=== PATIENT | male | born 1950 | race Caucasian/White ===

== ENCOUNTER 2021-12-25 10:22 | Inpatient (IN) | payer MEDICARE, SELFPAY ==
[2021-12-25] VITALS (18 sets, daily range): BP systolic 121–166; BP diastolic 61–108; PULSE 58–78; RESP 14–21; TEMP 36.3–36.8; O2SAT 92–98; BMI 39.2; BMI 37.8
--- NOTE | 2021-12-25 10:42 | EKG12_ITS ---
Test Reason : PALP Blood Pressure : / mmHG Vent. Rate : 061 BPM Atrial Rate : 061 BPM P-R Int : 160 ms QRS Dur : 178 ms QT Int : 476 ms P-R-T Axes : -44 -58 013 degrees QTc Int : 479 ms Possible ectopic atrial rhythm Right bundle branch block Left anterior fascicular block Bifascicular block Voltage criteria for left ventricular hypertrophy Abnormal ECG Confirmed by VANI QUINTERO, VINCE ([id number]), writer editor ANTONIO DÍAZ ([id number]) on 12/26/2021 9:45:27 AM Referred By: SAAD Confirmed By:VINCE LUDWIG MD
--- NOTE | 2021-12-25 10:42 | RAD_ITS ---
STUDY: X-RAY CHEST REASON FOR EXAM: Male, 71 years old. Sob TECHNIQUE: Single AP portable view of the chest. COMPARISON: None. FINDINGS: EKG electrodes are seen. Mild degree of increased markings at the left lung base suggestive of either atelectasis and/or infiltrate. There is no demonstrated pleural abnormality. Normal size heart. Normal mediastinum and jose r. Normal visualized pulmonary arteries. There is atherosclerotic tortuosity of the aortic arch and descending thoracic aorta. There are diffuse degenerative changes of the visualized thoracic spine. Normal visualized ribs, clavicles, and shoulders. There is no demonstrated abnormality of the visualized soft tissue structures of the upper abdomen. RAD/Chest 1 View (Portable) IMPRESSION: Mild degree of increased markings in the posterior medial segment of the left lower lobe suggestive of atelectasis and/or early infiltrate. Electronically Signed: Salinas Griffith MD at 12:49 EST ,
[2021-12-25 10:53] LABS: Absolute Lymphocyte Count 2.94 X10^3/uL (0.83-4.51); Absolute Neutrophil Count 5.8 X10^3/uL (2.0-7.7); Basophil# 0.06 X10^3/uL; Basophil% 0.6 % (0-1); Eosinophil# 0.36 X10^3/uL; Eosinophils% 3.7 % (0-5); Hematocrit 39.2 % (40-54); Hemoglobin 12.9 g/dL (13.0-16.5); Lymphocyte # 2.94 X10^3/ul (0.83-4.51); Lymphocyte % 29.8 % (19-41); Mean Corp Hgb Conc 32.9 g/dL (32-36); Mean Corpuscular Hgb 29.8 pg (27.0-32.0); Mean Corpuscular Volume 90.5 fL (80-94); Mean Platelet Vol. 10.7 fl (6.2-12.0); Monocyte# 0.61 X10^3/uL; Monocyte% 6.2 % (0-10); NRBC Flagged by Analyzer 0 % (0-5); Neutrophil # 5.84 X10^3/uL (2.7-7.7); Neutrophil % 59.3 % (47-70); Platelet Count 184 K/mm3 (150-450); RBC Distribution Width CV 13.8 % (11.6-14.6); RBC Distribution Width SD 45.3 fl (35.1-43.9); Red Blood Count 4.33 M/mm3 (4.6-6.2); White Blood Count 9.9 K/mm3 (4.4-11.0)
--- NOTE | 2021-12-25 10:57 | EDS_ITS ---
HPI History of Present Illness Chief Complaint: Palpitations Narrative Narrative: Patient presents from outpatient stress test, he was in the middle of a Lexiscan stress and developed asystole, CPR was performed and now patient is back to sinus rhythm, he had routine stress for an abnormal EKG. As of now he has no chest pain is asymptomatic. [facility] Medical History Allergic rhinitis Hernia Hyperlipemia Hypertension Hypothyroid Impotence Incontinence Malignant neoplasm of prostate Morbid obesity Pain in joint, lower leg Prostate cancer Pulmonary hypertension RBBB Rosacea SOB (shortness of breath) Type II diabetes mellitus Home Medications albuterol 90 mcg INHALATION Q4H PRN PRN 12/25/21 [History Last Taken Unknown] aspirin [Aspir-81] 81 mg PO DAILY 12/25/21 [History Last Taken Unknown] cinnamon bark 2,000 mg PO BID 12/25/21 [History Last Taken Unknown] dextromethorphan-guaifenesin [Mucinex DM] 1 tab PO Q12H 12/25/21 [History Last Taken Unknown] docosahexaenoic acid-epa [Fish Oil (with DHA-EPA)] 1 cap PO DAILY 12/25/21 [History Last Taken Unknown] dulaglutide [Trulicity] 3 mg SUBCUT QWEEK 12/25/21 [History Last Taken Unknown] enalapril maleate [Vasotec] 10 mg PO DAILY 12/25/21 [History Last Taken Unknown] epinephrine [Epi E-Z Pen] 0.3 mg IM Q4H PRN 12/25/21 [History Last Taken Unkn own] insulin glargine [Basaglar KwikPen U-100 Insulin] 35 unit SUBCUT BID 12/25/21 [History Last Taken Unknown] levothyroxine 100 mcg PO DAILY 12/25/21 [History Last Taken Unknown] metformin 1,000 mg PO BID 12/25/21 [History Last Taken Unknown] multivitamin [Multi-Daily] 1 tab PO DAILY 12/25/21 [History Last Taken Unknown] rosuvastatin [Crestor] 20 mg PO DAILY 12/25/21 [History Last Taken Unknown] Allergy/AdvReac Type Severity Reaction Status Date / Time amoxicillin Allergy Other Verified 12/25/21 10:29 erythromycin base Allergy Other Verified 12/25/21 10:29 simvastatin Allergy Other Verified 12/25/21 10:29 sunflower seed Allergy Swelling Verified 12/25/21 10:29 Surgical History H/O prostatectomy Social History Smoking Status: Never smoker ROS ROS ED ROS Narrative Past medical history: Reviewed Medications: Reviewed Social history: Noncontributory Review of systems: All systems negative except as indicated General: No fever. Period of unresponsiveness secondary to asystole Eyes: No visual changes ENT: No upper airway congestion, normal voice Neck: No neck pain Cardiovascular: No chest pain Respiratory: He has had some exertional dyspnea recently Gastrointestinal: No abdominal pain, nausea vomiting or diarrhea Genitourinary: No dysuria Musculoskeletal: Denies myalgias no difficulty with ambulation Skin: No rash Neurological: No memory loss, confusion or any focal weakness Psych: No recent behavioral changes Hematologic: No easy bleeding or easy bruising EXAM Physical Exam Narrative Exam Narrative: Physical exam General: Well nourished, Well developed, No Acute Distress. He seems quite comfortable in bed. Head: Normocephalic, Atraumatic Eyes: Conjunctiva not pale ENT: Moist mucous membranes Neck: Supple, Nontender, No lymphadenopathy Cardiovascular: Regular rate, Regular rhythm Respiratory: No distress, CTA bilaterally Abdomen: Soft, Nontender, Nondistended Back: Nontender, Normal Inspection. Negative for: CVA tenderness Extremities: Nontender, No edema Skin: Normal color, No rash Neurological: Alert, Normal Strength, Normal Sensation Psychological: Normal affect Const Vital Signs: 12/25/21 10:24 12/25/21 10:38 Temperature 97.4 F L Temperature Source Temporal Pulse Rate 64 Respiratory Rate 20 H Respiratory Effort Normal Non-Labored Respiratory Pattern Normal Blood Pressure 139/64 H Blood Pressure Mean 89 Pulse Ox 92 Oxygen Delivery Method Room Air Heart Score History: Moderately Suspicious ECG: Nonspecific Repolarization Age: >/= 65 years Risk Factors: >/= 3 Risk Factors or History of CAD Troponin: >1 - <3 Normal Limit Score: 7 MDM MDM MDM Narrative Medical decision making narrative: Patient is asymptomatic the EKG does not show a STEMI, it does show a bifascicular block. Regardless the patient was due to be transferred to [facility] however the paramedics brought him to our emergency department. Patient now wants to stay here. I talked to our cardiology team, who will accept the patient in fact I will try to do a catheterization later today. As of now patient is asymptomatic. Lab Data Labs: Laboratory Results - last 24 hr 12/25/21 10:30 WBC 9.9 RBC 4.33 L Hgb 12.9 L Hct 39.2 L MCV 90.5 MCH 29.8 MCHC 32.9 RDW Std Deviation 45.3 H RDW Coeff of Uziel 13.8 Plt Count 184 MPV 10.7 Immature Gran % (Auto) 0.400 Neut % (Auto) 59.3 Lymph % (Auto) 29.8 Banks % (Auto) 6.2 Eos % (Auto) 3.7 Baso % (Auto) 0.6 Absolute Neuts (auto) 5.8 Absolute Lymphs (auto) 2.94 Nucleated RBC % 0 EKG Initial EKG: Comments: Sinus rhythm with a rate of 61. Normal [place] and QTc intervals. Bifascicular block is present. Interpreted by emergency doctor Discharge Plan Triage Chief Complaint: Palpitations ED Provider: Jude Ramirez Dx/Rx/DC Orders Clinical Impression: Asystole, Coronary artery disease Prescriptions: No Action multivitamin [Multi-Daily] Tablet 1 tab PO DAILY RF: 0 enalapril maleate [Vasotec] 10 mg Tablet 10 mg PO DAILY RF: 0 aspirin [Aspir-81] 81 mg Tablet,Delayed Release (Dr/Ec) 81 mg PO DAILY RF: 0 levothyroxine 100 mcg Tablet 100 mcg PO DAILY RF: 0 metformin 1,000 mg Tablet 1,000 mg PO BID RF: 0 albuterol 90 mcg/actuation Aerosol 90 mcg INHALATION Q4H PRN PRN (Reason: sob) RF: 0 epinephrine [Epi E-Z Pen] 0.3 mg/0.3 mL Auto-Injector 0.3 mg IM Q4H PRN (Reason: Allergic Reaction) RF: 0 Mucinex DM 30-600 mg Tablet Extended Release 12 Hr 1 tab PO Q12H RF: 0 Fish Oil (with DHA-EPA) Capsule 1 cap PO DAILY RF: 0 rosuvastatin [Crestor] 20 mg Tablet 20 mg PO DAILY RF: 0 cinnamon bark 500 mg Capsule 2,000 mg PO BID RF: 0 Basaglar KwikPen U-100 Insulin 100 unit/mL (3 mL) Insulin Pen 35 unit SUBCUT BID RF: 0 Trulicity 3 mg/0.5 mL Pen Injector 3 mg SUBCUT QWEEK RF: 0 Primary Care Provider: Connor Fuller Referrals: Connor Fuller MD [Primary Care Provider] - Disposition Disposition: Acute Care [facility]
[2021-12-25 11:04] LABS: ALB/GLOB Ratio 1.1 RATIO (0.9-2.4); AST(SGOT) 20 U/L (15-37); Alanine Aminotransfer ALT/SGPT 35 U/L (16-61); Albumin, Serum 3.5 g/dL (3.2-5.0); Alkaline Phosphatase 58 U/L (45-117); Anion Gap 4 (5-15); BUN 24 mg/dL (7-18); BUN/Creat Ratio 25.5 RATIO (10-20); Calcium,Total 8.7 mg/dL (8.5-10.1); Chloride 109 mmol/L (98-107); Creatinine, Serum 0.94 mg/dL (0.70-1.30); EST Glomerular Filtration Rate 84 mL/min (>60); Est Glom Filt Rate - Afr Amer 101 mL/min (>60); Estimated Creatinine Clearance 79.11 ml/min; Globulin 3.2 g/dL (2.2-4.2); Glucose 144 mg/dL (74-106); Potassium 4.1 mmol/L (3.5-5.1); Protein, Total 6.7 g/dL (6.4-8.2); Sodium Level 140 mmol/L (136-145); Troponin-I HS 8 pg/mL (3.0-78.0)
--- NOTE | 2021-12-25 11:26 | ED.RN ---
Spoke to Essence, patient , permission from patient to do so.
--- NOTE | 2021-12-25 11:36 | PCM.HP.STD ---
HPI - General General Date of Admission: 12/25/21 Date of Service: 12/25/21 HPI Narrative STEFFANY SUE, is a 71 M who was brought to ER from stress test lab when he had a sudden cardiac arrest in the stress test lab by EMS. Patient said he had IV injection most probably Lexiscan for stress test thereafter he felt dizzy and does not remember. Patient was found to have cardiac arrest and ACLS protocol was followed. The duration was very brief for about 45 seconds and ROSC was achieved with CPR only. Patient did not require AP or other maneuvers. Patient was brought to ED and as per ER physician patient denies any chest pain pressure or shortness of breath and he felt like normal. EMS EKG and ED EKG reviewed. Normal sinus rhythm bifascicular block RBBB, LAFB, LAD at 61 beats per read. QRS 178 ms. QTc 479 ms. Patient had blood work on 12/[address] [facility] and A1c 6.7. Patient also said he had a stress and echo in 2019 the report of which is not available at this time but he was told that they were normal. Patient has history of diabetes mellitus type 2 and hypertension. Denies prior MS/coronary artery disease or cardiac stent. Patient denies history of smoking or COPD or other chronic lung disease. History of prostate cancer for which he had prostatectomy in 2005. In ED, vitals are in normal range. Labs reviewed. Chest x-ray shows left lower lobe atelectasis/early infiltrate. Clinically, the patient does not have fever cough or signs symptoms of pneumonia PFSH Medical History Allergic rhinitis Hernia Hyperlipemia Hypertension Hypothyroid Impotence Incontinence Malignant neoplasm of prostate Morbid obesity Pain in joint, lower leg Prostate cancer Pulmonary hypertension RBBB Rosacea SOB (shortness of breath) Type II diabetes mellitus Home Medications albuterol 90 mcg INHALATION Q4H PRN PRN 12/25/21 [History Last Taken Unknown] aspirin [Aspir-81] 81 mg PO DAILY 12/25/21 [History Last Taken Unknown] cinnamon bark 2,000 mg PO BID 12/25/21 [History Last Taken Unknown] dextromethorphan-guaifenesin [Mucinex DM] 1 tab PO Q12H 12/25/21 [History Last Taken Unknown] docosahexaenoic acid-epa [Fish Oil (with DHA-EPA)] 1 cap PO DAILY 12/25/21 [History Last Taken Unknown] dulaglutide [Trulicity] 3 mg SUBCUT QWEEK 12/25/21 [History Last Taken Unknown] enalapril maleate [Vasotec] 10 mg PO DAILY 12/25/21 [History Last Taken Unknown] epinephrine [Epi E-Z Pen] 0.3 mg IM Q4H PRN 12/25/21 [History Last Taken Unknown] insulin glargine [Basaglar KwikPen U-100 Insulin] 35 unit SUBCUT BID 12/25/21 [History Last Taken Unknown] levothyroxine 100 mcg PO DAILY 12/25/21 [History Last Taken Unknown] metformin 1,000 mg PO BID 12/25/21 [History Last Taken Unknown] multivitamin [Multi-Daily] 1 tab PO DAILY 12/25/21 [History Last Taken Unknown] rosuvastatin [Crestor] 20 mg PO DAILY 12/25/21 [History Last Taken Unknown] Allergy/AdvReac Type Severity Reaction Status Date / Time amoxicillin Allergy Other Verified 12/25/21 10:29 erythromycin base Allergy Other Verified 12/25/21 10:29 simvastatin Allergy Other Verified 12/25/21 10:29 sunflower seed Allergy Swelling Verified 12/25/21 10:29 Surgical History H/O prostatectomy Social History Smoking Status: Never smoker ROS ROS Narrative Constitutional: No fever or chills. Mild fatigue after cardiac arrest. HEENT: Reports systems reviewed and no addt'l complaints, except as documented Respiratory/Chest: Denies chest pain, shortness of breath at rest. Shortness of breath on moderate to severe exertion last 2 years. Gastrointestinal: Denies coffee ground emesis, hematemesis or vomiting Genitourinary: Denies burning urination or new urinary tract symptoms. Urinary incontinence and impotence after prostate surgery Musculoskeletal: Reports joint pain and limited range of motion Neurologic: Denies seizure-like activity skin: No ulcer. No rash Endocrinology: Reports systems reviewed and no addt'l complaints, except as documented Hematologic/Lymphatic: Reports systems reviewed and no addt'l complaints, except as documented Rest 14 ROS are negative except as mentioned in HPI Vital Signs Vital Signs Vital Signs: 12/25/21 10:24 12/25/21 10:38 12/25/21 11:24 Temperature 97.4 F L Temperature Source Temporal Pulse Rate 64 61 Respiratory Rate 20 H 16 Respiratory Effort Normal Non-Labored Respiratory Pattern Normal Blood Pressure 139/64 H 123/65 H Blood Pressure Mean 89 84 Pulse Ox 92 94 Oxygen Delivery Method Room Air Room Air Weight Weight: 289 lb 3.944 oz Body Mass Index (BMI) 39.2 Physical Exam Narrative General: Alert, Oriented x3, Cooperative, morbid obese BMI 39.2 kg/m? HEENT: Atraumatic, PERRLA, EOMI, Normocephalic Oral: No Gingival or Mucosal Lesions/ Ulcerations Neck: Supple, No JVD, Negative Carotid Bruits Lungs: Air entry diminished in bilateral lung bases. No crepitation/rhonchi. No hypoxia/tachypnea Cardiovascular: Regular rate, Regular Rhythm, Normal S1, Normal S2, No murmurs Abdomen: Bowel Sounds Present, Soft, Non Tender, Non-Distended : No renal angle tenderness. No suprapubic tenderness. Extremities: Mild bilateral ankle pitting edema, Capillary Refill Less than 3 Seconds Skin: No rashes, No breakdown Musculoskeletal: No Tenderness to Palpation of Joints or Extremities Neurological: Cranial nerves II-XII grossly intact, DTR 2+/4 and Symmetrical, Neuro grossly intact Psych/Mental Status: Flat affect. Results Lab / Micro Data Result Diagrams: 12/25/21 10:30 12/25/21 10:30 Labs: Laboratory Results - last 24 hr 12/25/21 10:30: WBC 9.9, RBC 4.33 L, Hgb 12.9 L, Hct 39.2 L, MCV 90.5, MCH 29.8, MCHC 32.9, RDW Std Deviation 45.3 H, RDW Coeff of Uziel 13.8, Plt Count 184, MPV 10.7, Immature Gran % (Auto) 0.400, Neut % (Auto) 59.3, Lymph % (Auto) 29.8, Garza % (Auto) 6.2, Eos % (Auto) 3.7, Baso % (Auto) 0.6, Absolute Neuts (auto) 5.8, Absolute Lymphs (auto) 2.94, Nucleated RBC % 0 12/25/21 10:30: Sodium 140, Potassium 4.1, Chloride 109 H, Carbon Dioxide 27.0, Anion Gap 4 L, BUN 24 H, Creatinine 0.94, Estim Creat Clear Calc 79.11, Est GFR (MDRD) Af Amer 101, Est GFR (MDRD) Non-Af 84, BUN/Creatinine Ratio 25.5 H, Glucose 144 H, Calcium 8.7, Total Bilirubin 0.30, AST 20, ALT 35, Alkaline Phosphatase 58, Troponin I High Sens 8, Total Protein 6.7, Albumin 3.5, Globulin 3.2, Albumin/Globulin Ratio 1.1 Assessment & Plan Assessment/Plan (1) Asystole: PLAN: 1. Syncope and cardiac arrest during Lexiscan nuclear stress test with bifascicular block: Patient is being admitted in stepdown unit, PCU. Cardiac monitoring. Patient is states he had previous EKG by [facility] about 6 months ago and had bifascicular block. Obtain medical record from [facility]. Nursing Education Consultant is consulted. Plan for cardiac cath today. Patient had aspirin in ED. Cycle troponin enzymes. 2D echo is ordered. Fasting profile, TSH tomorrow a.m. Patient was given option for [facility] but he wants to stay here for further work-up. He knows that if cardiac cath shows triple vessel disease or need CABG or other cardiac surgery will need to go to tertiary care center/[facility] in clinic. 2. Diabetes mellitus type 2: A1c was 6.7 on 12/20/2021. Glucose 144. Accu-Chek insulin coverage with Humalog sliding scale. On insulin glargine 30 5 subcutaneous twice daily and Trulicity 3 mg weekly. 3. Hypertension: Blood pressure is controlled. Patient on enalapril 10 mg daily at home. 4. Dyslipidemia: On rosuvastatin 20 mg daily at home. 5. Morbid obesity: BMI 39.2 kg/m?. Weight loss counseling done. Senior Compensation Consultant consult. VT prophylaxis: Lovenox 40 mg subcu daily Living will/advanced directive/end of life care: Patient does have living will or advanced directive. His is power of aviation technician for health. After discussion of benefits/risks procedures involved with full code, DNR CC arrest and DNR CC, the patient opted for full code. Patient does want artificial life support including intubation, tube feed, ventilator and/chest compression, central venous catheter, vasopressor and DC shock if needed Total time spent in [id number] encounter in discussion of advanced directive 16 minutes. Charges/Coding Visit Charges Inpatient E&M: 06900 Init Hosp L3 Procedures Hospitalists Procedures: 55159 Advncd Care Plan 30 Min
--- NOTE | 2021-12-25 12:30 | CM.ED ---
SW/CM Note Patient: Bharathi Vargas No family present Patient confirmed the demographic sheet including address and insurance. Patient reports she has a HCPOA and Living Will at home. SW encouraged him to advise family to bring the paperwork to the hospital so it could be scanned into the computer. PCP: Jonny Specialist: None Insurance: [employer] [place] [employer] [place] RX Insurance[place] [employer] [place] [employer] [place] Readmits: Patient reports no past admissions to [facility] or [facility]. Name of Pharmacy: [facility] [place] [facility] [place] Lives with : and daughter. is currently on vacation in [place] and patient said that he is not sure what she will do in regards to the vacation. Son resides in [place] and daughter resides with him and his at the home. Living Arrangements: One Story house with basement. One step into the house. Steps to basement. Patient uses the basement. ADL: Patient is independent in his ADL's. Employed: Patient works 6 days a week 10 hours a day at [employer]. He reports he enjoys the job. Patient reports that he feels safe at home. No alcohol use Transportation: Patient drives. Current DME: Patient reports that both toilets have the higher toilet seats and they also have safety rails. No home oxygen. No previous Home Health Services RN CM to follow for any discharge needs Padmini CELAYA
--- NOTE | 2021-12-25 13:34 | EKG12_ITS ---
Test Reason : Blood Pressure : / mmHG Vent. Rate : 065 BPM Atrial Rate : 065 BPM P-R Int : 122 ms QRS Dur : 184 ms QT Int : 470 ms P-R-T Axes : -04 -70 028 degrees QTc Int : 488 ms Normal sinus rhythm with sinus arrhythmia Right bundle branch block Left anterior fascicular block Bifascicular block Left ventricular hypertrophy with QRS widening Abnormal ECG When compared with ECG of 25-DEC-2021 10:31, MANUAL COMPARISON REQUIRED, DATA IS UNCONFIRMED Confirmed by VANI QUINTERO, VINCE ([id number]), multimedia editor ANTONIO DÍAZ ([id number]) on 12/27/2021 9:55:16 AM Referred By: NANCY Confirmed By:VINCE LUDWIG MD
--- NOTE | 2021-12-25 13:34 | ECHOCS_ITS ---
Reason For Study: ASYSTOLE Procedure This was a 2D Doppler, Color Flow transthoracic echocardiogram. The study was technically limited. The study was technically difficult. Due to body habitus. Contrast injection was performed. Exam performed portable in patient room. Left Ventricle Normal LV size. Left ventricular systolic function is normal. The estimated ejection fraction is 65 %. No regional wall motion abnormalities noted. Right Ventricle Normal RV size. Normal systolic function. Atria Normal left atrium. Normal right atrium. Mitral Valve Mitral valve not well visualized. Tricuspid Valve The tricuspid valve is not well visualized. Aortic Valve The aortic valve is not well visualized. Pulmonic Valve The pulmonic valve is not well visualized. Great Vessels Normal aortic root. Pericardium/Pleural No pericardial effusion. Medication Diluted definity 4.0ml given slow IV push to enhance endocardial definition. MMode/2D Measurements & Calculations LVIDd: 4.3 cm IVSd: 1.3 cm LA dimension: 4.0 cm LVIDs: 2.8 cm LVPWd: 1.3 cm FS: 33.9 % Time Measurements MV dec time: 0.27 sec Doppler Measurements & Calculations MV E max subhash: 89.9 cm/sec Lat Peak E' Subhash: 7.5 cm/sec Med Peak E' Subhash: 6.5 cm/sec MV A max subhash: 101.0 cm/sec E/E' lat: 12.0 E/E' med: 13.9 MV E/A: 0.89 Ao V2 max: 130.6 cm/sec LV V1 max: 77.6 cm/sec PA V2 max: 85.5 cm/sec Ao max P.8 mmHg LV V1 max P.4 mmHg TR max subhash: 192.2 cm/sec TR max P.8 mmHg ECHO/Echo Complete W/ Contrast Interpretation Summary Normal LV size. Left ventricular systolic function is normal. The estimated ejection fraction is 65 %. Contrast injection was performed. Ordering Physician: Adilson Alfonso Referring Physician: Parish Fuller Performed By: Damaris Merida RDCS, RVT
--- NOTE | 2021-12-25 14:15 | NURSING ---
transferred off floor to director of cardiac cath lab via Emile Simon director of cardiac cath lab RN
[2021-12-25 14:21] LABS: Bedside Glucose 93 mg/dL (74-106)
[2021-12-25 14:38] LABS: Troponin-I HS 11 pg/mL (3.0-78.0)
--- NOTE | 2021-12-25 15:14 | CL.D_ITS ---
Patient Name: STEFFANY SUE Study Date: 12/25/2021 Performing: Darian Rodas MD Ht: 72 inches 183 cm : 1950 Wt: 280.4 lbs 127 kg Age: 71 Gender: male BSA: 2.46 PROCEDURE(S) PERFORMED DC01-(30585)LHC/COR/LV CLINICAL PROFILE AND INDICATIONS Indications: Suspected CAD Heart Failure: None Stress/Imaging Date: 12/25/2021 CAD Presentations: Symptom unlikely to be ischemic. CONCLUSIONS Coronary disease with a totally occluded right coronary artery with left to right collaterals. Mild disease noted in the left anterior descending artery and circumflex artery. RECOMMENDATIONS Medical therapy DESCRIPTION OF PROCEDURE The patient arrived to the procedure lab. The risks and benefits of the procedure as well as a full d escription of our services here and current unavailability of surgical backup were fully explained to the patient and/or their significant other prior to the catheterization. The Timeout was completed, verifying the correct patient and procedure. The patient's procedural site was prepped and draped in the usual fashion. Local anesthetic was given subcutaneously to right radial region with Lidocaine 2% . Using a modified Seldinger technique, arterial access was obtained via the right radial artery, a 6 Fr sheath was inserted. Left Coronary Artery selective angiography was performed in multiple views u sing a 5 Fr. 4.0 Madison catheter. Right Coronary Artery selective angiography was then performed in mu ltiple views using a 5 Fr. 4.0 Madison catheter.The arterial sheath was pulled and a TR Band was applie d for hemostasis CORONARY ANGIOGRAPHY DOMINANCE: Right Dominant LEFT HEART ASSESSMENT Left Ventricular Ejection Fraction: by Echo 50 % Normal LV wall motion LEFT MAIN: Mild calcification, Angiographically normal LEFT ANTERIOR DESCENDING ARTERY: Mild luminal irregularities less than 30% CIRCUMFLEX ARTERY: Mild luminal irregularities less than 30% RIGHT CORONARY ARTERY: OSTIAL RCA: is occluded COLLATERAL FLOW: Collateral flow from Left to Right AORTIC ROOT: Dilated COMPLICATIONS No Complications PROCEDURE MEDICATIONS Versed 1 mg IV Fentanyl 50 mcg IV Versed 1 mg IV Oxygen: 2 L/min via nasal cannula Heparin given IA 12/25/2021 14:49:21 SUMMARY OF HEMODYNAMIC DATA Time AIR REST ECG 14:39:47 AO 107/69 (88) SA 14:50:27 Signed By Darian Rodas MD On 12/25/2021 15:13:11 Darian Rodas MD
--- NOTE | 2021-12-25 15:16 | CON.PCM.CA_ITS ---
Assessment & Plan Assessment/Plan (1) Asystole: PLAN: Patient was noted to have developed asystole following pharmacologic stress testing. I would recommend that we observe him. The above is likely secondary to his underlying right bundle branch block and left anterior fascicular block. This may have been exacerbated by the adenosine. (2) Coronary artery disease: PLAN: He does not previously have a known history of coronary artery disease however due to the reaction with the adenosine he underwent a cardiac catheterization today demonstrating the following: Dilated aortic root. Normal left main coronary artery. Left anterior descending artery with mild to moderate diffuse disease. Left circumflex artery with mild to moderate diffuse disease. Left to right collaterals noted. Totally occluded proximal right coronary artery Echocardiogram demonstrated preserved left ventricular systolic function. Thank you for allowing me to participate in the care of your patient. Please don't hesitate to call if any issues arise. HPI Consult Data Date of Consult: 12/25/21 HPI Narrative HPI Narrative: STEFFANY SUE, is a 71 M who presents to ER from stress test lab at the [facility] in [place] where he was undergoing a pharmacologic stress test. He underwent a Lexiscan stress test and says that he felt dizzy and does not remember what happened. He apparently had a cardiac arrest and ACLS protocol was followed the duration was brief for about 45 seconds and return of spontaneous circulation was achieved with CPR. The patient is noted to have a normal sinus rhythm with a right bundle branch block and a left anterior fascicular block with a rate of 61 bpm. He was brought to the emergency room here in [place] ostensibly with the idea of transferring him to a tertiary care facility. He does have a history of hypertension, hyperlipidemia, diabetes mellitus. I was called to evaluate him and it was felt that he could be evaluated here. His physical exam here was unremarkable. [facility] Medical History (Updated 12/25/21 @ 16:04 by Monica Ocasio) Allergic rhinitis Atherosclerotic heart disease of [place] coronary artery without angina pectoris Essential hypertension Hernia Hyperlipemia Hypothyroid Impotence Incontinence Malignant neoplasm of prostate Morbid obesity Pain in joint, lower leg Prostate cancer Pulmonary hypertension RBBB Right bundle branch block (RBBB) with left anterior fascicular block Rosacea SOB (shortness of breath) Type II diabetes mellitus Home Medications albuterol 90 mcg INHALATION Q4H PRN PRN 12/25/21 [History Last Taken Unknown] aspirin [Aspir-81] 81 mg PO DAILY 12/25/21 [History Last Taken Unknown] cinnamon bark 2,000 mg PO BID 12/25/21 [History Last Taken Unknown] dextromethorphan-guaifenesin [Mucinex DM] 1 tab PO Q12H 12/25/21 [History Last Taken Unknown] docosahexaenoic acid-epa [Fish Oil (with DHA-EPA)] 1 cap PO DAILY 12/25/21 [History Last Taken Unknown] dulaglutide [Trulicity] 3 mg SUBCUT QWEEK 12/25/21 [History Last Taken Unknown] enalapril maleate [Vasotec] 10 mg PO DAILY 12/25/21 [History Last Taken Unknown] epinephrine [Epi E-Z Pen] 0.3 mg IM Q4H PRN 12/25/21 [History Last Taken Unknown] insulin glargine [Basaglar KwikPen U-100 Insulin] 35 unit SUBCUT BID 12/25/21 [History Last Taken Unknown] levothyroxine 100 mcg PO DAILY 12/25/21 [History Last Taken Unknown] metformin 1,000 mg PO BID 12/25/21 [History Last Taken Unknown] multivitamin [Multi-Daily] 1 tab PO DAILY 12/25/21 [History Last Taken Unknown] rosuvastatin [Crestor] 20 mg PO DAILY 12/25/21 [History Last Taken Unknown] Allergy/AdvReac Type Severity Reaction Status Date / Time amoxicillin Allergy Other Verified 12/25/21 10:29 erythromycin base Allergy Other Verified 12/25/21 10:29 simvastatin Allergy Other Verified 12/25/21 10:29 sunflower seed Allergy Swelling Verified 12/25/21 10:29 Surgical History (Updated 12/25/21 @ 16:01 by Monica Ocasio) H/O prostatectomy History of left heart catheterization (12/25/21) Social History Smoking Status: Never smoker ROS Constitutional Constitutional: Denies fever(s) or weight loss Eyes Eyes: Reports systems reviewed and no addt'l complaints, except as documented ENT HEENT: Reports systems reviewed and no addt'l complaints, except as documented Cardiovascular Cardiovascular: Denies chest pain at rest, chest pain with activity, dyspnea at rest, dyspnea on exertion, edema, palpitations or paroxysmal nocturnal dyspnea Respiratory/Chest Respiratory/Chest: Denies dyspnea on exertion, productive cough, shortness of breath at rest or shortness of breath with exertion Gastrointestinal Gastrointestinal: Denies change in bowel habits, nausea, vomiting or weight changes Genitourinary Genitourinary: Denies difficulty urinating Musculoskeletal Musculoskeletal: Denies joint stiffness or muscle weakness Integumentary Integumentary: Denies lesions Neurologic Neurologic: Denies dizziness or syncope Psychiatric Psychiatric: Denies anxiety Endocrine Endocrinology: Denies excessive sweating or fatigue Hematologic/Lymphatic Hematologic/Lymphatic: Denies anemia Allergic/Immunologic Allergic/Immunologic: Denies seasonal rhinorrhea Physical Exam Const alert, oriented x3 and no apparent distress General Appearance: cooperative HEENT hearing grossly normal bilaterally Head and Scalp: atraumatic Eyes EOMs intact bilaterally Neck General: normal visual inspection Chest inspection of chest normal and palpation of chest normal Resp normal respiratory effort Auscultation: clear to auscultation bilaterally Cardio regular rate, regular rhythm, S1 normal heart sound and S2 normal heart sound Jugular Venous Distention: JVD GI normal to inspection, nondistended, normoactive bowel sounds Extremity normal capillary refill and no pedal edema Peripheral Pulses: Yes pulses 2+ throughout and femoral pulses present Skin no rashes or lesions noted Neuro oriented x3 and CN's II-XII intact bilaterally Psych Appearance: grossly normal and appropriate Risk Stratification Risk Stratification Applicable: No Objective Data Vital Signs: Vital Signs Temp Pulse Resp BP Pulse Ox 98.0 F 63 17 132/61 H 98 12/25/21 13:30 12/25/21 13:45 12/25/21 13:30 12/25/21 13:30 12/25/21 13:30 Oxygen Flow Rate (L/min) 2 Oxygen Delivery Method Room Air Weight: 279 lb Body Mass Index (BMI) 37.8 Lab / Micro Data Result Diagrams: 12/25/21 10:30 12/25/21 10:30 Labs: Laboratory Results - last 24 hr 12/25/21 10:30: WBC 9.9, RBC 4.33 L, Hgb 12.9 L, Hct 39.2 L, MCV 90.5, MCH 29.8, MCHC 32.9, RDW Std Deviation 45.3 H, RDW Coeff of Uziel 13.8, Plt Count 184, MPV 10.7, Immature Gran % (Auto) 0.400, Neut % (Auto) 59.3, Lymph % (Auto) 29.8, Meigs % (Auto) 6.2, Eos % (Auto) 3.7, Baso % (Auto) 0.6, Absolute Neuts (auto) 5.8, Absolute Lymphs (auto) 2.94, Nucleated RBC % 0 12/25/21 10:30: Sodium 140, Potassium 4.1, Chloride 109 H, Carbon Dioxide 27.0, Anion Gap 4 L, BUN 24 H, Creatinine 0.94, Estim Creat Clear Calc 79.11, Est GFR (MDRD) Af Amer 101, Est GFR (MDRD) Non-Af 84, BUN/Creatinine Ratio 25.5 H, Glucose 144 H, Calcium 8.7, Total Bilirubin 0.30, AST 20, ALT 35, Alkaline Phosphatase 58, Troponin I High Sens 8, Total Protein 6.7, Albumin 3.5, Globulin 3.2, Albumin/Globulin Ratio 1.1 12/25/21 10:30: Phosphorus 3.0, Magnesium 2.0 12/25/21 14:11: POC Glucose 93 12/25/21 14:13: Troponin I High Sens 11 Cardiology Labs/Tests 12/25/21 10:30: WBC 9.9, RBC 4.33 L, Hgb 12.9 L, Hct 39.2 L, MCV 90.5, MCH 29.8, MCHC 32.9, Plt Count 184, MPV 10.7, Immature Gran % (Auto) 0.400, Neut % (Auto) 59.3, Lymph % (Auto) 29.8, Meigs % (Auto) 6.2, Eos % (Auto) 3.7, Baso % (Auto) 0.6, Absolute Neuts (auto) 5.8, Nucleated RBC % 0 12/25/21 10:30: Sodium 140, Potassium 4.1, Chloride 109 H, Carbon Dioxide 27.0, Anion Gap 4 L, BUN 24 H, Creatinine 0.94, Est GFR (MDRD) Af Amer 101, Est GFR (MDRD) Non-Af 84, BUN/Creatinine Ratio 25.5 H, Glucose 144 H, Calcium 8.7, Total Bilirubin 0.30 12/25/21 10:30: Phosphorus 3.0, Magnesium 2.0 Rhythm: EKG: ECHO: Stress Test: Cardiac Cath: PCI: CT Surgery: Holter monitor: EPS: PPM: CXR: Chest CT Scan: Radiography Diagnostic Testing: Radiology Impression Chest X-Ray 12/25/21 10:42 IMPRESSION: Mild degree of increased markings in the posterior medial segment of the left lower lobe suggestive of atelectasis and/or early infiltrate. Electronically Signed: Salinas Griffith MD at 12:49 EST ,
[2021-12-25 16:06] LABS: Bedside Glucose 88 mg/dL (74-106)
[2021-12-25] MEDS: Lactated Ringers 1,000 ML 75 ML IV (16:38)
[2021-12-25 17:33] LABS: Troponin-I HS 12 pg/mL (3.0-78.0)
[2021-12-25 20:51] LABS: Bedside Glucose 146 mg/dL (74-106)
[2021-12-26] VITALS (7 sets, daily range): BP systolic 122–154; BP diastolic 70–76; PULSE 59–68; RESP 14–18; TEMP 36.3–36.8; O2SAT 94–96
[2021-12-26] MEDS: Levothyroxine 100 MCG Tablet PO (05:13)
[2021-12-26 06:45] LABS: Hematocrit 38.6 % (40-54); Hemoglobin 12.3 g/dL (13.0-16.5); Mean Corp Hgb Conc 31.9 g/dL (32-36); Mean Platelet Vol. 10.8 fl (6.2-12.0); Platelet Count 193 K/mm3 (150-450); RBC Distribution Width CV 13.9 % (11.6-14.6); RBC Distribution Width SD 46.5 fl (35.1-43.9); Red Blood Count 4.24 M/mm3 (4.6-6.2); White Blood Count 10.1 K/mm3 (4.4-11.0)
[2021-12-26 07:18] LABS: ALB/GLOB Ratio 1.1 RATIO (0.9-2.4); AST(SGOT) 18 U/L (15-37); Alanine Aminotransfer ALT/SGPT 32 U/L (16-61); Albumin, Serum 3.3 g/dL (3.2-5.0); Alkaline Phosphatase 56 U/L (45-117); Anion Gap 5 (5-15); BUN 21 mg/dL (7-18); BUN/Creat Ratio 21.8 RATIO (10-20); Calcium,Total 8.4 mg/dL (8.5-10.1); Chloride 107 mmol/L (98-107); Cholesterol 140 mg/dL (200); Creatinine, Serum 0.96 mg/dL (0.70-1.30); EST Glomerular Filtration Rate 82 mL/min (>60); Est Glom Filt Rate - Afr Amer 99 mL/min (>60); Estimated Creatinine Clearance 77.47 ml/min; Globulin 3.1 g/dL (2.2-4.2); Glucose 102 mg/dL (74-106); High Density Lipoprotein 29 mg/dL; Potassium 4.2 mmol/L (3.5-5.1); Protein, Total 6.4 g/dL (6.4-8.2); Sodium Level 139 mmol/L (136-145); Thyroid Stim Hormone (TSH) 1.54 uIU/mL (0.358-3.74); Triglycerides 203 mg/dL; Very Low Density Lipoprotein 41 mg/dL (5-40)
[2021-12-26] MEDS: Lisinopril 10 MG Tablet PO (08:38)
[2021-12-26] MEDS: Atorvastatin Calcium 40 MG Tablet PO (08:38)
[2021-12-26] MEDS: Aspirin E.C. 81 MG Tablet PO (08:38)
[2021-12-26] MEDS: Multivitamins,Therapeutic Tablet 1 TABLET PO (08:38)
[2021-12-26] MEDS: Enoxaparin 40 MG/0.4 ML Syringe SC (08:39)
--- NOTE | 2021-12-26 09:59 | PCM.DC ---
Discharge Instructions Diet Discharge Diet: Low fat / Low cholesterol, 1800 Calorie Control Diet and 2000 mg Sodium Diet Dressing / Incision Call your doctor if you observe: Fever of 101 or Higher, Coldness, Increased Pain, Numbness or Tingling, Change in Color, Inability to urinate, Inability to have a bowel movement, Shortness of breath, Dizziness, Fainting spells, Swelling in the ankles, Chest pain, Prolonged hiccupping, Increased palpitations (irregular heartbeat), Calf discomfort and Uncontrolled pain Follow Up Care Test Results: Test results from this visit will be discussed in further detail at your follow-up appointment, if applicable. Discharge Plan Admission Admit Date/Time: 12/25/21 11:24 Primary Reason for Your Visit: Syncope with cardiac arrest Attending Provider: Adilson Alfonso Primary Care Provider: Connor Fuller Consulting Providers: Darian Rodas Discharge Orders/Prescriptions Prescriptions: New nitroglycerin 0.4 mg Tablet, Sublingual 0.4 mg sublingual Q5M PRN (Reason: Cardiac/Chest Pain) Qty: 30 RF: 0 Continued multivitamin Tablet 1 tab PO DAILY RF: 0 enalapril maleate [Vasotec] 10 mg Tablet 10 mg PO DAILY RF: 0 aspirin 81 mg Tablet,Delayed Release (Dr/Ec) 81 mg PO DAILY RF: 0 levothyroxine 100 mcg Tablet 100 mcg PO DAILY RF: 0 albuterol 90 mcg/actuation Aerosol 90 mcg INHALATION Q4H PRN PRN (Reason: sob) RF: 0 epinephrine 0.3 mg/0.3 mL Auto-Injector 0.3 mg IM Q4H PRN (Reason: Allergic Reaction) RF: 0 rosuvastatin [Crestor] 20 mg Tablet 20 mg PO DAILY RF: 0 Basaglar KwikPen U-100 Insulin 100 unit/mL (3 mL) Insulin Pen 35 unit SUBCUT BID RF: 0 Trulicity 3 mg/0.5 mL Pen Injector 3 mg SUBCUT QWEEK RF: 0 metformin 1,000 mg Tablet 1,000 mg PO BID Qty: 0 RF: 0 Changed Mucinex DM 30-600 mg Tablet Extended Release 12 Hr 1 tab PO Q12H PRN (Reason: nasal congesation) Qty: 0 RF: 0 Discontinued Fish Oil (with DHA-EPA) Capsule 1 cap PO DAILY RF: 0 cinnamon bark 500 mg Capsule 2,000 mg PO BID RF: 0 Referrals / Follow Up: Connor Fuller MD [Primary Care Provider] - Within 1 Week (for Syncope) Darian Rodas MD [STAFF PHYSICIAN] - Within 1 Month ( Unstable angina)
--- NOTE | 2021-12-26 11:05 | DS.PCM_ITS ---
Providers Date of Admission: 12/25/21 Date of Discharge: 12/26/21 Primary Care Physician: Dr. Connor Fuller MD Consultations 12/25/21 11:44 Consult: Cardiology Routine Consulting Provider: Darian Rodas Reason for Consult: asystole in stress test, abnormal stress test EMERGENT Consult: No MD Notified: Yes Date Notified: 12/25/21 Time Notified: 11:44 Method of Notification: Verbal Reason For Visit: ASYSTOLE,ABNORMAL LEXISCAN STRESS TEST Diagnosis Discharge Diagnosis (1) Asystole: Status: Acute Code(s): I46.9 - Cardiac arrest, cause unspecified (2) Coronary artery disease: Status: Deleted Code(s): I25.10 - Atherosclerotic heart disease of [place] coronary artery without angina pectoris Medications at Discharge Home Medications Basaglar KwikPen U-100 Insulin 35 unit SUBCUT BID 12/25/21 Trulicity 3 mg SUBCUT QWEEK 12/25/21 albuterol 90 mcg INHALATION Q4H PRN PRN 12/25/21 aspirin 81 mg PO DAILY 12/25/21 enalapril maleate [Vasotec] 10 mg PO DAILY 12/25/21 epinephrine 0.3 mg IM Q4H PRN 12/25/21 levothyroxine 100 mcg PO DAILY 12/25/21 multivitamin 1 tab PO DAILY 12/25/21 rosuvastatin [Crestor] 20 mg PO DAILY 12/25/21 Mucinex DM 1 tab PO Q12H PRN #0 tab 12/26/21 metformin 1,000 mg PO BID #0 tab 12/26/21 nitroglycerin 0.4 mg SUBLINGUAL Q5M PRN #30 tab 12/26/21 Hospital Course Summary of Care Provided Hospital Course: This 71-year-old question gentleman was admitted after he had sudden cardiac arrest in the stress test lab and then transferred to ER by EMS. The patient was given option for [facility] but he wants to stay here for further work-up. He knows that if cardiac cath shows triple vessel disease or need CABG or other cardiac surgery will need to go to tertiary care center/[facility] in clinic. Patient was given aspirin in ED. Chest x-ray shows left lower lobe atelectasis/early infiltrate. 1. Syncope, asystole with cardiac arrest during Lexiscan nuclear stress test with underlying bifascicular block with unstable angina: The patient was admitted in stepdown unit, PCU. Cardiac monitoring. Patient had IV injection Lexiscan and patient has bifascicular right bundle branch block and left anterior physical block probably exacerbated by Lexiscan. Patient is states he had previous EKG by [facility] about 6 months ago and had bifascicular block. Professor Of Medicine was consulted and patient had cardiac cath.Cardiac cath showed totally occluded RCA with [id number] collaterals. Mild disease in LAD and circumflex artery. Patient recommended medical therapy. 2D echo shows preserved EF 65% no regional wall motion abnormality. Normal left and right atrium. Serial troponin enzymes are negative. Fasting profile shows LDL 70, HDL 29, triglyceride 203. TSH normal. Patient heart rate in 60s. Since patient has bifascicular block and had cardiac arrest therefore beta-wilberto not given because of high suspicion of underlying intrafascicular block. 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 2. Diabetes mellitus type 2: A1c was 6.7 on 12/20/2021. Glucose 144. Accu-Chek shows glucose 144. Accu-Chek insulin coverage with Humalog sliding scale. On insulin glargine 35 subcutaneous twice daily and Trulicity 3 mg weekly. Blood sugar reasonably within range, less than 180 mg/dL 3. Hypertension: Blood pressure is controlled. Patient on enalapril 10 mg daily at home. 4. Dyslipidemia: On rosuvastatin 20 mg daily at home. 5. Morbid obesity: BMI 39.2 kg/m?. Weight loss counseling done. Gate Agent consult. VT prophylaxis: Lovenox 40 mg subcu daily Discharge medication reconciliation done. Discharge follow-up instructions completed. Discharge process discussed with the patient and all questions were answered to patient's satisfaction. Prescription for sublingual nitroglycerin sent to patient's pharmacy. Total time spent, exact 35 minutes on discharge meds reconciliation, examination, coordination of care with nurses and ancillary staff, review of imaging and blood test and discussion with the patient on follow-up instructions. Physical Exam Narrative General: Alert, Oriented x3, Cooperative, morbid obese BMI 39.2 kg/m? HEENT: Atraumatic, PERRLA, EOMI, Normocephalic Oral: No Gingival or Mucosal Lesions/ Ulcerations Neck: Supple, No JVD, Negative Carotid Bruits Lungs: Air entry diminished in bilateral lung bases. No crepitation/rhonchi. No exertional dyspnea. No hypoxia Cardiovascular: Regular rate, Regular Rhythm, Normal S1, Normal S2, No murmurs Abdomen: Bowel Sounds Present, Soft, Non Tender, Non-Distended : No renal angle tenderness. No suprapubic tenderness. Extremities: Mild bilateral ankle pitting edema, Capillary Refill Less than 3 Seconds Skin: No rashes, No breakdown Musculoskeletal: No Tenderness to Palpation of Joints or Extremities Neurological: Cranial nerves II-XII grossly intact, DTR 2+/4 and Symmetrical, Neuro grossly intact Psych/Mental Status: Flat affect. Weight / BMI Weight Weight: 279 lb Body Mass Index (BMI) 37.8 ABG / Lab / Microbiology Data Result Diagrams: 12/26/21 06:18 12/26/21 06:18 Laboratory: Laboratory Results - last 24 hr 12/25/21 10:30: Phosphorus 3.0, Magnesium 2.0 12/25/21 14:11: POC Glucose 93 12/25/21 14:13: Troponin I High Sens 11 12/25/21 15:56: POC Glucose 88 12/25/21 16:42: Troponin I High Sens 12 12/25/21 20:34: POC Glucose 146 H 12/26/21 06:18: WBC 10.1, RBC 4.24 L, Hgb 12.3 L, Hct 38.6 L, MCV 91.0, MCH 29.0, MCHC 31.9 L, RDW Std Deviation 46.5 H, RDW Coeff of Uziel 13.9, Plt Count 193, MPV 10.8 12/26/21 06:18: Sodium 139, Potassium 4.2, Chloride 107, Carbon Dioxide 27.0, Anion Gap 5, BUN 21 H, Creatinine 0.96, Estim Creat Clear Calc 77.47, Est GFR (MDRD) Af Amer 99, Est GFR (MDRD) Non-Af 82, BUN/Creatinine Ratio 21.8 H, Glucose 102, Calcium 8.4 L, Total Bilirubin 0.30, AST 18, ALT 32, Alkaline Phosphatase 56, Total Protein 6.4, Albumin 3.3, Globulin 3.1, Albumin/Globulin Ratio 1.1, Triglycerides 203 H, Cholesterol 140, LDL Cholesterol 70, VLDL Cholesterol 41 H, HDL Cholesterol 29 L, TSH 1.54 Radiography Diagnostic Testing: Radiology Impression Chest X-Ray 12/25/21 10:42 IMPRESSION: Mild degree of increased markings in the posterior medial segment of the left lower lobe suggestive of atelectasis and/or early infiltrate. Electronically Signed: Salinas Griffith MD at 12:49 EST , Echocardiogram 12/25/21 13:34 Interpretation Summary Normal LV size. Left ventricular systolic function is normal. The estimated ejection fraction is 65 %. Contrast injection was performed. Ordering Physician: Adilson Alfonso Referring Physician: Parish Fuller Performed By: Damaris Merida RDCS, RVT D/C Instructions Discharge Diet: Low fat / Low cholesterol, 1800 Calorie Control Diet and 2000 mg Sodium Diet Call your doctor if you observe: Fever of 101 or Higher, Coldness, Increased Pain, Numbness or Tingling, Change in Color, Inability to urinate, Inability to have a bowel movement, Shortness of breath, Dizziness, Fainting spells, Swelling in the ankles, Chest pain, Prolonged hiccupping, Increased palpitations (irregular heartbeat), Calf discomfort and Uncontrolled pain Meaningful Use Info Meaningful Use Diagnoses (Choose all that apply): None applicable Discharge Plan Admission Admit Date/Time: 12/25/21 11:24 Primary Reason for Your Visit: Syncope with cardiac arrest Attending Provider: Adilson Alfonso Primary Care Provider: Connor Fuller Consulting Providers: Darian Rodas Discharge Orders/Prescriptions Prescriptions: New nitroglycerin 0.4 mg Tablet, Sublingual 0.4 mg sublingual Q5M PRN (Reason: Cardiac/Chest Pain) Qty: 30 RF: 0 Continued multivitamin Tablet 1 tab PO DAILY RF: 0 enalapril maleate [Vasotec] 10 mg Tablet 10 mg PO DAILY RF: 0 aspirin 81 mg Tablet,Delayed Release (Dr/Ec) 81 mg PO DAILY RF: 0 levothyroxine 100 mcg Tablet 100 mcg PO DAILY RF: 0 albuterol 90 mcg/actuation Aerosol 90 mcg INHALATION Q4H PRN PRN (Reason: sob) RF: 0 epinephrine 0.3 mg/0.3 mL Auto-Injector 0.3 mg IM Q4H PRN (Reason: Allergic Reaction) RF: 0 rosuvastatin [Crestor] 20 mg Tablet 20 mg PO DAILY RF: 0 Basaglar KwikPen U-100 Insulin 100 unit/mL (3 mL) Insulin Pen 35 unit SUBCUT BID RF: 0 Trulicity 3 mg/0.5 mL Pen Injector 3 mg SUBCUT QWEEK RF: 0 metformin 1,000 mg Tablet 1,000 mg PO BID Qty: 0 RF: 0 Changed Mucinex DM 30-600 mg Tablet Extended Release 12 Hr 1 tab PO Q12H PRN (Reason: nasal congesation) Qty: 0 RF: 0 Discontinued Fish Oil (with DHA-EPA) Capsule 1 cap PO DAILY RF: 0 cinnamon bark 500 mg Capsule 2,000 mg PO BID RF: 0 Referrals / Follow Up: Connor Fuller MD [Primary Care Provider] - Within 1 Week (for Syncope) Darian Rodas MD [STAFF PHYSICIAN] - Within 1 Month ( Unstable angina) Disposition Discharge Orders: Discharge Patient (Routine); Ordered 12/26/21 Ordered By: Dr. Adilson Alfonso Charges/Coding Visit Charges Inpatient E&M: 46313 Disch Hosp
[2021-12-26 11:36] LABS: Bedside Glucose 144 mg/dL (74-106)
--- NOTE | 2021-12-26 12:17 | CASEMGMT ---
This RN CM to room and pt states no concerns with going home at time of discharge. Pt states no need for any further resources/therapy at discharge. [place] RN CM
== END 2021-12-26 15:47 | disposition home or self-care (01) | DRG 287 ==
LOC: ED 11:13 → PCU 12:27
PROVIDERS: Admitting Provider Internal Medicine; Emergency Provider Emergency Medicine; PCP Family Medicine; Visit Provider Internal Medicine
DX: I45.2 Bifascicular block (principal); I25.110 Atherosclerotic heart disease of native coronary artery with unstable angina pectoris; I97.710 Intraoperative cardiac arrest during cardiac surgery; I25.82 Chronic total occlusion of coronary artery; E11.9 Type 2 diabetes mellitus without complications; E66.01 Morbid (severe) obesity due to excess calories; Z79.4 Long term (current) use of insulin; I77.819 Aortic ectasia, unspecified site; I10 Essential (primary) hypertension; E78.5 Hyperlipidemia, unspecified; E03.9 Hypothyroidism, unspecified; Z68.39 Body mass index [BMI] 39.0-39.9, adult; Z79.82 Long term (current) use of aspirin; Z79.84 Long term (current) use of oral hypoglycemic drugs; Z79.899 Other long term (current) drug therapy
CPT/HCPCS: 36415; 71045; 80053; 80061; 82962; 83735; 84100; 84443; 84484; 85025; 85027; 93005; 93306; 93454; 93567; 99152; 99153; 99284; J7120; Q9957; A4216; C1769; C1894; C8929; Q9967

== ENCOUNTER 2024-07-16 09:58 | Outpatient (RCR) | payer MEDICARE, SELFPAY ==
[2024-07-16 11:02] LABS: Prothrombin Time (Protime)PT. 13.6 SECONDS (11.7-14.9)
[2024-07-16 11:06] LABS: Anion Gap 8 (5-15); BUN 28 mg/dL (7-18); Calcium,Total 9.2 mg/dL (8.5-10.1); Chloride 102 mmol/L (98-107); Creatinine, Serum 1.22 mg/dL (0.70-1.30); EST Glomerular Filtration Rate 62 mL/min (>60); Est Glom Filt Rate - Afr Amer 75 mL/min (>60); Glucose 193 mg/dL (74-106); Potassium 4.3 mmol/L (3.5-5.1); Sodium Level 137 mmol/L (136-145)
== END 2024-07-16 18:00 | disposition home or self-care (01) ==
LOC: LAB 09:58
PROVIDERS: PCP Family Medicine; Referring Provider Physician Assistant Medical; Visit Provider Physician Assistant Medical
DX: I48.0 Paroxysmal atrial fibrillation (principal); Z79.01 Long term (current) use of anticoagulants
CPT/HCPCS: 36415; 80048; 85610

== ENCOUNTER 2024-08-20 08:18 | Outpatient (RCR) | payer MEDICARE, SELFPAY ==
[2024-07-23 10:34] LABS: Prothrombin Time (Protime)PT. 13.6 SECONDS (11.7-14.9)
[2024-07-30 07:07] LABS: Prothrombin Time (Protime)PT. 13.4 SECONDS (11.7-14.9)
[2024-08-06 09:07] LABS: International Normalized Ratio 1.2; Prothrombin Time (Protime)PT. 15.1 SECONDS (11.7-14.9)
[2024-08-13 10:26] LABS: International Normalized Ratio 1.2
[2024-08-20 09:10] LABS: International Normalized Ratio 1.3; Prothrombin Time (Protime)PT. 15.9 SECONDS (11.7-14.9)
== END 2024-08-20 18:00 | disposition home or self-care (01) ==
LOC: LAB 08:18
PROVIDERS: PCP Family Medicine; Referring Provider Physician Assistant Medical; Visit Provider Physician Assistant Medical
DX: Z79.01 Long term (current) use of anticoagulants (principal); I48.0 Paroxysmal atrial fibrillation
CPT/HCPCS: 36415; 85610

== ENCOUNTER → 2025-05-21 | Outpatient (CLI) | payer MEDICARE, SELFPAY ==
[2025-05-21 12:23] LABS: Hematocrit 37.3 % (40-54); Hemoglobin 12.3 g/dL (13.0-16.5); Immature Granulocytes Count 0.060 X10^3/uL (0.0-0.0); Mean Corp Hgb Conc 33.0 g/dL (32-36); Mean Corpuscular Volume 91.6 fL (80-94); Mean Platelet Vol. 11.2 fl (6.2-12.0); NRBC Flagged by Analyzer 0 % (0-5); Platelet Count 222 K/mm3 (150-450); RBC Distribution Width CV 14.0 % (11.6-14.6); RBC Distribution Width SD 46.9 fl (35.1-43.9); Red Blood Count 4.07 M/mm3 (4.6-6.2); White Blood Count 10.9 K/mm3 (4.4-11.0)
[2025-05-21 13:39] LABS: Anion Gap 16 (5-15); BUN 27 mg/dL (4-19); BUN/Creat Ratio 23.9 RATIO (10-20); Calcium,Total 9.4 mg/dL (7.6-11.0); Carbon Dioxide 25.3 mmol/L (21.0-32.0); Chloride 100 mmol/L (98-108); Glucose 154 mg/dL (70-99); Potassium 4.3 mmol/L (3.3-5.1); Pro- Brain NATRIURETIC PEPTIDE 59 pg/mL (<=900)
== END | disposition home or self-care (01) ==
LOC: MTLAB 11:16
PROVIDERS: PCP Family Medicine; Referring Provider Physician Assistant Medical; Visit Provider Physician Assistant Medical
DX: R06.09 Other forms of dyspnea (principal)
CPT/HCPCS: 36415; 80048; 83880; 85025

== ENCOUNTER → 2025-06-16 | Outpatient (CLI) | payer MEDICARE, SELFPAY ==
--- OUTSIDE RECORDS SUMMARY | 2025-06-16 07:07 | XMS RPT_ITS | CCD ---
Author Organization [facility] Care Team Providers Care Pension Adviser Name Role Phone Unavailable Unavailable Unavailable Training EngineerShaun beard Unavailable Unavaila ble Shaun Tran Unavailable Unavaila ble Unavailable Primary Care Provider Unavailabl e Sara Fuller MD Primary Care Provider Sara Fuller MD Primary Care Provider Sara Fuller MD Primary Care Provider Sara Fuller MD Primary Care Provider Sara Fuller MD Primary Care Provider [facility] [place] Unavailable [facility] AMBASSADOR.[place] SEN Unavailable [place] AMB[facility].Camille SEN Unavailable [place] [facility] AMB[facility].Camille SEN Unavailable Dr. Connor Fuller MD Primary Care Provider Dr. Connor Fuller MD Referring Provider Essence Myers Attending Provider Essence Myers Referring Provider VIKTORIYA ANGELO Attending Unavailable SELF Referring Unavailable SARA FULLER Primary Care Unavailab SARA Samson Primary Care Unavailab SARA Samson Referring Unavailab SARA Samson Attending Unavailab SARA Samson Primary Care Unavailab le SARA FULLER Primary Care Unavailab le MARY, JOSEFINA Attending Unavailable SARA FULLER Referring Unavailab le JOSEFINA HERNANDEZ Referring Unavailable SARA FULLER Primary Care Unavailab shi TESTNIKUNJ DUDLEYEW Attending Unavailable VIKTORIYA ANGELO Referring Unavailable SARA FULLER Primary Care Unavailab le BRADLEY FULLERER Pradip Primary Care Unavailab le BRADLEY FULLERER Pradip Attending Unavailab SARA Samson Primary Care Unavailab shi TESTVIKTORIYA TRINIDAD Referring Unavailable JOSEFINA HERNANDEZ Attending Unavailable SARA FULLER Primary Care Unavailab le BRADLEY FULLERER Pradip Referring Unavailab le NEETU, BRADLEYER B Primary Care Unavailab le BRADLEY FULLERER Pradip Attending Unavailab le SARA FULLER Primary Care Unavailab le SARA FULLER Referring Unavailab le SARA FULLER Primary Care Unavailab shi PODKENYETTA RG Attending Unavailable SARA FULLER Primary Care Unavailab le NEETU, BRADLEYER B Primary Care Unavailab le JOSEFINA HERNANDEZ Attending Unavailable SARA FULLER Referring Unavailab le NEETU, BRADLEYER B Primary Care Unavailab le BRADLEY FULLERER Pradip Attending Unavailab SARA Samson Primary Care Unavailab le NEETU, BRADLEYER B Referring Unavailab le Bursley, Connor Primary Care Unavailable Essence Myers Referring Unavail able Essence Myers Attending Unavail able Bursley Connor Referring Unavailable Bursley, Connor Primary Care Unavailable Darian Rodas Attending Unavailable Bursley, Connor Referring Unavailable Essence Myers Attending Unavail able Bursley, Connor Primary Care Unavailable Bursley, Connor Primary Care Unavailable Essence Myers Referring Unavail able Gio FUENTES, Essence Saucedo Attending Unavail able Essence Myers Attending Unavail able Bursley, Connor Primary Care Unavailable Essence Myers Referring Unavail able Essence Myers Attending Unavail able Essence Myers Referring Unavail able Bursley, Connor Primary Care Unavailable Bursley, Connor Primary Care Unavailable Essence Myers Attending Unavail able Gio FUENTES, Essence Saucedo Attending Unavail able Essence Myers Referring Unavail able Bursley, Connor Primary Care Unavailable Essence Myers Attending Unavail Essence Rodriguez Referring Unavail Connor Knight Primary Care Unavailable Allergies Allergy Classification Reported Allergen(s) Allergy Type Date of Onset Reaction(s) Facility (20 sources) Amoxicillin; Translations: [AMOXICILLIN] Drug Allergy 1 Hives [facility] (20 sources) Dust; Translations: [DUST] Propensity to adverse reactions 5 [facility] Work Phone: (20 sources) Erythromycin; Translations: [ERYTHROMYCIN] Drug Allergy 5 Other: See Comments [facility] Work Phone: (20 sources) Simvastatin; Translations: [SIMVASTATIN] Drug Allergy 5 Myalgia [facility] Work Phone: (20 sources) sunflower seed extract; Translations: [SUNFLOWER SEED] Drug Allergy 4 Anaphylaxis [facility] Work Phone: (20 sources) 12 grain Bread [Other] Propensity to adverse reactions 9 Swelling [facility] Work Phone: (20 sources) grasses [Other] Propensity to adverse reactions 5 [facility] Work Phone: (20 sources) molds [Other] Propensity to adverse reactions 5 [facility] Work Phone: (2 sources) regadenoson Drug Allergy 5 asystole [facility] (1 source) OTHER; Translations: [OTHER] Propensity to adverse reactions (disorder) 9 [facility] (1 source) Amoxicillin Drug Allergy 5 [facility] Repository (1 source) Erythromycin Drug Allergy 5 [facility] Repository (1 source) regadenoson Drug Allergy 5 [facility] Rep[facility] (1 source) Simvastatin Drug Allergy 5 [facility] Rep[facility] (1 source) sunflower seed extract Drug Allergy 5 [facility] Repository Medications Current Medications Medication Drug Class(es) Dates Sig (Normalized) Sig (Original) acetaminophen 500 mg oral tablet (2 sources) Start: 07-07-2024 take 2 tablets by mouth twice daily for arthritis Acetaminophen (Tylenol Extra Strength) 500 mg tablet Active 1000 mg PO TWICE A DAY July 07, 2024 12:00am for knee arthritis [id number] 200 actuat albuterol 0.09 mg/actuat metered dose inhaler (20 sources) beta2-Adrenergic Agonist Start: 08-25-2021 End: 11-27-2024 take 2 puff(s) by inhalation every four hours as needed for wheezing albuterol HFA (VENTOLIN HFA) 90 mcg/actuation inhaler Indications: Bronchitis , Wheezing Inhale 2 Puffs as instructed every 4 hours as needed for wheezing/shortness of breath. 18 g 11/27/2024 Active Comment on above: Inhale 2 Puffs as in structed every 4 hours as needed for wheezing/shortness of breath. apixaban 5 mg oral tablet (20 sources) Factor Xa Inhibitor Start: 10-06-2024 take 1 tablet by mouth twice daily Apixaban (Eliquis) 5 mg tablet Active 5 mg PO TWICE A DAY October 06, 2024 1:00am Start: 08-06-2024 End: 08-14-2024 take 1 tablet by mouth twice daily Apixaban (Eliquis) 5 mg tablet Discontinued 5 mg PO TWICE A DAY 200 August 07, 2024 9:15am August 14, 2024 1:33pm Start: 11-02-2023 take 1 tablet by paula th every twelve hours ELIQUIS 5 mg tab(s) Take 1 tablet by mouth every 12 hours. 11/02/2023 Active Start: 09-10-2023 End: 07-07-2024 take 1 tablet by mouth twice daily Apixaban (Eliquis) 5 mg tablet Discontinued 5 mg PO TWICE A DAY 180 June 26, 2024 5:30pm July 07, 2024 9:39am Comment on above: Take 1 tablet by paula th every 12 hours. aspirin 81 mg delayed release oral tablet (20 sources) Platelet Aggregation Inhibitor, Nonsteroidal Anti-inflammatory Drug Start: 07-07-2024 take 1 tablet by mouth once daily Aspirin (Adult Aspirin Regimen) 81 mg tablet,delayed release (DR/EC) Active 81 mg PO daily July 07, 2024 12:00am Start: 12-25-2021 End: 02-03-2024 take 1 tablet by mouth once daily Aspirin 81 mg Tablet,Delayed Release (Dr/Ec) Discontinued 81 mg PO DAILY December 25, 2021 1:00am February 03, 2024 8:43am Comment on above: Take 81 mg by mouth once daily. Blood-Glucose Meter (ONETOUCH ULTRA2 METER) monitoring kit (20 sources) Start: 12-31-2019 Blood-Glucose Meter (ONETOUCH ULTRA2 METER) monitoring kit Indications: Controlled type 2 diabetes mellitus without complication, with long-term current use of insulin (HCC) Check blood sugar daily and as needed 1 Each 12/31/2019 Active Start: 12-31-2019 Blood-Glucose Meter (ONETOUCH ULTRA2 METER) monitoring kit Indications: Controlled type 2 diabetes mellitus without complication, with long-term current use of insulin (HCC) Check blood sugar daily and as needed 1 Each 0 12/31/2019 Active Comment on above: Check blood sugar da gilberto and as needed cinnamon bark 500 mg oral capsule (20 sources) Start: 11-08-2022 take 1 capsule by mouth once daily Cinnamon Bark (Cinnamon) 500 mg capsule Active 500 mg PO DAILY November 08, 2022 1:00am Start: 12-25-2021 End: 12-26-2021 take 1 capsule by mouth twice daily Cinnamon Bark 500 mg Capsule Discontinued 2000 mg PO TWICE A DAY December 25, 2021 1:00am December 26, 2021 12:02pm take 2000 ug by mout h once daily CINNAMON BARK ORAL Take 2,000 mcg by mouth once daily. Active take 2000 ug by mout h once daily CINNAMON BARK ORAL Take 2,000 mcg by mouth once daily. 0 Active Comment on above: Take 2,000 mcg by mo uth once daily. Compression Knee Highs (20 sources) Start: 06-27-2017 Compression Knee Highs Indications: Bilateral lower extremity edema KNEE HIGH COMPRESSION STOCKINGS 30-40 MM. DX: EDEMA 2 Device 2 06/27/2017 Active Comment on above: KNEE HIGH COMPRESSIO N STOCKINGS 30-40 MM. DX: EDEMA 12 hr dextromethorphan hydrobromide 30 mg / guaiFENesin 600 mg extended release oral tablet (20 sources) Uncompetitive E-oeabfo-F-aspartate Receptor Antagonist, Sigma-1 Agonist Start: 12-25-2021 End: 12-26-2021 Dextromethorphan-Guai fenesin (Mucinex Dm) 30-600 mg Tablet Extended Release 12 Hr Active 1 {tbl} PO Q12H as needed for nasal congesation 0 0 December 26, 2021 12:04pm Start: 08-25-2021 End: 06-10-2023 take 1 tablet by mouth twice daily dextromethorphan-guaiFENesin (MUCINEX DM ) 30-600 mg per tablet Indications: Cough Take 1 tablet by mouth twice daily. 20 tablet 1 08/25/2021 06/10/2023 Discontinued (Course of therapy completed) Comment on above: Take 1 tablet by paula twice daily. docosahexaenoic acid 144 mg / eicosapentaenoic acid 216 mg / vitamin e 2 unt oral capsule (2 sources) Start: [place]-3 Fatty Acids-Fish Oil (Fish Oil) 360-1,200 mg capsule Active 1 NMA PO DAILY January 24, 2022 12:00am Dulaglutide (2 sources) GLP-1 Receptor Agonist Start: Dulaglutide (Trulicity) 3 mg/0.5 mL Pen Injector Active 3 mg SC EVERY WEEK December 25, 2021 1:00am dulaglutide (TRULICITY) 3 mg/0.5 mL pen injector (20 sources) Start: End: inject 3 mg by subcutaneous injection every week dulaglutide (TRULICITY) 3 mg/0.5 mL pen injector Indications: Type 2 diabetes mellitus without complication, unspecified whether parts counterman insulin use (HCC) Inject 3 mg subcutaneously one time a week. 6 mL 1 05/18/2025 11/14/2025 Active Start: 05-13-2025 End: 05-17-2025 inject 3 mg by subcutaneous injection every week dulaglutide (TRULICITY) 3 mg/0.5 mL pen injector Indications: Type 2 diabetes mellitus without complication, unspecified whether parts counterman insulin use (HCC) Inject 3 mg subcutaneously one time a week. 6 mL 1 05/13/2025 05/17/2025 Discontinued Start: 05-13-2025 End: 01-20-2026 inject 3 mg by subcutaneous injection every week dulaglutide (TRULICITY) 3 mg/0.5 mL pen injector Indications: Type 2 diabetes mellitus without complication, unspecified whether parts counterman insulin use (HCC) Inject 3 mg subcutaneously one time a week. 6 mL 1 05/13/2025 11/09/2025 Active Start: 10-12-2024 End: 05-12-2025 inject 3 mg by subcutaneous injection every week dulaglutide (TRULICITY) 3 mg/0.5 mL pen injector Indications: Type 2 diabetes mellitus without complication, unspecified whether fdc insulin use (HCC) Inject 3 mg subcutaneously one time a week. 6 mL 1 10/12/2024 05/12/2025 Discontinued Start: 10-12-2024 End: 04-10-2025 inject 3 mg by subcutaneous injection every week dulaglutide (TRULICITY) 3 mg/0.5 mL pen injector Indications: Type 2 diabetes mellitus without complication, unspecified whether fdc insulin use (HCC) Inject 3 mg subcutaneously one time a week. 6 mL 1 10/12/2024 04/10/2025 Active Start: 07-21-2024 End: 10-12-2024 inject 3 mg by subcutaneous injection every week dulaglutide (TRULICITY) 3 mg/0.5 mL pen injector Indications: Type 2 diabetes mellitus without complication, unspecified whether parts counterman insulin use (HCC) Inject 3 mg subcutaneously one time a week. 6 mL 1 07/21/2024 10/12/2024 Discontinued Start: 07-21-2024 End: 01-17-2025 inject 3 mg by subcutaneous injection every week dulaglutide (TRULICITY) 3 mg/0.5 mL pen injector Indications: Type 2 diabetes mellitus without complication, unspecified whether fdc insulin use (HCC) Inject 3 mg subcutaneously one time a week. 6 mL 1 07/21/2024 01/17/2025 Active Start: 04-17-2024 End: 07-21-2024 inject 3 mg by subcutaneous injection every week dulaglutide (TRULICITY) 3 mg/0.5 mL pen injector Indications: Type 2 diabetes mellitus without complication, unspecified whether parts counterman insulin use (HCC) Inject 3 mg subcutaneously one time a week. 4 Each 4 04/17/2024 07/21/2024 Discontinued Start: 04-17-2024 inject 3 mg by subcu taneous injection every week dulaglutide (TRULICITY) 3 mg/0.5 mL pen injector Indications: Type 2 diabetes mellitus without complication, unspecified whether parts counterman insulin use (HCC) Inject 3 mg subcutaneously one time a week. 4 Each 4 04/17/2024 Active enalapril maleate 20 mg oral tablet (20 sources) Angiotensin Converting Enzyme Inhibitor Start: 07-15-2024 End: 06-27-2025 take 1 tablet by mouth once daily enalapril (VASOTEC) 20 mg tablet Indications: Type 2 diabetes mellitus without complication, with long-term current use of insulin (HCC) Take 1 tablet by mouth once daily. 90 tablet 1 12/29/2024 06/27/2025 Active Start: 08-25-2021 End: 12-26-2024 take 1 tablet by mouth once daily Enalapril Maleate (Vasotec) 10 mg Tablet Active 10 mg PO DAILY December 25, 2021 1:00am Comment on above: Take 1 tablet by paula th once daily. [id number] 0.3 ml EPINEPHrine 1 mg/ml auto-injector (20 sources) alpha-Adrenergic Agonist, beta-Adrenergic Agonist, Catecholamine Start: 10-23-2023 EPINEPHrine (EPIPEN) 0.3 mg/0.3 mL auto-injector Indications: Allergic reaction, sequela Inject 0.3 mL intramuscularly as needed (For allergic reaction). 2 Each 1 10/23/2023 Active Start: 05-14-2022 End: 06-17-2023 EPINEPHrine (EPIPEN) 0.3 mg/ 0.3 mL auto-injector Indications: Allergic reaction, sequela Inject 0.3 mL intramuscularly as needed (For allergic reaction). 2 Each 1 06/17/2023 Active Start: 12-25-2021 End: 11-08-2022 Epinephrine 0.3 mg/0.3 mL Au to-Injector Discontinued 0.3 mg IM Q4H as needed for Allergic Reaction December 25, 2021 1:00am November 08, 2022 10:30am Start: 2020 End: 05-12-2022 EPINEPHrine (EPIPEN) 0.3 mg/ 0.3 mL auto-injector Indications: Allergic reaction, sequela Inject 0.3 mL intramuscularly as needed (For allergic reaction). 2 Each 1 2020 05/12/2022 Discontinued Comment on above: Inject 0.3 mL intram uscularly as needed (For allergic reaction). hydroCHLOROthiazide 25 mg oral tablet (20 sources) Thiazide Diuretic Start : 02-02 End: 12-28 take 1 tablet by mouth once daily hydroCHLOROthiazide 25 mg tablet TAKE 1 TABLET (25mg) BY MOUTH ONCE DAILY 02/03/2024 Active 3 ml insulin glargine 100 unt/ml pen injector (20 sources) Insulin Analog Start : 11-08 Insulin Glargine (Basaglar Kwikpen U-100 Insulin) 100 unit/mL (3 mL) insulin pen Active 34 U SC TWICE A DAY November 08, 2022 10:27am Start: 01-24-2022 End: 10-12-2024 insulin glargine (BASAGLAR K WIKPEN U-100 INSULIN) 100 unit/mL (3 mL) Indications: Type 2 diabetes mellitus without complication, unspecified whether fdc insulin use (HCC) Inject 34 Units subcutaneously two times a day. 5 Each 2 10/12/2024 Active Start: 12-25-2021 End: 11-08-2022 Insulin Glargine (Basaglar K wikpen U-100 Insulin) 100 unit/mL (3 mL) Insulin Pen Discontinued 35 U SC TWICE A DAY December 25, 2021 1:00am November 08, 2022 10:30am Start: 11-13-2021 insulin glargi ne (BASAGLAR KWIKPEN U-100 INSULIN) 100 unit/mL (3 mL) Indications: Type 2 diabetes mellitus without complication, unspecified whether fdc insulin use (HCC) Inject 35 Units subcutaneously twice daily. 5 Pen 3 11/13/2021 Active Start: 08-25-2021 End: 11-10-2021 insulin glargine (BASAGLAR K WIKPEN U-100 INSULIN) 100 unit/mL (3 mL) Indications: Type 2 diabetes mellitus without complication, unspecified whether fdc insulin use (HCC) Inject 35 Units subcutaneously twice daily. 5 Pen 3 08/25/2021 11/10/2021 Discontinued Comment on above: Inject 35 Units subc utaneously twice daily. Inject 34 Units subc utaneously twice daily. levothyroxine sodium 0.1 mg oral tablet (20 sources) l-Thyroxine Start: 08-25-20 End: 12-30-19 levothyroxine (SYNTHROID) 100 mcg tablet TAKE 1 TABLET DAILY ON AN EMPTY STOMACH 90 tablet 1 12/29/2024 Active Comment on above: Take 1 tablet by paula once daily. Take on empty stomach TAKE 1 TABLET DAILY ON AN EMPTY STOMACH Magnesium (2 sources) Start: 01-25-20 take 2 tablets by mouth once daily Magnesium 250 mg tablet Active 500 mg PO DAILY January 24, 2022 12:00am Magnesium Sulfate (20 sources) take 500 mg by mouth once daily MAGNESIUM SULFATE ORAL Take 500 mg by mouth once daily. Active take 500 mg by mouth once daily MAGNESIUM SULFATE ORAL Take 500 mg by mouth once daily. 0 Active Comment on above: Take 500 mg by mouth once daily. metFORMIN hydrochloride 500 mg oral tablet (20 sources) Biguanide Start: End: take 2 tablets by mouth twice daily at mealtime metFORMIN (GLUCOPHAGE) 500 mg tablet Indications: Type 2 diabetes mellitus without complication, with long-term current use of insulin (HCC) Take 2 tablets by mouth two times a day with meals. 360 tablet 1 12/29/2024 06/27/2025 Active Start: 12-25-2021 End: 11-08-2022 take 1 tablet by mouth twice daily Metformin 1,000 mg Tablet Discontinued 1000 mg PO TWICE A DAY 0 0 December 26, 2021 12:04pm November 08, 2022 10:26am Start from 12/27/2021 Start: 08-25-2021 End: 10-12-2022 take 2 tablets by mouth twice daily at mealtime metFORMIN (GLUCOPHAGE) 500 mg tablet Indications: Type 2 diabetes mellitus without complication, unspecified whether parts counterman insulin use (HCC) Take 2 tablets by mouth twice daily with meals. 360 tablet 3 08/25/2021 10/12/2022 Discontinued Comment on above: Take 2 tablets by mo ut twice daily with meals. Take 2 tablets by mo ut two times a day with meals. metroNIDAZOLE 0.01 mg/mg topical gel (6 sources) Nitroimidazole Antimicrobial Start: 11-08-2022 End: 05-26-2023 Metronidazole (Metrogel) 1 % gel Active 1 NMA TOPICAL DAILY November 08, 2022 1:00am metroNIDAZOLE (M ETROGEL) 1 % Topical Gel Apply to affected area twice daily. 0 Active Comment on above: Apply to affected ar ea twice daily. Apply to affected ar ea once daily. multivitamin (DAILY MULTI-VITAMIN) ORAL Tab (20 sources) Start: 09-05-20 07 take 1 tablet by mouth once daily multivitamin (DAILY MULTI-VITAMIN) ORAL Tab Take one(1) tablet daily. 0 09/05/2007 Active Comment on above: Take one(1) tablet d aily. nitroglycerin 0.4 mg sublingual tablet (20 sources) Nitrate Vasodilator Start: 12-27-19 nitroglycerin sublingual (NITROQUICK) 0.[address] 1 tablet under the tongue if needed every 5 minutes for stephen... (REFER TO PRESCRIPTION NOTES). 12/26/2021 Active Start: 12-26-2021 End: 02-12-2025 Nitroglycerin 0.4 mg tablet, sublingual Discontinued 0.4 mg SL Q5M as needed for Cardiac/Chest Pain 15 12March 19, 2023 11:33am February 03, 2024 9:02am Comment on above: place 1 tablet under the tongue if needed every 5 minutes for stephen... (REFER TO PRESCRIPTION NOTES). omega-3 DHA-EPA (FISH OIL) 1,200 (144-216) mg capsule (20 sources) take 1 capsule by mouth once daily at breakfast omega-3 DHA-EPA (FISH OIL) 1,200 (144-216) mg capsule Take 1 capsule by mouth daily with breakfast. Active [facility] breakfast omega-3 DHA-EPA (FISH OIL) 1,200 (144-21 6) mg capsule Take 1 capsule by mouth daily with breakfast. 0 Active Comment on above: Take 1 capsule by mo [facility] daily with breakfast. Propylene glycol (20 sources) propylene glycol (SYSTANE BALANCE OPHTHALMIC) Use in eyes. 3-4 times a day Active propylene glycol (SYSTANE BALANCE OPHTHALMIC) Use in eyes. 3-4 times a day 0 Active Comment on above: Use in eyes. 3-4 ptaricia es a day rosuvastatin calcium 20 mg oral tablet (20 sources) HMG-CoA Reductase Inhibitor Start: 1 End: 5 take 1 tablet by mouth once daily at bedtime rosuvastatin (CRESTOR) 20 mg tablet Indications: Type 2 diabetes mellitus without complication, with long-term current use of insulin (HCC) Take 1 tablet by mouth daily at bedtime. 90 tablet 1 12/29/2024 06/27/2025 Active Comment on above: Take 1 tablet by paula th daily at bedtime. sulfacetamide sodium/sulfur (PRASCION TOPICAL) (20 sources) sulfacetamide sodium/sulfur (PRASCION TOPICAL) Apply to affected area once daily. 10-55 Active sulfacetamide so dium/sulfur (PRASCION TOPICAL) Apply to affected area once daily. 10-55 0 Active Comment on above: Apply to affected ar ea once daily. 1055 terbinafine 250 mg oral tablet (8 sources) Allylamine Antifungal Start: End: take 1 tablet by mouth once daily terbinafine HCl (LAMISIL) 250 mg tablet Indications: Onychomycosis Take 1 tablet by mouth once daily. 90 tablet 06/29/2024 09/27/2024 Active Completed/Discontinued Medications Medication Drug Class(es) Dates Sig (Normalized) Sig (Original) Albuterol 90 mcg/actuation Aerosol (2 sources) Start: 12-25-2021 End: 01-24-2022 take 90 ug by inhalation every four hours as needed Albuterol 90 mcg/actuation Aerosol Discontinued 90 ug INHALATION EVERY 4 HOURS NEEDED as needed for sob December 25, 2021 1:00am January 24, 2022 9:55am benzonatate 100 mg oral capsule (6 sources) Non-narcotic Antitussive Start: 11-27-2024 End: 12-07-2024 take 1 capsule by mouth every eight hours as needed for cough and cough benzonatate (TESSALON PERLE) 100 mg capsule Indications: Cough Take 1 capsule by mouth three times a day as needed for up to 10 days. 30 capsule 11/27/2024 12/07/2024 betamethasone 3 mg/ml / betamethasone acetate 3 mg/ml injectable suspension (20 sources) Corticosteroid Start: 03-22-2025 End: 03-22-2025 betamethasone acetate-betamethas one sodium phosphate 6 mg injection (CELESTONE) Start: 03-22-2025 End: 03-22-2025 6 mg, Injection - FOR ORTHO USE ONLY, ONCE, 1 dose, Starting on 03/22/25 at 0930, Until Sat03/22/25 at 0930 Start: 12-07-2024 End: 12-07-2024 betamethasone acetate-betame thasone sodium phosphate 6 mg injection (CELESTONE) Start: 12-07-2024 End: 12-07-2024 6 mg, Injection - FOR ORTHO USE ONLY, ONCE, 1 dose, Starting on 12/07/24 at 0925, Until 12/07/24 at 0925 Start: 08-31-2024 End: 08-31-2024 betamethasone acetate-betame thasone sodium phosphate 6 mg injection (CELESTONE) Start: 08-31-2024 End: 08-31-2024 6 mg, Injection - FOR ORTHO USE ONLY, ONCE, 1 dose, Starting on 08/31/24 at 0925, Until Sat08/31/24 at 0925 Start: 05-11-2024 End: 05-11-2024 betamethasone acetate-betame thasone sodium phosphate 6 mg injection (CELESTONE) Start: 02-06-2024 End: 02-06-2024 betamethasone acetate-betame thasone sodium phosphate 6 mg injection (CELESTONE) Start: 11-07-2023 End: 11-07-2023 betamethasone acetate-betame thasone sodium phosphate 6 mg injection (CELESTONE) Start: 03-07-2023 End: 03-07-2023 betamethasone acetate-betame thasone sodium phosphate 6 mg injection (CELESTONE) carvedilol 3.125 mg oral tablet (20 sources) alpha-Adrenergic Wilberto, beta-Adrenergic Wilberto Start: 01-24-2022 End: 01-04-2025 Carvedilol 3.125 mg tablet Discontinued 0 .ROUTE .COMPLEX 180 3 October 12, 2024 11:09am January 04, 2025 9:39am TAKE 1 TABLET TWICE A DAY. MUST ADMINISTER WITH MEALS/ FOOD Start: 01-15-2022 End: 01-15-2022 take 1 tablet by mouth twice daily carvedilol (COREG) 3.125 mg tablet Take 1 tablet by mouth twice daily. 180 tablet 3 01/15/2022 01/15/2022 Discontinued Comment on above: Take 1 tablet by paula th twice daily. Take 3.125 mg by paula th twice daily with meals. Docosahexaenoic Acid-Epa (Fish Oil (With Dha-Epa)) Capsule (2 sources) Start: End: Docosahexaenoic Acid-Epa (Fish Oil (With Dha-Epa)) Capsule Discontinued 1 NMA PO DAILY December 25, 2021 1:00am December 26, 2021 12:02pm dulaglutide (TRULICITY) 3 mg/0.5 mL pen injector (20 sources) Start: End: inject 3 mg by subcutaneous injection every week dulaglutide (TRULICITY) 3 mg/0.5 mL pen injector Indications: Type 2 diabetes mellitus without complication, unspecified whether fdc insulin use (HCC) Inject 3 mg subcutaneously one time a week. 4 Each 01/24/2022 04/17/2024 Discontinued Start: 01-24-2022 inject 3 mg by subcu taneous injection every week dulaglutide (TRULICITY) 3 mg/0.5 mL pen injector Indications: Type 2 diabetes mellitus without complication, unspecified whether fdc insulin use (HCC) Inject 3 mg subcutaneously one time a week. 4 Each 01/24/2022 Active Start: 11-13-2021 inject 3 mg by subcu taneous injection every week dulaglutide (TRULICITY) 3 mg/0.5 mL pen injector Indications: Type 2 diabetes mellitus without complication, unspecified whether fdc insulin use (HCC) Inject 3 mg subcutaneously one time a week. 4 Each 4 11/13/2021 Active Start: 01-30-2021 End: 11-10-2021 inject 3 mg by subcutaneous injection every week dulaglutide (TRULICITY) 3 mg/0.5 mL pen injector Indications: Type 2 diabetes mellitus without complication, unspecified whether fdc insulin use (HCC) Inject 3 mg subcutaneously one time a week. 4 Each 4 01/30/2021 11/10/2021 Discontinued Comment on above: Inject 3 mg subcutan eously one time a week. etodolac 300 mg oral capsule (12 sources) Nonsteroidal Anti-inflammatory Drug Start: 3 End: take 1 capsule by mouth every eight hours Etodolac 300 mg capsule Discontinued 300 mg PO Q8H August 05, 2023 12:00am February 03, 2024 8:43am Start: 03-07-2023 End: 06-05-2023 take 1 capsule by mouth every eight hours etodolac (LODINE) 300 mg capsule Take 1 capsule by mouth every 8 hours. 270 capsule 0 03/07/2023 06/05/2023 Active Comment on above: Take 1 capsule by mo uth every 8 hours. Take 300 mg by mouth every 8 hours. As needed for pain Take 1 capsule by mo uth every 8 hours. As needed for pain Fish Oil-DHA-EPA 1,200-144-216 mg cap (1 source) End: 01-01-2022 Fish Oil-DHA-EPA 1,200-144-216 mg cap Take by mouth. 01/01/2022 Discontinued (Discontinued by another Health Care Provider) 10 ml lidocaine hydrochloride 10 mg/ml injection (20 sources) Antiarrhythmic, Amide Local Anesthetic Start: 03-22-2025 End: 03-22-2025 lidocaine (PF) 10 mg/mL (1 %) 5 mL injection (XYLOCAINE) Start: 03-22-2025 End: 03-22-2025 5 mL, Injection - FOR ORTHO USE ONLY, ONCE, 1 dose, Starting on Sat03/22/25 at 0930, Until Sat03/22/25 at 0930 Start: 12-07-2024 End: 12-07-2024 lidocaine (PF) 10 mg/mL (1 % ) 5 mL injection (XYLOCAINE) Start: 12-07-2024 End: 12-07-2024 5 mL, Injection - FOR ORTHO USE ONLY, ONCE, 1 dose, Starting on Sat12/07/24 at 0925, Until Sat12/07/24 at 0925 Start: 08-31-2024 End: 08-31-2024 lidocaine (PF) 10 mg/mL (1 % ) 5 mL injection (XYLOCAINE) Start: 08-31-2024 End: 08-31-2024 5 mL, Injection - FOR ORTHO USE ONLY, ONCE, 1 dose, Starting on Sat08/31/24 at 0925, Until Sat08/31/24 at 0925 Start: 05-11-2024 End: 05-11-2024 lidocaine (PF) 10 mg/mL (1 % ) 5 mL injection (XYLOCAINE) Start: 02-06-2024 End: 02-06-2024 lidocaine (PF) 10 mg/mL (1 % ) 5 mL injection (XYLOCAINE) Start: 11-07-2023 End: 11-07-2023 lidocaine (PF) 10 mg/mL (1 % ) 4 mL injection (XYLOCAINE) Start: 03-07-2023 End: 03-07-2023 lidocaine (PF) 10 mg/mL (1 % ) 4 mL injection (XYLOCAINE) Multivitamin Tablet (2 sources) Start: 12-25-2021 End: 02-03-2024 Multivitamin Tablet Discontinued 1 {tbl} PO DAILY December 25, 2021 1:00am February 03, 2024 8:44am perflutren lipid microspheres 1.3 mL in NaCl (PF) 0.9% 10 mL injection (DEFINITY) (13 sources) Start: 08-25-2021 End: 11-24-2022 perflutren lipid microspheres 1.3 mL in NaCl (PF) 0.9% 10 mL injection (DEFINITY) 125 ml sodium chloride 9 mg/ml prefilled syringe (13 sources) Start: 08-25-2021 End: 11-24-2022 sodium chloride 0.9 % (flush) 10 mL (BD POSIFLUSH) warfarin sodium 2 mg oral tablet (20 sources) Vitamin K Antagonist Start: 07-07-2024 End: 12-29-2024 take 1 tablet by mouth once daily Warfarin 2 mg tablet Discontinued 2 mg PO daily August 14, 2024 12:00am October 06, 2024 9:32am Please contact the information source for Protocol details. Problems Active Problems Problem Classification Problem Date Documented Da te Episodic/Chronic Acquired foot deformities (6 sources) Hammer toe; Translations: [Other hammer toe(s) (acquired), left foot] Onset: 03-18-2025 Chronic Acquired foot deformities (1 source) Other hammer toe(s) (acquired), right foot; Translations: [Hammer toes of both feet] Onset: 03-18-2025 Chronic Acquired foot deformities (3 sources) Bilateral Tailor's bunion of feet; Translations: [Bunionette of right foot] Onset: 03-18-2025 03-18-2025 Episodic Cancer of prostate (20 sources) Malignant tumor of prostate; Translations: [Malignant neoplasm of prostate] Onset: 10-21-2005 05-20-2007 Chronic Cancer of prostate (2 sources) History of malignant neoplasm of prostate; Translations: [Personal history of malignant neoplasm of prostate] Episodic Cardiac arrest and ventricular fibrillation (20 sources) Cardiac arrest with successful resuscitation ; Translations: [Cardiac arrest, cause unspecified] Onset: 02-20-2024 02-20-2024 Chronic Cardiac dysrhythmias (9 sources) Atrial fibrillation; Translations: [Unspecified atrial fibrillation] Onset: 06-29-2024 12-09-2023 Chronic Cardiac dysrhythmias (2 sources) Palpitations; Translations: [Palpitations] 08-05-2023 Episodic Chronic obstructive pulmonary disease and bronchiectasis (1 source) Bronchitis; Translations: [Bronchitis, not specified as acute or chronic] 11-27-2024 Episodic Conduction disorders (20 sources) Complete right bundle branch block; Translations: [Unspecified right bundle-branch block] Onset: 11-09-2005 Chronic Coronary atherosclerosis and other heart disease (7 sources) Coronary arteriosclerosis; Translations: [Atherosclerotic heart disease of [place] coronary artery without angina pectoris] Onset: 06-29-2024 12-09-2023 Chronic Diabetes mellitus with complications (3 sources) Polyneuropathy due to type 2 diabetes mellitus; Translations: [Type 2 diabetes mellitus with diabetic polyneuropathy] Onset: 03-18-2025 11-23-2024 Chronic Diabetes mellitus without complication (20 sources) Type 2 diabetes mellitus without complication; Translations: [Type 2 diabetes mellitus without complications] Onset: 09-17-2007 Resolved: 12-25-2017 04-05-2016 Chronic Disorders of lipid metabolism (20 sources) Mixed hyperlipidemia; Translations: [Mixed hyperlipidemia] Onset: 08-06-2005 Chronic Essential hypertension (20 sources) Essential hypertension; Translations: [Essential (primary) hypertension] Onset: 07-28-2013 Chronic Genitourinary symptoms and ill-defined conditions (20 sources) Urinary incontinence; Translations: [Unspecified urinary incontinence] Onset: 01-21-2014 01-21-2014 Chronic Osteoarthritis (7 sources) Primary gonarthrosis, bilateral; Translations: [Bilateral primary osteoarthritis of knee] Onset: 03-22-2025 Chronic Other aftercare (2 sources) Long-term current use of anticoagulant; Translations: [[facility] (current) use of anticoagulants] 07-17-2024 Episodic Other circulatory disease (2 sources) Decreased breath sounds; Translations: [Other specified symptoms and signs involving the circulatory and respiratory systems] 11-27-2024 Episodic Other circulatory disease (2 sources) Abnormal peripheral pulse; Translations: [Other specified symptoms and signs involving the circulatory and respiratory systems] 03-18-2025 Episodic Other circulatory disease (2 sources) Other specified symptoms and signs involving the circulatory and respiratory systems; Translations: [Diminished pulses in lower extremity] Onset: 11-27-2024 Episodic Other connective tissue disease (1 source) Bilateral metatarsalgia; Translations: [Metatarsalgia, right foot] Episodic Other connective tissue disease (1 source) Pain of toe of left foot; Translations: [Pain in left toe(s)] 12-06-2023 Episodic Other connective tissue disease (1 source) Pain of toe of right foot; Translations: [Pain in right toe(s)] 12-06-2023 Episodic Other connective tissue disease (1 source) Pain in left lower limb; Translations: [Pain in left leg] 01-22-2024 Episodic Other inflammatory condition of skin (20 sources) Rosacea; Translations: [Rosacea, unspecified] Onset: 02-17-2010 02-17-2010 Chronic Other injuries and conditions due to external causes (2 sources) Allergic reaction; Translations: [Allergy, unspecified, sequela] Episodic Other lower respiratory disease (2 sources) Cough; Translations: [Cough] 08-25-2021 Episodic Other lower respiratory disease (2 sources) Wheezing; Translations: [Wheezing] 11-27-2024 Episodic Other lower respiratory disease (1 source) Cough; Translations: [Acute cough] 11-27-2024 Episodic Other lower respiratory disease (2 sources) Other forms of dyspnea; Translations: [Other forms of dyspnea] Onset: 05-27-2025 Episodic Other male genital disorders (20 sources) Male erectile dysfunction, unspecified; Translations: [Impotence of organic origin] Onset: 01-21-2014 01-21-2014 Chronic Other nutritional; endocrine; and metabolic disorders (20 sources) Morbid obesity; Translations: [Morbid (severe) obesity due to excess calories] 02-22-2017 Chronic Other nutritional; endocrine; and metabolic disorders (20 sources) Obese class II; Translations: [Obesity, unspecified] Onset: 06-04-2022 Chronic Other nutritional; endocrine; and metabolic disorders (1 source) Morbid (severe) obesity due to excess calories; Translations: [Morbid obesity (HCC)] Onset: 02-22-2017 Chronic Other upper respiratory disease (20 sources) Allergic rhinitis; Translations: [Allergic rhinitis, unspecified] Onset: 08-06-2005 12-25-2017 Chronic Other upper respiratory infections (1 source) Viral upper respiratory tract infection; Translations: [Acute upper respiratory infection, unspecified] 11-27-2024 Episodic Pulmonary heart disease (20 sources) Pulmonary hypertension; Translations: [Pulmonary hypertension, unspecified] Onset: 11-27-2021 11-27-2021 Chronic Thyroid disorders (20 sources) Hypothyroidism; Translations: [Hypothyroidism, unspecified] Onset: 10-17-2009 10-17-2009 Chronic Past or Other Problems Problem Classification Problem Date Documented Da te Episodic/Chronic Conditions associated with dizziness or vertigo (5 sources) Dizziness; Translations: [Dizziness and giddiness] Onset: 07-21-2024 06-24-2024 Episodic Gastrointestinal hemorrhage (20 sources) Hematochezia; Translations: [Melena] Resolved: 12-31-2018 12-31-2018 Episodic Immunizations and screening for infectious disease (6 sources) Patient encounter status; Translations: [Encounter for immunization] Onset: 06-29-2024 Episodic Mycoses (20 sources) Onychomycosis; Translations: [Tinea unguium] Onset: 06-29-2024 12-06-2023 Episodic Other aftercare (1 source) 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; Translations: [Type 2 diabetes mellitus without complication, with long-term current use of insulin (HCC)] Onset: 12-29-2024 Episodic Other aftercare (2 sources) [facility] (current) use of anticoagulants; Translations: [[facility] (current) use of anticoagulants] Onset: 07-07-2024 Episodic Other lower respiratory disease (20 sources) Dyspnea; Translations: [Shortness of breath] Onset: 11-27-2021 Episodic Other lower respiratory disease (1 source) Wheezing; Translations: [Wheezing] Onset: 11-27-2024 Episodic Other non-traumatic joint disorders (20 sources) Pain in lower limb; Translations: [Pain in unspecified knee] Onset: 09-13-2007 09-13-2007 Episodic Other non-traumatic joint disorders (9 sources) Pain in right knee; Translations: [Pain in joint, lower leg] Onset: 12-07-2024 Episodic Other non-traumatic joint disorders (1 source) Pain in left knee; Translations: [Pain in both knees, unspecified chronicity] Onset: 12-07-2024 Episodic Other screening for suspected conditions (not mental disorders or infectious disease) (1 source) Encounter for screening for malignant neoplasm of prostate; Translations: [Screening for prostate cancer] Onset: 06-25-2024 Episodic Results Test Name Value Interpretation Reference Range Facility [facility] 06-01-2025 [facility] BHARATHI SUE ([id number]) 1950 M Date Time Provider Department 06/01/25 [facility] During your visit today, we recorded the following information about you: Delmi Cam RN 06/01/2025 10:00 AM Signed Patient calls and states that Jose Cruzluismaria luisa is going to reach out to office today in regards to Trulicity. Patient is currently out of Trulicity and patient does not want to pay out of pocket for medication at [facility]. Fasting blood this morning was 114, yesterday it was 112. Patient is going to call Marci to see what exactly is needed from office for medication. Patient will call back. COOKIE Reganing Francheska Valencia 06/01/2025 10:22 AM Signed Patient called and stated Karen Saha is going to fax the paperwork. However, he does not know to what fax number. He did not give them [phone]; he does not know if they will call. However, he is requesting our office call [facility]: [facility] [phone]. Please follow up with patient on status. Delmi Cam RN 06/08/2025 10:44 AM Signed Patient notified that we did not receive fax he had stated [facility] Patient asking if order can be faxed again. Please review and advise, COOKIE Regan Michelle, LPN 06/08/2025 12:45 PM Signed Patient telephoned and made aware that the prescription was sent to [facility] on 05/18. Patient asking what else [facility] would need, instructed patient to call them. DON Serna Michelle, LPN 06/09/2025 8:34 AM Addendum Form received. Placed in inbox of Kenyetta Stacy for completion. DON Serna Julie, APRN.FRANCY 06/09/2025 9:19 AM Signed Form completed and in my outbox. Kenyetta Stacy APRN.Essence Esquivel LPN 06/09/2025 6:59 PM Signed Form faxed to with confirmation received. Patient notified via [employer]. Essence Solis LPN Allergies As of Date: 06/01/2025 Noted Allergy Reaction SUNFLOWER SEED 12/28/2013 10 - Anaphylaxis ZOCOR (SIMVASTATIN) 08/06/2005 17 - Myalgia Comments: muscle pain AMOXICILLIN 08/25/2021 4 - Hives DUST 08/06/2005 ERYTHROMYCIN 08/06/2005 14 - Other: See Comments Comments: Tingling. Date Reviewed: 03/22/2025 Reviewed by: Kyung Soni MA - Fully Assessed Reason for Visit: Medication Problem [65] Prescriptions as of 06/09/2025 - dulaglutide (TRULICITY) 3 mg/0.5 mL pen injector Inject 3 mg subcutaneously one time a week. - blood sugar diagnostic (ONETOUCH ULTRA TEST) test strip Test blood sugar BID and as needed - Insulin [place], Disposable, (BD ULTRA-FINE CAROLYN PEN NEEDLE) 32 gauge x 5/32 Inject 1 Each subcutaneously two times a day. Use with Insulin - rosuvastatin (CRESTOR) 20 mg tablet Take 1 tablet by mouth daily at bedtime. - enalapril (VASOTEC) 20 mg tablet Take 1 tablet by mouth once daily. - metFORMIN (GLUCOPHAGE) 500 mg tablet Take 2 tablets by mouth two times a day with meals. - levothyroxine (SYNTHROID) 100 mcg tablet TAKE 1 TABLET DAILY ON AN EMPTY STOMACH - albuterol HFA (VENTOLIN HFA) 90 mcg/actuation inhaler Inhale 2 Puffs as instructed every 4 hours as needed for wheezing/shortness of breath. - insulin glargine (BASAGLAR KWIKPEN U-100 INSULIN) 100 unit/mL (3 mL) Inject 34 Units subcutaneously two times a day. - Lancets (iPowerUpUCH ULTRASOFT LANCETS) Test blood sugar(s) 2 times daily and as needed. Dx: Type 2 DM - Uncontrolled E11.65 , Insulin: Yes - hydroCHLOROthiazide 25 mg tablet TAKE 1 TABLET (25mg) BY MOUTH ONCE DAILY - ELIQUIS 5 mg tab(s) Take 1 tablet by mouth every 12 hours. - EPINEPHrine (EPIPEN) 0.3 mg/0.3 mL auto-injector Inject 0.3 mL intramuscularly as needed (For allergic reaction). - propylene glycol (SYSTANE BALANCE OPHTHALMIC) Use in eyes. 3-4 times a day - sulfacetamide sodium/sulfur (PRASCION TOPICAL) Apply to affected area once daily. 10-55 - omega-3 DHA-EPA (FISH OIL) 1,200 (144-216) mg capsule Take 1 capsule by mouth daily with breakfast. - MAGNESIUM SULFATE ORAL Take 500 mg by mouth once daily. - CINNAMON BARK ORAL Take 2,000 mcg by mouth once daily. - carvedilol (COREG) 3.125 mg tablet Take 3.125 mg by mouth twice daily with meals. - blood sugar diagnostic (BLOOD GLUCOSE TEST) test strip Test blood sugar(s) 2 times daily. Dx: Type 2 DM - Controlled E11.9 Insulin: Yes - nitroglycerin sublingual (NITROQUICK) 0.[address] 1 tablet under the tongue if needed every 5 minutes for stephen... (REFER TO PRESCRIPTION NOTES). - blood sugar diagnostic (iPowerUpUCH ULTRA TEST STRIP) test strip Test sugar daily and as needed - Blood-Glucose Meter (iPowerUpUCH ULTRA2 METER) monitoring kit Check blood sugar daily and as needed - aspirin, enteric coated (ASPIRIN, ENTERIC COATED) 81 mg EC tablet Take 81 mg by mouth once daily. - Compression Knee Highs KN (more content not included)... Normal [facility] Absolute lymphocyte countOrd ered By: Essence Powers on 05-21-2025 Lymphocytes Auto (Unsp spec) [#/Vol] 2.82 10*3/uL 0.83-4.51 [facility] Absolute neutrophil countOrd ered By: Essence Powers on 05-21-2025 Neutrophils (Bld) [#/Vol] 7.0 10*3/uL 2.0-7.7 [facility] Anion gap in Serum or Plasma Ordered By: Essence Powers on 05-21-2025 Anion gap [Moles/Vol] 16 mmol/L High 5-15 [facility] Automated lymphocyte count a s percentage of total leukocytesOrdered By: Essence Powers on 05-21-2025 Lymphocytes/100 WBC Auto (Unsp spec) 25.8 % 19-41 [facility] BUN/creatinine ratioOrdered By: Essence Powers on 05-21-2025 Urea nitrogen/Creatinine [Mass ratio] 23.9 mg/mg High 10-20 [facility] Basic Metabolic Profile (BMP )on 05-21-2025 BUN/CRE 23.9 RATIO [facility] 10- [facility] Comment on above: Performed By: #### L 100.0100, L500.2500, [id number] #### [facility] [address] [place], [address] Calcium [Mass/Vol] 9.4 mg/dL Normal 7.6-11.0 [facility] Comment on above: Performed By: #### L 100.0100, L500.2500, [id number] #### [facility] [address] [place], [address] Chloride [Moles/Vol] 100 mmol/L Normal 98-[address] [facility] Comment on above: Performed By: #### L 100.0100, L500.2500, [id number] #### [facility] [address] [place], [address] CO2 [Moles/Vol] 25.3 mmol/L Normal 21.0-32.0 [facility] Comment on above: Performed By: #### L 100.0100, L500.2500, [id number] #### [facility] [address] [place], [address] Creatinine [Mass/Vol] 1.14 mg/dL Normal 0.70-1.20 [facility] Comment on above: Performed By: #### L 100.0100, L500.2500, [id number] #### [facility] [address], [address] GAP 16 High 5-15 [facility] Comment on above: Performed By: #### L 100.0100, L500.2500, [id number] #### [facility] [address], [address] GFR/1.73 sq M.predicted among non-blacks MDRD (S/P/Bld) [Vol rate/Area] 67 mL/min/{1.73_m2} Normal >60 [facility] Comment on above: Result Comment: mL/m in/1.73m2 CKD-EPI Creatinine Equation (2020) Performed By: #### L 100.0100, L500.2500, [id number] #### [facility] [address], [address] Glucose [Mass/Vol] 154 mg/dL High 70-99 [facility] Comment on above: Performed By: #### L 100.0100, L500.2500, [id number] #### [facility] [address], [address] Potassium [Moles/Vol] 4.3 mmol/L Normal 3.3-5.1 [facility] Comment on above: Performed By: #### L 100.0100, L500.2500, [id number] #### [facility] [address], [address] Sodium [Moles/Vol] 141 mmol/L Normal 133-145 [facility] Comment on above: Performed By: #### L 100.0100, L500.2500, [id number] #### [facility] [address], [address] Urea nitrogen [Mass/Vol] 27 mg/dL High 4-19 [facility] Comment on above: Performed By: #### L 100.0100, L500.2500, [id number] #### [facility] [address], [address] Basophil percentageOrdered B y: Essence Powers on 05-21-2025 Basophils/100 WBC (Bld) 0.5 % 0-1 [facility] CBC W/Diff, Automatedon Absolute Lymph 2.82 X10 3/uL Normal 0.83-4.51 [facility] Comment on above: Performed By: #### L 100.0100, L500.2500, [id number] #### [facility] [address], [address] Absolute Neut 7.0 X10 3/uL Normal 2.0-7.7 [facility] Comment on above: Performed By: #### L 100.0100, L500.2500, [id number] #### [facility] [address], [address] Basophils/100 WBC (Bld) 0.5 % Normal 0-1 [facility] Comment on above: Performed By: #### L 100.0100, L500.2500, [id number] #### [facility] [address], [address] Eosinophils/100 WBC (Bld) 2.7 % Normal 0-5 [facility] Comment on above: Performed By: #### L 100.0100, L500.2500, [id number] #### [facility] [address], [address] Erythrocyte distribution width (RBC) [Ratio] 14.0 % Normal 11.6-14.6 [facility] Comment on above: Performed By: #### L 100.0100, L500.2500, [id number] #### [facility] [address], [address] Hematocrit (Bld) [Volume fraction] 37.3 % Low 40-54 [facility] Comment on above: Performed By: #### L 100.0100, L500.2500, [id number] #### [facility] [address], [address] Hemoglobin (Bld) [Mass/Vol] 12.3 g/dL Low 13.0-16.5 [facility] Comment on above: Performed By: #### L 100.0100, L500.2500, [id number] #### [facility] [address], [address] IG% 0.500 Normal 0.0-0.9 [facility] Comment on above: Result Comment: IG% - Immature Granulocytes (promyelocytes, myelocytes and metamyelocytes) > 1% indicates that a LEFT SHIFT is Present. Performed By: #### L 100.0100, L500.2500, [id number] #### [facility] [address] [place], [address] Lymphocytes/100 WBC (Bld) 25.8 % Normal 19-41 [facility] Comment on above: Performed By: #### L 100.0100, L500.2500, [id number] #### [facility] [address], [address] MCH (RBC) [Entitic mass] 30.2 pg Normal 27.0-32.0 [facility] Comment on above: Performed By: #### L 100.0100, L500.2500, [id number] #### [facility] [address], [address] MCHC (RBC) [Mass/Vol] 33.0 g/dL Normal 32-36 [facility] Comment on above: Performed By: #### L 100.0100, L500.2500, [id number] #### [facility] [address], [address] MCV (RBC) [Entitic vol] 91.6 fL Normal 80-94 [facility] Comment on above: Performed By: #### L 100.0100, L500.2500, [id number] #### [facility] [address] [place], [place], [address] Monocytes/100 WBC (Bld) 6.3 % Normal 0-10 [facility] Comment on above: Performed By: #### L 100.0100, L500.2500, L503.7505 #### [facility] [address] [place], [address] Neutrophils/100 WBC (Bld) 64.2 % Normal 47-70 [facility] Comment on above: Performed By: #### L 100.0100, L500.2500, L503.7505 #### [facility] [address] [place], [address] Nucleated RBC (Bld) [#/Vol] 0 10*3/uL Normal 0-5 [facility] Comment on above: Performed By: #### L 100.0100, L500.2500, L503.7505 #### [facility] [address] [place], [address] Platelet mean volume (Bld) [Entitic vol] 11.2 fL Normal 6.2-12.0 [facility] Comment on above: Performed By: #### L 100.0100, L500.2500, L503.7505 #### [facility] [address] [place], [address] Platelets (Bld) [#/Vol] 222 10*3/uL Normal 150-450 [facility] Comment on above: Performed By: #### L 100.0100, L500.2500, L503.7505 #### [facility] [address] [place], [address] RBC (Bld) [#/Vol] 4.07 10*6/uL Low 4.6-6.2 [facility] Comment on above: Performed By: #### L 100.0100, L500.2500, L503.7505 #### [facility] [address] [place], [address] RDW SD 46.9 fl High 35.1-43.9 [facility] Comment on above: Performed By: #### L 100.0100, L500.2500, L503.7505 #### [facility] [address] [place], [address] WBC (Bld) [#/Vol] 10.9 10*3/uL Normal 4.4-11.0 [facility] Comment on above: Performed By: #### L 100.0100, L500.2500, L503.7505 #### [facility] [address] [place], [address] Carbon dioxide, total [Moles /volume] in Central venous bloodOrdered By: Essence Powers on 05-21-2025 CO2 [Moles/Vol] 25.3 mmol/L 21.0-32.0 [facility] Cardiology Visit Reporton Cardiology Visit Report [facility] [address] [place] [address] OFFICE VISIT Date of Service: 05/21/25 MR#: [id number] Acct: [id number] Name: BHARATHI SUE Rep #: [id number] : 1950 Provider: GINA Elliott Age/Sex: 74/M Location: [facility] Status: Signed HPI HPI History of Present Illness Details: BHARATHI SUE, is a 74 M who presented to ER in 12/2021 from stress test lab at the [facility] in [place] where he was undergoing a pharmacologic stress test. He underwent a Lexiscan stress test and says that he felt dizzy and does not remember what happened. He apparently had a cardiac arrest and ACLS protocol was followed the duration was brief for about 45 seconds and return of spontaneous circulation was achieved with CPR. The patient is noted to have a normal sinus rhythm with a right bundle branch block and a left anterior fascicular block with a rate of 61 bpm. He does have a history of hypertension, hyperlipidemia, diabetes mellitus. He did undergo a cardiac cath which demonstrated totally occluded RCA with [id number] collaterals. Mild disease in LAD and circumflex artery. Medical management was recommended. He does feel that he has more SOB than what he should been. He feels that his has worsened. He does not have any chest pain. He does sometimes have palpitations. He wonders if he is having Afib. He does not have any lightheadedness/dizziness. Intake Vital Signs 10/06/24 08:28 05/21/25 07:08 Height 6 ft 6 ft Weight: 280 lb 279 lb BMI 38.0 37.8 BP 111/66 128/75 H Blood Pressure Location Lt brachial Lt brachial Position Sitting Sitting Respiration 18 18 Pulse 67 72 Pulse Source Monitor Monitor Pulse Oximetry (%) 97 Intake Visit Reasons: 9 M FU It Desktop Support Specialist Required: No Is patient in pain?: No Allergies amoxicillin Allergy (Verified 05/21/25 09:15) Other erythromycin base Allergy (Verified 05/21/25 09:15) Other simvastatin Allergy (Verified 05/21/25 09:15) Other sunflower seed Allergy (Verified 05/21/25 09:15) Swelling regadenoson (From Lexiscan) Adverse Reaction (Severe, Verified 08/01/25 09:15) asystole Medications ???Medication ???Instructions ???Recorded ???Confirmed ???Type dulaglutide 3 mg/0.5 mL 3 mg subcut QWEEK 12/25/21 5 History subcutaneous pen injector (Trulicity) enalapril maleate 10 mg tablet 10 mg PO DAILY 12/25/21 05/21/25 H istory (Vasotec) levothyroxine 100 mcg tablet 100 mcg PO DAILY 12/25/21 05/21/25 History rosuvastatin 20 mg tablet (Crestor) 20 mg PO DAILY 12/25/21 5 History dextromethorphan-guaifenes in 30 1 tab PO Q12H PRN nasal 12/26/21 0 05/21/25 Rx mg-600 mg tablet extended congesation #0 tabs hr (Mucinex DM) magnesium 250 mg tablet 500 mg PO DAILY 01/24/22 05/21/25 History omega-3 fatty acids-fish oil 360 1 cap PO DAILY 01/24/22 05/21/25 H istory mg-1,200 mg capsule (Fish Oil) cinnamon bark 500 mg capsule 500 mg PO DAILY 11/08/22 05/21/25 History (Cinnamon) insulin glargine 100 unit/mL (3 34 unit subcut BID 11/08/22 History mL) subcutaneous pen (Basaglar KwikPen U-100 Insulin) metformin 500 mg tablet 1,000 mg PO BID 11/08/22 05/21/25 History metronidazole 1 % topical gel 1 applic topical DAILY 11/08/22 History (Metrogel) acetaminophen 500 mg tablet 1,000 mg PO BID for knee arthritis 07/07/24 05/21/25 History (Tylenol Extra Strength) aspirin 81 mg tablet,delayed 81 mg PO QDAY 07/07/24 05/21/25 Hi story release (Adult Aspirin Regimen) apixaban 5 mg tablet (Eliquis) 5 mg PO BID 10/06/24 05/21/25 Hist ory hydrochlorothiazide 25 mg tablet 25 mg PO DAILY #90 tabs 12/28/24 0 05/21/25 Rx carvedilol 3.125 mg tablet See Rx Instructions .Route 5 05/21/25 Rx .COMPLEX #180 tabs nitroglycerin 0.4 mg sublingual 0.4 mg sublingual Q5M PRN 02/12/25 05/21/25 Rx tablet Cardiac/Chest Pain #25 tabs Ejection fraction %: 65 Have you fallen in the past year?: No [facility] Medical History (Updated 05/21/25 @ 09:34 by Essence Powers PA, PA) [facility] current use of anticoagulant Paroxysmal atrial fibrillation Right bundle branch block (RBBB) with left anterior fascicular block Essential hypertension Atherosclerotic heart disease of [place] coronary artery without angina pectoris Hernia Hyperlipemia Allergic rhinitis Malignant neoplasm of prostate Pain in joint, lower leg Hypothyroid Rosacea Incontinence Impotence Type II diabetes mellitus Morbid obesity RBBB Pulmonary hypertension SOB (shortness of breath) Surgical History History of left heart catheterization (12/25/21) H/O prostatectomy Social History (Reviewed 10/06/24 @ 08 (more content not included)... Normal [facility] Chloride assayOrdered By: Amalia Powers on 05-21-2025 Chloride [Moles/Vol] 100 mmol/L 98-[address] [facility] Eosinophil percentageOrdered By: Essence Powers on 05-21-2025 Eosinophils/100 WBC (Bld) 2.7 % 0-5 [facility] Erythrocyte distribution wid th ratioOrdered By: Essence Powers on 05-21-2025 Erythrocyte distribution width (RBC) [Ratio] 14.0 % 11.6-14.6 [facility] Erythrocyte distribution wid th standard deviationOrdered By: Essence Powers on 05-21-2025 Erythrocyte distribution width (RBC) [Ratio] 46.9 fl High 35.1-43.9 [facility] Glomerular filtration rate ( GFR) estimation/1.73 sq m using serum, plasma, or whole bOrdered By: Essence Powers on 05-21-2025 GFR/1.73 sq M.predicted among non-blacks MDRD (S/P/Bld) [Vol rate/Area] 67 mL/min/{1.73_m2} >60 [facility] Comment on above: mL/min/1.73m2 CKD-EP I Creatinine Equation (2020) Hematocrit Auto (Bld) [Volum e fraction]Ordered By: Essence Powers on 05-21-2025 Hematocrit (Bld) [Volume fraction] 37.3 % Low 40-54 [facility] Hemoglobin measurementOrdere d By: Essence Powers on 05-21-2025 Hemoglobin (Bld) [Mass/Vol] 12.3 g/dL Low 13.0-16.5 [facility] Immature granulocytes/100 WB C Auto (Bld)Ordered By: Essence Powers on 05-21-2025 Immature granulocytes/100 WBC (Bld) 0.500 % 0.0-0.9 [facility] Comment on above: IG% - Immature Granu locytes (promyelocytes, myelocytes and metamyelocytes) > 1% indicates that a LEFT SHIFT is Present. MCV (mean corpuscular volume ) determinationOrdered By: Essence Powers on 05-21-2025 MCV (RBC) [Entitic vol] 91.6 fL 80-94 [facility] Mean corpuscular hemoglobin (MCH) determinationOrdered By: Essence Powers on 05-21-2025 MCH (RBC) [Entitic mass] 30.2 pg 27.0-32.0 [facility] Mean corpuscular hemoglobin concentration (MCHC) determinationOrdered By: Essence Powers on 05-21-2025 MCHC (RBC) [Mass/Vol] 33.0 g/dL 32-36 [facility] Mean platelet volume determi nationOrdered By: Essence Powers on 05-21-2025 Platelet mean volume (Bld) [Entitic vol] 11.2 fL 6.2-12.0 [facility] Monocyte percentageOrdered B y: Essence Pwoers on 05-21-2025 Monocytes/100 WBC (Bld) 6.3 % 0-10 [facility] Natriuretic peptide.B prohor larry N-Terminal [Mass/volume] in Serum or PlasmaOrdered By: Essence Powers on 05-21-2025 Natriuretic peptide.B prohormone N-Terminal [Mass/Vol] 59 pg/mL <900 [facility] Comment on above: Heart Failure Unlike ly: < 300 pg/mLHeart Failure Likely< 50 Years: > 450 pg/mL50-75 Years: > 900 pg/mL>75 Years: > 1800 pg/mL Neutrophil percentageOrdered By: Essence Powers on 05-21-2025 Neutrophils/100 WBC (Bld) 64.2 % 47-70 [facility] Nucleated red blood cell per centageOrdered By: Essence Powers on 05-21-2025 Nucleated RBC/100 WBC (Bld) [Ratio] 0 % 0-5 [facility] Platelet countOrdered By: Amalia Powers on 05-21-2025 Platelets (Bld) [#/Vol] 222 10*3/uL 150-450 [facility] Potassium measurement (mass/ volume)Ordered By: Essence Powers on 05-21-2025 Potassium (Unsp spec) [Mass/Vol] 4.3 mmol/L 3.3-5.1 [facility] Pro- Brain NATRIURETIC PEPTI Mary 05-21-2025 Natriuretic peptide B (Bld) [Mass/Vol] 59 pg/mL Normal <=900 [facility] Comment on above: Result Comment: Hear t Failure Unlikely: < 300 pg/mL Heart Failure Likely < 50 Years: > 450 pg/mL 50-75 Years: > 900 pg/mL >75 Years: > 1800 pg/mL Performed By: #### L 100.0100, L500.2500, L503.7505 #### [facility] [address] [place], [address] RBC Auto (Bld) [#/Vol]Ordere d By: Essence Powers on 05-21-2025 RBC (Bld) [#/Vol] 4.07 10*6/uL Low 4.6-6.2 [facility] Serum creatinine measurement (mass/volume)Ordered By: Essence Powers on 05-21-2025 Creatinine [Mass/Vol] 1.14 mg/dL 0.70-1.20 [facility] Serum glucose measurement (m ass/volume)Ordered By: Essence Powers on 05-21-2025 Glucose [Mass/Vol] 154 mg/dL High 70-99 [facility] Serum or plasma calcium faviola urement (mass/volume)Ordered By: Essence Powers on 05-21-2025 Calcium [Mass/Vol] 9.4 mg/dL 7.6-11.0 [facility] Serum or plasma urea nitroge n measurement (mass/volume)Ordered By: Essence Powers on 05-21-2025 Urea nitrogen [Mass/Vol] 27 mg/dL High 4-19 [facility] Sodium levelOrdered By: Lux Powers on 05-21-2025 Sodium [Moles/Vol] 141 mmol/L 133-145 [facility] White blood cell (WBC) count Ordered By: Essence Powers on 05-21-2025 WBC (Bld) [#/Vol] 10.9 10*3/uL 4.4-11.0 [facility] BHARATHI SUE ([id number]) 1950 M Date Time Provider Department 05/12/25 [facility] During your visit today, we recorded the following information about you: Anabelle Jasso 05/12/2025 2:00 PM Signed Patient requesting medication dulaglutide (TRULICITY) 3 mg/0.5 mL pen injector (). Patient last seen: 12-29-24 Patient scheduled: yes PHARMACY: [facility]. Jessica Kidd MA 05/12/2025 4:28 PM Signed Patient has been identified by name and date of : yes Patient phones for refill(s): Requested Prescriptions Pending Prescriptions Disp Refills dulaglutide (TRULICITY) 3 mg/0.5 mL pen injector 6 mL 1 Sig: Inject 3 mg subcutaneously one time a week. Date of last office visit in primary care: 12/29/2024 Date of next office visit in primary care: 07/02/2025 Please advise. Thank you. Jessica Kidd MA. Sara Fuller MD 05/13/2025 7:04 AM Signed Rx sent. Maria Del Rosario Bey MA 05/13/2025 7:08 AM Signed Left detailed message notifying pt FARRAH Suggsing Francheska Valencia 05/13/2025 8:10 AM Signed Patient stated he received a message to provide the information for [facility] to received [place]. He stated call number below which is direct number to pharmacy. [employer] phone: [phone] IVANIA WYLIE 05/13/2025 2:39 PM Signed Phoned patient at this time d/t needing more information regarding call this morning stating to call pharmacy. He states at this time that he just needs a new prescription. Advised him that the order was sent as requested. Verbalized understanding. Ivania Wylie LPN Allergies As of Date: 05/12/2025 Noted Allergy Reaction SUNFLOWER SEED 12/28/2013 10 - Anaphylaxis ZOCOR (SIMVASTATIN) 08/06/2005 17 - Myalgia Comments: muscle pain AMOXICILLIN 08/25/2021 4 - Hives DUST 08/06/2005 ERYTHROMYCIN 08/06/2005 14 - Other: See Comments Comments: Tingling. Date Reviewed: 03/22/2025 Reviewed by: Kyung Soni MA - Fully Assessed Reason for Visit: requesting medication that is [Other] Visit Diagnosis:Type 2 diabetes mellitus without complication, unspecified whether parts counterman insulin use (HCC) [E11.9] Order(s):dulaglutide (TRULICITY) 3 mg/0.5 mL pen injectorInject 3 mg subcutaneously one time a week.Disp: 6 mLRfl: 1 Prescriptions as of 05/13/2025 - dulaglutide (TRULICITY) 3 mg/0.5 mL pen injector Inject 3 mg subcutaneously one time a week. - blood sugar diagnostic (ONETOUCH ULTRA TEST) test strip Test blood sugar BID and as needed - Insulin [place], Disposable, (BD ULTRA-FINE CAROLYN PEN NEEDLE) 32 gauge x 5/32 Inject 1 Each subcutaneously two times a day. Use with Insulin - rosuvastatin (CRESTOR) 20 mg tablet Take 1 tablet by mouth daily at bedtime. - enalapril (VASOTEC) 20 mg tablet Take 1 tablet by mouth once daily. - metFORMIN (GLUCOPHAGE) 500 mg tablet Take 2 tablets by mouth two times a day with meals. - levothyroxine (SYNTHROID) 100 mcg tablet TAKE 1 TABLET DAILY ON AN EMPTY STOMACH - albuterol HFA (VENTOLIN HFA) 90 mcg/actuation inhaler Inhale 2 Puffs as instructed every 4 hours as needed for wheezing/shortness of breath. - insulin glargine (BASAGLAR KWIKPEN U-100 INSULIN) 100 unit/mL (3 mL) Inject 34 Units subcutaneously two times a day. - Lancets (ARKeXTOUCH ULTRASOFT LANCETS) Test blood sugar(s) 2 times daily and as needed. Dx: Type 2 DM - Uncontrolled E11.65 , Insulin: Yes - hydroCHLOROthiazide 25 mg tablet TAKE 1 TABLET (25mg) BY MOUTH ONCE DAILY - ELIQUIS 5 mg tab(s) Take 1 tablet by mouth every 12 hours. - EPINEPHrine (EPIPEN) 0.3 mg/0.3 mL auto-injector Inject 0.3 mL intramuscularly as needed (For allergic reaction). - propylene glycol (SYSTANE BALANCE OPHTHALMIC) Use in eyes. 3-4 times a day - sulfacetamide sodium/sulfur (PRASCION TOPICAL) Apply to affected area once daily. 10-55 - omega-3 DHA-EPA (FISH OIL) 1,200 (144-216) mg capsule Take 1 capsule by mouth daily with breakfast. - MAGNESIUM SULFATE ORAL Take 500 mg by mouth once daily. - CINNAMON BARK ORAL Take 2,000 mcg by mouth once daily. - carvedilol (COREG) 3.125 mg tablet Take 3.125 mg by mouth twice daily with meals. - blood sugar diagnostic (BLOOD GLUCOSE TEST) test strip Test blood sugar(s) 2 times daily. Dx: Type 2 DM - Controlled E11.9 Insulin: Yes - nitroglycerin sublingual (NITROQUICK) 0.[address] 1 tablet under the tongue if needed every 5 minutes for stephen... (REFER TO PRESCRIPTION NOTES). - blood sugar diagnostic (ONETOUCH ULTRA TEST STRIP) test strip Test sugar daily and as needed - Blood-Glucose Meter (ARKeXTOUCH ULTRA2 METER) monitoring kit Check blood sugar daily and as needed - aspirin, enteric coated (ASPIRIN, ENTERIC COATED) 81 mg EC tablet Take 81 mg by mouth once daily. - Compression Knee Highs KNEE HIGH COMPRESSION STOCKINGS 30-40 MM. D (more content not included)... Normal [facility] CNOVon 03-22-2025 CNOV Office Visit (ORTHWS ) -- VIKRAMBHARATHI Alex ([id number]) 1950 M Date Time Provider Department 03/22/25 9:00 AM JOSEFINA HERNANDEZ During your visit today, we recorded the following information about you: Kyung Soni MA 03/22/2025 9:30 AM Signed Patient presents with: Left Knee - Established Patient, Injections Right Knee - Established Patient, Injections: 15 weeks post visit OA bilateral knees with injections given - Wants injections AMB ROOMING INTAKE FLOWSHEET DATA Pain Pain Level: 8 Pain Location: Knee-Right Description: Sharp Duration Amount of Time: (Ongoing) Frequency: Intermittent Intervention/Comfort measure: Medication Patient here for injections bilateral knees. Taking Tylenol for the pain and is effective when needed. Josefina Hernandez PA-C 03/22/2025 9:30 AM Signed Large Joint Arthro/Inj: bilateral knee joints 03/22/2025 9:30 AM The procedure site was prepped in the usual sterile fashion. Site: bilateral knee joints Medications (Right): 6 mg betamethasone acetate-betamethasone sodium phosphate 6 mg/mL Medications (Left): 6 mg betamethasone acetate-betamethasone sodium phosphate 6 mg/mL Anesthetics (Right): 5 mL lidocaine (PF) 10 mg/mL (1 %) Anesthetics (Left): 5 mL lidocaine (PF) 10 mg/mL (1 %) Outcome: Tolerated well, no immediate complications Post-injection instructions were reviewed with the patient and the patient voiced understanding of these instructions. Informed Consent Consent Obtained: Verbal [place] Protocol A moment to CARE was completed. SIGN IN Sign in communication not applicable due to emergent procedure. Personnel directly involved with the procedure wore the appropriate PPE. Special Equipment: N/A Patient/Surrogate Stated/Verified: Patient name, Date of , Relevant allergies and Intended procedure TIME OUT Relevant labs, photos, and/or imaging studies have been reviewed. Consent documented and matches the intended procedure. Correct side/site marked and visible. Medications required for procedure verified. No fire risk assessment and interventions applicable. No implant(s) inserted. SIGN OUT No specimen collected. No post-procedure POC communication to the patient's multidisciplinary team (including the bedside nurse for hospitalized patients) applicable. Referring Provider: SARA FULLER [[id number]] Allergies As of Date: 03/22/2025 Noted Allergy Reaction SUNFLOWER SEED 12/28/2013 10 - Anaphylaxis ZOCOR (SIMVASTATIN) 08/06/2005 17 - Myalgia Comments: muscle pain AMOXICILLIN 08/25/2021 4 - Hives DUST 08/06/2005 ERYTHROMYCIN 08/06/2005 14 - Other: See Comments Comments: Tingling. Date Reviewed: 03/22/2025 Reviewed by: Kyung Soni MA - Fully Assessed Reason for Visit: Established Patient [175] Injections [199] Established Patient [175] Cmt: 15 weeks post visit OA bilateral knees with injections given - Wants injections Injections [199] Cmt: 15 weeks post visit OA bilateral knees with injections given - Wants injections Primary Visit Diagnosis:Primary osteoarthritis of both knees [M17.0] Order(s):Large Joint Arthro/Inj: bilateral knee joints [LDN769] Order #: [id number] [] betamethasone acetate-betamethasone sodium phosphate 6 mg injection (CELESTONE)Disp: Rfl: [] betamethasone acetate-betamethasone sodium phosphate 6 mg injection (CELESTONE)Disp: Rfl: [] lidocaine (PF) 10 mg/mL (1 %) 5 mL injection (XYLOCAINE)Disp: Rfl: [] lidocaine (PF) 10 mg/mL (1 %) 5 mL injection (XYLOCAINE)Disp: Rfl: Prescriptions as of 03/22/2025 - blood sugar diagnostic (ONETOUCH ULTRA TEST) test strip Test blood sugar BID and as needed - Insulin [place], Disposable, (BD ULTRA-FINE CAROLYN PEN NEEDLE) 32 gauge x 5/32 Inject 1 Each subcutaneously two times a day. Use with Insulin - rosuvastatin (CRESTOR) 20 mg tablet Take 1 tablet by mouth daily at bedtime. - enalapril (VASOTEC) 20 mg tablet Take 1 tablet by mouth once daily. - metFORMIN (GLUCOPHAGE) 500 mg tablet Take 2 tablets by mouth two times a day with meals. - levothyroxine (SYNTHROID) 100 mcg tablet TAKE 1 TABLET DAILY ON AN EMPTY STOMACH - albuterol HFA (VENTOLIN HFA) 90 mcg/actuation inhaler Inhale 2 Puffs as instructed every 4 hours as needed for wheezing/shortness of breath. - dulaglutide (TRULICITY) 3 mg/0.5 mL pen injector Inject 3 mg subcutaneously one time a week. - insulin glargine (BASAGLAR KWIKPEN U-100 INSULIN) 100 unit/mL (3 mL) Inject 34 Units subcutaneously two times a day. - Lancets (ONETOUCH ULTRASOFT LANCETS) Test blood sugar(s) 2 times daily and as needed. Dx: Type 2 DM - Uncontrolled E11.65 , Insulin: Yes - hydroCHLOROthiazide 25 mg tablet TAKE 1 TABLET (25mg) BY MOUTH ONCE DAILY - ELIQUIS 5 mg tab(s) Take 1 tablet by mouth every 12 hours. - EPINEPHrine (EPIPEN) 0.3 mg/0.3 mL auto-injector (more content not included)... Normal [facility] Large Joint Arthro/Inj: bila teral knee jointson 03-22-2025 Josefina Hernandez PA -C 03/22/2025 9:30 AM Large Joint Arthro/Inj: bilateral knee joints 03/22/2025 9:30 AM The procedure site was prepped in the usual sterile fashion. Site: bilateral knee joints Medications (Right): 6 mg betamethasone acetate-betamethasone sodium phosphate 6 mg/mL Medications (Left): 6 mg betamethasone acetate-betamethasone sodium phosphate 6 mg/mL Anesthetics (Right): 5 mL lidocaine (PF) 10 mg/mL (1 %) Anesthetics (Left): 5 mL lidocaine (PF) 10 mg/mL (1 %) Outcome: Tolerated well, no immediate complications Post-injection instructions were reviewed with the patient and the patient voiced understanding of these instructions. Informed Consent Consent Obtained: Verbal [place] Protocol A moment to CARE was completed. SIGN IN Sign in communication not applicable due to emergent procedure. Personnel directly involved with the procedure wore the appropriate PPE. Special Equipment: N/A Patient/Surrogate Stated/Verified: Patient name, Date of , Relevant allergies and Intended procedure TIME OUT Relevant labs, photos, and/or imaging studies have been reviewed. Consent documented and matches the intended procedure. Correct side/site marked and visible. Medications required for procedure verified. No fire risk assessment and interventions applicable. No implant(s) inserted. SIGN OUT No specimen collected. No post-procedure POC communication to the patient's multidisciplinary team (including the bedside nurse for hospitalized patients) applicable. [facility] CNOVon 03-18-2025 CNOV Office Visit (PODIWS ) -- BHARATHI SUE ([id number]) 1950 M Date Time Provider Department 03/18/25 2:00 PM VIKTORIYA ANGELO PODIWS During your visit today, we recorded the following information about you: Queta Guerrero LPN 03/18/2025 2:48 PM Signed AMB ROOMING INTAKE FLOWSHEET DATA Pain Pain Level: 5 Pain Location: Foot-Left Description: Sore Duration Amount of Time: 3 Duration Units: Weeks Frequency: Intermittent Intervention/Comfort measure: Relaxation, Reposition Patient presents with: Right Foot - Established Patient, Diabetic Foot Care, Callous, Pain: Left Foot - Established Patient, Diabetic Foot Care, Callous: DON Yañez Matthew 03/18/2025 2:23 PM Signed - Continue wearing supportive, well-fitting shoes (such as Hoka, Jackson, New Balance, or Asics) and avoid narrow footwear. - Keep using your PowerStep shoe inserts for added cushioning and arch support. - Continue wearing the hammertoe pads on your second and third toes to reduce pressure and rubbing. - Apply a moisturizing lotion to your feet daily to prevent dryness and peeling. - Keep your toenails neatly trimmed; we trimmed the rough edge on your left big toe today and applied a bandage to the small skin flap. - If the thickened, discolored toenail on your left big toe starts to bother you, let us know--you may choose to have it removed after confirming adequate circulation. - Call the office right away if you notice any new foot pain, open sores, or signs of infection. - Plan to schedule your next diabetic foot exam in about 6 to 12 months, or sooner if any problems arise. Viktoriya Angelo 03/18/2025 2:48 PM Signed Subjective Bharathi is a 74-year-old male with a history of diabetes mellitus, presenting for a follow-up foot exam. Diabetes Mellitus: - Blood glucose levels are reportedly well-controlled, with low readings in the morning. - Most recent HbA1c was 6%. - Denies burning, tingling, or numbness in the feet. Foot Care: - History of calluses on both feet. - Using PowerStep inserts, which have provided relief. - Avoids walking barefoot; wears supportive shoes and slippers outside. - Using hammer toe pads for comfort. - Monitoring a toenail deformity on the left great toe; considering removal in the future. 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 Musculoskeletal: (+) right foot pain, (+) right foot cramps PAST MEDICAL HISTORY Diagnosis Date Allergic rhinitis, cause unspecified Allergic rhinitis Atrial fibrillation (HCC) Bilateral lower extremity edema Blood in stool Hypertension Hypothyroidism Lipoma Morbid obesity (HCC) Onychomycosis Other and unspecified hyperlipidemia Prostate cancer (HCC) [address] White. s/p prostatectomy RBBB Rosacea Type II or unspecified type diabetes mellitus without mention of complication, uncontrolled Urinary incontinence Current Outpatient Medications Medication Sig Dispense Refill blood sugar diagnostic (ONETOUCH ULTRA TEST) test strip Test blood sugar BID and as needed 100 strip 3 Insulin [place], Disposable, (BD ULTRA-FINE CAROLYN PEN NEEDLE) 32 gauge x 5/32 Inject 1 Each subcutaneously two times a day. Use with Insulin 100 Each 4 rosuvastatin (CRESTOR) 20 mg tablet Take 1 tablet by mouth daily at bedtime. 90 tablet 1 enalapril (VASOTEC) 20 mg tablet Take 1 tablet by mouth once daily. 90 tablet 1 metFORMIN (GLUCOPHAGE) 500 mg tablet Take 2 tablets by mouth two times a day with meals. 360 tablet 1 levothyroxine (SYNTHROID) 100 mcg tablet TAKE 1 TABLET DAILY ON AN EMPTY STOMACH 90 tablet 1 albuterol HFA (VENTOLIN HFA) 90 mcg/actuation inhaler Inhale 2 Puffs as instructed every 4 hours as needed for wheezing/shortness of breath. 18 g 0 dulaglutide (TRULICITY) 3 mg/0.5 mL pen injector Inject 3 mg subcutaneously one time a week. 6 mL 1 insulin glargine (BASAGLAR KWIKPEN U-100 INSULIN) 100 unit/mL (3 mL) Inject 34 Units subcutaneously two times a day. 5 Each 2 Lancets (ONETOUCH ULTRASOFT LANCETS) Test blood sugar(s) 2 times daily and as needed. Dx: Type 2 DM - Uncontrolled E11.65 , Insulin: Yes 100 Each 11 hydroCHLOROthiazide 25 mg tablet TAKE 1 TABLET (25mg) BY MOUTH ONCE DAILY ELIQUIS 5 mg tab(s) Take 1 tablet by mouth every 12 hours. EPINEPHrine (EPIPEN) 0.3 mg/0.3 mL auto-injector Inject 0.3 mL intramuscularly as needed (For allergic reaction). 2 Each 1 propylene glycol (SYSTANE BALANCE OPHTHALMIC) Use in eyes. 3-4 times a day sulfacetamide sodium/sulfur (PRASCION TOPICAL) Apply to affected area once daily. 10-55 omega-3 DHA-EPA (FISH OIL) 1,200 (144-216) mg capsule Take 1 capsule by mouth daily with breakfast. MAGNESIUM SULFATE ORAL Take 500 mg by mouth once daily. CINNAMON BARK ORAL Take 2,000 mcg by mouth once daily. carved (more content not included)... [facility] ([place]) -- BHARATHI SUE ([id number]) 1950 M Date Time Provider Department 02[facility]25 [facility] visit today, we recorded the following information about you: Marie Lundy RN 02/11/2025 12:37 PM Signed [facility] calls to request a max dose for blood glucose test strips to submit to insurance. Verbal ok given for four test strips total daily for insurance to cover (2 routine and 2 prn). Marie Lundy RN Allergies As of Date: 02/11/2025 Noted Allergy Reaction SUNFLOWER SEED 12/28/2013 10 - Anaphylaxis ZOCOR (SIMVASTATIN) 08/06/2005 17 - Myalgia Comments: muscle pain AMOXICILLIN 08/25/2021 4 - Hives DUST 08/06/2005 ERYTHROMYCIN 08/06/2005 14 - Other: See Comments Comments: Tingling. Date Reviewed: 12/29/2024 Reviewed by: Bre Malin LPN - Fully Assessed Prescriptions as of 02/11/2025 - blood sugar diagnostic (ONETOUCH ULTRA TEST) test strip Test blood sugar BID and as needed - Insulin [place], Disposable, (BD ULTRA-FINE CAROLYN PEN NEEDLE) 32 gauge x 5/32 Inject 1 Each subcutaneously two times a day. Use with Insulin - rosuvastatin (CRESTOR) 20 mg tablet Take 1 tablet by mouth daily at bedtime. - enalapril (VASOTEC) 20 mg tablet Take 1 tablet by mouth once daily. - metFORMIN (GLUCOPHAGE) 500 mg tablet Take 2 tablets by mouth two times a day with meals. - levothyroxine (SYNTHROID) 100 mcg tablet TAKE 1 TABLET DAILY ON AN EMPTY STOMACH - albuterol HFA (VENTOLIN HFA) 90 mcg/actuation inhaler Inhale 2 Puffs as instructed every 4 hours as needed for wheezing/shortness of breath. - dulaglutide (TRULICITY) 3 mg/0.5 mL pen injector Inject 3 mg subcutaneously one time a week. - insulin glargine (BASAGLAR KWIKPEN U-100 INSULIN) 100 unit/mL (3 mL) Inject 34 Units subcutaneously two times a day. - Lancets (ONETOUCH ULTRASOFT LANCETS) Test blood sugar(s) 2 times daily and as needed. Dx: Type 2 DM - Uncontrolled E11.65 , Insulin: Yes - hydroCHLOROthiazide 25 mg tablet TAKE 1 TABLET (25mg) BY MOUTH ONCE DAILY - ELIQUIS 5 mg tab(s) Take 1 tablet by mouth every 12 hours. - EPINEPHrine (EPIPEN) 0.3 mg/0.3 mL auto-injector Inject 0.3 mL intramuscularly as needed (For allergic reaction). - propylene glycol (SYSTANE BALANCE OPHTHALMIC) Use in eyes. 3-4 times a day - sulfacetamide sodium/sulfur (PRASCION TOPICAL) Apply to affected area once daily. 10-55 - omega-3 DHA-EPA (FISH OIL) 1,200 (144-216) mg capsule Take 1 capsule by mouth daily with breakfast. - MAGNESIUM SULFATE ORAL Take 500 mg by mouth once daily. - CINNAMON BARK ORAL Take 2,000 mcg by mouth once daily. - carvedilol (COREG) 3.125 mg tablet Take 3.125 mg by mouth twice daily with meals. - blood sugar diagnostic (BLOOD GLUCOSE TEST) test strip Test blood sugar(s) 2 times daily. Dx: Type 2 DM - Controlled E11.9 Insulin: Yes - nitroglycerin sublingual (NITROQUICK) 0.[address] 1 tablet under the tongue if needed every 5 minutes for stephen... (REFER TO PRESCRIPTION NOTES). - blood sugar diagnostic (ONETOUCH ULTRA TEST STRIP) test strip Test sugar daily and as needed - Blood-Glucose Meter (ONETOUCH ULTRA2 METER) monitoring kit Check blood sugar daily and as needed - aspirin, enteric coated (ASPIRIN, ENTERIC COATED) 81 mg EC tablet Take 81 mg by mouth once daily. - Compression Knee Highs KNEE HIGH COMPRESSION STOCKINGS 30-40 MM. DX: EDEMA - multivitamin (DAILY MULTI-VITAMIN) ORAL Tab Take one(1) tablet daily. Problem List As Of Date 02/11/2025 Noted Resolved Allergic rhinitis [J30.9] 08/06/2005 Hyperlipidemia [E78.5] 08/06/2005 BUNDLE BRANCH BLOCK NOS [I45.4] 11/09/2005 Blood in stool [K92.1] 12/31/2018 MALIGN NEOPL PROSTATE [C61] 05/20/2007 PAIN IN JOINT, LOWER LEG [M25.569] 09/13/2007 Diabetes mellitus (HCC) [E11.9] 09/17/2007 12/25/2017 Hypothyroidism [E03.9] 10/17/2009 Rosacea [L71.9] 02/17/2010 Hypertension [I10] 07/28/2013 Impotence [N52.9] 01/21/2014 Incontinence of urine [R32] 01/21/2014 Controlled type 2 diabetes mellitus without com*04/05/2016 Prostate cancer (HCC) [C61] 10/21/2005 Morbid obesity (HCC) [E66.01] Shortness of breath [R06.02] 11/27/2021 Pulmonary hypertension, unspecified (HCC) [I27.*11/27/2021 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 They also said he may be responsible for up to 20% of the cost. Pt asking how much that would be. Please review and advise. Vani Davila MA Allergies As of Date: 02/05/2025 Noted Allergy Reaction SUNFLOWER SEED 12/28/2013 10 - Anaphylaxis ZOCOR (SIMVASTATIN) 08/06/2005 17 - Myalgia Comments: muscle pain AMOXICILLIN 08/25/2021 4 - Hives DUST 08/06/2005 ERYTHROMYCIN 08/06/2005 14 - Other: See Comments Comments: Tingling. Date Reviewed: 12/29/2024 Reviewed by: Bre Malin LPN - Fully Assessed Reason for Visit: Patient Question [1477] Prescriptions as of 02/12/2025 - blood sugar diagnostic (ONETOUCH ULTRA TEST) test strip Test blood sugar BID and as needed - Insulin [place], Disposable, (BD ULTRA-FINE CAROLYN PEN NEEDLE) 32 gauge x 5/32 Inject 1 Each subcutaneously two times a day. Use with Insulin - rosuvastatin (CRESTOR) 20 mg tablet Take 1 tablet by mouth daily at bedtime. - enalapril (VASOTEC) 20 mg tablet Take 1 tablet by mouth once daily. - metFORMIN (GLUCOPHAGE) 500 mg tablet Take 2 tablets by mouth two times a day with meals. - levothyroxine (SYNTHROID) 100 mcg tablet TAKE 1 TABLET DAILY ON AN EMPTY STOMACH - albuterol HFA (VENTOLIN HFA) 90 mcg/actuation inhaler Inhale 2 Puffs as instructed every 4 hours as needed for wheezing/shortness of breath. - dulaglutide (TRULICITY) 3 mg/0.5 mL pen injector Inject 3 mg subcutaneously one time a week. - insulin glargine (BASAGLAR KWIKPEN U-100 INSULIN) 100 unit/mL (3 mL) Inject 34 Units subcutaneously two times a day. - Lancets (ONETOUCH ULTRASOFT LANCETS) Test blood sugar(s) 2 times daily and as needed. Dx: Type 2 DM - Uncontrolled E11.65 , Insulin: Yes - hydroCHLOROthiazide 25 mg tablet TAKE 1 TABLET (25mg) BY MOUTH ONCE DAILY - ELIQUIS 5 mg tab(s) Take 1 tablet by mouth every 12 hours. - EPINEPHrine (EPIPEN) 0.3 mg/0.3 mL auto-injector Inject 0.3 mL intramuscularly as needed (For allergic reaction). - propylene glycol (SYSTANE BALANCE OPHTHALMIC) Use in eyes. 3-4 times a day - sulfacetamide sodium/sulfur (PRASCION TOPICAL) Apply to affected area once daily. 10-55 - omega-3 DHA-EPA (FISH OIL) 1,200 (144-216) mg capsule Take 1 capsule by mouth daily with breakfast. - MAGNESIUM SULFATE ORAL Take 500 mg by mouth once daily. - CINNAMON BARK ORAL Take 2,000 mcg by mouth once daily. - carvedilol (COREG) 3.125 mg tablet Take 3.125 mg by mouth twice daily with meals. - blood sugar diagnostic (BLOOD GLUCOSE TEST) test strip Test blood sugar(s) 2 times daily. Dx: Type 2 DM - Controlled E11.9 Insulin: Yes - nitroglycerin sublingual (NITROQUICK) 0.[address] 1 tablet under the tongue if needed every 5 minutes for stephen... (REFER TO PRESCRIPTION NOTES). - blood sugar diagnostic (ONETOUCH ULTRA TEST STRIP) test strip Test sugar daily and as needed - Blood-Glucose Meter (ONETOUCH ULTRA2 METER) monitoring kit Check blood sugar daily and as needed - aspirin, enteric coated (ASPIRIN, ENTERIC COATED) 81 mg EC tablet Take 81 mg by mouth once daily. - Compression Knee Highs KNEE HIGH COMPRESSION STOCKINGS 30-40 MM. DX: EDEMA - multivitamin (DAILY MULTI-VITAMIN) ORAL Tab Take one(1) tablet daily. Problem List As Of Date 02/05/2025 Noted Resolved Allergic rhinitis [J30.9] 08/06/2005 Hyperlipidemia [E78.5] 08/06/2005 BUNDLE BRANCH BLOCK NOS [I45.4] 11/09/2005 Blood in stool [K92.1] 12/31/2018 MALIGN NEOPL PROSTATE [C61] 05/20/2007 PAIN IN JOINT, LOWER LEG [M25.569] 09/13/2007 Diabetes mellitus (HCC) [E11.9] 09/17/2007 12/25/2017 Hypothyroidism [E03.9] 10/17/2009 Rosacea [L71.9] 02/17/2010 Hypertension [I10] 07/28/2013 Impotence [N52.9] 01/21/2014 Incontinence of urine [R32] 01/21/2014 Controlled type 2 diabetes mellitus without com*04/05/2016 Prostate cancer (HCC) [C61] 10/21/2005 Morbid obesity (HCC) [E66.01] Shortness of breath [R06.02] 11/27/2021 Pulmonary hypertension, unspecified (HCC) [I27.*11/27/2021 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.*11/27/2021 Obesity, Class II, BMI 35-39.9 [E66.812] 06/04/2022 Cardiac arrest with successful resuscitation (H*02/20/2024 Onychomycosis [B35.1] Encounter Status:Closed by PRIYA PARRISH on 02/12/25 Normal [facility] ALBUMIN/CREATININE RATIO, UR INEon 01-01-2025 Albumin DL <= 20 mg/L (U) [Mass/Vol] mg/dL Normal [facility] Comment on above: Order Comment: Speci men Type: URINE SPECIMENOrdering Facility: [facility] Address: [address] [place] [address] Performed By: #### U ACR ####[facility] LABIA [id number] [place] [address] [place] Albumin/Creatinine (U) [Mass ratio] <12 Normal <30 [facility] Comment on above: Order Comment: Speci men Type: URINE SPECIMENOrdering Facility: [facility] Address: [address] [place] [address] Result Comment: Adul t Male and Female Nephrotic Criteria: <30 mg/g is considered normal to mildly increased 30-300 mg/g is considered moderately increased >300 mg/g is considered severely increased KDIGO. (2013). KDIGO 2012 Clinical Practice Guideline for the Evaluation and Management of Chronic Kidney Disease. Official Journal of the International Society of Nephrology, 3(1), 1-150. Performed By: #### U ACR ####[facility] LABIA [id number] [place] [address] [place] Creatinine (U) [Mass/Vol] 96.9 mg/dL Normal 20.0-300.0 [facility] Comment on above: Order Comment: Speci men Type: URINE SPECIMENOrdering Facility: [facility] Address: [address] [place] [address] Performed By: #### U ACR ####[facility] LABIA [id number] [place] [id number] [place] CNOVon 12-29-2024 CNOV Office Visit (FAMPWS ) -- BHARATHI SUE ([id number]) 1950 M Date Time Provider Department 12/29/24 7:20 AM SARA FULLER During your visit today, we recorded the following information about you: Pulse Respiration Blood pressure Weight 64/minute 17/minute 128/78 125 kg Sara Fuller MD 12/31/2024 9:32 AM Addendum Chief Complaint Patient presents with: Follow Up: 6 month HPI Bharathi Sue is a 74 year old male who presents here today for Above Complaints. DIABETES MELLITUS: Mr. Sue was last seen 6 months ago. Since our last visit he denies excessive thirst or increased frequency of urination, numbness, tingling or pain in extremities, new or unusual visual symptoms, and low sugar/hypoglycemic reactions. Follows a diabetic diet most of the time. He is compliant with medication(s) and is tolerating med(s) without any side effects. He reports checking his glucose on a 1-2 times a day schedule with sugars in the fasting <130 range. Patient's last HgA1C was Hemoglobin A1C (%) Date Value 06/25/2024 6.1 02/21/2024 7.0 11/22/2021 6.7 08/21/2021 6.8 ) Last Ophthalmology exam was within the past 12 months Last Podiatry exam was within the past 12 months A fib managed by [facility] cardiology with last OV about 1-[address] Rodas. No changes to regimen. Denies chest pain, palpitations, SOB, leg swelling. No bleeding or bruising with Eliquis which he is getting from [facility]. Taking synthroid as prescribed for hypothyroidism. Asymptomatic on current regimen due for TSH. Past medical history, appointments, medications, allergies reviewed. Previous Medical History PAST MEDICAL HISTORY Diagnosis Date Allergic rhinitis, cause unspecified Allergic rhinitis Atrial fibrillation (HCC) Bilateral lower extremity edema Blood in stool Hypertension Hypothyroidism Lipoma Morbid obesity (HCC) Onychomycosis Other and unspecified hyperlipidemia Prostate cancer (HCC) [address] White. s/p prostatectomy RBBB Rosacea Type II or unspecified type diabetes mellitus without mention of complication, uncontrolled Urinary incontinence Previous Surgical History PAST SURGICAL HISTORY Procedure Laterality Date COLONOSCOPY FLX DX W/COLLJ SPEC WHEN PFRMD 01/22/06 COLONOSCOPY FLX DX W/COLLJ SPEC WHEN PFRMD 02/16/16 Colonoscopy PAST SURGICAL HISTORY OF 2005 prostatectomy REPAIR UMBILICAL HERNIA 2001 Family History FAMILY HISTORY Problem Relation Age of Onset Diabetes Mother Alzheimer's Disease Father Diabetes Brother Asthma Brother other (parkinsons) Brother Patient Allergies ALLERGIES Allergen Reactions Mellette Seed Anaphylaxis Zocor [Simvastatin] Myalgia muscle pain Amoxicillin Hives Dust Erythromycin Other: See Comments Tingling. Current Medications Current Outpatient Medications on File Prior to Visit Medication Sig albuterol HFA (VENTOLIN HFA) 90 mcg/actuation inhaler Inhale 2 Puffs as instructed every 4 hours as needed for wheezing/shortness of breath. dulaglutide (TRULICITY) 3 mg/0.5 mL pen injector Inject 3 mg subcutaneously one time a week. insulin glargine (BASAGLAR KWIKPEN U-100 INSULIN) 100 unit/mL (3 mL) Inject 34 Units subcutaneously two times a day. warfarin (COUMADIN) 2 mg tablet Take 1 tablet by mouth daily as directed. (Patient not taking: Reported on 08/31/2024) enalapril (VASOTEC) 20 mg tablet Take 1 tablet by mouth once daily. rosuvastatin (CRESTOR) 20 mg tablet Take 1 tablet by mouth daily at bedtime. levothyroxine (SYNTHROID) 100 mcg tablet TAKE 1 TABLET DAILY ON AN EMPTY STOMACH metFORMIN (GLUCOPHAGE) 500 mg tablet Take 2 tablets by mouth two times a day with meals. blood sugar diagnostic (ONETOUCH ULTRA TEST) test strip Test blood sugar BID and as needed Insulin [place], Disposable, (BD ULTRA-FINE CAROLYN PEN NEEDLE) 32 gauge x 5/32 Inject 1 Each subcutaneously two times a day. Use with Insulin Lancets (ONETOUCH ULTRASOFT LANCETS) Test blood sugar(s) 2 times daily and as needed. Dx: Type 2 DM - Uncontrolled E11.65 , Insulin: Yes hydroCHLOROthiazide 25 mg tablet TAKE 1 TABLET (25mg) BY MOUTH ONCE DAILY ELIQUIS 5 mg tab(s) Take 1 tablet by mouth every 12 hours. EPINEPHrine (EPIPEN) 0.3 mg/0.3 mL auto-injector Inject 0.3 mL intramuscularly as needed (For allergic reaction). propylene glycol (SYSTANE BALANCE OPHTHALMIC) Use in eyes. 3-4 times a day sulfacetamide sodium/sulfur (PRASCION TOPICAL) Apply to affected area once daily. 10-55 omega-3 DHA-EPA (FISH OIL) 1,200 (144-216) mg capsule Take 1 capsule by mouth daily with breakfast. MAGNESIUM SULFATE ORAL Take 500 mg by mouth once daily. CINNAMON BARK ORAL Take 2,000 mcg by mouth once daily. carvedilol (COREG) 3.125 mg tablet Take 3.125 mg by mouth twice daily with meals. blood sugar diagnostic (BLOOD GLUCOSE TEST) test strip (more content not included)... Normal [facility] Comprehensive metabolic 2000 panelon 12-29-2024 Albumin [Mass/Vol] 4.6 g/dL 3.9 - 4.9 g/dL [facility] ALP [Catalytic activity/Vol] 57 U/L 38 - 113 U/L [facility] ALT [Catalytic activity/Vol] 22 U/L 10 - 54 U/L [facility] Anion gap [Moles/Vol] 12 mmol/L 8 - 15 mmol/L [facility] AST [Catalytic activity/Vol] 21 U/L 14 - 40 U/L [facility] Bilirubin [Mass/Vol] 0.3 mg/dL 0.2 - 1 .3 mg/dL [facility] Calcium [Mass/Vol] 9.7 mg/dL 8.5 - 10. 2 mg/dL [facility] Chloride [Moles/Vol] 99 mmol/L 98 - 10 7 mmol/L [facility] CO2 [Moles/Vol] 29 mmol/L 22 - 30 mmol/L [facility] Creatinine [Mass/Vol] 1 mg/dL 0.73 - 1.22 mg/dL [facility] GFR/1.73 sq M.predicted among non-blacks MDRD (S/P/Bld) [Vol rate/Area] 79 mL/min/{1.73_m2} - PINF [facility] Comment on above: Estimated Glomerular Filtration Rate (eGFR) is calculated using the 2020 CKD-EPI creatinine equation. This equation utilizes serum creatinine, sex, and age as parameters. The creatinine assay has traceable calibration to isotope dilution-mass spectrometry. Refer to KDIGO guidelines for clinical interpretation. In patients with unstable renal function, e.g. those with acute kidney injury, the eGFR may not accurately reflect actual GFR. Glucose [Mass/Vol] 111 mg/dL High 74 - 99 mg/dL [facility] Comment on above: The [place] Diabete s Association (ADA) provides guidance for cutoff values for fasting glucose and random glucose. The ADA defines fasting as no caloric intake for at least 8 hours. Fasting plasma glucose results between 100 to 125 mg/dL indicate increased risk for diabetes (prediabetes). Fasting plasma glucose results greater than or equal to 126 mg/dL meet the criteria for diagnosis of diabetes. In the absence of unequivocal hyperglycemia, results should be confirmed by repeat testing. In a patient with classic symptoms of hyperglycemia or hyperglycemic crisis, random plasma glucose results greater than or equal to 200 mg/dL meet the criteria for diagnosis of diabetes. Reference: Standards of Medical Care in Diabetes 2016, [place] Diabetes Association. Diabetes Care. 2016.39(Suppl 1). Interpretation and review of laboratory results Abnormal [facility] Potassium [Moles/Vol] 4.4 mmol/L 3.7 - 5.1 mmol/L [facility] Protein [Mass/Vol] 7.2 g/dL 6.3 - 8.0 g/dL [facility] Sodium [Moles/Vol] 140 mmol/L 136 - 144 mmol/L [facility] Urea nitrogen [Mass/Vol] 21 mg/dL 9 - 24 mg/dL [facility] Albumin [Mass/Vol] 4.6 g/dL Normal 3.9-4.9 [facility] Comment on above: Order Comment: Speci men Type: BLOOD SPECIMENOrdering Facility: [facility] Address: [address] [place] [address] Performed By: #### 3 016-3, 10658-9 ####[facility] LABCLIA [id number] [place] [address] [place] ALP [Catalytic activity/Vol] 57 U/L Normal 38-113 [facility] Comment on above: Order Comment: Speci men Type: BLOOD SPECIMENOrdering Facility: [facility] Address: [address] [place] [address] Performed By: #### 3 016-, ####[facility] LABCLIA [id number] [place] [id number] [place] ALT [Catalytic activity/Vol] 22 U/L Normal 10-54 [facility] Comment on above: Order Comment: Speci men Type: BLOOD SPECIMENOrdering Facility: [facility] Address: [address] [place] [address] Performed By: #### 3 016-3, ####[facility] LABCLIA [id number] [place] [id number] [place] Anion gap [Moles/Vol] 12 mmol/L Normal 8-15 [facility] Comment on above: Order Comment: Speci men Type: BLOOD SPECIMENOrdering Facility: [facility] Address: [address] [place] [address] Performed By: #### 3 016-3, 18949-3 ####[facility] LABCLIA [id number] [place] [address] [place] AST [Catalytic activity/Vol] 21 U/L Normal 14-40 [facility] Comment on above: Order Comment: Speci men Type: BLOOD SPECIMENOrdering Facility: [facility] Address: [address] [place] [address] Performed By: #### 3 016-3, ####[facility] LABCLIA [id number] [place] [id number] [place] Bilirubin [Mass/Vol] 0.3 mg/dL Normal 0.2-1.3 [facility] Comment on above: Order Comment: Speci men Type: BLOOD SPECIMENOrdering Facility: [facility] Address: [address] [place] [address] Performed By: #### 3 016-3, 90698-8 ####[facility] LABCLIA [id number] [address] [address] [place] Calcium [Mass/Vol] 9.7 mg/dL Normal 8.5-10.2 [facility] [facility] Comment on above: Order Comment: Speci men Type: BLOOD SPECIMENOrdering Facility: [facility] Address: [address] [place] [address] Performed By: #### 3 016-3, ####[facility] LABCLIA [id number] [address] [address] [place] Chloride [Moles/Vol] 99 mmol/L Normal 98-107 [facility] Comment on above: Order Comment: Speci men Type: BLOOD SPECIMENOrdering Facility: [facility] Address: [address] [place], [place] [id number] Performed By: #### 3 016-3, ####[facility] LABCLIA [id number] [place] [id number] [place] CO2 [Moles/Vol] 29 mmol/L Normal 22-30 [facility] Comment on above: Order Comment: Speci men Type: BLOOD SPECIMENOrdering Facility: [facility] Address: [address] [place] [address] Performed By: #### 3 016-3, ####[facility] LABCLIA [id number] [address] [address] [place] Creatinine [Mass/Vol] 1.00 mg/dL Normal 0.73-1.22 [facility] Comment on above: Order Comment: Speci men Type: BLOOD SPECIMENOrdering Facility: [facility] Address: [address] [place] [address] Performed By: #### 3 016-3, ####[facility] LABCLIA [id number] [place] [id number] [place] Creatinine and Glomerular filtration rate.predicted panel (S/P/Bld) 79 mL/min/1.73m??? Normal >=60 [facility] Comment on above: Order Comment: Speci men Type: BLOOD SPECIMENOrdering Facility: [facility] Address: [address] [place] [address] Result Comment: Yoli mated Glomerular Filtration Rate (eGFR) is calculated using the 2020 CKD-EPI creatinine equation. This equation utilizes serum creatinine, sex, and age as parameters. The creatinine assay has traceable calibration to isotope dilution-mass spectrometry. Refer to KDIGO guidelines for clinical interpretation. In patients with unstable renal function, e.g. those with acute kidney injury, the eGFR may not accurately reflect actual GFR. Performed By: #### 3 016-3, 94399-4 ####[facility] LABIA [id number] [place] [address] [place] Glucose [Mass/Vol] 111 mg/dL High 74-99 [facility] Comment on above: Order Comment: Ana Paula gunter Type: BLOOD SPECIMENOrdering Facility: [facility] Address: [address] [place] [address] Result Comment: The [place] Diabetes Association (ADA) provides guidance for cutoff values for fasting glucose and random glucose. The ADA defines fasting as no caloric intake for at least 8 hours. Fasting plasma glucose results between 100 to 125 mg/dL indicate increased risk for diabetes (prediabetes). Fasting plasma glucose results greater than or equal to 126 mg/dL meet the criteria for diagnosis of diabetes. In the absence of unequivocal hyperglycemia, results should be confirmed by repeat testing. In a patient with classic symptoms of hyperglycemia or hyperglycemic crisis, random plasma glucose results greater than or equal to 200 mg/dL meet the criteria for diagnosis of diabetes. Reference: Standards of Medical Care in Diabetes 2016, [place] Diabetes Association. Diabetes Care. 2016.39(Suppl 1). Performed By: #### 3 016-3, 22495-6 ####[facility] LABIA [id number] [place] [id number] [place] Potassium [Moles/Vol] 4.4 mmol/L Normal 3.7-5.1 [facility] Comment on above: Order Comment: Ana Paula gunter Type: BLOOD SPECIMENOrdering Facility: [facility] Address: [address] [place] [address] Performed By: #### 3 016-3, 10456-1 ####[facility] LABCLIA [id number] [address] [place] [address] [place] Protein [Mass/Vol] 7.2 g/dL Normal 6.3-8.0 [facility] Comment on above: Order Comment: Speci men Type: BLOOD SPECIMENOrdering Facility: [facility] Address: [address] [place] [address] Performed By: #### 3 016-3, 83368-7 ####[facility] LABIA [id number] [place] [id number] [place] Sodium [Moles/Vol] 140 mmol/L Normal 136-144 [facility] Comment on above: Order Comment: Speci men Type: BLOOD SPECIMENOrdering Facility: [facility] Address: [address] [place] [address] Performed By: #### 3 016-3, 53490-7 ####[facility] LABIA [id number] [place] [id number] [place] Urea nitrogen [Mass/Vol] 21 mg/dL Normal 9-24 [facility] Comment on above: Order Comment: Speci men Type: BLOOD SPECIMENOrdering Facility: [facility] Address: [address] [place] [address] Performed By: #### 3 016-3, 48566-1 ####[facility] LABIA [id number] [place] [id number] [place] HbA1c (Bld)on 12-29-2024 Average glucose Estimated from glycated hemoglobin (Bld) [Mass/Vol] 126 mg/dL [facility] Comment on above: eAG: (Estimated aver age glucose) is a calculated value from HgbA1c and is inside outside sales representative of the average blood glucose level in the last 2-3 month period. HbA1c (Bld) [Mass fraction] 6 % High 4.3 - 5.6 % [facility] Comment on above: [place] Diabetes As sociation guidelines indicate that patients with HgbA1c in the range 5.7-6.4% are at increased risk for development of diabetes, and intervention by lifestyle modification may be beneficial. HgbA1c greater or equal to 6.5% is considered diagnostic of diabetes. Interpretation and review of laboratory results Abnormal [facility] Average glucose Estimated from glycated hemoglobin (Bld) [Mass/Vol] 126 mg/dL Normal [facility] Comment on above: Order Comment: Ana Paula gunter Type: BLOOD SPECIMENOrdering Facility: [facility] Address: [address] [place] [address] Result Comment: eAG: (Estimated average glucose) is a calculated value from HgbA1c and is inside outside sales representative of the average blood glucose level in the last 2-3 month period. Performed By: #### 5 5454-3 ####[facility] LABIA [id number] [place] [address] [place] HbA1c (Bld) [Mass fraction] 6.0 % High 4.3-5.6 [facility] Comment on above: Order Comment: Ana Paula gunter Type: BLOOD SPECIMENOrdering Facility: [facility] Address: [address] [place] [address] Result Comment: [place] Diabetes Association guidelines indicate that patients with HgbA1c in the range 5.7-6.4% are at increased risk for development of diabetes, and intervention by lifestyle modification may be beneficial. HgbA1c greater or equal to 6.5% is considered diagnostic of diabetes. Performed By: #### 5 5454-3 ####[facility] LABIA [id number] [place] [address] [place] THYROID STIMULATING HORMONEo n 12-29-2024 TSH Qn 2.37 m[IU]/L [facility] TSH Qnon 12-29-2024 Interpretation and review of laboratory results Normal [facility] TSH SerPl-aCncon 12-29-2024 TSH Qn 2.370 m[IU]/L Normal 0.270-4.200 [facility] Comment on above: Order Comment: Ana Paula gunter Type: BLOOD SPECIMENOrdering Facility: [facility] Address: [address] [place] [address] Performed By: #### 3 016-3, 29362-9 ####[facility] NENA [id number] [address] OF [facility] CNOVon 12-07-2024 CNOV Office Visit (ORTHWS ) -- BHARATHI SUE ([id number]) 1950 M Date Time Provider Department 12/07/24 9:00 AM JOSEFINA HERNANDEZ During your visit today, we recorded the following information about you: Kyung Soni MA 12/07/2024 9:30 AM Signed Patient presents with: Right Knee - Follow Up Left Knee - Follow Up, Injections: 14 weeks post visit OA Bilateral knees with injections given Wants injections AMB 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 Patient feels injections helped more this time than before. Here for cortisone injections bilateral knees. New X-rays done today. Josefina Hernandez PA-C 12/07/2024 9:30 AM Signed Josefina Hernandez PA-C Department of Orthopaedics Orthopaedics [address] [place] [address] Dept: [phone] Dept December 07, 2024 CHIEF COMPLAINT: Follow Up of the Right Knee and Follow Up and Injections of the Left Knee (14 weeks post visit OA Bilateral knees with injections given/Wants injections). ASSESSMENT: M17.0 Primary osteoarthritis of both knees (primary encounter diagnosis) SUMMARY/PLAN: Patient presents for repeat bilateral knee corticosteroid injections. He has been getting a few months of relief with the corticosteroid injections. Reports that he was recently ill and was not able to work, slowly getting over his fatigue following his illness. Knees have not been bothering him as much as he has not been as active. We did try for viscosupplementation, the patient was denied as he did not participate in physical therapy. Patient does not live in an area where there are facilities that he can participate in therapy. We discussed getting him at home PT exercise program, once he completes his self-guided PT program we can certainly resubmit for authorization of viscosupplementation. Patient agrees to plan. Will proceed with repeat corticosteroid injections today. Mr. Bharathi Sue was advised as to contrast therapies and/or to take analgesics/anti-inflammato alexis as needed and all contraindications were reviewed. Supporting Information Below: Medications: Current Outpatient Medications Medication Sig benzonatate (TESSALON PERLE) 100 mg capsule Take 1 capsule by mouth three times a day as needed for up to 10 days. albuterol HFA (VENTOLIN HFA) 90 mcg/actuation inhaler Inhale 2 Puffs as instructed every 4 hours as needed for wheezing/shortness of breath. insulin glargine (BASAGLAR KWIKPEN U-100 INSULIN) 100 unit/mL (3 mL) Inject 34 Units subcutaneously two times a day. enalapril (VASOTEC) 20 mg tablet Take 1 tablet by mouth once daily. rosuvastatin (CRESTOR) 20 mg tablet Take 1 tablet by mouth daily at bedtime. levothyroxine (SYNTHROID) 100 mcg tablet TAKE 1 TABLET DAILY ON AN EMPTY STOMACH metFORMIN (GLUCOPHAGE) 500 mg tablet Take 2 tablets by mouth two times a day with meals. hydroCHLOROthiazide 25 mg tablet TAKE 1 TABLET (25mg) BY MOUTH ONCE DAILY ELIQUIS 5 mg tab(s) Take 1 tablet by mouth every 12 hours. EPINEPHrine (EPIPEN) 0.3 mg/0.3 mL auto-injector Inject 0.3 mL intramuscularly as needed (For allergic reaction). propylene glycol (SYSTANE BALANCE OPHTHALMIC) Use in eyes. 3-4 times a day sulfacetamide sodium/sulfur (PRASCION TOPICAL) Apply to affected area once daily. 10-55 omega-3 DHA-EPA (FISH OIL) 1,200 (144-216) mg capsule Take 1 capsule by mouth daily with breakfast. MAGNESIUM SULFATE ORAL Take 500 mg by mouth once daily. CINNAMON BARK ORAL Take 2,000 mcg by mouth once daily. carvedilol (COREG) 3.125 mg tablet Take 3.125 mg by mouth twice daily with meals. nitroglycerin sublingual (NITROQUICK) 0.[address] 1 tablet under the tongue if needed every 5 minutes for stephen... (REFER TO PRESCRIPTION NOTES). aspirin, enteric coated (ASPIRIN, ENTERIC COATED) 81 mg EC tablet Take 81 mg by mouth once daily. multivitamin (DAILY MULTI-VITAMIN) ORAL Tab Take one(1) tablet daily. dulaglutide (TRULICITY) 3 mg/0.5 mL pen injector Inject 3 mg subcutaneously one time a week. warfarin (COUMADIN) 2 mg tablet Take 1 tablet by mouth daily as directed. (Patient not taking: Reported on 08/31/2024) blood sugar diagnostic (ONETOUCH ULTRA TEST) test strip Test blood sugar BID and as needed Insulin [place], Disposable, (BD ULTRA-FINE CAROLYN PEN NEEDLE) 32 gauge x 5/32 Inject 1 Each subcutaneously two times a day. Use with Insulin Lancets (ONETOUCH ULTRASOFT LANCETS) Test blood sugar(s) 2 times daily and as needed. Dx: Type 2 DM - Uncontrolled E11.65 , Insulin: Yes blood sugar diagnostic (BLOOD GLUCOSE TEST) test strip Test blood sugar(s) 2 times daily. Dx: Type 2 DM - Controlled E11.9 Insulin: Yes blood sugar diagnostic (ONETOUCH ULTRA TEST STRIP) test strip Test sugar daily and as needed Blood-Glucose Meter (ONETOUCH ULTRA2 METER) monitoring kit Check blood sugar daily and as needed Co (more content not included)... Normal [facility] Large Joint Arthro/Inj: bila teral knee jointson 12-07-2024 Josefina Hernandez PA -C 12/07/2024 9:30 AM Large Joint Arthro/Inj: bilateral knee joints Informed Consent Consent Obtained: Verbal [place] Protocol A moment to CARE was completed. SIGN IN Sign in communication not applicable due to emergent procedure. Personnel directly involved with the procedure wore the appropriate PPE. Special Equipment: N/A Patient/Surrogate Stated/Verified: Patient name, Date of , Relevant allergies and Intended procedure TIME OUT Relevant labs, photos, and/or imaging studies have been reviewed. Intended patient and procedure match the source document(s). Consent documented and matches the intended procedure. Correct side/site marked and visible. Medications required for procedure verified. No fire risk assessment and interventions applicable. No implant(s) inserted.12/07/2024 9:25 AM The procedure site was prepped in the usual sterile fashion. Site: bilateral knee joints Medications (Right): 6 mg betamethasone acetate-betamethasone sodium phosphate 6 mg/mL Medications (Left): 6 mg betamethasone acetate-betamethasone sodium phosphate 6 mg/mL Anesthetics (Right): 5 mL lidocaine (PF) 10 mg/mL (1 %) Anesthetics (Left): 5 mL lidocaine (PF) 10 mg/mL (1 %) Outcome: Tolerated well, no immediate complications Post-injection instructions were reviewed with the patient and the patient voiced understanding of these instructions. SIGN OUT No specimen collected. No instruments, equipment or retained foreign bodies applicable. Post-procedure follow-up management communicated and Plan of Care Visit completed when applicable [facility] XR KNEE 4V AP/PA/LAT/MERCH B ILon 12-07-2024 XR KNEE 4V AP/PA/LAT/MERCH ALVINA * * *Final Report* * * DATE OF EXAM: Dec 07 2024 9:01AM [id number] [id number] - XR KNEE 4V AP/PA/LAT/MERCH ALVINA / PROCEDURE REASON: multiple diagnoses * * * * Physician Interpretation * * * * EXAMINATION / TECHNIQUE: XR KNEE 4V AP/PA/LAT/MERCH ALVINA HISTORY: PT STATES BILAT KNEE PAIN > ON RIGHT REQUESTING INJECTIONS Pain in both knees, unspecified chronicity Pain in both knees, unspecified chronicity COMPARISON: 03/07/2023. RESULT: No acute fracture or dislocation in either knee. Severe bilateral medial compartment osteoarthritis. No large joint effusion in either knee. Posterior joint bodies on the left. IMPRESSION: Severe bilateral medial compartment osteoarthritis with joint bodies on the left. Tool Machine Setup Operator[facility] Trans[facility] Date/Time: Dec 09 2024 8:45P Dictated by : ROSLYN MORA MD This examination was interpreted and the report reviewed and electronically signed by: ROSLYN MORA MD on Dec 09 2024 8:46PM EST [id number] Normal [facility] CNOVon 11-27-2024 CNOV Office Visit (FAMPWS ) -- BHARATHI SUE ([id number]) 1950 M Date Time Provider Department 11/27/24 8:40 AM SARA FULLER During your visit today, we recorded the following information about you: Temperature Pulse Respiration Blood pressure 99.5 degrees 88/minute 18/minute 112/64 Weight 125.1 kg Sara Fuller MD 11/27/2024 9:41 AM Signed Chief Complaint Patient presents with: Fatigue Cough chills w/o temp check HPI Bharathi Sue is a 74 year old male who presents here today for Above Complaints.. Patient complaining of chills, tactile fever, productive cough with white sputum, wheezing, chest pain with cough, rhinorrhea fatigue which started 2-3 days ago. Treating with Mucinex OTC. Denies SOB, chest congestion, headache, sore throat, myalgias, new loss of taste/smell, nasal congestion, sinus pain/pressure, nausea, vomiting, diarrhea. No recent sick contacts or exposure to COVID/flu. Has not tested for COVID. Symptoms gradually worsening. Past medical history, appointments, medications, allergies reviewed. Previous Medical History PAST MEDICAL HISTORY Diagnosis Date Allergic rhinitis, cause unspecified Allergic rhinitis Atrial fibrillation (HCC) Bilateral lower extremity edema Blood in stool Hypertension Hypothyroidism Lipoma Morbid obesity (HCC) Onychomycosis Other and unspecified hyperlipidemia Prostate cancer (HCC) [address] White. s/p prostatectomy RBBB Rosacea Type II or unspecified type diabetes mellitus without mention of complication, uncontrolled Urinary incontinence Previous Surgical History PAST SURGICAL HISTORY Procedure Laterality Date COLONOSCOPY FLX DX W/COLLJ SPEC WHEN PFRMD 01/22/06 COLONOSCOPY FLX DX W/COLLJ SPEC WHEN PFRMD 02/16/16 Colonoscopy PAST SURGICAL HISTORY OF 2005 prostatectomy REPAIR UMBILICAL HERNIA 2001 Family History FAMILY HISTORY Problem Relation Age of Onset Diabetes Mother Alzheimer's Disease Father Diabetes Brother Asthma Brother other (parkinsons) Brother Patient Allergies ALLERGIES Allergen Reactions Mellette Seed Anaphylaxis Zocor [Simvastatin] Myalgia muscle pain Amoxicillin Hives Dust Erythromycin Other: See Comments Tingling. Current Medications Current Outpatient Medications on File Prior to Visit Medication Sig dulaglutide (TRULICITY) 3 mg/0.5 mL pen injector Inject 3 mg subcutaneously one time a week. insulin glargine (BASAGLAR KWIKPEN U-100 INSULIN) 100 unit/mL (3 mL) Inject 34 Units subcutaneously two times a day. enalapril (VASOTEC) 20 mg tablet Take 1 tablet by mouth once daily. rosuvastatin (CRESTOR) 20 mg tablet Take 1 tablet by mouth daily at bedtime. levothyroxine (SYNTHROID) 100 mcg tablet TAKE 1 TABLET DAILY ON AN EMPTY STOMACH metFORMIN (GLUCOPHAGE) 500 mg tablet Take 2 tablets by mouth two times a day with meals. blood sugar diagnostic (ARKeXTOUCH ULTRA TEST) test strip Test blood sugar BID and as needed Insulin [place], Disposable, (BD ULTRA-FINE CAROLYN PEN NEEDLE) 32 gauge x 5/32 Inject 1 Each subcutaneously two times a day. Use with Insulin Lancets (ARKeXTOUCH ULTRASOFT LANCETS) Test blood sugar(s) 2 times daily and as needed. Dx: Type 2 DM - Uncontrolled E11.65 , Insulin: Yes hydroCHLOROthiazide 25 mg tablet TAKE 1 TABLET (25mg) BY MOUTH ONCE DAILY ELIQUIS 5 mg tab(s) Take 1 tablet by mouth every 12 hours. EPINEPHrine (EPIPEN) 0.3 mg/0.3 mL auto-injector Inject 0.3 mL intramuscularly as needed (For allergic reaction). propylene glycol (SYSTANE BALANCE OPHTHALMIC) Use in eyes. 3-4 times a day sulfacetamide sodium/sulfur (PRASCION TOPICAL) Apply to affected area once daily. 10-55 omega-3 DHA-EPA (FISH OIL) 1,200 (144-216) mg capsule Take 1 capsule by mouth daily with breakfast. MAGNESIUM SULFATE ORAL Take 500 mg by mouth once daily. CINNAMON BARK ORAL Take 2,000 mcg by mouth once daily. carvedilol (COREG) 3.125 mg tablet Take 3.125 mg by mouth twice daily with meals. blood sugar diagnostic (BLOOD GLUCOSE TEST) test strip Test blood sugar(s) 2 times daily. Dx: Type 2 DM - Controlled E11.9 Insulin: Yes nitroglycerin sublingual (NITROQUICK) 0.[address] 1 tablet under the tongue if needed every 5 minutes for stephen... (REFER TO PRESCRIPTION NOTES). albuterol HFA (VENTOLIN HFA) 90 mcg/actuation inhaler Inhale 2 Puffs as instructed every 4 hours as needed for wheezing/shortness of breath. blood sugar diagnostic (ONETOUCH ULTRA TEST STRIP) test strip Test sugar daily and as needed Blood-Glucose Meter (ONETOUCH ULTRA2 METER) monitoring kit Check blood sugar daily and as needed aspirin, enteric coated (ASPIRIN, ENTERIC COATED) 81 mg EC tablet Take 81 mg by mouth once daily. Compression Knee Highs KNEE HIGH COMPRESSION STOCKINGS 30-40 MM. DX: EDEMA multivitamin (DAILY MULTI-VITAMIN) ORAL Tab Take one(1) (more content not included)... [facility] -- BHARATHI SUE ([id number]) 1950 M Date Time Provider Department 11/27/24 [facility]ULL[facility] During your visit today, we recorded the following information about you: Vani Martinez LPN 11/27/2024 11:23 AM Signed ----- Message from Sara Fuller MD sent at 11/27/2024 10:36 AM EST ----- Normal chest xray. Continue treatment as discussed. Vani Martinez LPN 11/27/2024 11:23 AM Signed Left a message for pt to call the office and ask to speak to a nurse. DON Peter Michelle, COOKIE 11/27/2024 11:47 AM Signed PATIENT NOTIFIED OF INFORMATION Allergies As of Date: 11/27/2024 Noted Allergy Reaction SUNFLOWER SEED 12/28/2013 10 - Anaphylaxis ZOCOR (SIMVASTATIN) 08/06/2005 17 - Myalgia Comments: muscle pain AMOXICILLIN 08/25/2021 4 - Hives DUST 08/06/2005 ERYTHROMYCIN 08/06/2005 14 - Other: See Comments Comments: Tingling. Date Reviewed: 11/27/2024 Reviewed by: Bre Malin LPN - Fully Assessed Reason for Visit: Results [95] Prescriptions as of 11/27/2024 - benzonatate (TESSALON PERLE) 100 mg capsule Take 1 capsule by mouth three times a day as needed for up to 10 days. - albuterol HFA (VENTOLIN HFA) 90 mcg/actuation inhaler Inhale 2 Puffs as instructed every 4 hours as needed for wheezing/shortness of breath. - dulaglutide (TRULICITY) 3 mg/0.5 mL pen injector Inject 3 mg subcutaneously one time a week. - insulin glargine (BASAGLAR KWIKPEN U-100 INSULIN) 100 unit/mL (3 mL) Inject 34 Units subcutaneously two times a day. - warfarin (COUMADIN) 2 mg tablet Take 1 tablet by mouth daily as directed. - enalapril (VASOTEC) 20 mg tablet Take 1 tablet by mouth once daily. - rosuvastatin (CRESTOR) 20 mg tablet Take 1 tablet by mouth daily at bedtime. - levothyroxine (SYNTHROID) 100 mcg tablet TAKE 1 TABLET DAILY ON AN EMPTY STOMACH - metFORMIN (GLUCOPHAGE) 500 mg tablet Take 2 tablets by mouth two times a day with meals. - blood sugar diagnostic (ARKeXTOUCH ULTRA TEST) test strip Test blood sugar BID and as needed - Insulin [place], Disposable, (BD ULTRA-FINE CAROLYN PEN NEEDLE) 32 gauge x 5/32 Inject 1 Each subcutaneously two times a day. Use with Insulin - Lancets (ARKeXTOUCH ULTRASOFT LANCETS) Test blood sugar(s) 2 times daily and as needed. Dx: Type 2 DM - Uncontrolled E11.65 , Insulin: Yes - hydroCHLOROthiazide 25 mg tablet TAKE 1 TABLET (25mg) BY MOUTH ONCE DAILY - ELIQUIS 5 mg tab(s) Take 1 tablet by mouth every 12 hours. - EPINEPHrine (EPIPEN) 0.3 mg/0.3 mL auto-injector Inject 0.3 mL intramuscularly as needed (For allergic reaction). - propylene glycol (SYSTANE BALANCE OPHTHALMIC) Use in eyes. 3-4 times a day - sulfacetamide sodium/sulfur (PRASCION TOPICAL) Apply to affected area once daily. 10-55 - omega-3 DHA-EPA (FISH OIL) 1,200 (144-216) mg capsule Take 1 capsule by mouth daily with breakfast. - MAGNESIUM SULFATE ORAL Take 500 mg by mouth once daily. - CINNAMON BARK ORAL Take 2,000 mcg by mouth once daily. - carvedilol (COREG) 3.125 mg tablet Take 3.125 mg by mouth twice daily with meals. - blood sugar diagnostic (BLOOD GLUCOSE TEST) test strip Test blood sugar(s) 2 times daily. Dx: Type 2 DM - Controlled E11.9 Insulin: Yes - nitroglycerin sublingual (NITROQUICK) 0.[address] 1 tablet under the tongue if needed every 5 minutes for stephen... (REFER TO PRESCRIPTION NOTES). - blood sugar diagnostic (ONETOUCH ULTRA TEST STRIP) test strip Test sugar daily and as needed - Blood-Glucose Meter (ONETOUCH ULTRA2 METER) monitoring kit Check blood sugar daily and as needed - aspirin, enteric coated (ASPIRIN, ENTERIC COATED) 81 mg EC tablet Take 81 mg by mouth once daily. - Compression Knee Highs KNEE HIGH COMPRESSION STOCKINGS 30-40 MM. DX: EDEMA - multivitamin (DAILY MULTI-VITAMIN) ORAL Tab Take one(1) tablet daily. Problem List As Of Date 11/27/2024 Noted Resolved Allergic rhinitis [J30.9] 08/06/2005 Hyperlipidemia [E78.5] 08/06/2005 BUNDLE BRANCH BLOCK NOS [I45.4] 11/09/2005 Blood in stool [K92.1] 12/31/2018 MALIGN NEOPL PROSTATE [C61] 05/20/2007 PAIN IN JOINT, LOWER LEG [M25.569] 09/13/2007 Diabetes mellitus (HCC) [E11.9] 09/17/2007 12/25/2017 Hypothyroid [E03.9] 10/17/2009 Rosacea [L71.9] 02/17/2010 Hypertension [I10] 07/28/2013 Impotence [N52.9] 01/21/2014 Incontinence of urine [R32] 01/21/2014 Controlled type 2 diabetes mellitus without com*04/05/2016 Prostate cancer (HCC) [C61] 10/21/2005 Morbid obesity (HCC) [E66.01] Shortness of breath [R06.02] 11/27/2021 Pulmonary hypertension, unspecified (HCC) [I27.*11/27/2021 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.*11/27/2021 Obesity, Class II, BMI 35-39.9 [E66.812] 06/04/2022 Cardiac arrest with successful resuscitation (H*02/20/2024 Onychomycosis [B35.1] Encounter Status:Closed by GR (more content not included)... Normal [facility] XR CHEST 2V FRONTAL/LATon XR CHEST 2V FRONTAL/LAT * * *Final Report* * * DATE OF EXAM: Nov 27 2024 9:31AM WOX 5291 - XR CHEST 2V FRONTAL/LAT / PROCEDURE REASON: multiple diagnoses * * * * Physician Interpretation * * * * EXAMINATION: CHEST RADIOGRAPH (2 VIEW FRONTAL and LATERAL) CLINICAL HISTORY: Decreased breath sounds of both lungs Wheezing MQ: XC2_6 EXAM DATE/TIME: 11/27/2024 9:31 AM COMPARISON: Chest x-ray 08/25/2021 RESULT: Lines, tubes, and devices: None. Lungs and pleura: No consolidation. No lung mass. No pleural effusion. No pneumothorax. Cardiomediastinal silhouette: Normal cardiomediastinal silhouette. Bones and soft tissues: Unremarkable. IMPRESSION: No acute radiographic abnormality. Tool Machine Setup Operator[facility] Transcribe Date/Time: Nov 27 2024 10:01A Dictated by : IVANIA WILLETT MD This examination was interpreted and the report reviewed and electronically signed by: IVANIA WILLETT MD on Nov 27 2024 10:02AM EST [id number] Normal [facility] XR Chest PA and Lateralon IMPRESSION: No acute radiographic abnormality. Tool Machine Setup Operator: [facility] Transcribe Date/Time: Nov 27 2024 10:01A Dictated by : IVANIA WILLETT MD This examination was interpreted and the report reviewed and electronically signed by: IVANIA WILLETT MD on Nov 27 2024 10:02AM EST DIVISION OF RADIOLOGY * * *Final Report* * * DATE OF EXAM: Nov 27 2024 9:31AM WOX [id number] - XR CHEST 2V FRONTAL/LAT / PROCEDURE REASON: multiple diagnoses * * * * Physician Interpretation * * * * EXAMINATION: CHEST RADIOGRAPH (2 VIEW FRONTAL & LATERAL) CLINICAL HISTORY: Decreased breath sounds of both lungs Wheezing MQ: XC2_6 EXAM DATE/TIME: 11/27/2024 9:31 AM COMPARISON: Chest x-ray 08/25/2021 RESULT: Lines, tubes, and devices: None. Lungs and pleura: No consolidation. No lung mass. No pleural effusion. No pneumothorax. Cardiomediastinal silhouette: Normal cardiomediastinal silhouette. Bones and soft tissues: Unremarkable. DIVISION OF RADIOLOGY Provider, Jazzy Capone - 11/27/2024 * * *Final Report* * * DATE OF EXAM: Nov 27 2024 9:31AM WOX 5291 - XR CHEST 2V FRONTAL/LAT / PROCEDURE REASON: multiple diagnoses * * * * Physician Interpretation * * * * EXAMINATION: CHEST RADIOGRAPH (2 VIEW FRONTAL & LATERAL) CLINICAL HISTORY: Decreased breath sounds of both lungs Wheezing MQ: XC2_6 EXAM DATE/TIME: 11/27/2024 9:31 AM COMPARISON: Chest x-ray 08/25/2021 RESULT: Lines, tubes, and devices: None. Lungs and pleura: No consolidation. No lung mass. No pleural effusion. No pneumothorax. Cardiomediastinal silhouette: Normal cardiomediastinal silhouette. Bones and soft tissues: Unremarkable. IMPRESSION IMPRESSION: No acute radiographic abnormality. Tool Machine Setup Operator[facility] Transcribe Date/Time: Nov 27 2024 10:01A Dictated by : IVANIA WILLETT MD This examination was interpreted and the report reviewed and electronically signed by: IVANIA WILLETT MD on Nov 27 2024 10:02AM [facility] Radiology Study observation (narrative) [facility] XR Chest PA and LateralOrder ed By: [facility] Provider on 11-27-2024 [facility] CNOVon 11-23-2024 CNOV Office Visit (PODIWS ) -- BHARATHI SUE ([id number]) 1950 M Date Time Provider Department 11/23/24 8:00 AM VIKTORIYA ANGELO JADEN During your visit today, we recorded the following information about you: Viktoriya Angelo 11/23/2024 8:22 AM Signed Initial Office Visit Subjective: This 74 year old male presents to clinic for diabetic foot check. Patient has no complaints. Patient admits to being diabetic for multiple years now. Patient -B/T/N in feet at this time. Patient -pain in legs when walking. No other pedal complaints at this time. No change in medications or medical history since last visit. PAIN EVALUATION No data found in the last 1 encounters. Hemoglobin A1C (%) Date Value 06/25/2024 6.1 02/21/2024 7.0 12/06/2023 6.8 06/07/2023 6.4 12/03/2022 6.4 11/22/2021 6.7 08/21/2021 6.8 05/18/2021 6.7 01/28/2021 7.5 10/03/2020 7.0 PCP: Sara Fuller MD PAST MEDICAL HISTORY Diagnosis Date Allergic rhinitis, cause unspecified Allergic rhinitis Atrial fibrillation (HCC) Bilateral lower extremity edema Blood in stool Hypertension Hypothyroidism Lipoma Morbid obesity (HCC) Onychomycosis Other and unspecified hyperlipidemia Prostate cancer (HCC) [address] White. s/p prostatectomy RBBB Rosacea Type II or unspecified type diabetes mellitus without mention of complication, uncontrolled Urinary incontinence Current Outpatient Medications Medication Sig dulaglutide (TRULICITY) 3 mg/0.5 mL pen injector Inject 3 mg subcutaneously one time a week. insulin glargine (BASAGLAR KWIKPEN U-100 INSULIN) 100 unit/mL (3 mL) Inject 34 Units subcutaneously two times a day. enalapril (VASOTEC) 20 mg tablet Take 1 tablet by mouth once daily. rosuvastatin (CRESTOR) 20 mg tablet Take 1 tablet by mouth daily at bedtime. levothyroxine (SYNTHROID) 100 mcg tablet TAKE 1 TABLET DAILY ON AN EMPTY STOMACH metFORMIN (GLUCOPHAGE) 500 mg tablet Take 2 tablets by mouth two times a day with meals. hydroCHLOROthiazide 25 mg tablet TAKE 1 TABLET (25mg) BY MOUTH ONCE DAILY ELIQUIS 5 mg tab(s) Take 1 tablet by mouth every 12 hours. EPINEPHrine (EPIPEN) 0.3 mg/0.3 mL auto-injector Inject 0.3 mL intramuscularly as needed (For allergic reaction). propylene glycol (SYSTANE BALANCE OPHTHALMIC) Use in eyes. 3-4 times a day omega-3 DHA-EPA (FISH OIL) 1,200 (144-216) mg capsule Take 1 capsule by mouth daily with breakfast. MAGNESIUM SULFATE ORAL Take 500 mg by mouth once daily. CINNAMON BARK ORAL Take 2,000 mcg by mouth once daily. carvedilol (COREG) 3.125 mg tablet Take 3.125 mg by mouth twice daily with meals. nitroglycerin sublingual (NITROQUICK) 0.[address] 1 tablet under the tongue if needed every 5 minutes for stephen... (REFER TO PRESCRIPTION NOTES). aspirin, enteric coated (ASPIRIN, ENTERIC COATED) 81 mg EC tablet Take 81 mg by mouth once daily. multivitamin (DAILY MULTI-VITAMIN) ORAL Tab Take one(1) tablet daily. warfarin (COUMADIN) 2 mg tablet Take 1 tablet by mouth daily as directed. (Patient not taking: Reported on 08/31/2024) blood sugar diagnostic (ONETOUCH ULTRA TEST) test strip Test blood sugar BID and as needed Insulin [place], Disposable, (BD ULTRA-FINE CAROLYN PEN NEEDLE) 32 gauge x 5/32 Inject 1 Each subcutaneously two times a day. Use with Insulin Lancets (ARKeXTOUCH ULTRASOFT LANCETS) Test blood sugar(s) 2 times daily and as needed. Dx: Type 2 DM - Uncontrolled E11.65 , Insulin: Yes sulfacetamide sodium/sulfur (PRASCION TOPICAL) Apply to affected area once daily. 10-55 (Patient not taking: Reported on 03/07/2023) blood sugar diagnostic (BLOOD GLUCOSE TEST) test strip Test blood sugar(s) 2 times daily. Dx: Type 2 DM - Controlled E11.9 Insulin: Yes albuterol HFA (VENTOLIN HFA) 90 mcg/actuation inhaler Inhale 2 Puffs as instructed every 4 hours as needed for wheezing/shortness of breath. (Patient not taking: Reported on 11/27/2021) blood sugar diagnostic (ONETOUCH ULTRA TEST STRIP) test strip Test sugar daily and as needed Blood-Glucose Meter (iPowerUpUCH ULTRA2 METER) monitoring kit Check blood sugar daily and as needed Compression Knee Highs KNEE HIGH COMPRESSION STOCKINGS 30-40 MM. DX: EDEMA No current facility-administered medications for this visit. ALLERGIES Allergen Reactions Mellette Seed Anaphylaxis Zocor [Simvastatin] Myalgia muscle pain Amoxicillin Hives Dust Erythromycin Other: See Comments Tingling. PAST SURGICAL HISTORY Procedure Laterality Date COLONOSCOPY FLX DX W/COLLJ SPEC WHEN PFRMD 01/22/06 COLONOSCOPY FLX DX W/COLLJ SPEC WHEN PFRMD 02/16/16 Colonoscopy PAST SURGICAL HISTORY OF 2005 prostatectomy REPAIR UMBILICAL HERNIA 2001 FAMILY HISTORY Problem Relation Age of Onset Diabetes Mother Alzheimer's Disease Father Diabetes Brother Asthma Brother other (parkinsons) Brother Social History (more content not included)... Normal [facility] Martha 10-12-2024 MADELAINE Telephone (STACIA) -- BHARATHI SUE ([id number]) 1950 M Date Time Provider Department 10/12/24 KENYETTA STACY During your visit today, we recorded the following information about you: Kenyetta Stacy APRN.FRANCY 10/12/2024 3:05 PM Signed Prescriptions printed. Please fax with forms in my outbox. Kenyetta Stacy APRN.Essence Esquivel LPN 10/12/2024 4:20 PM Signed Prescriptions and forms faxed to [employer] at with confirmation received. DON Serna Sherrie, COOKIE 10/29/2024 8:54 AM Signed Patient calling to ask provider's office if they have received any updates from [employer]? Please call patient with update. Thank you. Essence Solis LPN 10/30/2024 9:44 AM Signed Patient telephoned, instructed to call Courtney Saha to see if the process was accepted. Instructed to call office back if they have any issues. Essence Solis LPN Allergies As of Date: 10/12/2024 Noted Allergy Reaction SUNFLOWER SEED 12/28/2013 10 - Anaphylaxis ZOCOR (SIMVASTATIN) 08/06/2005 17 - Myalgia Comments: muscle pain AMOXICILLIN 08/25/2021 4 - Hives DUST 08/06/2005 ERYTHROMYCIN 08/06/2005 14 - Other: See Comments Comments: Tingling. Date Reviewed: 08/31/2024 Reviewed by: Priya Parrish MA - Fully Assessed Visit Diagnosis:Type 2 diabetes mellitus without complication, unspecified whether fdc insulin use (HCC) [E11.9] Order(s):dulaglutide (TRULICITY) 3 mg/0.5 mL pen injectorInject 3 mg subcutaneously one time a week.Disp: 6 mLRfl: 1 insulin glargine (BASAGLAR KWIKPEN U-100 INSULIN) 100 unit/mL (3 mL)Inject 34 Units subcutaneously two times a day.Disp: 5 EachRfl: 2 Prescriptions as of 10/30/2024 - dulaglutide (TRULICITY) 3 mg/0.5 mL pen injector Inject 3 mg subcutaneously one time a week. - insulin glargine (BASAGLAR KWIKPEN U-100 INSULIN) 100 unit/mL (3 mL) Inject 34 Units subcutaneously two times a day. - warfarin (COUMADIN) 2 mg tablet Take 1 tablet by mouth daily as directed. - enalapril (VASOTEC) 20 mg tablet Take 1 tablet by mouth once daily. - rosuvastatin (CRESTOR) 20 mg tablet Take 1 tablet by mouth daily at bedtime. - levothyroxine (SYNTHROID) 100 mcg tablet TAKE 1 TABLET DAILY ON AN EMPTY STOMACH - metFORMIN (GLUCOPHAGE) 500 mg tablet Take 2 tablets by mouth two times a day with meals. - blood sugar diagnostic (ONETOUCH ULTRA TEST) test strip Test blood sugar BID and as needed - Insulin [place], Disposable, (BD ULTRA-FINE CAROLYN PEN NEEDLE) 32 gauge x 5/32 Inject 1 Each subcutaneously two times a day. Use with Insulin - Lancets (ONETOUCH ULTRASOFT LANCETS) Test blood sugar(s) 2 times daily and as needed. Dx: Type 2 DM - Uncontrolled E11.65 , Insulin: Yes - hydroCHLOROthiazide 25 mg tablet TAKE 1 TABLET (25mg) BY MOUTH ONCE DAILY - ELIQUIS 5 mg tab(s) Take 1 tablet by mouth every 12 hours. - EPINEPHrine (EPIPEN) 0.3 mg/0.3 mL auto-injector Inject 0.3 mL intramuscularly as needed (For allergic reaction). - propylene glycol (SYSTANE BALANCE OPHTHALMIC) Use in eyes. 3-4 times a day - sulfacetamide sodium/sulfur (PRASCION TOPICAL) Apply to affected area once daily. 10-55 - omega-3 DHA-EPA (FISH OIL) 1,200 (144-216) mg capsule Take 1 capsule by mouth daily with breakfast. - MAGNESIUM SULFATE ORAL Take 500 mg by mouth once daily. - CINNAMON BARK ORAL Take 2,000 mcg by mouth once daily. - carvedilol (COREG) 3.125 mg tablet Take 3.125 mg by mouth twice daily with meals. - blood sugar diagnostic (BLOOD GLUCOSE TEST) test strip Test blood sugar(s) 2 times daily. Dx: Type 2 DM - Controlled E11.9 Insulin: Yes - nitroglycerin sublingual (NITROQUICK) 0.[address] 1 tablet under the tongue if needed every 5 minutes for stephen... (REFER TO PRESCRIPTION NOTES). - albuterol HFA (VENTOLIN HFA) 90 mcg/actuation inhaler Inhale 2 Puffs as instructed every 4 hours as needed for wheezing/shortness of breath. - blood sugar diagnostic (ONETOUCH ULTRA TEST STRIP) test strip Test sugar daily and as needed - Blood-Glucose Meter (ONETOUCH ULTRA2 METER) monitoring kit Check blood sugar daily and as needed - aspirin, enteric coated (ASPIRIN, ENTERIC COATED) 81 mg EC tablet Take 81 mg by mouth once daily. - Compression Knee Highs KNEE HIGH COMPRESSION STOCKINGS 30-40 MM. DX: EDEMA - multivitamin (DAILY MULTI-VITAMIN) ORAL Tab Take one(1) tablet daily. Problem List As Of Date 10/12/2024 Noted Resolved Allergic rhinitis [J30.9] 08/06/2005 Hyperlipidemia [E78.5] 08/06/2005 BUNDLE BRANCH BLOCK NOS [I45.4] 11/09/2005 Blood in stool [K92.1] 12/31/2018 MALIGN NEOPL PROSTATE [C61] 05/20/2007 PAIN IN JOINT, LOWER LEG [M25.569] 09/13/2007 Diabetes mellitus (HCC) [E11.9] 09/17/2007 12/25/2017 Hypothyroid [E03.9] 10/17/2009 Rosacea [L71.9] 02/17/2010 Hypertension [I10] 07/28/2013 Impotence [N52.9] (more content not included)... Normal [facility] CNPBreanna 10-06-2024 MADELAINE Telephone (FAMPWS) -- VIKRAMBHARATHI ([id number]) 1950 M Date Time Provider Department 10/06/24 PODKENYETTA RG During your visit today, we recorded the following information about you: Essence Solis LPN 10/06/2024 9:16 AM Signed Type of form: [facility] Patient Assistance Forms Form received via walk in When form is completed, call patient. Form has been forwarded to Nurse Practitioner: Kenyetta Podlogzulay Patient states one form is for Trulicity and the other is for Basaglar. Essence Solis LPN PodKenyetta rg APRN.FRANCY 10/06/2024 3:27 PM Signed Forms completed and in mu outbox. 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 Kenyetta Stacy APRN.Essence Esquivel LPN 10/06/2024 3:38 PM Signed Telephone call placed to patient. Message left to call office back for update. When patient calls back please ask if he wants the office to fax forms to [facility]. Eric at my desk at this time. DON Serna Krystle, RN 10/07/2024 11:15 AM Signed Patient returns call and provider message reviewed. Patient requests that forms are faxed to [facility]. COOKIE Soria Michelle, LPN 10/07/2024 2:24 PM Addendum Forms faxed to [facility] at with confirmation received. Originals sent to scanning. Essence Solis LPN Allergies As of Date: 10/06/2024 Noted Allergy Reaction SUNFLOWER SEED 12/28/2013 10 - Anaphylaxis ZOCOR (SIMVASTATIN) 08/06/2005 17 - Myalgia Comments: muscle pain AMOXICILLIN 08/25/2021 4 - Hives DUST 08/06/2005 ERYTHROMYCIN 08/06/2005 14 - Other: See Comments Comments: Tingling. Date Reviewed: 08/31/2024 Reviewed by: Priya Parrish MA - Fully Assessed Reason for Visit: Forms [913] Cmt: Patient Assistance Forms Prescriptions as of 11/03/2024 - dulaglutide (TRULICITY) 3 mg/0.5 mL pen injector Inject 3 mg subcutaneously one time a week. - insulin glargine (BASAGLAR KWIKPEN U-100 INSULIN) 100 unit/mL (3 mL) Inject 34 Units subcutaneously two times a day. - warfarin (COUMADIN) 2 mg tablet Take 1 tablet by mouth daily as directed. - enalapril (VASOTEC) 20 mg tablet Take 1 tablet by mouth once daily. - rosuvastatin (CRESTOR) 20 mg tablet Take 1 tablet by mouth daily at bedtime. - levothyroxine (SYNTHROID) 100 mcg tablet TAKE 1 TABLET DAILY ON AN EMPTY STOMACH - metFORMIN (GLUCOPHAGE) 500 mg tablet Take 2 tablets by mouth two times a day with meals. - blood sugar diagnostic (ONETOUCH ULTRA TEST) test strip Test blood sugar BID and as needed - Insulin [place], Disposable, (BD ULTRA-FINE CAROLYN PEN NEEDLE) 32 gauge x 5/32 Inject 1 Each subcutaneously two times a day. Use with Insulin - Lancets (ARKeXTOUCH ULTRASOFT LANCETS) Test blood sugar(s) 2 times daily and as needed. Dx: Type 2 DM - Uncontrolled E11.65 , Insulin: Yes - hydroCHLOROthiazide 25 mg tablet TAKE 1 TABLET (25mg) BY MOUTH ONCE DAILY - ELIQUIS 5 mg tab(s) Take 1 tablet by mouth every 12 hours. - EPINEPHrine (EPIPEN) 0.3 mg/0.3 mL auto-injector Inject 0.3 mL intramuscularly as needed (For allergic reaction). - propylene glycol (SYSTANE BALANCE OPHTHALMIC) Use in eyes. 3-4 times a day - sulfacetamide sodium/sulfur (PRASCION TOPICAL) Apply to affected area once daily. 10 - omega-3 DHA-EPA (FISH OIL) 1,200 (144-216) mg capsule Take 1 capsule by mouth daily with breakfast. - MAGNESIUM SULFATE ORAL Take 500 mg by mouth once daily. - CINNAMON BARK ORAL Take 2,000 mcg by mouth once daily. - carvedilol (COREG) 3.125 mg tablet Take 3.125 mg by mouth twice daily with meals. - blood sugar diagnostic (BLOOD GLUCOSE TEST) test strip Test blood sugar(s) 2 times daily. Dx: Type 2 DM - Controlled E11.9 Insulin: Yes - nitroglycerin sublingual (NITROQUICK) 0.[address] 1 tablet under the tongue if needed every 5 minutes for stephen... (REFER TO PRESCRIPTION NOTES). - albuterol HFA (VENTOLIN HFA) 90 mcg/actuation inhaler Inhale 2 Puffs as instructed every 4 hours as needed for wheezing/shortness of breath. - blood sugar diagnostic (ONETOUCH ULTRA TEST STRIP) test strip Test sugar daily and as needed - Blood-Glucose Meter (ONETOUCH ULTRA2 METER) monitoring kit Check blood sugar daily and as needed - aspirin, enteric coated (ASPIRIN, ENTERIC COATED) 81 mg EC tablet Take 81 mg by mouth once daily. - Compression Knee Highs KNEE HIGH COMPRESSION STOCKINGS 30-40 MM. DX: EDEMA - multivitamin (DAILY MULTI-VITAMIN) ORAL Tab Take one(1) tablet daily. Problem List As Of Date 10/06/2024 Noted Resolved Allergic rhinitis [J30.9] 08/06/2005 Hyperlipidemia [E78.5] 08/06/2005 BUNDLE BRANCH BLOCK NOS [I45.4] 11/09/2005 Blood in stool [K92.1] 12/31/2018 MALIGN NEOPL PROSTATE [C61] 05/20/2007 PAIN IN JOINT, LOWER LEG [M25.569] 09/13/2007 Diabetes mellitus (HCC) [E11.9] 11 (more content not included)... Normal [facility] Cardiology Visit Reporton Cardiology Visit Report [facility] [address] [place], [place] [address] OFFICE VISIT Date of Service: 10/06/24 MR#: [id number] Acct: [id number] Name: BHARATHI SUE Rep #: [id number] : 1950 Provider: Dr. Darian Rodas MD Age/Sex: 74/M Location: [facility] Status: Signed HPI HPI History of Present Illness Details: BHARATHI SUE, is a 74 M who presented to ER in 12/2021 from stress test lab at the [facility] in [place] where he was undergoing a pharmacologic stress test. He underwent a Lexiscan stress test and says that he felt dizzy and does not remember what happened. He apparently had a cardiac arrest and ACLS protocol was followed the duration was brief for about 45 seconds and return of spontaneous circulation was achieved with CPR. The patient is noted to have a normal sinus rhythm with a right bundle branch block and a left anterior fascicular block with a rate of 61 bpm. He does have a history of hypertension, hyperlipidemia, diabetes mellitus. He did undergo a cardiac cath which demonstrated totally occluded RCA with [id number] collaterals. Mild disease in LAD and circumflex artery. Medical management was recommended. He does not have any chest discomfort/heaviness/tight ness. He does not have any worsening symptoms of shortness of breath. He is able to walk on flat ground without issues. But walking on hills causes him to be SOB, this is not new or has not worsened. He denies any PND. He does not have any orthopnea. He does not have any symptoms of congestive heart failure. He does not have any palpitations that he is aware of. He does not have any low extremity edema. He does not have any symptoms of claudication. Intake Vital Signs 08/05/23 08:29 02/03/24 08:40 10/06/24 08:28 Height 6 ft 6 ft 6 ft Weight: 289 lb 280 lb BMI 39.2 38.0 BP 136/74 H 111/66 Blood Pressure Location Lt brachial Lt brachial Position Sitting Sitting Respiration 18 18 Pulse 72 67 Pulse Source Monitor Monitor Pulse Oximetry (%) 92 Intake Visit Reasons: 1 Y FU It Desktop Support Specialist Required: No Accompanied by: Self Is patient in pain?: No Allergies amoxicillin Allergy (Verified 10/06/24 08:29) Other erythromycin base Allergy (Verified 10/06/24 08:29) Other simvastatin Allergy (Verified 10/06/24 08:29) Other sunflower seed Allergy (Verified 10/06/24 08:29) Swelling regadenoson (From Lexiscan) Adverse Reaction (Severe, Verified 10/06/24 08:29) asystole Medications ???Medication ???Instructions ???Recorded ???Confirmed ???Type dulaglutide 3 mg/0.5 mL 3 mg subcut QWEEK 12/25/21 10/06/24 History subcutaneous pen injector (Trulicity) enalapril maleate 10 mg tablet 10 mg PO DAILY 12/25/21 10/06/24 History (Vasotec) levothyroxine 100 mcg tablet 100 mcg PO DAILY 12/25/21 10/06/24 History rosuvastatin 20 mg tablet (Crestor) 20 mg PO DAILY 12/25/21 10/06/24 History dextromethorphan-guaifenes in 30 1 tab PO Q12H PRN nasal 12/26/21 10/06/24 Rx mg-600 mg tablet extended congesation #0 tabs hr (Mucinex DM) magnesium 250 mg tablet 500 mg PO DAILY 01/24/22 10/06/24 History omega-3 fatty acids-fish oil 360 1 cap PO DAILY 01/24/22 10/06/24 History mg-1,200 mg capsule (Fish Oil) cinnamon bark 500 mg capsule 500 mg PO DAILY 11/08/22 10/06/24 History (Cinnamon) insulin glargine 100 unit/mL (3 34 unit subcut BID 11/08/22 10/06/24 History mL) subcutaneous pen (Basaglar KwikPen U-100 Insulin) metformin 500 mg tablet 1,000 mg PO BID 11/08/22 10/06/24 History metronidazole 1 % topical gel 1 applic topical DAILY 11/08/22 10/06/24 History (Metrogel) carvedilol 3.125 mg tablet See Rx Instructions .Route 10/29/23 10/06/24 Rx .COMPLEX #180 tabs hydrochlorothiazide 25 mg tablet 25 mg PO DAILY #90 tabs 02/03/24 10/06/24 Rx nitroglycerin 0.4 mg sublingual 0.4 mg sublingual Q5M PRN 02/03/24 10/06/24 Rx tablet Cardiac/Chest Pain #25 tabs acetaminophen 500 mg tablet 1,000 mg PO BID for knee arthritis 07/07/24 10/06/24 History (Tylenol Extra Strength) aspirin 81 mg tablet,delayed 81 mg PO QDAY 07/07/24 10/06/24 History release (Adult Aspirin Regimen) apixaban 5 mg tablet (Eliquis) 5 mg PO BID 10/06/24 10/06/24 History Have you fallen in the past year?: No [facility] 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 [facility] 09-03-2024 [facility] Telephone (ORMDNA) -- BHARATHI SUE ([id number]) 1950 M Date Time Provider Department 09/03/24 JOSEFINA HERNANDEZ During your visit today, we recorded the following information about you: Josefina Hernandez PA-C 09/03/2024 4:11 PM Signed Can we let the patient know that he was denied for viscosupplementation. He has to participate in an at home therapy program or formal physical therapy, we can send him a packet of exercises and they would also like him to work on weight loss. Did not specify how that needed to be documented. Payer Request Additional Information Other (must complete Comment section) Patient Name: Bharathi Sue Appt Date: [facility] HCPCS code(s) AND drug name(s): [id number] Comments: Documentation of Physical therapy or documented home exercise routine (at least 4-6 weeks1 Clinical Documentation Requirements Hyaluronic Acid Derivatives/Vicosupplement s Below are the most common requirements for most major payers. Failure to document all necessary criteria will result in delays or denials. Payer policies will always serve as the document to reference for specific requirements. Initial Requests (Most Payers A AND B are required) A. Diagnosis of osteoarthritis confirmed by radiological evidence (e.g. x-ray, MRI, CT Scan) AND B. Patient has tried and failed conservative therapies (when AND for how long): 1. Physical therapy or documented home exercise routine (at least 4-6 weeks1) and 2. NSAIDS, acetaminophen or topical capsacin creams (document length of use) and 3. At least two cortisone injections with documented results* (or efficacy was less than 4 weeks duration or 4. Document patient is unable to tolerate conservative therapy because of adverse side effects AND C. Weight loss attempts or attempts at lifestyle modifications to promote weight loss (only for members with BMI >= 30) AND D. Member must be 40 years old or older AND E. Patient reports pain which interferes with functional activities (e.g., ambulation, prolonged standing) Pharmacy Authorization Department ----- Message ----- From: Burke (Pharmacy Lashawn)Zarina Sent: 09/01/2024 3:40 PM EST To: Bryson Martinez Rep; Josefina Hernandez PA-C; * Subject: Prior Auth Delayed: Additional Info Needed Additional Clinical Information Request Please reply all to this email Please provide the following information to facilitate or complete the prior authorization Clinical Information - See Comments Sign OV Notes Clarify Information Updated / Correct Insurance Updated diagnosis code on order and or office note x Medical Necessity Not Met Per Payer Guidelines Queta Giraldo, COOKIE 09/04/2024 10:16 AM Signed Attempted to call pt. A gentleman answered but did not respond after saying hello. I could hear the TV in the background but no one responded to me. I will try again in a little while. Allergies As of Date: 09/03/2024 Noted Allergy Reaction SUNFLOWER SEED 12/28/2013 10 - Anaphylaxis ZOCOR (SIMVASTATIN) 08/06/2005 17 - Myalgia Comments: muscle pain AMOXICILLIN 08/25/2021 4 - Hives DUST 08/06/2005 ERYTHROMYCIN 08/06/2005 14 - Other: See Comments Comments: Tingling. Date Reviewed: 08/31/2024 Reviewed by: Priya Parrish MA - Fully Assessed Prescriptions as of 09/04/2024 - dulaglutide (TRULICITY) 3 mg/0.5 mL pen injector Inject 3 mg subcutaneously one time a week. - warfarin (COUMADIN) 2 mg tablet Take 1 tablet by mouth daily as directed. - enalapril (VASOTEC) 20 mg tablet Take 1 tablet by mouth once daily. - rosuvastatin (CRESTOR) 20 mg tablet Take 1 tablet by mouth daily at bedtime. - terbinafine HCl (LAMISIL) 250 mg tablet Take 1 tablet by mouth once daily. - insulin glargine (BASAGLAR KWIKPEN U-100 INSULIN) 100 unit/mL (3 mL) Inject 34 Units subcutaneously two times a day. - levothyroxine (SYNTHROID) 100 mcg tablet TAKE 1 TABLET DAILY ON AN EMPTY STOMACH - metFORMIN (GLUCOPHAGE) 500 mg tablet Take 2 tablets by mouth two times a day with meals. - blood sugar diagnostic (iPowerUpUCH ULTRA TEST) test strip Test blood sugar BID and as needed - Insulin [place], Disposable, (BD ULTRA-FINE CAROLYN PEN NEEDLE) 32 gauge x 5/32 Inject 1 Each subcutaneously two times a day. Use with Insulin - Lancets (iPowerUpUCH ULTRASOFT LANCETS) Test blood sugar(s) 2 times daily and as needed. Dx: Type 2 DM - Uncontrolled E11.65 , Insulin: Yes - hydroCHLOROthiazide 25 mg tablet TAKE 1 TABLET (25mg) BY MOUTH ONCE DAILY - ELIQUIS 5 mg tab(s) Take 1 tablet by mouth every 12 hours. - EPINEPHrine (EPIPEN) 0.3 mg/0.3 mL auto-injector Inject 0.3 mL intramuscularly as needed (For allergic reaction). - propylene glycol (SYSTANE BALANCE OPHTHALMIC) Use in eyes. 3-4 times a day - sulfacetamide sodium/sulfur (PRASCION TOPICAL) Apply to affected area once daily. - omega-3 DHA (more content not included)... Normal [facility] CNOVon 08-31-2024 CNOV Office Visit (ORTHWS ) -- BHARATHI SUE ([id number]) 1950 M Date Time Provider Department 08/31/24 9:00 AM JOSEFINA HERNANDEZ During your visit today, we recorded the following information about you: Priya Parrish MA 08/31/2024 9:25 AM Signed AMB ROOMING INTAKE FLOWSHEET DATA Pain Pain Level: 7 Pain Location: (bilateral knees) Description: Dull, Aching Duration Amount of Time: (ongoing) Frequency: Continuous Intervention/Comfort measure: Heat, Medication Patient here today for 16 weeks post visit bilateral knee pain with injections given. He would like repeat cortisone injections today. Josefina Hernandez PA-C 08/31/2024 9:25 AM Signed Josefina Hernandez PA-C Department of Orthopaedics Orthopaedics [facility] [address] Dept: [phone] Dept August 31, 2024 CHIEF COMPLAINT: Established Patient and Follow Up of the Left Knee and Established Patient and Follow Up of the Right Knee. ASSESSMENT: M17.0 Primary osteoarthritis of both knees (primary encounter diagnosis) SUMMARY/PLAN: Patient presents for repeat bilateral knee corticosteroid injections, injections have been helping him for several months at a time. He is also been using some heat when these are bothering him which he does find to be effective. He is interested in trying viscosupplementation, we will put in a prior authorization. Large Joint Arthro/Inj: bilateral knee joints Informed Consent Consent Obtained: Verbal [place] Protocol A moment to CARE was completed. SIGN IN Sign in communication not applicable due to emergent procedure. Personnel directly involved with the procedure wore the appropriate PPE. Special Equipment: N/A Patient/Surrogate Stated/Verified: Patient name, Date of , Relevant allergies and Intended procedure TIME OUT Intended patient and procedure match the source document(s). Consent documented and matches the intended procedure. Relevant labs, photos, and/or imaging studies have been reviewed. Correct side/site marked and visible. Medications required for procedure verified. No fire risk assessment and interventions applicable. No implant(s) inserted. 08/31/2024 9:25 AM The procedure site was prepped in the usual sterile fashion. Site: bilateral knee joints Medications (Right): 6 mg betamethasone acetate-betamethasone sodium phosphate 6 mg/mL Medications (Left): 6 mg betamethasone acetate-betamethasone sodium phosphate 6 mg/mL Anesthetics (Right): 5 mL lidocaine (PF) 10 mg/mL (1 %) Anesthetics (Left): 5 mL lidocaine (PF) 10 mg/mL (1 %) Outcome: Tolerated well, no immediate complications Post-injection instructions were reviewed with the patient and the patient voiced understanding of these instructions. SIGN OUT No specimen collected. No instruments, equipment or retained foreign bodies applicable. Post-procedure follow-up management communicated and Plan of Care Visit completed when applicable Mr. Bharathi Sue was advised as to contrast therapies and/or to take analgesics/anti-inflammato alexis as needed and all contraindications were reviewed. Supporting Information Below: Medications: Current Outpatient Medications Medication Sig dulaglutide (TRULICITY) 3 mg/0.5 mL pen injector Inject 3 mg subcutaneously one time a week. enalapril (VASOTEC) 20 mg tablet Take 1 tablet by mouth once daily. rosuvastatin (CRESTOR) 20 mg tablet Take 1 tablet by mouth daily at bedtime. terbinafine HCl (LAMISIL) 250 mg tablet Take 1 tablet by mouth once daily. insulin glargine (BASAGLAR KWIKPEN U-100 INSULIN) 100 unit/mL (3 mL) Inject 34 Units subcutaneously two times a day. levothyroxine (SYNTHROID) 100 mcg tablet TAKE 1 TABLET DAILY ON AN EMPTY STOMACH metFORMIN (GLUCOPHAGE) 500 mg tablet Take 2 tablets by mouth two times a day with meals. hydroCHLOROthiazide 25 mg tablet TAKE 1 TABLET (25mg) BY MOUTH ONCE DAILY ELIQUIS 5 mg tab(s) Take 1 tablet by mouth every 12 hours. propylene glycol (SYSTANE BALANCE OPHTHALMIC) Use in eyes. 3-4 times a day omega-3 DHA-EPA (FISH OIL) 1,200 (144-216) mg capsule Take 1 capsule by mouth daily with breakfast. MAGNESIUM SULFATE ORAL Take 500 mg by mouth once daily. CINNAMON BARK ORAL Take 2,000 mcg by mouth once daily. carvedilol (COREG) 3.125 mg tablet Take 3.125 mg by mouth twice daily with meals. aspirin, enteric coated (ASPIRIN, ENTERIC COATED) 81 mg EC tablet Take 81 mg by mouth once daily. multivitamin (DAILY MULTI-VITAMIN) ORAL Tab Take one(1) tablet daily. warfarin (COUMADIN) 2 mg tablet Take 1 tablet by mouth daily as directed. (Patient not taking: Reported on 08/31/2024) blood sugar diagnostic (ONETOUCH ULTRA TEST) test strip Test blood sugar BID and as needed Insulin [place], Disposable, (BD ULTRA-FINE CAROLYN PEN NEEDLE) 32 gauge x 5/32 Inject 1 Each subcutaneously two ti (more content not included)... Normal [facility] Large Joint Arthro/Inj: bila teral knee jointson 08-31-2024 Josefina Hernandez PA -C 08/31/2024 9:25 AM Large Joint Arthro/Inj: bilateral knee joints Informed Consent Consent Obtained: Verbal [place] Protocol A moment to CARE was completed. SIGN IN Sign in communication not applicable due to emergent procedure. Personnel directly involved with the procedure wore the appropriate PPE. Special Equipment: N/A Patient/Surrogate Stated/Verified: Patient name, Date of , Relevant allergies and Intended procedure TIME OUT Intended patient and procedure match the source document(s). Consent documented and matches the intended procedure. Relevant labs, photos, and/or imaging studies have been reviewed. Correct side/site marked and visible. Medications required for procedure verified. No fire risk assessment and interventions applicable. No implant(s) inserted. 08/31/2024 9:25 AM The procedure site was prepped in the usual sterile fashion. Site: bilateral knee joints Medications (Right): 6 mg betamethasone acetate-betamethasone sodium phosphate 6 mg/mL Medications (Left): 6 mg betamethasone acetate-betamethasone sodium phosphate 6 mg/mL Anesthetics (Right): 5 mL lidocaine (PF) 10 mg/mL (1 %) Anesthetics (Left): 5 mL lidocaine (PF) 10 mg/mL (1 %) Outcome: Tolerated well, no immediate complications Post-injection instructions were reviewed with the patient and the patient voiced understanding of these instructions. SIGN OUT No specimen collected. No instruments, equipment or retained foreign bodies applicable. Post-procedure follow-up management communicated and Plan of Care Visit completed when applicable [facility] 08-25-2024 CNPN Telephone (ORTHWS) -- BHARATHI SUE ([id number]) 1950 M Date Time Provider Department 08/25/24 JOSEFINA HERNANDEZ During your visit today, we recorded the following information about you: Vani Davila MA 08/25/2024 10:37 AM Signed Pt calling to inquire about other injection to knees instead of the cortisone. Pt has appt on Saturday to get the cortisone, but is wondering if the other would be better and how to go about getting that authorized. Bilateral knee pain, right worse than left. Please review and advise. FARRAH Delgado Laurie, MA 08/26/2024 9:23 AM Signed COOKIE Arce- we can submit for approval for Gel injections but they have 15 days to approve them. If you still want the steroid injection you would have to wait 30 days (after getting the steroid injection) before you can then get the gel injections. Let me know what you would like to do? Vani Robledo MA 08/26/2024 9:23 AM Signed LVM for pt to return call or retrieve [employer] message. FARRAH Delgado Colleen, RN 08/28/2024 9:55 AM Signed Spoke with pt -he would like to discuss option of Gel injections with Josefina next week at his appointment and will then decide yes or no to move forward with gel injections. Allergies As of Date: 08/25/2024 Noted Allergy Reaction SUNFLOWER SEED 12/28/2013 10 - Anaphylaxis ZOCOR (SIMVASTATIN) 08/06/2005 17 - Myalgia Comments: muscle pain AMOXICILLIN 08/25/2021 4 - Hives DUST 08/06/2005 ERYTHROMYCIN 08/06/2005 14 - Other: See Comments Comments: Tingling. Date Reviewed: 07/29/2024 Reviewed by: Essence Solis LPN - Fully Assessed Reason for Visit: Patient Question [1477] Prescriptions as of 08/28/2024 - dulaglutide (TRULICITY) 3 mg/0.5 mL pen injector Inject 3 mg subcutaneously one time a week. - warfarin (COUMADIN) 2 mg tablet Take 1 tablet by mouth daily as directed. - enalapril (VASOTEC) 20 mg tablet Take 1 tablet by mouth once daily. - rosuvastatin (CRESTOR) 20 mg tablet Take 1 tablet by mouth daily at bedtime. - terbinafine HCl (LAMISIL) 250 mg tablet Take 1 tablet by mouth once daily. - insulin glargine (BASAGLAR KWIKPEN U-100 INSULIN) 100 unit/mL (3 mL) Inject 34 Units subcutaneously two times a day. - levothyroxine (SYNTHROID) 100 mcg tablet TAKE 1 TABLET DAILY ON AN EMPTY STOMACH - metFORMIN (GLUCOPHAGE) 500 mg tablet Take 2 tablets by mouth two times a day with meals. - blood sugar diagnostic (ARKeXTOUCH ULTRA TEST) test strip Test blood sugar BID and as needed - Insulin [place], Disposable, (BD ULTRA-FINE CAROLYN PEN NEEDLE) 32 gauge x 5/32 Inject 1 Each subcutaneously two times a day. Use with Insulin - Lancets (iPowerUpUCH ULTRASOFT LANCETS) Test blood sugar(s) 2 times daily and as needed. Dx: Type 2 DM - Uncontrolled E11.65 , Insulin: Yes - hydroCHLOROthiazide 25 mg tablet TAKE 1 TABLET (25mg) BY MOUTH ONCE DAILY - ELIQUIS 5 mg tab(s) Take 1 tablet by mouth every 12 hours. - EPINEPHrine (EPIPEN) 0.3 mg/0.3 mL auto-injector Inject 0.3 mL intramuscularly as needed (For allergic reaction). - propylene glycol (SYSTANE BALANCE OPHTHALMIC) Use in eyes. 3-4 times a day - sulfacetamide sodium/sulfur (PRASCION TOPICAL) Apply to affected area once daily. - omega-3 DHA-EPA (FISH OIL) 1,200 (144-216) mg capsule Take 1 capsule by mouth daily with breakfast. - MAGNESIUM SULFATE ORAL Take 500 mg by mouth once daily. - CINNAMON BARK ORAL Take 2,000 mcg by mouth once daily. - carvedilol (COREG) 3.125 mg tablet Take 3.125 mg by mouth twice daily with meals. - blood sugar diagnostic (BLOOD GLUCOSE TEST) test strip Test blood sugar(s) 2 times daily. Dx: Type 2 DM - Controlled E11.9 Insulin: Yes - nitroglycerin sublingual (NITROQUICK) 0.[address] 1 tablet under the tongue if needed every 5 minutes for stephen... (REFER TO PRESCRIPTION NOTES). - albuterol HFA (VENTOLIN HFA) 90 mcg/actuation inhaler Inhale 2 Puffs as instructed every 4 hours as needed for wheezing/shortness of breath. - blood sugar diagnostic (ONETOUCH ULTRA TEST STRIP) test strip Test sugar daily and as needed - Blood-Glucose Meter (ONETOUCH ULTRA2 METER) monitoring kit Check blood sugar daily and as needed - aspirin, enteric coated (ASPIRIN, ENTERIC COATED) 81 mg EC tablet Take 81 mg by mouth once daily. - Compression Knee Highs KNEE HIGH COMPRESSION STOCKINGS 30-40 MM. DX: EDEMA - multivitamin (DAILY MULTI-VITAMIN) ORAL Tab Take one(1) tablet daily. Problem List As Of Date 08/25/2024 Noted Resolved Allergic rhinitis [J30.9] 08/06/2005 Hyperlipidemia [E78.5] 08/06/2005 BUNDLE BRANCH BLOCK NOS [I45.4] 11/09/2005 Blood in stool [K92.1] 12/31/2018 MALIGN NEOPL PROSTATE [C61] 05/20/2007 PAIN IN JOINT, LOWER LEG [M25.569] 09/13/2007 Diabetes mellitus (HCC) [E11.9] 09/17/2007 12/25/2017 Hypothyroid [E03.9 (more content not included)... Normal [facility] Comprehensive metabolic 2000 panelon 08-21-2024 Albumin [Mass/Vol] 4.5 g/dL Normal 3.9-4.9 [facility] Comment on above: Order Comment: Speci men Type: BLOOD SPECIMENOrdering Facility: [facility] Address: [address] [place] [address] Performed By: #### 2 4331-1, 31053-7 ####[facility] LABCLIA [id number] [facility] [id number], [place] [address] [place] ALP [Catalytic activity/Vol] 59 U/L Normal 38-113 [facility] Comment on above: Order Comment: Speci men Type: BLOOD SPECIMENOrdering Facility: [facility] Address: [address] [place] [address] Performed By: #### 2 4331-1, 80167-4 ####[facility] LABCLIA [id number] [place] [address] [place] ALT [Catalytic activity/Vol] 28 U/L Normal 10-54 [facility] Comment on above: Order Comment: Speci men Type: BLOOD SPECIMENOrdering Facility: [facility] Address: [address] [place] [address] Performed By: #### 2 4331-1, ####[facility] LABCLIA [id number] [place] [address] [place] Anion gap [Moles/Vol] 12 mmol/L Normal 8-15 [facility] Comment on above: Order Comment: Speci men Type: BLOOD SPECIMENOrdering Facility: [facility] Address: [address] [place] [address] Performed By: #### 2 4331-1, ####[facility] LABCLIA [id number] [place] [address] [place] AST [Catalytic activity/Vol] 27 U/L Normal 14-40 [facility] Comment on above: Order Comment: Speci men Type: BLOOD SPECIMENOrdering Facility: [facility] Address: [address] [place] [address] Performed By: #### 2 4331-1, 32090-0 ####[facility] LABCLIA [id number] [place] [address] [place] Bilirubin [Mass/Vol] 0.3 mg/dL Normal 0.2-1.3 [facility] Comment on above: Order Comment: Speci men Type: BLOOD SPECIMENOrdering Facility: [facility] Address: [address] [place] [id number] Performed By: #### 2 4331-1, 57232-6 ####[facility] LABCLIA [id number] [address] [address] [place] Calcium [Mass/Vol] 9.7 mg/dL Normal 8.5-10.2 [facility] Comment on above: Order Comment: Speci men Type: BLOOD SPECIMENOrdering Facility: [facility] Address: [address] [place] [address] Performed By: #### 2 4331-1, 02706-3 ####[facility] LABCLIA [id number] [place] [address] [place] Chloride [Moles/Vol] 100 mmol/L Normal 98-107 [facility] Comment on above: Order Comment: Speci men Type: BLOOD SPECIMENOrdering Facility: [facility] Address: [address] [place] [address] Performed By: #### 2 4331-, 18133-2 ####[facility] LABCLIA [id number] [place] [address] [place] CO2 [Moles/Vol] 27 mmol/L Normal 22-30 [facility] Comment on above: Order Comment: Speci men Type: BLOOD SPECIMENOrdering Facility: [facility] Address: [address] [place], [place] [address] Performed By: #### 2 4331-, 99629-3 ####[facility] LABCLIA [id number] [place] [id number] [place] Creatinine [Mass/Vol] 1.06 mg/dL Normal 0.73-1.22 [facility] Comment on above: Order Comment: Speci men Type: BLOOD SPECIMENOrdering Facility: [facility] Address: [address] [place], [place] [address] Performed By: #### 2 4331-1, 84004-3 ####[facility] LABCLIA [id number] [place] [address] [place] Creatinine and Glomerular filtration rate.predicted panel (S/P/Bld) 74 mL/min/1.73m??? Normal >=60 [facility] Comment on above: Order Comment: Ana Paula gunter Type: BLOOD SPECIMENOrdering Facility: [facility] Address: [address] [place] [address] Result Comment: Yoli mated Glomerular Filtration Rate (eGFR) is calculated using the 2020 CKD-EPI creatinine equation. This equation utilizes serum creatinine, sex, and age as parameters. The creatinine assay has traceable calibration to isotope dilution-mass spectrometry. Refer to KDIGO guidelines for clinical interpretation. In patients with unstable renal function, e.g. those with acute kidney injury, the eGFR may not accurately reflect actual GFR. Performed By: #### 2 4331-1, 01899-6 ####[facility] [id number] [place] [address] [place] Glucose [Mass/Vol] 94 mg/dL Normal 74-99 [facility] Comment on above: Order Comment: Ana Paula gunter Type: BLOOD SPECIMENOrdering Facility: [facility] Address: [address] [place] [address] Result Comment: The [place] Diabetes Association (ADA) provides guidance for cutoff values for fasting glucose and random glucose. The ADA defines fasting as no caloric intake for at least 8 hours. Fasting plasma glucose results between 100 to 125 mg/dL indicate increased risk for diabetes (prediabetes). Fasting plasma glucose results greater than or equal to 126 mg/dL meet the criteria for diagnosis of diabetes. In the absence of unequivocal hyperglycemia, results should be confirmed by repeat testing. In a patient with classic symptoms of hyperglycemia or hyperglycemic crisis, random plasma glucose results greater than or equal to 200 mg/dL meet the criteria for diagnosis of diabetes. Reference: Standards of Medical Care in Diabetes 2016, [place] Diabetes Association. Diabetes Care. 2016.39(Suppl 1). Performed By: #### 2 4331-1, 21893-6 ####[facility] [id number] [place] [address] [place] Potassium [Moles/Vol] 4.7 mmol/L Normal 3.7-5.1 [facility] Comment on above: Order Comment: Speci men Type: BLOOD SPECIMENOrdering Facility: [facility] Address: [address] [place] [address] Performed By: #### 2 4331-1, 16301-8 ####[facility] LABCLIA [id number] [place] [address] [place] Protein [Mass/Vol] 7.3 g/dL Normal 6.3-8.0 [facility] Comment on above: Order Comment: Speci men Type: BLOOD SPECIMENOrdering Facility: [facility] Address: [address] [place] [address] Performed By: #### 2 4331-1, 88788-9 ####[facility] LABCLIA [id number] [place] [address] [place] Sodium [Moles/Vol] 139 mmol/L Normal 136-144 [facility] Comment on above: Order Comment: Speci men Type: BLOOD SPECIMENOrdering Facility: [facility] Address: [address] [place] [address] Performed By: #### 2 4331-1, ####[facility] LABIA [id number] [place] [address] [place] Urea nitrogen [Mass/Vol] 29 mg/dL High 9-24 [facility] Comment on above: Order Comment: Speci men Type: BLOOD SPECIMENOrdering Facility: [facility] Address: [address] [place] [address] Performed By: #### 2 4331-1, 38130-3 ####[facility] LABCLIA [id number] [place] [address] [place] Lipid 1996 panelon 4 Cholesterol [Mass/Vol] 156 mg/dL Normal <200 [facility] Comment on above: Order Comment: Speci men Type: BLOOD SPECIMENOrdering Facility: [facility] Address: [address] [place] [address] Result Comment: <200 mg/dL, Desirable 200-239 mg/dL, Borderline high >239 mg/dL, High Performed By: #### 2 4331-1, 29516-0 ####[facility] LABCLIA [id number] [place] [address] [place] Cholesterol in HDL [Mass/Vol] 28 mg/dL Low >39 [facility] Comment on above: Order Comment: Speci men Type: BLOOD SPECIMENOrdering Facility: [facility] Address: [address] [place] [address] Result Comment: 40-5 9 mg/dL, Acceptable >59 mg/dL, High: Negative risk factor for coronary heart disease <40 mg/dL, Low: Positive risk factor for coronary heart disease Performed By: #### 2 4331-1, 78803-8 ####[facility] LABCLIA [id number] [place] [address] [place] Cholesterol in LDL [Mass/Vol] 80 mg/dL Normal <100 [facility] Comment on above: Order Comment: Speci men Type: BLOOD SPECIMENOrdering Facility: [facility] Address: [address] [place] [address] Result Comment: <100 mg/dL, Optimal 100-129 mg/dL, Near optimal/above optimal 130-159 mg/dL, Borderline high 160-189 mg/dL, High >189 mg/dL, Very high Secondary prevention optimal LDL Cholesterol levels are recommended to be < 70 mg/dL Performed By: #### 2 4331-1, 55475-5 ####[facility] LABCLIA [id number] [place] [address] [place] Cholesterol in LDL/Cholesterol in HDL [Mass ratio] 2.86 {ratio} High <2.54 [facility] Comment on above: Order Comment: Speci men Type: BLOOD SPECIMENOrdering Facility: [facility] Address: [address] [place] [address] Result Comment: Shae draper: 1. National Cholesterol Education Program ATP III Guideline At-A-Glance Quick Desk Reference: National Heart, Lung, and Blood [place]. National Institutes of Health. 2001: NIH Publication No. 01-3305. 2. An International Atherosclerosis Society position paper: global recommendations for the management of dyslipidemia: executive summary, Atherosclerosis. 2014: 232(2):410-413. Performed By: #### 2 4331-1, 22418-8 ####[facility] LABCLIA [id number] [place] [address] [place] Cholesterol in VLDL [Mass/Vol] 48 mg/dL High <30 [facility] Comment on above: Order Comment: Speci men Type: BLOOD SPECIMENOrdering Facility: [facility] Address: [address] [place] [address] Performed By: #### 2 4331-1, 80051-1 ####[facility] LABCLIA [id number] [place] [address] [place] Cholesterol non HDL [Mass/Vol] 128 mg/dL Normal <130 [facility] Comment on above: Order Comment: Geronimoi men Type: BLOOD SPECIMENOrdering Facility: [facility] Address: [address] [place] [address] Result Comment: <130 mg/dL, Optimal 130-159 mg/dL, Near optimal/above optimal 160-189 mg/dL, Borderline high 190-219 mg/dL, High >219 mg/dL, Very high Secondary prevention optimal non HDL Cholesterol levels are recommended to be <100 mg/dL Performed By: #### 2 4331-1, 02638-5 ####[facility] LABCLIA [id number] [place] [address] [place] Cholesterol.total/Chol esterol in HDL [Mass ratio] 5.57 {ratio} High <5.10 [facility] Comment on above: Order Comment: Speci men Type: BLOOD SPECIMENOrdering Facility: [facility] Address: [address] [place] [address] Performed By: #### 2 4331-1, 60459-1 ####[facility] LABCLIA [id number] [address] [address] [place] FASTING TIME 13 hrs Normal [facility] Comment on above: Order Comment: Speci men Type: BLOOD SPECIMENOrdering Facility: [facility] Address: [address] [place] [address] Performed By: #### 2 4331-1, 95433-3 ####[facility] LABCLIA [id number] [address] [address] [place] Triglyceride [Mass/Vol] 238 mg/dL High <150 [facility] Comment on above: Order Comment: Speci men Type: BLOOD SPECIMENOrdering Facility: [facility] Address: [address] [place] [address] Result Comment: <150 mg/dL, Normal 150-199 mg/dL, Borderline high 200-499 mg/dL, High >499 mg/dL, Very high Performed By: #### 2 4331-1, 50174-4 ####[facility] LABCLIA [id number] [place] [address] [place] Prothrombin Time w/INRon INR Coag (PPP) [Relative time] 1.3 {INR} Normal [facility] Comment on above: Performed By: #### L 300.3900 #### [facility] [address] [place], [address] PT Coag (PPP) [Time] 15.9 s High 11.7-14.[address] [facility] Comment on above: Performed By: #### L 300.3900 #### [facility] [address] [place], [address] Prothrombin Time w/INRon INR Coag (PPP) [Relative time] 1.2 {INR} Normal [facility] Comment on above: Performed By: #### L 300.3900 #### [facility] [address] [place], [address] PT Coag (PPP) [Time] 15.0 s High 11.7-14.[address] [facility] Comment on above: Performed By: #### L 300.3900 #### [facility] [address] [place], [address] Prothrombin Time w/INRon INR Coag (PPP) [Relative time] 1.2 {INR} Normal [facility] Comment on above: Order Comment: Comme nts: Standing Order: Fax to [facility] Out[facility] Performed By: #### L 300.3900 #### [facility] [address] [place], [address] PT Coag (PPP) [Time] 15.1 s High 11.7-14.[address] [facility] Comment on above: Order Comment: Comme nts: Standing Order: Fax to [facility] Performed By: #### L 300.3900 #### [facility] [address] [place], [address] Prothrombin Time w/INRon INR Coag (PPP) [Relative time] 1.0 {INR} Normal [facility] Comment on above: Performed By: #### L 300.3900 #### [facility] [address], [address] PT Coag (PPP) [Time] 13.4 s Normal 11.7-14.[address] [facility] Comment on above: Performed By: #### L 300.3900 #### [facility] [address] [place], [address] CNOVon 07-29-2024 [facility] -- VIKRAMBHARATHI ([id number]) 1950 M Date Time Provider Department 07/29/24 7:40 AM KENYETTA STACY During your visit today, we recorded the following information about you: Pulse Respiration Blood pressure Weight 64/minute 16/minute 138/78 130.1 kg Kenyetta Stacy APRN.MAINTENANCE EQUIPMENT OPERATOR 07/29/2024 8:12 AM Signed 07/29/2024 Patient presents with: BP Check SUBJECTIVE: This is a 73 year old that is here today for Above Complaints. BP elevated at last office visit. Enalapril increased. Taking and tolerating without side effects.Not checking BP at home.Denies visual changes, headaches, lightheadedness, dizziness, slurred speech, facial drooping, extremity numbness, tingling or weakness PAST MEDICAL HISTORY Diagnosis Date Allergic rhinitis, cause unspecified Allergic rhinitis Atrial fibrillation (HCC) Bilateral lower extremity edema Blood in stool Hypertension Hypothyroidism Lipoma Morbid obesity (HCC) Onychomycosis Other and unspecified hyperlipidemia Prostate cancer (HCC) [address] White. s/p prostatectomy RBBB Rosacea Type II or unspecified type diabetes mellitus without mention of complication, uncontrolled Urinary incontinence ALLERGIES Mellette Seed, Zocor [Simvastatin], Amoxicillin, Dust, and Erythromycin MEDICATIONS Current Outpatient Medications Medication Sig dulaglutide (TRULICITY) 3 mg/0.5 mL pen injector Inject 3 mg subcutaneously one time a week. warfarin (COUMADIN) 2 mg tablet Take 1 tablet by mouth daily as directed. enalapril (VASOTEC) 20 mg tablet Take 1 tablet by mouth once daily. rosuvastatin (CRESTOR) 20 mg tablet Take 1 tablet by mouth daily at bedtime. terbinafine HCl (LAMISIL) 250 mg tablet Take 1 tablet by mouth once daily. insulin glargine (BASAGLAR KWIKPEN U-100 INSULIN) 100 unit/mL (3 mL) Inject 34 Units subcutaneously two times a day. levothyroxine (SYNTHROID) 100 mcg tablet TAKE 1 TABLET DAILY ON AN EMPTY STOMACH metFORMIN (GLUCOPHAGE) 500 mg tablet Take 2 tablets by mouth two times a day with meals. blood sugar diagnostic (ONETOUCH ULTRA TEST) test strip Test blood sugar BID and as needed Insulin [place], Disposable, (BD ULTRA-FINE CAROLYN PEN NEEDLE) 32 gauge x 5/32 Inject 1 Each subcutaneously two times a day. Use with Insulin Lancets (ONETOUCH ULTRASOFT LANCETS) Test blood sugar(s) 2 times daily and as needed. Dx: Type 2 DM - Uncontrolled E11.65 , Insulin: Yes hydroCHLOROthiazide 25 mg tablet TAKE 1 TABLET (25mg) BY MOUTH ONCE DAILY ELIQUIS 5 mg tab(s) Take 1 tablet by mouth every 12 hours. EPINEPHrine (EPIPEN) 0.3 mg/0.3 mL auto-injector Inject 0.3 mL intramuscularly as needed (For allergic reaction). propylene glycol (SYSTANE BALANCE OPHTHALMIC) Use in eyes. 3-4 times a day sulfacetamide sodium/sulfur (PRASCION TOPICAL) Apply to affected area once daily. 10-55 (Patient not taking: Reported on 03/07/2023) omega-3 DHA-EPA (FISH OIL) 1,200 (144-216) mg capsule Take 1 capsule by mouth daily with breakfast. MAGNESIUM SULFATE ORAL Take 500 mg by mouth once daily. CINNAMON BARK ORAL Take 2,000 mcg by mouth once daily. carvedilol (COREG) 3.125 mg tablet Take 3.125 mg by mouth twice daily with meals. blood sugar diagnostic (BLOOD GLUCOSE TEST) test strip Test blood sugar(s) 2 times daily. Dx: Type 2 DM - Controlled E11.9 Insulin: Yes nitroglycerin sublingual (NITROQUICK) 0.[address] 1 tablet under the tongue if needed every 5 minutes for stephen... (REFER TO PRESCRIPTION NOTES). albuterol HFA (VENTOLIN HFA) 90 mcg/actuation inhaler Inhale 2 Puffs as instructed every 4 hours as needed for wheezing/shortness of breath. (Patient not taking: Reported on 11/27/2021) blood sugar diagnostic (ONETOUCH ULTRA TEST STRIP) test strip Test sugar daily and as needed Blood-Glucose Meter (ONETOUCH ULTRA2 METER) monitoring kit Check blood sugar daily and as needed aspirin, enteric coated (ASPIRIN, ENTERIC COATED) 81 mg EC tablet Take 81 mg by mouth once daily. Compression Knee Highs KNEE HIGH COMPRESSION STOCKINGS 30-40 MM. DX: EDEMA multivitamin (DAILY MULTI-VITAMIN) ORAL Tab Take one(1) tablet daily. No current facility-administered medications for this visit. Medications and allergies reviewed by this provider. SOCIAL HISTORY Social History Tobacco Use Smoking status: Never Smokeless tobacco: Never Tobacco comments: No smoking in childhood home. Vaping Use Vaping status: Never Used Substance Use Topics Alcohol use: No Drug use: No REVIEW OF SYSTEMS All other reviewed and negative other than HPI. OBJECTIVE: BP 138/78 Pulse 64 Resp 16 Wt 130.1 kg (286 lb 13.1 oz) SpO2 97% BMI 38.90 kg/m? . Vital signs reviewed by this provider. APPEARANCE Well appearing, alert, in no acute distress, well-hydrated, well nourished. Depression Screening Never done Anxiety Screenin (more content not included)... Normal [facility] Prothrombin Time w/INRon INR Coag (PPP) [Relative time] 1.0 {INR} Normal [facility] Comment on above: Performed By: #### L 300.3900 #### [facility] [address] [place], [address] PT Coag (PPP) [Time] 13.6 s Normal 11.7-14.[address] [facility] Comment on above: Performed By: #### L 300.3900 #### [facility] [address] [place], [place], [address] CNPNon 07-21-2024 [facility] Tele[facility] -- BHARATHI SUE ([id number]) 1950 M Date Time Provider Department 07/21/24 [facility] During your visit today, we recorded the following information about you: Marie Lundy RN 07/21/2024 3:10 PM Signed Rosalee with [facility] ([facility]) calls to ask if provider would change Trulicity prescription to a 90 day supply for shipping and cost. Pended for review. Prescription would need faxed to Courtney Saha at [phone]. COOKIE Soria Christopher B, MD 07/21/2024 4:19 PM Signed 90 day rx sent. Perla Cutler LPN 07/21/2024 5:03 PM Signed Written rx has been faxed to number given. Perla Cutler LPN Allergies As of Date: 07/21/2024 Noted Allergy Reaction SUNFLOWER SEED 12/28/2013 10 - Anaphylaxis ZOCOR (SIMVASTATIN) 08/06/2005 17 - Myalgia Comments: muscle pain AMOXICILLIN 08/25/2021 4 - Hives DUST 08/06/2005 ERYTHROMYCIN 08/06/2005 14 - Other: See Comments Comments: Tingling. Date Reviewed: 07/15/2024 Reviewed by: Perla Cutler LPN - Fully Assessed Reason for Visit: Medication Request [138] Visit Diagnosis:Type 2 diabetes mellitus without complication, unspecified whether fdc insulin use (HCC) [E11.9] Order(s):dulaglutide (TRULICITY) 3 mg/0.5 mL pen injectorInject 3 mg subcutaneously one time a week.Disp: 6 mLRfl: 1 Prescriptions as of 07/21/2024 - dulaglutide (TRULICITY) 3 mg/0.5 mL pen injector Inject 3 mg subcutaneously one time a week. - warfarin (COUMADIN) 2 mg tablet Take 1 tablet by mouth daily as directed. - enalapril (VASOTEC) 20 mg tablet Take 1 tablet by mouth once daily. - rosuvastatin (CRESTOR) 20 mg tablet Take 1 tablet by mouth daily at bedtime. - terbinafine HCl (LAMISIL) 250 mg tablet Take 1 tablet by mouth once daily. - insulin glargine (BASAGLAR KWIKPEN U-100 INSULIN) 100 unit/mL (3 mL) Inject 34 Units subcutaneously two times a day. - levothyroxine (SYNTHROID) 100 mcg tablet TAKE 1 TABLET DAILY ON AN EMPTY STOMACH - metFORMIN (GLUCOPHAGE) 500 mg tablet Take 2 tablets by mouth two times a day with meals. - blood sugar diagnostic (ONETOUCH ULTRA TEST) test strip Test blood sugar BID and as needed - Insulin [place], Disposable, (BD ULTRA-FINE CAROLYN PEN NEEDLE) 32 gauge x 5/32 Inject 1 Each subcutaneously two times a day. Use with Insulin - Lancets (ONETOUCH ULTRASOFT LANCETS) Test blood sugar(s) 2 times daily and as needed. Dx: Type 2 DM - Uncontrolled E11.65 , Insulin: Yes - hydroCHLOROthiazide 25 mg tablet TAKE 1 TABLET (25mg) BY MOUTH ONCE DAILY - ELIQUIS 5 mg tab(s) Take 1 tablet by mouth every 12 hours. - EPINEPHrine (EPIPEN) 0.3 mg/0.3 mL auto-injector Inject 0.3 mL intramuscularly as needed (For allergic reaction). - propylene glycol (SYSTANE BALANCE OPHTHALMIC) Use in eyes. 3-4 times a day - sulfacetamide sodium/sulfur (PRASCION TOPICAL) Apply to affected area once daily. 10-55 - omega-3 DHA-EPA (FISH OIL) 1,200 (144-216) mg capsule Take 1 capsule by mouth daily with breakfast. - MAGNESIUM SULFATE ORAL Take 500 mg by mouth once daily. - CINNAMON BARK ORAL Take 2,000 mcg by mouth once daily. - carvedilol (COREG) 3.125 mg tablet Take 3.125 mg by mouth twice daily with meals. - blood sugar diagnostic (BLOOD GLUCOSE TEST) test strip Test blood sugar(s) 2 times daily. Dx: Type 2 DM - Controlled E11.9 Insulin: Yes - nitroglycerin sublingual (NITROQUICK) 0.[address] 1 tablet under the tongue if needed every 5 minutes for stephen... (REFER TO PRESCRIPTION NOTES). - albuterol HFA (VENTOLIN HFA) 90 mcg/actuation inhaler Inhale 2 Puffs as instructed every 4 hours as needed for wheezing/shortness of breath. - blood sugar diagnostic (ONETOUCH ULTRA TEST STRIP) test strip Test sugar daily and as needed - Blood-Glucose Meter (ONETOUCH ULTRA2 METER) monitoring kit Check blood sugar daily and as needed - aspirin, enteric coated (ASPIRIN, ENTERIC COATED) 81 mg EC tablet Take 81 mg by mouth once daily. - Compression Knee Highs KNEE HIGH COMPRESSION STOCKINGS 30-40 MM. DX: EDEMA - multivitamin (DAILY MULTI-VITAMIN) ORAL Tab Take one(1) tablet daily. Problem List As Of Date 07/21/2024 Noted Resolved Allergic rhinitis [J30.9] 08/06/2005 Hyperlipidemia [E78.5] 08/06/2005 BUNDLE BRANCH BLOCK NOS [I45.4] 11/09/2005 Blood in stool [K92.1] 12/31/2018 MALIGN NEOPL PROSTATE [C61] 05/20/2007 PAIN IN JOINT, LOWER LEG [M25.569] 09/13/2007 Diabetes mellitus (HCC) [E11.9] 09/17/2007 12/25/2017 Hypothyroid [E03.9] 10/17/2009 Rosacea [L71.9] 02/17/2010 Hypertension [I10] 07/28/2013 Impotence [N52.9] 01/21/2014 Incontinence of urine [R32] 01/21/2014 Controlled type 2 diabetes mellitus without com*04/05/2016 Prostate cancer (HCC) [C61] 10/21/2005 Morbid obesity (HCC) [E66.01] Shortness of breath [R06.02] 11/27/2021 Pulmonary hypertension, (more content not included)... Normal [facility] Basic Metabolic Profile (BMP )on 07-16-2024 BUN/CRE 23.0 RATIO High 10-20 [facility] Comment on above: Order Comment: Fax t o [facility] Performed By: #### L 300.3900, L500.2500 ####[facility] [address] [place], [address] CA,Total 9.2 mg/dL Normal 8.5-10.1 [facility] Comment on above: Order Comment: Fax t o [facility] Performed By: #### L 300.3900, L500.2500 ####[facility] [address] [place], [address] Chloride [Moles/Vol] 102 mmol/L Normal 98-[address] [facility] Comment on above: Order Comment: Fax t o [facility] on [facility] Performed By: #### L 300.3900, L500.2500 ####[facility] [address], [address] CO2 [Moles/Vol] 28.0 mmol/L Normal 21.0-32.0 [facility] Comment on above: Order Comment: Fax t o [facility] on [facility] Performed By: #### L 300.3900, L500.2500 ####[facility] [address], [address] Creatinine [Mass/Vol] 1.22 mg/dL Normal 0.70-1.30 [facility] Comment on above: Order Comment: Fax t o [facility] on [facility] Result Comment: The validity of the calculated GFR GFRAA in patients over 70 years has not been determined. Clinical correlation is essential. Performed By: #### L 300.3900, L500.2500 ####[facility] [address], [address] EST GFR - AA 75 mL/min Normal >60 [facility] Comment on above: Order Comment: Fax t o [facility] on [facility] Result Comment: Afri can [place] GFR Calc Performed By: #### L 300.3900, L500.2500 ####[facility] [address], [address] GAP 8 Normal 5-15 [facility] Comment on above: Order Comment: Fax t o [facility] on [facility] Performed By: #### L 300.3900, L500.2500 ####[facility] [address], [address] GFR/1.73 sq M.predicted among non-blacks MDRD (S/P/Bld) [Vol rate/Area] 62 mL/min/{1.73_m2} Normal >60 [facility] Comment on above: Order Comment: Fax t o [facility] on [facility] Result Comment: Non- GFR Calc Performed By: #### L 300.3900, L500.2500 ####[facility] [address], [address] Glucose [Mass/Vol] 193 mg/dL High 74-106 [facility] Comment on above: Order Comment: Fax t o [facility] on [facility] Result Comment: Fast ing Glucose result greater than or equal to 126 mg/dL suggests DIABETES MELLITUS per A.D.A. criteria. Performed By: #### L 300.3900, L500.2500 ####[facility] [address], [address] Potassium [Moles/Vol] 4.3 mmol/L Normal 3.5-5.1 [facility] Comment on above: Order Comment: Fax t o [facility] on [facility] Performed By: #### L 300.3900, L500.2500 ####[facility] [address], [address] Sodium [Moles/Vol] 137 mmol/L Normal 136-145 [facility] Comment on above: Order Comment: Fax t o [facility] on [facility] Performed By: #### L 300.3900, L500.2500 ####[facility] [address], [address] Urea nitrogen [Mass/Vol] 28 mg/dL High 7-18 [facility] Comment on above: Order Comment: Fax t o [facility] on [facility] Performed By: #### L 300.3900, L500.2500 ####[facility] [address], [address] Prothrombin Time w/INRon INR Coag (PPP) [Relative time] 1.0 {INR} Normal [facility] Comment on above: Performed By: #### L 300.3900, L500.2500 ####[facility] [address], [address] PT Coag (PPP) [Time] 13.6 s Normal 11.7-14.[address] [facility] Comment on above: Performed By: #### L 300.5107, L500.2500 ####[facility] [address] [place], [address] CNOVon 07-15-2024 CNOV Office Visit ([facility] ) -- BHARATHI SUE ([id number]) 1950 M Date Time Provider Department 07/15/24 8:00 AM [facility]ULL[facility] During your visit today, we recorded the following information about you: Pulse Respiration Blood pressure Weight 65/minute 16/minute 150/70 128.4 kg Height 1.829 m Sara Fuller MD 07/15/2024 8:32 AM Signed Chief Complaint Patient presents with: Follow Up: blood pressure check for evalated HPI Bharathi Sue is a 73 year old male who presents here today for Above Complaints.. BP elevated above goal of <130/80 at last OV. No change in regimen at that time, but recommended low sodium diet and exercise as tolerated. Since last OV, patient has not been checking his BP at home and has not gotten a new cuff. Has been working on low sodium diet and taking medications as prescribed without side effects. Denies chest pain, vision changes, headaches, SOB, palpitations, LE edema. Patient notes that [facility] cardiology switched him from Eliquis to coumadin due to cost and they are monitoring. Past medical history, appointments, medications, allergies reviewed. Previous Medical History PAST MEDICAL HISTORY Diagnosis Date Allergic rhinitis, cause unspecified Allergic rhinitis Atrial fibrillation (HCC) Bilateral lower extremity edema Blood in stool Hypertension Hypothyroidism Lipoma Morbid obesity (HCC) Onychomycosis Other and unspecified hyperlipidemia Prostate cancer (HCC) [address] White. s/p prostatectomy RBBB Rosacea Type II or unspecified type diabetes mellitus without mention of complication, uncontrolled Urinary incontinence Previous Surgical History PAST SURGICAL HISTORY Procedure Laterality Date COLONOSCOPY FLX DX W/COLLJ SPEC WHEN PFRMD 01/22/06 COLONOSCOPY FLX DX W/COLLJ SPEC WHEN PFRMD 02/16/16 Colonoscopy PAST SURGICAL HISTORY OF 2005 prostatectomy REPAIR UMBILICAL HERNIA 2001 Family History FAMILY HISTORY Problem Relation Age of Onset Diabetes Mother Alzheimer's Disease Father Diabetes Brother Asthma Brother other (parkinsons) Brother Patient Allergies ALLERGIES Allergen Reactions Mellette Seed Anaphylaxis Zocor [Simvastatin] Myalgia muscle pain Amoxicillin Hives Dust Erythromycin Other: See Comments Tingling. Current Medications Current Outpatient Medications on File Prior to Visit Medication Sig warfarin (COUMADIN) 2 mg tablet Take 1 tablet by mouth daily as directed. rosuvastatin (CRESTOR) 20 mg tablet Take 1 tablet by mouth daily at bedtime. terbinafine HCl (LAMISIL) 250 mg tablet Take 1 tablet by mouth once daily. enalapril (VASOTEC) 10 mg tablet Take 1 tablet by mouth once daily. insulin glargine (BASAGLAR KWIKPEN U-100 INSULIN) 100 unit/mL (3 mL) Inject 34 Units subcutaneously two times a day. levothyroxine (SYNTHROID) 100 mcg tablet TAKE 1 TABLET DAILY ON AN EMPTY STOMACH metFORMIN (GLUCOPHAGE) 500 mg tablet Take 2 tablets by mouth two times a day with meals. dulaglutide (TRULICITY) 3 mg/0.5 mL pen injector Inject 3 mg subcutaneously one time a week. blood sugar diagnostic (ONETOUCH ULTRA TEST) test strip Test blood sugar BID and as needed Insulin [place], Disposable, (BD ULTRA-FINE CAROLYN PEN NEEDLE) 32 gauge x 5/32 Inject 1 Each subcutaneously two times a day. Use with Insulin Lancets (ONETOUCH ULTRASOFT LANCETS) Test blood sugar(s) 2 times daily and as needed. Dx: Type 2 DM - Uncontrolled E11.65 , Insulin: Yes hydroCHLOROthiazide 25 mg tablet TAKE 1 TABLET (25mg) BY MOUTH ONCE DAILY ELIQUIS 5 mg tab(s) Take 1 tablet by mouth every 12 hours. EPINEPHrine (EPIPEN) 0.3 mg/0.3 mL auto-injector Inject 0.3 mL intramuscularly as needed (For allergic reaction). propylene glycol (SYSTANE BALANCE OPHTHALMIC) Use in eyes. 3-4 times a day sulfacetamide sodium/sulfur (PRASCION TOPICAL) Apply to affected area once daily. 10-55 (Patient not taking: Reported on 03/07/2023) omega-3 DHA-EPA (FISH OIL) 1,200 (144-216) mg capsule Take 1 capsule by mouth daily with breakfast. MAGNESIUM SULFATE ORAL Take 500 mg by mouth once daily. CINNAMON BARK ORAL Take 2,000 mcg by mouth once daily. carvedilol (COREG) 3.125 mg tablet Take 3.125 mg by mouth twice daily with meals. blood sugar diagnostic (BLOOD GLUCOSE TEST) test strip Test blood sugar(s) 2 times daily. Dx: Type 2 DM - Controlled E11.9 Insulin: Yes nitroglycerin sublingual (NITROQUICK) 0.[address] 1 tablet under the tongue if needed every 5 minutes for stephen... (REFER TO PRESCRIPTION NOTES). albuterol HFA (VENTOLIN HFA) 90 mcg/actuation inhaler Inhale 2 Puffs as instructed every 4 hours as needed for wheezing/shortness of breath. (Patient not taking: Reported on 11/27/2021) blood sugar diagnostic (ONETOUCH ULTRA TEST STRIP) test strip Test sugar daily and as needed Blood-Glucose Meter (ONETOUCH ULTRA (more content not included)... Normal [facility] CNNURSEon 07-02-2024 CNNURSE Nurse Visit (PODIWS) -- BHARATHI SUE ([id number]) 1950 M Date Time Provider Department 07/02/24 2:30 PM NURSE/ERIC [facility] PODIWS During your visit today, we recorded the following information about you: Cleo Fernandez, RN 07/02/2024 2:49 PM Signed Patient's spouse picking up extra Budin splint for Bilateral feet at this time. Referring Provider: VIKTORIYA ANGELO [[id number]] Allergies As of Date: 07/02/2024 Noted Allergy Reaction SUNFLOWER SEED 12/28/2013 10 - Anaphylaxis ZOCOR (SIMVASTATIN) 08/06/2005 17 - Myalgia Comments: muscle pain AMOXICILLIN 08/25/2021 4 - Hives DUST 08/06/2005 ERYTHROMYCIN 08/06/2005 14 - Other: See Comments Comments: Tingling. Date Reviewed: 06/29/2024 Reviewed by: Bre Malin LPN - Fully Assessed Primary Visit Diagnosis:Hammer toes of both feet [M20.41, M20.42] Prescriptions as of 07/02/2024 - rosuvastatin (CRESTOR) 20 mg tablet Take 1 tablet by mouth daily at bedtime. - terbinafine HCl (LAMISIL) 250 mg tablet Take 1 tablet by mouth once daily. - enalapril (VASOTEC) 10 mg tablet Take 1 tablet by mouth once daily. - insulin glargine (BASAGLAR KWIKPEN U-100 INSULIN) 100 unit/mL (3 mL) Inject 34 Units subcutaneously two times a day. - levothyroxine (SYNTHROID) 100 mcg tablet TAKE 1 TABLET DAILY ON AN EMPTY STOMACH - metFORMIN (GLUCOPHAGE) 500 mg tablet Take 2 tablets by mouth two times a day with meals. - dulaglutide (TRULICITY) 3 mg/0.5 mL pen injector Inject 3 mg subcutaneously one time a week. - blood sugar diagnostic (iPowerUpUCH ULTRA TEST) test strip Test blood sugar BID and as needed - Insulin [place], Disposable, (BD ULTRA-FINE CAROLYN PEN NEEDLE) 32 gauge x 5/32 Inject 1 Each subcutaneously two times a day. Use with Insulin - Lancets (iPowerUpUCH ULTRASOFT LANCETS) Test blood sugar(s) 2 times daily and as needed. Dx: Type 2 DM - Uncontrolled E11.65 , Insulin: Yes - hydroCHLOROthiazide 25 mg tablet TAKE 1 TABLET (25mg) BY MOUTH ONCE DAILY - ELIQUIS 5 mg tab(s) Take 1 tablet by mouth every 12 hours. - EPINEPHrine (EPIPEN) 0.3 mg/0.3 mL auto-injector Inject 0.3 mL intramuscularly as needed (For allergic reaction). - propylene glycol (SYSTANE BALANCE OPHTHALMIC) Use in eyes. 3-4 times a day - sulfacetamide sodium/sulfur (PRASCION TOPICAL) Apply to affected area once daily. 10-55 - omega-3 DHA-EPA (FISH OIL) 1,200 (144-216) mg capsule Take 1 capsule by mouth daily with breakfast. - MAGNESIUM SULFATE ORAL Take 500 mg by mouth once daily. - CINNAMON BARK ORAL Take 2,000 mcg by mouth once daily. - carvedilol (COREG) 3.125 mg tablet Take 3.125 mg by mouth twice daily with meals. - blood sugar diagnostic (BLOOD GLUCOSE TEST) test strip Test blood sugar(s) 2 times daily. Dx: Type 2 DM - Controlled E11.9 Insulin: Yes - nitroglycerin sublingual (NITROQUICK) 0.[address] 1 tablet under the tongue if needed every 5 minutes for stephen... (REFER TO PRESCRIPTION NOTES). - albuterol HFA (VENTOLIN HFA) 90 mcg/actuation inhaler Inhale 2 Puffs as instructed every 4 hours as needed for wheezing/shortness of breath. - blood sugar diagnostic (ONETOUCH ULTRA TEST STRIP) test strip Test sugar daily and as needed - Blood-Glucose Meter (ONETOUCH ULTRA2 METER) monitoring kit Check blood sugar daily and as needed - aspirin, enteric coated (ASPIRIN, ENTERIC COATED) 81 mg EC tablet Take 81 mg by mouth once daily. - Compression Knee Highs KNEE HIGH COMPRESSION STOCKINGS 30-40 MM. DX: EDEMA - multivitamin (DAILY MULTI-VITAMIN) ORAL Tab Take one(1) tablet daily. Problem List As Of Date 07/02/2024 Noted Resolved Allergic rhinitis [J30.9] 08/06/2005 Hyperlipidemia [E78.5] 08/06/2005 BUNDLE BRANCH BLOCK NOS [I45.4] 11/09/2005 Blood in stool [K92.1] 12/31/2018 MALIGN NEOPL PROSTATE [C61] 05/20/2007 PAIN IN JOINT, LOWER LEG [M25.569] 09/13/2007 Diabetes mellitus (HCC) [E11.9] 09/17/2007 12/25/2017 Hypothyroid [E03.9] 10/17/2009 Rosacea [L71.9] 02/17/2010 Hypertension [I10] 07/28/2013 Impotence [N52.9] 01/21/2014 Incontinence of urine [R32] 01/21/2014 Controlled type 2 diabetes mellitus without com*04/05/2016 Prostate cancer (HCC) [C61] 10/21/2005 Morbid obesity (HCC) [E66.01] Shortness of breath [R06.02] 11/27/2021 Pulmonary hypertension, unspecified (HCC) [I27.*11/27/2021 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.*11/27/2021 Obesity, Class II, BMI 35-39.9 [E66.9] 06/04/2022 Cardiac arrest with successful resuscitation (H*02/20/2024 Onychomycosis [B35.1] Encounter Status:Closed by CLEO FERNANDEZ on 07/02/24 [facility] CNOVon 06-29-2024 CNOV Office Visit (FAMPWS ) -- BHARATHI USE ([id number]) 1950 M Date Time Provider Department 06/29/24 7:00 AM [facility] During your visit today, we recorded the following information about you: Pulse Respiration Blood pressure Weight 66/minute 18/minute 138/70 128.2 kg Sara Fuller MD 06/29/2024 8:08 AM Signed Chief Complaint Patient presents with: Follow Up: 6 month HPI Bharathi Sue is a 73 year old male who presents here today for Above Complaints.. DIABETES MELLITUS: Mr. Sue was last seen 6 months ago. Since our last visit he denies excessive thirst or increased frequency of urination, numbness, tingling or pain in extremities, new or unusual visual symptoms, and low sugar/hypoglycemic reactions. Follows a diabetic diet most of the time. He is compliant with medication(s) and is tolerating med(s) without any side effects. He reports checking his glucose on a once a day schedule with sugars in the <130 range. Patient's last HgA1C was Hemoglobin A1C (%) Date Value 06/25/2024 6.1 02/21/2024 7.0 11/22/2021 6.7 08/21/2021 6.8 ) Last Ophthalmology exam was within the past 1 months- mild retinopathy. No treatment recommended. Last Podiatry exam was more than 12 months ago. HTN: Mr. Sue indicates that he is feeling well and denies any symptoms referable to elevated blood pressure. Specifically denies headache, chest pain, palpitations, dyspnea, and peripheral edema. Patient denies any side effects of his medication(s) and is compliant with their regimen. 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 He does not check BP's generally. Bharathi likes to exercise by walking. He watches his diet for sodium, low fat and low cholesterol most of the time. Last 3 Encounter BP Readings: Date: BP: 06/29/2024 138/70[124/66 home cuff[ 02/21/2024 139/74[SILVANO BP[ 01/22/2024 158/76 Patient states that he has not been taking his statin as prescribed. Ran out a couple of months ago. CAD/A fib: managed by [facility] cardiology. Patient compliant with regimen without side effects, bleeding or bruising. Compliant with synthroid daily. Asymptomatic. Denies side effects. Requesting flu shot. Past medical history, appointments, medications, allergies reviewed. Previous Medical History PAST MEDICAL HISTORY No date: Allergic rhinitis, cause unspecified Comment: Allergic rhinitis No date: Atrial fibrillation (HCC) No date: Bilateral lower extremity edema No date: Blood in stool No date: Hypertension No date: Hypothyroidism No date: Lipoma No date: Morbid obesity (HCC) No date: Other and unspecified hyperlipidemia 2006: Prostate cancer ([facility]) Comment: Previously seeing Dr. White. s/p prostatectomy No date: RBBB No date: Rosacea No date: Type II or unspecified type diabetes mellitus without mention of complication, uncontrolled No date: Urinary incontinence Previous Surgical History PAST SURGICAL HISTORY 01/22/06: COLONOSCOPY FLX DX W/COLLJ SPEC WHEN PFRMD 02/16/16: COLONOSCOPY FLX DX W/COLLJ SPEC WHEN PFRMD Comment: Colonoscopy 2006: PAST SURGICAL HISTORY OF Comment: prostatectomy 2001: REPAIR UMBILICAL HERNIA Family History FAMILY HISTORY Problem Relation Age of Onset Diabetes Mother Alzheimer's Disease Father Diabetes Brother Asthma Brother other (parkinsons) Brother Patient Allergies ALLERGIES Allergen Reactions 12 Grain Bread [Oth* Swelling Throat swelled. Bread had sunflower seeds in it. Mellette Seed Anaphylaxis Zocor [Simvastatin] Myalgia muscle pain Amoxicillin Hives Dust Erythromycin Other: See Comments Tingling. Grasses [Other] Molds [Other] Current Medications Current Outpatient Medications on File Prior to Visit Medication Sig dulaglutide (TRULICITY) 3 mg/0.5 mL pen injector Inject 3 mg subcutaneously one time a week. blood sugar diagnostic (iPowerUpUCH ULTRA TEST) test strip Test blood sugar BID and as needed Insulin [place], Disposable, (BD ULTRA-FINE CAROLYN PEN NEEDLE) 32 gauge x 5/32 Inject 1 Each subcutaneously two times a day. Use with Insulin Lancets (iPowerUpUCH ULTRASOFT LANCETS) Test blood sugar(s) 2 times daily and as needed. Dx: Type 2 DM - Uncontrolled E11.65 , Insulin: Yes hydroCHLOROthiazide 25 mg tablet TAKE 1 TABLET (25mg) BY MOUTH ONCE DAILY enalapril (VASOTEC) 10 mg tablet Take 1 tablet by mouth once daily. levothyroxine (SYNTHROID) 100 mcg tablet TAKE 1 TABLET DAILY ON AN EMPTY STOMACH metFORMIN (GLUCOPHAGE) 500 mg tablet Take 2 tablets by mouth two times a day with meals. ELIQUIS 5 mg tab(s) Take 1 tablet by mouth every 12 hours. EPINEPHrine (EPIPEN) 0.3 mg/0.3 mL auto-injector Inject 0.3 mL intramuscularly as needed (For allergic reaction). propylene glycol (SYSTANE BALANCE OPHTHALMIC) Use in eyes. 3-4 times a day omega-3 DHA-EPA (FISH OIL) 1,200 (144-216) mg capsule Jose Carlos (more content not included)... Normal [facility] CBC W Auto Differential pane l (Bld)on 06-25-2024 Basophils (Bld) [#/Vol] 0.07 10*3/uL Normal <0.11 [facility] Comment on above: Order Comment: Speci men Type: BLOOD SPECIMENOrdering Facility: [facility] Address: [address] [place] [id number] Performed By: #### 5 7021-8 ####[facility] LABCLIA [id number] [facility] [place] [id number] [place] Basophils/100 WBC (Bld) 0.8 % Normal [facility] Comment on above: Order Comment: Speci men Type: BLOOD SPECIMENOrdering Facility: [facility] Address: [address] [place] [address] Performed By: #### 5 7021-8 ####[facility] LABCLIA [id number] [place] [address] [place] Differential cell count method Nom (Bld) Auto Normal [facility] Comment on above: Order Comment: Speci men Type: BLOOD SPECIMENOrdering Facility: [facility] Address: [address] [place] [address] Performed By: #### 5 7021-8 ####[facility] LABCLIA [id number] [place] [address] [place] Eosinophils (Bld) [#/Vol] 0.15 10*3/uL Normal <0.46 [facility] Comment on above: Order Comment: Speci men Type: BLOOD SPECIMENOrdering Facility: [facility] Address: [address] [place] [address] Performed By: #### 5 7021-8 ####[facility] LABCLIA [id number] [place] [address] [place] Eosinophils/100 WBC (Bld) 1.8 % Normal [facility] Comment on above: Order Comment: Speci men Type: BLOOD SPECIMENOrdering Facility: [facility] Address: [address] [place] [address] Performed By: #### 5 7021-8 ####[facility] LABCLIA [id number] [place] [address] [place] Erythrocyte distribution width (RBC) [Ratio] 14.0 % Normal 11.5-15.0 [facility] Comment on above: Order Comment: Speci men Type: BLOOD SPECIMENOrdering Facility: [facility] Address: [address] [place] [address] Performed By: #### 5 7021-8 ####[facility] LABCLIA [id number] [place] [address] [place] Hematocrit (Bld) [Volume fraction] 42.2 % Normal 39.0-51.0 [facility] Comment on above: Order Comment: Speci men Type: BLOOD SPECIMENOrdering Facility: [facility] Address: [address] [place] [address] Performed By: #### 5 7021-8 ####[facility] LABCLIA [id number] [place] [address] [place] Hemoglobin (Bld) [Mass/Vol] 13.5 g/dL Normal 13.0-17.0 [facility] Comment on above: Order Comment: Speci men Type: BLOOD SPECIMENOrdering Facility: [facility] Address: [address] [place] [address] Performed By: #### 5 7021-8 ####[facility] LABIA [id number] [place] [address] [place] Immature granulocytes (Bld) [#/Vol] 0.07 10*3/uL Normal <0.10 [facility] Comment on above: Order Comment: Speci men Type: BLOOD SPECIMENOrdering Facility: [facility] Address: [address] [place] [address] Performed By: #### 5 7021-8 ####[facility] LABIA [id number] [place] [address] [place] Immature granulocytes/100 WBC (Bld) 0.8 % Normal [facility] Comment on above: Order Comment: Speci men Type: BLOOD SPECIMENOrdering Facility: [facility] Address: [address] [place] [address] Performed By: #### 5 7021-8 ####[facility] LABCLIA [id number] [place] [address] [place] Lymphocytes (Bld) [#/Vol] 2.81 10*3/uL Normal 1.00-4.00 [facility] Comment on above: Order Comment: Speci men Type: BLOOD SPECIMENOrdering Facility: [facility] Address: [address] [place] [address] Performed By: #### 5 7021-8 ####[facility] LABIA [id number] [place] [address] [place] Lymphocytes/100 WBC (Bld) 33.5 % Normal [facility] Comment on above: Order Comment: Speci men Type: BLOOD SPECIMENOrdering Facility: [facility] Address: [address] [place] [address] Performed By: #### 5 7021-8 ####[facility] [id number] [place] [address] [place] MCH (RBC) [Entitic mass] 31.2 pg Normal 26.0-34.0 [facility] Comment on above: Order Comment: Speci men Type: BLOOD SPECIMENOrdering Facility: [facility] Address: [address] [place] [address] Performed By: #### 5 7021-8 ####[facility] LABIA [id number] [place] [address] [place] MCHC (RBC) [Mass/Vol] 32.0 g/dL Normal 30.5-36.0 [facility] Comment on above: Order Comment: Speci men Type: BLOOD SPECIMENOrdering Facility: [facility] Address: [address] [place] [address] Performed By: #### 5 7021-8 ####[facility] LABIA [id number] [place] [address] [place] MCV (RBC) [Entitic vol] 97.5 fL Normal 80.0-100.0 [facility] Comment on above: Order Comment: Speci men Type: BLOOD SPECIMENOrdering Facility: [facility] Address: [address] [place] [address] Performed By: #### 5 7021-8 ####[facility] LABCLIA [id number] [place] [address] [place] Monocytes (Bld) [#/Vol] 0.59 10*3/uL Normal <0.87 [facility] Comment on above: Order Comment: Speci men Type: BLOOD SPECIMENOrdering Facility: [facility] Address: [address] [place] [address] Performed By: #### 5 7021-8 ####[facility] LABCLIA [id number] [place] [address] [place] Monocytes/100 WBC (Bld) 7.0 % Normal [facility] Comment on above: Order Comment: Speci men Type: BLOOD SPECIMENOrdering Facility: [facility] Address: [address] [place] [address] Performed By: #### 5 7021-8 ####[facility] LABCLIA [id number] [place] [address] [place] Neutrophils (Bld) [#/Vol] 4.70 10*3/uL Normal 1.45-7.50 [facility] Comment on above: Order Comment: Speci men Type: BLOOD SPECIMENOrdering Facility: [facility] Address: [address] [place] [address] Performed By: #### 5 7021-8 ####[facility] LABCLIA [id number] [place] [address] [place] Neutrophils/100 WBC (Bld) 56.1 % Normal [facility] Comment on above: Order Comment: Speci men Type: BLOOD SPECIMENOrdering Facility: [facility] Address: [address] [place] [address] Performed By: #### 5 7021-8 ####[facility] LABCLIA [id number] [place] [address] [place] Nucleated RBC (Bld) [#/Vol] 10*3/uL Normal <0.01 [facility] Comment on above: Order Comment: Speci men Type: BLOOD SPECIMENOrdering Facility: [facility] Address: [address] [place] [address] Performed By: #### 5 7021-8 ####[facility] LABCLIA [id number] [place] [address] [place] Nucleated RBC/100 WBC (Bld) [Ratio] 0.0 /100 WBC Normal [facility] Comment on above: Order Comment: Speci men Type: BLOOD SPECIMENOrdering Facility: [facility] Address: [address] [place] [address] Performed By: #### 5 7021-8 ####[facility] LABCLIA [id number] [place] [address] [place] Platelet mean volume (Bld) [Entitic vol] 11.3 fL Normal 9.0-12.7 [facility] Comment on above: Order Comment: Speci men Type: BLOOD SPECIMENOrdering Facility: [facility] Address: [address] [place] [address] Performed By: #### 5 7021-8 ####[facility] LABIA [id number] [place] [address] [place] Platelets (Bld) [#/Vol] 222 10*3/uL Normal 150-400 [facility] Comment on above: Order Comment: Speci men Type: BLOOD SPECIMENOrdering Facility: [facility] Address: [address] [place] [address] Performed By: #### 5 7021-8 ####[facility] LABIA [id number] [place] [address] [place] RBC (Bld) [#/Vol] 4.33 10*6/uL Normal 4.20-6.00 [facility] Comment on above: Order Comment: Speci men Type: BLOOD SPECIMENOrdering Facility: [facility] Address: [address] [place] [address] Performed By: #### 5 7021-8 ####[facility] LABCLIA [id number] [place] [address] [place] WBC (Bld) [#/Vol] 8.39 10*3/uL Normal 3.70-11.00 [facility] Comment on above: Order Comment: Speci men Type: BLOOD SPECIMENOrdering Facility: [facility] Address: [address] [place] [address] Performed By: #### 5 7021-8 ####[facility] LABCLIA [id number] [place] [address] [place] Cholesterol in LDL Direct as say [Mass/Vol]on 06-25-2024 Cholesterol in LDL [Mass/Vol] 124 mg/dL High <100 [facility] Comment on above: Order Comment: Speci men Type: BLOOD SPECIMENOrdering Facility: [facility] Address: [address] [place] [address] Result Comment: <100 mg/dL, Optimal 100-129 mg/dL, Near optimal/above optimal 130-159 mg/dL, Borderline high 160-189 mg/dL, High >189 mg/dL, Very high Secondary prevention optimal LDL Cholesterol levels are recommended to be < 70 mg/dL Performed By: #### 2 4323-8, 81729-9, 98666-0 ####[facility] LABCLIA [id number] [address] [place] Cholesterol in VLDL [Mass/Vol] 107 mg/dL High <30 [facility] Comment on above: Order Comment: Speci men Type: BLOOD SPECIMENOrdering Facility: [facility] Address: [address] [place] [address] Performed By: #### 2 4323-8, 34741-9, 74167-9 ####[facility] LABCLIA [id number] [place] [address] [place] Comprehensive metabolic 2000 panelon 06-25-2024 Albumin [Mass/Vol] 4.4 g/dL Normal 3.9-4.9 [facility] Comment on above: Order Comment: Speci men Type: BLOOD SPECIMENOrdering Facility: [facility] Address: [address] [place] [address] Performed By: #### 2 4323-8, 76013-3, 22983-8 ####[facility] LABCLIA [id number] [place] [address] [place] ALP [Catalytic activity/Vol] 55 U/L Normal 38-113 [facility] Comment on above: Order Comment: Speci men Type: BLOOD SPECIMENOrdering Facility: [facility] Address: [address] [place] [address] Performed By: #### 2 4323-8, 76980-9, 02381-5 ####[facility] LABCLIA [id number] [place] [address] [place] ALT [Catalytic activity/Vol] 25 U/L Normal 10-54 [facility] Comment on above: Order Comment: Speci men Type: BLOOD SPECIMENOrdering Facility: [facility] Address: [address] [place] [address] Performed By: #### 2 4323-8, 85388-0, 35650-3 ####[facility] LABCLIA [id number] [place] [address] [place] Anion gap [Moles/Vol] 14 mmol/L Normal 8-15 [facility] Comment on above: Order Comment: Speci men Type: BLOOD SPECIMENOrdering Facility: [facility] Address: [address] [place] [address] Performed By: #### 2 4323-8, 17160-4, 24598-1 ####[facility] LABCLIA [id number] [place] [id number] [place] AST [Catalytic activity/Vol] 20 U/L Normal 14-40 [facility] Comment on above: Order Comment: Speci men Type: BLOOD SPECIMENOrdering Facility: [facility] Address: [address] [place] [address] Performed By: #### 2 4323-8, 18568-2, 84799-9 ####[facility] LABCLIA [id number] [address] [address] [place] Bilirubin [Mass/Vol] 0.4 mg/dL Normal 0.2-1.3 [facility] Comment on above: Order Comment: Speci men Type: BLOOD SPECIMENOrdering Facility: [facility] Address: [address] [place] [address] Performed By: #### 2 4323-8, 27945-7, 34005-4 ####[facility] LABCLIA [id number] [address] [address] [place] Calcium [Mass/Vol] 9.6 mg/dL Normal 8.5-10.2 [facility] Comment on above: Order Comment: Speci men Type: BLOOD SPECIMENOrdering Facility: [facility] Address: [address] [place] [address] Performed By: #### 2 4323-8, 84606-2, 70304-1 ####[facility] LABCLIA [id number] [address] [address] [place] Chloride [Moles/Vol] 99 mmol/L Normal 98-107 [facility] Comment on above: Order Comment: Speci men Type: BLOOD SPECIMENOrdering Facility: [facility] Address: [address] [place] [address] Performed By: #### 2 4323-8, 05494-2, 90526-7 ####[facility] LABCLIA [id number] [address] [address] [place] CO2 [Moles/Vol] 27 mmol/L Normal 22-30 [facility] Comment on above: Order Comment: Speci men Type: BLOOD SPECIMENOrdering Facility: [facility] Address: [address] [place] [address] Performed By: #### 2 4323-8, 75548-4, 29432-3 ####[facility] LABIA [id number] [place] [address] [place] Creatinine [Mass/Vol] 1.06 mg/dL Normal 0.73-1.22 [facility] Comment on above: Order Comment: Speci men Type: BLOOD SPECIMENOrdering Facility: [facility] Address: [address] [place] [address] Performed By: #### 2 4323-8, 37672-1, 63146-2 ####[facility] LABIA [id number] [place] [address] [place] Creatinine and Glomerular filtration rate.predicted panel (S/P/Bld) 74 mL/min/1.73m??? Normal >=60 [facility] Comment on above: Order Comment: Speci men Type: BLOOD SPECIMENOrdering Facility: [facility] Address: [address] [place] [address] Result Comment: Yoli mated Glomerular Filtration Rate (eGFR) is calculated using the 2020 CKD-EPI creatinine equation. This equation utilizes serum creatinine, sex, and age as parameters. The creatinine assay has traceable calibration to isotope dilution-mass spectrometry. Refer to KDIGO guidelines for clinical interpretation. In patients with unstable renal function, e.g. those with acute kidney injury, the eGFR may not accurately reflect actual GFR. Performed By: #### 2 4323-8, 41947-9, 31599-3 ####[facility] LABIA [id number] [place] [address] [place] Glucose [Mass/Vol] 92 mg/dL Normal 74-99 [facility] Comment on above: Order Comment: Speci men Type: BLOOD SPECIMENOrdering Facility: [facility] Address: [address] [place] [address] Result Comment: The [place] Diabetes Association (ADA) provides guidance for cutoff values for fasting glucose and random glucose. The ADA defines fasting as no caloric intake for at least 8 hours. Fasting plasma glucose results between 100 to 125 mg/dL indicate increased risk for diabetes (prediabetes). Fasting plasma glucose results greater than or equal to 126 mg/dL meet the criteria for diagnosis of diabetes. In the absence of unequivocal hyperglycemia, results should be confirmed by repeat testing. In a patient with classic symptoms of hyperglycemia or hyperglycemic crisis, random plasma glucose results greater than or equal to 200 mg/dL meet the criteria for diagnosis of diabetes. Reference: Standards of Medical Care in Diabetes 2016, [place] Diabetes Association. Diabetes Care. 2016.39(Suppl 1). Performed By: #### 2 4323-8, 74275-0, 43746-3 ####[facility] LABIA [id number] [place] [address] [place] Potassium [Moles/Vol] 4.6 mmol/L Normal 3.7-5.1 [facility] Comment on above: Order Comment: Speci men Type: BLOOD SPECIMENOrdering Facility: [facility] Address: [address] [place] [address] Performed By: #### 2 4323-8, 27626-8, 49324-6 ####[facility] LABIA [id number] [place] [address] [place] Protein [Mass/Vol] 6.7 g/dL Normal 6.3-8.0 [facility] Comment on above: Order Comment: Speci men Type: BLOOD SPECIMENOrdering Facility: [facility] Address: [address] [place] [address] Performed By: #### 2 4323-8, 73269-3, 19424-7 ####[facility] LABIA [id number] [place] [address] [place] Sodium [Moles/Vol] 140 mmol/L Normal 136-144 [facility] Comment on above: Order Comment: Speci men Type: BLOOD SPECIMENOrdering Facility: [facility] Address: [address] [place] [address] Performed By: #### 2 4323-8, 42621-6, 44156-1 ####[facility] LABCLIA [id number] [place] [address] [place] Urea nitrogen [Mass/Vol] 25 mg/dL High 9-24 [facility] Comment on above: Order Comment: Speci men Type: BLOOD SPECIMENOrdering Facility: [facility] Address: [address] [place] [address] Performed By: #### 2 4323-8, 90301-2, 16928-9 ####[facility] LABCLIA [id number] [place] [address] [place] HbA1c (Bld)on 06-25-2024 Average glucose Estimated from glycated hemoglobin (Bld) [Mass/Vol] 128 mg/dL Normal [facility] Comment on above: Order Comment: Speci [facility] Type: BLOOD SPECIMENOrdering Facility: [facility] Address: [address] [place] [address] Result Comment: eAG: (Estimated average glucose) is a calculated value from HgbA1c and is inside outside sales representative of the average blood glucose level in the last 2-3 month period. Performed By: #### 5 5454-3 ####[facility] LABCLIA [id number] [place] [address] [place] HbA1c (Bld) [Mass fraction] 6.1 % High 4.3-5.6 [facility] Comment on above: Order Comment: Speci [facility] Type: BLOOD SPECIMENOrdering Facility: [facility] Address: [address] [place] [address] Result Comment: [place] Diabetes Association guidelines indicate that patients with HgbA1c in the range 5.7-6.4% are at increased risk for development of diabetes, and intervention by lifestyle modification may be beneficial. HgbA1c greater or equal to 6.5% is considered diagnostic of diabetes. Performed By: #### 5 5454-3 ####[facility] LABCLIA [id number] [place] [address] [place] Lipid 1996 panelon 4 Cholesterol [Mass/Vol] 261 mg/dL High <200 [facility] Comment on above: Order Comment: Speci men Type: BLOOD SPECIMENOrdering Facility: [facility] Address: [address] [place] [address] Result Comment: <200 mg/dL, Desirable 200-239 mg/dL, Borderline high >239 mg/dL, High Performed By: #### 2 4323-8, 39447-2, 87291-2 ####[facility] LABCLIA [id number] [place] [address] [place] Cholesterol in HDL [Mass/Vol] 30 mg/dL Low >39 [facility] Comment on above: Order Comment: Speci men Type: BLOOD SPECIMENOrdering Facility: [facility] Address: [address] [place] [address] Result Comment: 40-5 9 mg/dL, Acceptable >59 mg/dL, High: Negative risk factor for coronary heart disease <40 mg/dL, Low: Positive risk factor for coronary heart disease Performed By: #### 2 4323-8, 06092-6, 87703-5 ####[facility] LABCLIA [id number] [address] [place] Cholesterol in LDL [Mass/Vol] Normal [facility] Comment on above: Order Comment: Speci men Type: BLOOD SPECIMENOrdering Facility: [facility] Address: [address] [place] [address] Result Comment: Unab le to calculate due to increased Triglycerides. See LDL-Chol, Direct. Performed By: #### 2 4323-8, 57968-9, 11125-0 ####[facility] LABCLIA [id number] [place] [address] [place] Cholesterol in LDL/Cholesterol in HDL [Mass ratio] Normal [facility] Comment on above: Order Comment: Speci men Type: BLOOD SPECIMENOrdering Facility: [facility] Address: [address] [place], [place] [address] Result Comment: Unab le to calculate due to elevated Triglycerides. Reference: 1. National Cholesterol Education Program ATP III Guideline At-A-Glance Quick Desk Reference: National Heart, Lung, and Blood [place]. National Institutes of Health. 2001: NIH Publication No. 01-3305. 2. An International Atherosclerosis Society position paper: global recommendations for the management of dyslipidemia: executive summary, Atherosclerosis. 2014: 232(2):410-413. Performed By: #### 2 4323-8, 72321-4, 32088-4 ####[facility] LABCLIA [id number] [place] [address] [place] Cholesterol in VLDL [Mass/Vol] Normal [facility] Comment on above: Order Comment: Speci men Type: BLOOD SPECIMENOrdering Facility: [facility] Address: [address] [place] [address] Result Comment: Unab le to calculate due to increased Triglycerides. See LDL-Chol, Direct. Performed By: #### 2 4323-8, 09698-3, ####[facility] LABIA [id number] [place] [address] [place] Cholesterol non HDL [Mass/Vol] 231 mg/dL High <130 [facility] Comment on above: Order Comment: Speci men Type: BLOOD SPECIMENOrdering Facility: [facility] Address: [address] [place] [address] Result Comment: <130 mg/dL, Optimal 130-159 mg/dL, Near optimal/above optimal 160-189 mg/dL, Borderline high 190-219 mg/dL, High >219 mg/dL, Very high Secondary prevention optimal non HDL Cholesterol levels are recommended to be <100 mg/dL Performed By: #### 2 4323-8, 81177-7, 63502-4 ####[facility] LABCLIA [id number] [place] [address] [place] Cholesterol.total/Chol esterol in HDL [Mass ratio] 8.70 {ratio} High <5.10 [facility] Comment on above: Order Comment: Speci men Type: BLOOD SPECIMENOrdering Facility: [facility] Address: [address] [place] [address] Performed By: #### 2 4323-8, 40625-6, 67771-5 ####[facility] LABCLIA [id number] [place] [address] [place] FASTING TIME 12 hrs Normal [facility] Comment on above: Order Comment: Speci men Type: BLOOD SPECIMENOrdering Facility: [facility] Address: [address] [place] [address] Performed By: #### 2 4323-8, 97619-6, 82571-9 ####[facility] LABCLIA [id number] [place] [address] [place] [facility] Triglyceride [Mass/Vol] 531 mg/dL High <150 [facility] Comment on above: Order Comment: Speci men Type: BLOOD SPECIMENOrdering Facility: [facility] Address: [address] [place] [address] Result Comment: <150 mg/dL, Normal 150-199 mg/dL, Borderline high 200-499 mg/dL, High >499 mg/dL, Very high Performed By: #### 2 4323-8, 82774-0, 69992-0 ####[facility] LABCLIA [id number] [place] [address] [place] PSA/PROSTATE SPECIFIC ANTIGE N SCREENINGon 06-25-2024 Prostate specific Ag [Mass/Vol] ng/mL Normal <2.60 [facility] Comment on above: Order Comment: Speci men Type: BLOOD SPECIMENOrdering Facility: [facility] Address: [address] [place] [address] Result Comment: Tota l PSA test methodology used is the Electrochemiluminescence Immunoassay by [employer]. Total PSA values by differing methodologies cannot be interchanged. Performed By: #### P SAS1 ####[facility] LABCLIA [id number] [place] [address] [place] [facility] Large Joint Arthro/Inj: bila teral knee jointson 05-11-2024 Josefina Hernandez PA -C 05/11/2024 9:17 AM Large Joint Arthro/Inj: bilateral knee joints Informed Consent Consent Obtained: Verbal [place] Protocol A moment to CARE was completed. SIGN IN Sign in communication not applicable due to emergent procedure. Personnel directly involved with the procedure wore the appropriate PPE. Special Equipment: N/A Patient/Surrogate Stated/Verified: Patient name, Date of , Relevant allergies and Intended procedure TIME OUT Intended patient and procedure match the source document(s). Consent documented and matches the intended procedure. Relevant labs, photos, and/or imaging studies have been reviewed. Correct side/site marked and visible. Medications required for procedure verified. No fire risk assessment and interventions applicable. No implant(s) inserted. 05/11/2024 9:16 AM The procedure site was prepped in the usual sterile fashion. Site: bilateral knee joints Medications (Right): 6 mg betamethasone acetate-betamethasone sodium phosphate 6 mg/mL Medications (Left): 6 mg betamethasone acetate-betamethasone sodium phosphate 6 mg/mL Anesthetics (Right): 5 mL lidocaine (PF) 10 mg/mL (1 %) Anesthetics (Left): 5 mL lidocaine (PF) 10 mg/mL (1 %) Outcome: Tolerated well, no immediate complications Post-injection instructions were reviewed with the patient and the patient voiced understanding of these instructions. SIGN OUT No instruments, equipment or retained foreign bodies applicable. [facility] XR KNEE GENERAL 4V AP BOTH/P A BOTH/LAT/MERC RIGHTon 03-07-2023 [facility] XR Chest PA and Lateralon IMPRESSION: Possible left lower lobe pneumonia Tool Machine Setup Operator: PSCPradip Transcribe Date/Time: Aug 25 2021 12:15P Dictated by : PADMINI KASPER MD This examination was interpreted and the report reviewed and electronically signed by: PADMINI KASPER MD on Aug 25 2021 12:18PM [facility] DIVISION OF RADIOLOGY * * *Final Report* * * DATE OF EXAM: Aug 25 2021 11:17AM WOX 5291 - XR CHEST 2V FRONTAL/LAT / PROCEDURE REASON: Cough * * * * Physician Interpretation * * * * EXAMINATION: CHEST RADIOGRAPH (2 VIEW FRONTAL & LATERAL) CLINICAL HISTORY: Cough MQ: XC2_6 EXAM DATE/TIME: 08/25/2021 11:17 AM COMPARISON: Comparison is made to prior chest dated 04 December 2017 RESULT: Lines, tubes, and devices: None. Lungs and pleura: Chronic interstitial lung changes with lingular and bibasilar fibrotic scarring is stable. Vague parenchymal opacity in the left lower lung best appreciated on the frontal view could represent basilar pneumonia. Increased blunting left costophrenic angle could represent atelectasis or trace pleural fluid. There is no vascular redistribution to suggest pulmonary edema. Cardiomediastinal silhouette: The cardiac, mediastinal and hilar shadows are unchanged. Other: The bony structures are intact with stable degenerative change. DIVISION OF RADIOLOGY Provider, [facility] - 08/25/2021 * * *Final Report* * * DATE OF EXAM: Aug 25 2021 11:17AM WOX 5291 - XR CHEST 2V FRONTAL/LAT / PROCEDURE REASON: Cough * * * * Physician Interpretation * * * * EXAMINATION: CHEST RADIOGRAPH (2 VIEW FRONTAL & LATERAL) CLINICAL HISTORY: Cough MQ: XC2_6 EXAM DATE/TIME: 08/25/2021 11:17 AM COMPARISON: Comparison is made to prior chest dated 04 December 2017 RESULT: Lines, tubes, and devices: None. Lungs and pleura: Chronic interstitial lung changes with lingular and bibasilar fibrotic scarring is stable. Vague parenchymal opacity in the left lower lung best appreciated on the frontal view could represent basilar pneumonia. Increased blunting left costophrenic angle could represent atelectasis or trace pleural fluid. There is no vascular redistribution to suggest pulmonary edema. Cardiomediastinal silhouette: The cardiac, mediastinal and hilar shadows are unchanged. Other: The bony structures are intact with stable degenerative change. IMPRESSION IMPRESSION: Possible left lower lobe pneumonia Tool Machine Setup Operator: [facility]ITAL[facility] Transcribe Date/Time: Aug 25 2021 12:15P Dictated by : PADMINI KASPER MD This examination was interpreted and the report reviewed and electronically signed by: PADMINI KASPER MD on Aug 25 2021 12:18PM EST [facility] Radiology Study observation (narrative) [facility] XR Chest PA and LateralOrder ed By: [facility] Provider on 08-25-2021 [facility] No Panel Information [facility] Vital Signs Date Time Vital Sign Value Performing Clinician Yuecash silas 05-21-2025 07:08-0400 Body height 182.[address] Connor Fuller MD Work Phone: [phone])[phone] [place] [address] 05-21-2025 07:08-0400 Body mass index (BMI) [Ratio] 37.8 kg/m2 Dr. Connor Fuller MD Work Phone: 2(417)465-777857 [place] [address] 05-21-2025 07:08-0400 Body weight 126.[address] Connor Fuller MD Work Phone: 0(024)230-120857 [place] [address] 05-21-2025 07:08-0400 Diastolic blood pressure 75 mm[Hg] Dr. Connor Fuller MD Work Phone: 4(065)804-113257 [place] [address] 05-21-2025 07:08-0400 Heart rate 72 /min Dr. Connor Fuller MD Work Phone: 2(877)452-913457 [place] [address] 05-21-2025 07:08-0400 Respiratory rate 18 /min Dr. Connor Fuller MD Work Phone: 3(131)309-161957 [place] [address] 05-21-2025 07:08-0400 SaO2% (BldA) [Mass fraction] 97 % Dr. Connor Fuller MD Work Phone: 9(171)166-281257 [place] [address] 05-21-2025 07:08-0400 Systolic blood pressure 128 mm[Hg] Dr. Connor Fuller MD Work Phone: 6(859)[phone] [place] [address] 12-29-2024 08:31-0400 Diastolic blood pressure 78 mm[Hg] Sara Fuller MD Work Phone: [facility] 12-29-2024 08:31-0400 Systolic blood pressure 128 mm[Hg] Sara Fuller MD Work Phone: [facility] 12-29-2024 07:42-0400 Body mass index (BMI) [Ratio] 37.38 kg/m2 Sara Fuller MD Work Phone: [facility] 12-29-2024 07:42-0400 Body weight 125.01 kg Sara Fuller MD Work Phone: [facility] 12-29-2024 07:42-0400 Heart rate 64 /min Sara Fuller MD Work Phone: [facility] 12-29-2024 07:42-0400 Respiratory rate 17 /min Sara Fuller MD Work Phone: [facility] 11-27-2024 08:46-0500 Body mass index (BMI) [Ratio] 37.41 kg/m2 Sara Fuller MD Work Phone: [facility] 11-27-2024 08:46-0500 Body temperature 99.5 [degF] Sara Fuller MD Work Phone: [facility] 11-27-2024 08:46-0500 Body weight 125.1 kg Sara Fuller MD Work Phone: [facility] 11-27-2024 08:46-0500 Diastolic blood pressure 64 mm[Hg] Sara Fuller MD Work Phone: [facility] 11-27-2024 08:46-0500 Heart rate 88 /min Sara Fuller MD Work Phone: [facility] 11-27-2024 08:46-0500 Respiratory rate 18 /min Sara Fuller MD Work Phone: [facility] 11-27-2024 08:46-0500 SaO2% (BldA) [Mass fraction] 95 % Sara Fuller MD Work Phone: [facility] 11-27-2024 08:46-0500 Systolic blood pressure 112 mm[Hg] Sara Fuller MD Work Phone: [facility] 07-29-2024 07:58-0400 Body mass index (BMI) [Ratio] 38.9 kg/m2 Kenyetta Stacy APRN.CNP Work Phone: [facility] 07-29-2024 07:58-0400 Body weight 130.1 kg Kenyetta Podlogar [employer] AMBASSADOR.MAINTENANCE EQUIPMENT OPERATOR Work Phone: [facility] 07-29-2024 07:58-0400 Diastolic blood pressure 78 mm[Hg] Kenyetta Podlogar [employer] AMBASSADOR.MAINTENANCE EQUIPMENT OPERATOR Work Phone: [facility] 07-29-2024 07:58-0400 Heart rate 64 /min Kenyetta Podlogar [employer] AMBASSADOR.MAINTENANCE EQUIPMENT OPERATOR Work Phone: [facility] 07-29-2024 07:58-0400 Respiratory rate 16 /min Kenyetta Podlogar [employer] AMBASSADOR.MAINTENANCE EQUIPMENT OPERATOR Work Phone: [facility] 07-29-2024 07:58-0400 SaO2% (BldA) [Mass fraction] 97 % Kenyetta Podlogar [employer] AMBASSADOR.MAINTENANCE EQUIPMENT OPERATOR Work Phone: [facility] 07-29-2024 07:58-0400 Systolic blood pressure 138 mm[Hg] Kenyetta Podlogar [employer]UTR[employer] AMBASSADOR.MAINTENANCE EQUIPMENT OPERATOR Work Phone: [facility] 07-15-2024 08:06-0400 Body height 182.9 cm Sara Fuller MD Work Phone: [facility] 07-15-2024 08:06-0400 Body mass index (BMI) [Ratio] 38.38 kg/m2 Sara Fuller MD Work Phone: [facility] 07-15-2024 08:06-0400 Body weight 128.37 kg Sara Fuller MD Work Phone: [facility] 07-15-2024 08:06-0400 Diastolic blood pressure 70 mm[Hg] Sara Fuller MD Work Phone: [facility] 07-15-2024 08:06-0400 Heart rate 65 /min Sara Fuller MD Work Phone: [facility] 07-15-2024 08:06-0400 Respiratory rate 16 /min Sara Fuller MD Work Phone: [facility] 07-15-2024 08:06-0400 SaO2% (BldA) [Mass fraction] 96 % Sara Fuller MD Work Phone: [facility] 07-15-2024 08:06-0400 Systolic blood pressure 150 mm[Hg] Sara Fuller MD Work Phone: [facility] 06-29-2024 07:05-0400 Body mass index (BMI) [Ratio] 38.33 kg/m2 Sara Fuller MD Work Phone: [facility] 06-29-2024 07:05-0400 Body weight 128.19 kg Sara Fuller MD Work Phone: [facility] 06-29-2024 07:05-0400 Diastolic blood pressure 70 mm[Hg] Sara Fuller MD Work Phone: [facility] Comment on above: 124/66 home cuff 06-29-2024 07:05-0400 Heart rate 66 /min Sara Fulelr MD Work Phone: [facility] Comment on above: 66 06-29-2024 07:05-0400 Respiratory rate 18 /min Sara Fuller MD Work Phone: [facility] 06-29-2024 07:05-0400 SaO2% (BldA) [Mass fraction] 98 % Sara Fuller MD Work Phone: [facility] 06-29-2024 07:05-0400 Systolic blood pressure 138 mm[Hg] Sara Fuller MD Work Phone: [facility] Comment on above: 124/66 home cuff 02-21-2024 08:22-0400 Diastolic blood pressure 74 mm[Hg] Kenyetta Delacruzlogzulay [employer] AMBASSADOR.MAINTENANCE EQUIPMENT OPERATOR Work Phone: [facility] Comment on above: SILVANO BP 02-21-2024 08:22-0400 Heart rate 85 /min Kenyetta Stacy [employer] AMBASSADOR.MAINTENANCE EQUIPMENT OPERATOR Work Phone: [facility] 02-21-2024 08:22-0400 Systolic blood pressure 139 mm[Hg] Kenyetta Podlogar [employer] AMBASSADOR.MAINTENANCE EQUIPMENT OPERATOR Work Phone: [facility] Comment on above: SILVANO BP 02-21-2024 07:58-0400 Body mass index (BMI) [Ratio] 38.25 kg/m2 Kenyetta Podlogar [employer] AMBASSADOR.MAINTENANCE EQUIPMENT OPERATOR Work Phone: [facility] 02-21-2024 07:58-0400 Body weight 127.91 kg Kenyetta Podlogar [employer] AMBASSADOR.MAINTENANCE EQUIPMENT OPERATOR Work Phone: [facility] 02-21-2024 07:58-0400 Respiratory rate 16 /min Kenyetta Podlogar [employer] AMBASSADOR.MAINTENANCE EQUIPMENT OPERATOR Work Phone: [facility] 02-21-2024 07:58-0400 SaO2% (BldA) [Mass fraction] 93 % Kenyetta Podlogar [employer] AMBASSADOR.MAINTENANCE EQUIPMENT OPERATOR Work Phone: [facility] 01-22-2024 08:39-0400 Diastolic blood pressure 76 mm[Hg] Kenyetta Podlogar [employer] AMBASSADOR.MAINTENANCE EQUIPMENT OPERATOR Work Phone: [facility] 01-22-2024 08:39-0400 Systolic blood pressure 158 mm[Hg] Kenyetta Podlogar NUTR[employer] AMBASSADOR.MAINTENANCE EQUIPMENT OPERATOR Work Phone: [facility] 01-22-2024 08:07-0400 Body weight 132.18 kg Kenyetta Podlogar [employer] AMBASSADOR.MAINTENANCE EQUIPMENT OPERATOR Work Phone: [facility] 01-22-2024 08:07-0400 Heart rate 81 /min Kenyetta Podlogar [employer] AMBASSADOR.MAINTENANCE EQUIPMENT OPERATOR Work Phone: [facility] 01-22-2024 08:07-0400 Respiratory rate 18 /min Kenyetta Podlogar [employer] AMBASSADOR.MAINTENANCE EQUIPMENT OPERATOR Work Phone: [facility] 01-22-2024 08:07-0400 SaO2% (BldA) [Mass fraction] 94 % Kenyetta Podlogar [employer] AMBASSADOR.MAINTENANCE EQUIPMENT OPERATOR Work Phone: [facility] 12-09-2023 07:47-0500 Body weight 128.37 kg Kenyetta Podlogar [employer] AMBASSADOR.MAINTENANCE EQUIPMENT OPERATOR Work Phone: [facility] 12-09-2023 07:47-0500 Diastolic blood pressure 72 mm[Hg] Kenyetta Podlogar N[employer] AMBASSADOR.MAINTENANCE EQUIPMENT OPERATOR Work Phone: [facility] 12-09-2023 07:47-0500 Heart rate 65 /min Kenyetta Podlogar [employer] AMBASSADOR.MAINTENANCE EQUIPMENT OPERATOR Work Phone: [facility] 12-09-2023 07:47-0500 Respiratory rate 18 /min Kenyetta Podlogar [employer] AMBASSADOR.MAINTENANCE EQUIPMENT OPERATOR Work Phone: [facility] 12-09-2023 07:47-0500 SaO2% (BldA) [Mass fraction] 96 % Kenyetta Podlogar [employer] AMBASSADOR.MAINTENANCE EQUIPMENT OPERATOR Work Phone: [facility] 12-09-2023 07:47-0500 Systolic blood pressure 128 mm[Hg] Kenyetta Podlogar NUTR[employer]UB AMBASSADOR.MAINTENANCE EQUIPMENT OPERATOR Work Phone: [facility] 06-10-2023 07:49-0400 Body weight 127.91 kg Kenyetta Podlogar [employer]UTRITION CLUB AMBASSADOR.MAINTENANCE EQUIPMENT OPERATOR Work Phone: [facility] 06-10-2023 07:49-0400 Diastolic blood pressure 66 mm[Hg] Kenyetta Podlogar NUTRITION CLUB AMBASSADOR.MAINTENANCE EQUIPMENT OPERATOR Work Phone: [facility] 06-10-2023 07:49-0400 Heart rate 62 /min Kenyetta Podlogar [employer]UTRITION CLUB AMBASSADOR.MAINTENANCE EQUIPMENT OPERATOR Work Phone: [facility] 06-10-2023 07:49-0400 Respiratory rate 18 /min Kenyetta Podlogar [employer] AMBASSADOR.MAINTENANCE EQUIPMENT OPERATOR Work Phone: [facility] 06-10-2023 07:49-0400 SaO2% (BldA) [Mass fraction] 96 % Kenyetta Podlogar [employer]UTR[employer] CLUB AMBASSADOR.MAINTENANCE EQUIPMENT OPERATOR Work Phone: [facility] 06-10-2023 07:49-0400 Systolic blood pressure 124 mm[Hg] Kenyetta Podlogar [employer]UTRITION CLUB AMBASSADOR.MAINTENANCE EQUIPMENT OPERATOR Work Phone: [facility] 03-07-2023 08:56-0400 Body height 182.9 cm Arnold Edgar MD Work Phone: [facility] 03-07-2023 08:56-0400 Body weight 127.01 kg Arnold Edgar MD Work Phone: [facility] 06-04-2022 08:47-0400 Body weight 131.54 kg Kenyetta Delacruzlogzulay [employer]UTRITION CLUB AMBASSADOR.MAINTENANCE EQUIPMENT OPERATOR Work Phone: [facility] 06-04-2022 08:47-0400 Diastolic blood pressure 66 mm[Hg] Kenyetta Podlogar [employer]UTR[employer]UB AMBASSADOR.MAINTENANCE EQUIPMENT OPERATOR Work Phone: [facility] 06-04-2022 08:47-0400 Heart rate 73 /min Kenyetta Podlogar NUTR[employer] CLUB AMBASSADOR.MAINTENANCE EQUIPMENT OPERATOR Work Phone: [facility] 06-04-2022 08:47-0400 Respiratory rate 20 /min Kenyetta Podlogar [employer]UTR[employer]UB AMBASSADOR.MAINTENANCE EQUIPMENT OPERATOR Work Phone: [facility] 06-04-2022 08:47-0400 SaO2% (BldA) [Mass fraction] 96 % Kenyetta Podlogar [employer]UTRITION CLUB AMBASSADOR.MAINTENANCE EQUIPMENT OPERATOR Work Phone: [facility] 06-04-2022 08:47-0400 Systolic blood pressure 124 mm[Hg] Kenyetta Podlogar [employer]UTR[employer] AMBASSADOR.MAINTENANCE EQUIPMENT OPERATOR Work Phone: [facility] 01-15-2022 08:48-0400 Body height 182.9 cm Julieta Stark NUTRITION CLUB AMBASSADOR.MAINTENANCE EQUIPMENT OPERATOR Work Phone: [facility] 01-15-2022 08:48-0400 Body weight 127.91 kg Julieta Stark [employer]UTRITION CLUB AMBASSADOR.MAINTENANCE EQUIPMENT OPERATOR Work Phone: [facility] 01-15-2022 08:48-0400 Diastolic blood pressure 60 mm[Hg] Julieta Stark NUTRITION CLUB AMBASSADOR.MAINTENANCE EQUIPMENT OPERATOR Work Phone: [facility] 01-15-2022 08:48-0400 Heart rate 60 /min Julieta Stark [employer] AMBASSADOR.MAINTENANCE EQUIPMENT OPERATOR Work Phone: [facility] 01-15-2022 08:48-0400 Respiratory rate 20 /min Julieta Stark [employer] AMBASSADOR.MAINTENANCE EQUIPMENT OPERATOR Work Phone: [facility] 01-15-2022 08:48-0400 Systolic blood pressure 138 mm[Hg] Julieta Stark APRN.MAINTENANCE EQUIPMENT OPERATOR Work Phone: [facility] Encounters Encounter Date Encounter Type Care Provider Facility Start: 06-16-2025 ambulatory Essence FUENTES Facility:[facility] Start: 06-01-2025 End: 06-09-2025 Telephone encounter Sara Fuller MD Work Phone: [facility] Comment on above: Medication Problem Start: 05-30-2025 ambulatory Essence FUENTES Facility:[facility] Start: 05-21-2025 End: 05-21-[address] Connor Fuller MD Work Phone: -[facility] Start: 05-21-2025 End: 05-21-2025 Patient encounter procedure Essence FUENTES -[facility] Work Phone: Start: 05-21-2025 End: 05-21-2025 Patient encounter procedure Essence FUENTES -[facility] Work Phone: Comment on above: [facility] Health [facility] Start: 05-21-2025 End: 05-21-[address] Connor Fuller MD Work Phone: -[facility] Start: 05-21-2025 End: 05-21-2025 ambulatory Essence FUENTES Facility:[facility] Start: 05-17-2025 End: 05-18-2025 Refill Sara Fuller MD Work Phone: [facility] Comment on above: Refill Request Start: 05-12-2025 End: 05-13-2025 Telephone encounter Sara Fuller MD Work Phone: [facility] Comment on above: requesting medicatio n that is Start: 03-22-2025 End: 03-22-2025 ambulatory SARA FULLER Facility:[facility] Start: 03-22-2025 End: 03-22-2025 Patient encounter procedure Josefina Hernandez PA-C Work Phone: Orthopaedics Comment on above: Primary osteoarthrit is of both knees (Primary Dx) Start: 03-18-2025 End: 03-18-2025 Patient encounter procedure Viktoriya Testvivi Work Phone: Podiatry Comment on above: Diabetic polyneuropa thy associated with type 2 diabetes mellitus (HCC) (Primary Dx); Hammer toes of both feet; Onychomycosis; Tailor's bunionette, bilateral; Diminished pulses in lower extremity Start: 03-18-2025 End: 03-18-2025 ambulatory VIKTORIYA ANGELO Facility:[facility] Start: 01-01-2025 End: 01-01-2025 Refill Sara Fuller MD Work Phone: [facility] Comment on above: Refill Request Start: 12-31-2024 End: 12-31-2024 Follow-up encounter Sara Fuller MD Work Phone: [facility] Start: 12-29-2024 End: 12-29-2024 ambulatory SARA FULLER Facility:[facility] Start: 12-29-2024 End: 12-29-2024 ambulatory SARA FULLER Facility:[facility] Start: 12-29-2024 End: 12-29-2024 Patient encounter procedure Sara Fuller MD Work Phone: [facility] Comment on above: Type 2 diabetes genoveva itus without complication, with long-term current use of insulin (HCC) (Primary Dx); Atrial fibrillation, unspecified type (HCC); Acquired hypothyroidism; Mixed hyperlipidemia; History of prostate cancer Start: 12-07-2024 End: 12-07-2024 Patient encounter procedure Josefina Hernandez PA-C Work Phone: Orthopaedics Comment on above: Primary osteoarthrit is of both knees (Primary Dx) Start: 12-07-2024 End: 12-07-2024 ambulatory SARA FULLER Facility:[facility] Start: 12-07-2024 End: 12-07-2024 Subsequent hospital visit by physician Gennaro [facility] [place] Work Phone: Radiology Comment on above: Pain in both knees, unspecified chronicity [M25.561, M25.562] Start: 11-30-2024 End: 11-30-2024 Follow-up encounter [facility] Start: 11-27-2024 End: 11-27-2024 Telephone encounter Sara Fuller MD Work Phone: [facility] Comment on above: Results Start: 11-27-2024 End: 11-27-2024 Subsequent hospital visit by physician Xr [facility] [place] Work Phone: Radiology Comment on above: Decreased breath annabel nds of both lungs [R09.89] Start: 11-27-2024 End: 11-27-2024 ambulatory SARA FULLER Facility:[facility] Start: 11-27-2024 End: 11-27-2024 Patient encounter procedure Sara Fuller MD Work Phone: [facility] Comment on above: Viral URI with cough (Primary Dx); Bronchitis; Decreased breath sounds of both lungs; Wheezing; Cough; Acute cough Start: 11-24-2024 End: 11-24-2024 Orders Only Josefina Hernandez PA-C Work Phone: Orthopaedics Comment on above: Pain in both knees, unspecified chronicity (Primary Dx) Start: 11-23-2024 End: 11-23-2024 ambulatory VIKTORIYA ANGELO Facility:[facility] Start: 11-23-2024 End: 11-23-2024 Patient encounter procedure Viktoriya Angelo Work Phone: Podiatry Comment on above: Diabetic polyneuropa thy associated with type 2 diabetes mellitus (HCC) (Primary Dx); Hammer toes of both feet; Onychomycosis Start: 10-12-2024 End: 10-12-2024 Telephone encounter Kenyetta Stacy APRN.CNP Work Phone: [facility] Start: 10-06-2024 End: 11-03-2024 Telephone encounter Kenyetta Stacy NUTRITION CLUB AMBASSADOR.MAINTENANCE EQUIPMENT OPERATOR Work Phone: [facility] [place] Comment on above: Forms (Patient Danilo tance Forms ) Start: 10-06-2024 End: 10-06-2024 ambulatory Connor Fuller Facility[facility] Start: 09-03-2024 End: 09-04-2024 Telephone encounter Josefina FUENTES-Joyce Work Phone: Orthopaedics Start: 08-31-2024 End: 08-31-2024 ambulatory JOSEFINA HERNANDEZ Facility:[facility] Start: 08-31-2024 End: 08-31-2024 Patient encounter procedure Josefina Hernandez PA-C Work Phone: Orthopaedics Comment on above: Primary osteoarthrit is of both knees (Primary Dx) Start: 08-25-2024 End: 08-28-2024 Telephone encounter Josefina FUENTES-C Work Phone: Orthopaedics Comment on above: Patient Question Start: 08-21-2024 End: 08-21-2024 ambulatory SARA FULLER Facility:[facility] Start: 08-20-2024 End: 08-20-2024 ambulatory Connor Fuller Facility:[facility] Start: 07-29-2024 End: 07-29-2024 ambulatory KENYETTA PODLOGAR Facility:[facility] Start: 07-29-2024 End: 07-29-2024 Patient encounter procedure Kenyetta Delacruzlogzulay NUTRITION CLUB AMBASSADOR.MAINTENANCE EQUIPMENT OPERATOR Work Phone: [facility] [place] Comment on above: Primary hypertension (Primary Dx) Start: 07-21-2024 End: 07-21-2024 Telephone encounter Sara Fuller MD Work Phone: [facility] [place] Comment on above: Medication Request Start: 07-16-2024 End: 07-16-2024 ambulatory Connor Fuller Facility:[facility] Start: 07-15-2024 End: 07-15-2024 Patient encounter procedure Sara Fuller MD Work Phone: [facility] [place] Comment on above: Primary hypertension (Primary Dx) Start: 07-15-2024 End: 07-15-2024 ambulatory SARA FULLER Facility:[facility] Start: 07-07-2024 ambulatory Connor Mccarthy lity:[facility] Start: 07-02-2024 End: 07-02-2024 ambulatory SARA FULLER Facility:[facility] Start: 07-02-2024 End: 07-02-2024 Nursing evaluation of patient and report Nurse/[facility]rake [facility] Work Phone: Podiatry Comment on above: Hammer toes of both feet (Primary Dx) Start: 06-29-2024 End: 06-29-2024 Patient encounter procedure Sara Fuller MD Work Phone: [facility] [place] Comment on above: Type 2 diabetes genoveva itus without complication, unspecified whether fdc insulin use (HCC) (Primary Dx); Primary hypertension; Mixed hyperlipidemia; Atrial fibrillation, unspecified type (HCC); Coronary artery disease involving cocopah heart, unspecified vessel or lesion type, unspecified whether angina present; Acquired hypothyroidism; Morbid obesity (HCC); Encounter for immunization; Onychomycosis Start: 06-29-2024 End: 06-29-2024 ambulatory SARA FULLER Facility:[facility] Start: 06-25-2024 End: 06-25-2024 ambulatory SARA FULLER Facility:[facility] Start: 06-11-2024 End: 06-12-2024 Telephone encounter Sara Fuller MD Work Phone: [facility] [place] Comment on above: Lab Orders Start: 05-11-2024 End: 05-11-2024 Patient encounter procedure Josefina Hernandez PA-C Work Phone: Orthopaedics Comment on above: Chronic pain of both knees (Primary Dx); Primary osteoarthritis of both knees Start: 04-17-2024 Telephone encounter [facility] Comment on above: PAP Trulicity Start: 04-13-2024 Refill Sara uFller MD Work Phone: [facility] [place] Comment on above: Refill Request (Mandel ging to the local Pharmacy) Start: 02-24-2024 Telephone encounter Kenyetta pisano APRN.MAINTENANCE EQUIPMENT OPERATOR Work Phone: [facility] [place] Comment on above: Results Start: 02-21-2024 End: 02-21-2024 Patient encounter procedure Kenyetta Stacy APRN.MAINTENANCE EQUIPMENT OPERATOR Work Phone: [facility] [place] Comment on above: Primary hypertension (Primary Dx); Type 2 diabetes mellitus without complication, unspecified whether fdc insulin use (HCC) Start: 02-06-2024 End: 02-06-2024 Patient encounter procedure Josefina Hernandez PA-C Work Phone: Orthopaedics Comment on above: Chronic pain of both knees (Primary Dx) Start: 01-29-2024 Refill Sara Fuller MD Work Phone: [facility] [place] Comment on above: Refill Request Start: 01-22-2024 Telephone encounter Arnold hilario MD Work Phone: Orthopaedics Comment on above: Medication Problem; Patient Question Start: 01-22-2024 End: 01-22-2024 Patient encounter procedure Kenyetta Stacy APRN.MAINTENANCE EQUIPMENT OPERATOR Work Phone: [facility] [place] Comment on above: Left leg pain (Prima ry Dx) Start: 12-09-2023 End: 12-09-2023 Patient encounter procedure Kenyetta Stacy APRN.MAINTENANCE EQUIPMENT OPERATOR Work Phone: [facility] [place] Comment on above: Type 2 diabetes genoveva itus without complication, unspecified whether parts counterman insulin use (HCC) (Primary Dx); Encounter for immunization; Morbid obesity (HCC); Mixed hyperlipidemia; Coronary artery disease involving cocopah heart, unspecified vessel or lesion type, unspecified whether angina present; Acquired hypothyroidism; Atrial fibrillation, unspecified type (HCC) Start: 12-06-2023 End: 12-06-2023 Patient encounter procedure Viktoriya Angelo Work Phone: Podiatry Comment on above: Type 2 diabetes genoveva itus without complication, unspecified whether fdc insulin use (HCC) (Primary Dx); Hammertoe of second toe of left foot; Onychomycosis; Pain in toe of left foot; Pain in toe of right foot Start: 11-07-2023 End: 11-07-2023 Patient encounter procedure Arnold Edgar MD Work Phone: Orthopaedics Comment on above: Chronic pain of both knees (Primary Dx); Primary osteoarthritis of both knees Start: 09-24-2023 Refill Kenyetta Stacy APRN.MAINTENANCE EQUIPMENT OPERATOR Work Phone: [facility] [place] Comment on above: Refill Request Start: 09-13-2023 Refill Camille heller APRN.MAINTENANCE EQUIPMENT OPERATOR Work Phone: [facility] [place] Comment on above: Refill Request Start: 06-17-2023 Refill Sara Fuller MD Work Phone: [facility] [place] Comment on above: Refill Request Start: 06-10-2023 End: 06-10-2023 Patient encounter procedure Kenyetta Stacy APRN.MAINTENANCE EQUIPMENT OPERATOR Work Phone: [facility] [place] Comment on above: Type 2 diabetes genoveva itus without complication, unspecified whether parts counterman insulin use (HCC) (Primary Dx); Mixed hyperlipidemia; Acquired hypothyroidism; Primary hypertension; Obesity, Class II, BMI 35-39.9; Complete right bundle branch block (RBBB) Refill Request Start: 06-04-2023 Telephone encounter Kenyetta pisano APRN.MAINTENANCE EQUIPMENT OPERATOR Work Phone: [facility] [place] Comment on above: Lab Orders Start: 03-07-2023 End: 03-07-2023 Patient encounter procedure Arnold Edgar MD Work Phone: Orthopaedics Comment on above: Primary osteoarthrit is of both knees (Primary Dx); Chronic pain of right knee; Morbid obesity (HCC) Start: 03-07-2023 End: 03-07-2023 Subsequent hospital visit by physician Gennaro [facility] [place] Work Phone: Radiology Comment on above: Right knee pain, uns pecified chronicity [M25.561] Start: 01-18-2023 Telephone encounter Viktoriya Villatoro Work Phone: Podiatry Comment on above: Patient Question (Or thotics/) Start: 12-03-2022 End: 12-03-2022 Patient encounter procedure Viktoriya Angelo Work Phone: Podiatry Comment on above: Type 2 diabetes genoveva itus without complication, unspecified whether fdc insulin use (HCC) (Primary Dx); Hammertoe of second toe of left foot; Metatarsalgia of both feet Start: 10-24-2022 ambulatory Kenyetta Podlogzulay PEREZN.MAINTENANCE EQUIPMENT OPERATOR Work Phone: [facility] [place] Comment on above: labs Start: 10-12-2022 Refill Sara Fuller MD Work Phone: [facility] [place] Comment on above: Refill Request Start: 10-10-2022 Telephone encounter Connor Fuller MD Work Phone: [facility] [place] Comment on above: Patient Update Start: 07-25-2022 Refill Sara Fuller MD Work Phone: [facility] [place] Comment on above: Refill Request Start: 06-04-2022 End: 06-04-2022 Patient encounter procedure Kenyetta Delacruzlogzulay QUEVEDO.MAINTENANCE EQUIPMENT OPERATOR Work Phone: [facility] [place] Comment on above: Controlled type 2 di abetes mellitus without complication, with long-term current use of insulin (HCC) (Primary Dx); Encounter for immunization; Obesity, Class II, BMI 35-39.9; Acquired hypothyroidism; Mixed hyperlipidemia; Primary hypertension; Acute pain of right knee Start: 05-29-2022 Refill Sara Fuller MD Work Phone: [facility] [place] Comment on above: Refill Request Start: 05-18-2022 Refill Kenyetta Delacruzlogzulay BEANMAINTENANCE EQUIPMENT OPERATOR Work Phone: [facility] [place] Comment on above: Refill Request Start: 05-15-2022 Telephone encounter Connor Fuller MD Work Phone: [facility] [place] Comment on above: Orders Start: 05-12-2022 Refill Kenyetta Stacy APRN.MAINTENANCE EQUIPMENT OPERATOR Work Phone: [facility] [place] Comment on above: Refill Request Start: 01-15-2022 End: 01-15-2022 Patient encounter procedure Julieta Stark SAE.MAINTENANCE EQUIPMENT OPERATOR Work Phone: Cardiology Comment on above: Complete right bundl e branch block (RBBB) (Primary Dx); Primary hypertension; Mixed hyperlipidemia; Shortness of breath Start: 12-28-2021 Patient Outreach Sara Fuller MD Work Phone: [facility] [place] Comment on above: Transition Of Care Start: 08-25-2021 End: 08-25-2021 Subsequent hospital visit by physician Xr [facility] [place] Work Phone: Radiology Comment on above: Cough [R05.9] Start: 11-26-2020 End: 11-26-2020 Orders Only Natali Le Roberts Work Phone: [facility] Start: 07-17-2018 End: 07-17-2018 Patient encounter Shaunishmael Mondragon [place] Facility:[place] Start: 06-04-2018 End: 06-04-2018 Patient encounter Shaun Tran Work Phone: [facility] Procedures Date Procedure Procedure Detail Performing Clinician Start: 03-22-2025 Arthrocentesis aspir &/inj major jt/bursa w/o us Josefina Vetovitz PA-C Work Phone: Start: 12-07-2024 Arthrocentesis aspir &/inj major jt/bursa w/o us Josefina Vetovitz PA-C Work Phone: Start: 11-27-2024 Radiologic exam ches t 2 views Sara Fuller MD Work Phone: Start: 08-31-2024 Arthrocentesis aspir &/inj major jt/bursa w/o us Josefina Vetovitz PA-C Work Phone: Start: 05-11-2024 Arthrocentesis aspir &/inj major jt/bursa w/o us Josefina Hernandez PA-C Work Phone: Start: 02-06-2024 Arthrocentesis aspir &/inj major jt/bursa w/o us Josefina Hernandez PA-C Work Phone: Start: 12-09-2023 PFIZER-BIONTECH COVI D-19 VACCINE (2022- SEASON) AGE 12+ YR Kenyetta Podlogar NUTRITION CLUB AMBASSADOR.FRANCY Work Phone: Start: 11-07-2023 Arthrocentesis aspir &/inj major jt/bursa w/o us Arnold Edgar MD Work Phone: Start: 03-07-2023 Arthrocentesis aspir &/inj major jt/bursa w/o us Arnold Edgar MD Work Phone: Start: 03-07-2023 Radiologic exam knee complete 4/more views Arnold Edgar MD Work Phone: Start: 06-04-2022 PFIZER-BIONTECH COVI D-19 VACCINE, AGE 12+ YR (STAPLES TOP) Kenyetta Podlogar NUTRITION CLUB AMBASSADOR.MAINTENANCE EQUIPMENT OPERATOR Work Phone: Start: 08-25-2021 Radiologic exam ches t 2 views Kenyetta Podlogar NUTRITION CLUB AMBASSADOR.MAINTENANCE EQUIPMENT OPERATOR Work Phone: Start: 01-25-2021 Adult depression scr eening assessment Julieta Stark NUTRITION CLUB AMBASSADOR.MAINTENANCE EQUIPMENT OPERATOR Work Phone: Start: 02-16-2016 Colonoscopy Julieta wong NUTRITION CLUB AMBASSADOR.MAINTENANCE EQUIPMENT OPERATOR Work Phone: Plan of Treatment Date Care Activity Detail Author Start: 05-19-2026 Glaucoma screening Dilated Retinal E xam [facility] Start: 04-05-2026 Urine microalbumin profile [facility] Start: 02-15-2026 Colonoscopy COLONOSCOPY [facility] Start: 02-15-2026 COLORECTAL CANCER SCREENING COLORECTAL CANCER SCREENING [facility] Start: 02-15-2026 Screening for malign ant neoplasm of colon [facility] Start: 01-01-2026 Hepatitis B screening Urine Al bumin:Creatinine Ratio [facility] Start: 12-29-2025 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 Annual PCP Team Chronic Disease Visit [facility] Start: 12-29-2025 BP Controlled (<130/80) BP Controlle d (<130/80) [facility] Start: 11-27-2025 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 Annual PCP Team Chronic Disease Visit [facility] Start: 11-27-2025 BP Controlled (<130/80) BP Controlle d (<130/80) [facility] Start: 11-25-2025 End: 11-25-2025 Patient encounter procedure Podiatry Comment on above: 1 year follow up sander betic foot cre Start: 11-09-2025 End: 11-09-2025 Patient encounter procedure 11/09/2025 9:00 AM EST Office Visit Vascul[facility] Surgery [address] [place] [address] Diminished pulses in lower extremity [R09.89] [facility] Comment on above: Diminished pulses in lower extremity [R09.89] Start: 08-21-2025 Hepatitis B surface antibody level LDL Cholesterol [facility] Start: 07-29-2025 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 Annual PCP Team Chronic Disease Visit [facility] Start: 07-15-2025 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 Annual PCP Team Chronic Disease Visit [facility] Start: 07-02-2025 End: 07-02-2025 Patient encounter procedure [facility] [place] Comment on above: annual physical annual physical ca re gap closure Start: 07-01-2025 Hemoglobin A1c measurement HbA1C [facility] Start: 06-29-2025 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 Annual PCP Team Chronic Disease Visit [facility] Start: 06-29-2025 Covid-19 Vaccine () Covid-19 Vaccine () [facility] Comment on above: Postponed from 06/21 (Declined at this time) Start: 06-29-2025 Covid-19 Vaccine () Covid-19 Vaccine () [facility] Comment on above: Postponed from 06/21 (Declined at this time) Start: 06-29-2025 Diabetic foot examination Diabetic Foot Exam [facility] Start: 06-29-2025 Shingrix Vaccine (3 of 3) Shingrix Vaccine (3 of 3) [facility] Comment on above: Postponed from 04/05 (Declined at this time) Start: 06-28-2025 End: 06-28-2025 Patient encounter procedure 06/28/2025 9:00 AM EDT Office Visit Orthopaedics [address] [place] [address] Josefina Hernandez PA-C [address], [place] [id number] 91 day follow up B/L knee injection Orthopaedics Comment on above: 91 day follow up B/L knee injection Start: 06-25-2025 Hepatitis B surface antibody level LDL Cholesterol [facility] Start: 06-21-2025 Influenza vaccination Influenza Vacc ine (#1) [facility] Start: 06-17-2025 Glaucoma screening Dilated Retinal E xam [facility] Start: 03-22-2025 End: 03-22-2025 Patient encounter procedure 03/22/2025 9:00 AM EDT Office Visit Orthopaedics [address] [place] [address] Josefina Hernandez PA-C [address], [place] [id number] bilat knee cortisone inj Orthopaedics Comment on above: bilat knee cortisone inj Start: 02-20-2025 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 Annual PCP Team Chronic Disease Visit [facility] Start: 02-14-2025 Covid-19 Vaccine ( season) Covid-19 Vaccine ( season) [facility] Start: 01-21-2025 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 Annual PCP Team Chronic Disease Visit [facility] Start: 12-29-2024 End: 03-30-2025 Microalbumin/Creatinine [Mass Ratio] in Urine ALBUMIN/CREATININE RATIO, URINE Lab Routine Type 2 diabetes mellitus without complication, with long-term current use of insulin (HCC) Expected: 12/29/2024, Expires: 03/30/2025 [facility] Work Phone: Comment on above: Expected: 12/29/2024 , Expires: 03/30/2025 Start: 12-29-2024 End: 12-29-2024 Patient encounter procedure 12/29/2024 7:20 AM EDT Office Visit Family Medicine [place] [address] [facility] [place] [id number] Sara Fuller [facility] [address] [facility] [place] [id number] 6 month follow up Family Medicine [place] Comment on above: 6 month follow up Start: 12-28-2024 End: 12-28-2024 Patient encounter procedure 12/28/2024 7:40 AM EDT Office Visit Family Beulah Alonso [address] [place], [place] [id number] Sara Fuller MD [address] [facility] [place] [address] 6 month follow up Family Beulah Alonso Comment on above: 6 month follow up Start: 12-23-2024 Hemoglobin A1c measurement HbA1C [facility] Start: 12-09-2024 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 Annual PCP Team Chronic Disease Visit [facility] Start: 12-09-2024 BP Controlled (<130/80) BP Controlle d (<130/80) [facility] Start: 12-07-2024 End: 12-07-2024 Patient encounter procedure 12/07/2024 9:00 AM EST Office Visit Orthopaedics [address] [place] [address] Josefina Hernandez PA-C [address] [place], [place] [id number] bilat knee cortisone inj Orthopaedics Comment on above: bilat knee cortisone inj Start: 12-06-2024 Hepatitis B screening Urine Al bumin:Creatinine Ratio [facility] Start: 11-23-2024 End: 11-23-2024 Patient encounter procedure Podiatry Comment on above: 1 yr follow up Start: 10-21-2024 Advance Directive Discussion Advance Directive Discussion [facility] Start: 10-21-2024 Medicare Advantage Annual Wellness Visit Medicare Advantage Annual Wellness Visit [facility] Start: 08-31-2024 End: 08-31-2024 Patient encounter procedure 08/31/2024 9:00 AM EST Office Visit Orthopaedics [address] [place] [address] Josefina Hernandez PA-C [address] [place] [address] bilat knee cortisone inj Orthopaedics Comment on above: bilat knee cortisone inj Start: 08-23-2024 Hemoglobin A1c measurement HbA1C [facility] Start: 08-17-2024 End: 08-17-2024 Patient encounter procedure 08/17/2024 8:30 AM EDT Office Visit Orthopaedics [address] [place] [address] Josefina Hernandez PA-C [address] [place] [address] bilat knee cortisone inj Orthopaedics Comment on above: bilat knee cortisone inj Start: 08-10-2024 End: 09-28-2024 Comprehensive metabolic 2000 panel - Serum or Plasma COMPREHENSIVE METABOLIC PANEL Lab Routine Onychomycosis Expected: 08/10/2024, Expires: 09/28/2024 [facility] Comment on above: Expected: 08/10/2024 , Expires: 09/28/2024 Start: 08-10-2024 End: 11-09-2024 Lipid 1996 panel - Serum or Plasma LIPID PANEL BASIC Lab Routine Mixed hyperlipidemia Expected: 08/10/2024, Expires: 11/09/2024 [facility] Work Phone: Comment on above: Expected: 08/10/2024 , Expires: 11/09/2024 Start: 07-29-2024 End: 07-29-2024 Patient encounter procedure 07/29/2024 7:40 AM EDT Office Visit Family Medicine [place] [address] [facility] [place] [address] PodKenyetta rg, SAE.MAINTENANCE EQUIPMENT OPERATOR [address] [place] [place] [address] 2 week follow up elevated BP Family Medicine [place] Comment on above: 2 week follow up laure vated BP Start: 07-13-2024 End: 07-13-2024 Patient encounter procedure 07/13/2024 7:40 AM EDT Office Visit Family Medicine [place] [address] [facility] [place] [address] PodKenyetta rg, SAE.MAINTENANCE EQUIPMENT OPERATOR [address] [facility] [place] [address] 2 week follow up/BP Family Medicine [place] Comment on above: 2 week follow up/BP Start: 06-29-2024 End: 06-29-2024 Patient encounter procedure 06/29/2024 7:00 AM EDT Office Visit [facility] [place] [address] [facility] [place] [address] Sara Fuller MD [address] [facility] [place] [address] 6 month follow up [facility] Beulah Alonso Comment on above: 6 month follow up Start: 06-21-2024 Influenza vaccination Influenza Vacc ine (#1) [facility] Start: 06-17-2024 BP CONTROLLED (<130/80) BP CONTROLLE D (<130/80) [facility] Start: 06-16-2024 End: 06-16-2024 Patient encounter procedure 06/16/2024 8:00 AM EDT Office Visit [facility] [place] [address] [facility] [place] [address] Sara Fuller MD [address] [facility] [place] [id number] 6 month follow up [facility] Beulah Alonso Comment on above: 6 month follow up Start: 06-11-2024 End: 09-10-2024 CBC W Auto Differential panel - Blood COMPLETE BLOOD COUNT AND DIFFERENTIAL Lab Routine Type 2 diabetes mellitus without complication, unspecified whether parts counterman insulin use (HCC) Expected: 06/11/2024, Expires: 09/10/2024 [facility] Comment on above: Expected: 06/11/2024 , Expires: 09/10/2024 Start: 06-11-2024 End: 09-10-2024 Comprehensive metabolic 2000 panel - Serum or Plasma COMPREHENSIVE METABOLIC PANEL Lab Routine Type 2 diabetes mellitus without complication, unspecified whether parts counterman insulin use (HCC) Expected: 06/11/2024, Expires: 09/10/2024 [facility] Comment on above: Expected: 06/11/2024 , Expires: 09/10/2024 Start: 06-11-2024 End: 09-10-2024 Hemoglobin A1c in Blood HEMOGLOBIN A1C Lab Routine Type 2 diabetes mellitus without complication, unspecified whether fdc insulin use (HCC) Expected: 06/11/2024, Expires: 09/10/2024 [facility] Comment on above: Expected: 06/11/2024 , Expires: 09/10/2024 Start: 06-11-2024 End: 09-10-2024 Lipid 1996 panel - Serum or Plasma LIPID PANEL BASIC Lab Routine Mixed hyperlipidemia Expected: 06/11/2024, Expires: 09/10/2024 [facility] Comment on above: Expected: 06/11/2024 , Expires: 09/10/2024 Start: 06-11-2024 End: 09-10-2024 PSA/PROSTATE SPECIFIC ANTIGEN SCREENING PSA/PROSTATE SPECIFIC ANTIGEN SCREENING Lab Routine Screening for prostate cancer Expected: 06/11/2024, Expires: 09/10/2024 [facility] Work Phone: Comment on above: Expected: 06/11/2024 , Expires: 09/10/2024 Start: 06-10-2024 ANNUAL PCP TEAM BUSINESS LINE MANAGER LOAN DISEASE VISIT ANNUAL PCP TEAM CHRONIC DISEASE VISIT [facility] Start: 06-10-2024 BP CONTROLLED (<130/80) BP CONTROLLE D (<130/80) [facility] Start: 06-07-2024 Hepatitis B surface antibody level LDL CHOLESTEROL [facility] Start: 06-05-2024 Hemoglobin A1c measurement HbA1C [facility] Start: 05-15-2024 Glaucoma screening Dilated Retinal E xam [facility] Start: 05-15-2024 Hepatitis C antibody , confirmatory test DILATED RETINAL EXAM [facility] Start: 05-11-2024 End: 05-11-2024 Patient encounter procedure Orthopaedics Comment on above: bilat knee cortisone inj Start: 04-08-2024 Covid-19 Vaccine () Covid-19 Vaccine () [facility] Start: 04-05-2024 Shingrix Vaccine (3 of 3) Shingrix Vaccine (3 of 3) [facility] Start: 02-21-2024 End: 05-22-2024 Hemoglobin A1c in Blood [facility] Work Phone: Comment on above: Expected: 02/21/2024 , Expires: 05/22/2024 Start: 12-11-2023 End: 02-10-2024 ALBUMIN/CREAT RATIO RND UR ALBUMIN/CREAT RATIO RND UR Lab Routine Type 2 diabetes mellitus without complication, unspecified whether fdc insulin use (HCC) Expected: 12/11/2023, Expires: 02/10/2024 [facility] Work Phone: Comment on above: Expected: 12/11/2023 , Expires: 02/10/2024 Start: 12-11-2023 End: 02-10-2024 Comprehensive metabolic 2000 panel - Serum or Plasma COMP METABOLIC PANEL Lab Routine Type 2 diabetes mellitus without complication, unspecified whether parts counterman insulin use (HCC) Expected: 12/11/2023, Expires: 02/10/2024 [facility] Work Phone: Comment on above: Expected: 12/11/2023 , Expires: 02/10/2024 Start: 12-11-2023 End: 02-10-2024 Hemoglobin A1c in Blood HGB A1C Lab Routine Type 2 diabetes mellitus without complication, unspecified whether fdc insulin use (HCC) Expected: 12/11/2023, Expires: 02/10/2024 [facility] Work Phone: Comment on above: Expected: 12/11/2023 , Expires: 02/10/2024 Start: 12-10-2023 ANNUAL PCP TEAM BUSINESS LINE MANAGER LOAN DISEASE VISIT ANNUAL PCP TEAM CHRONIC DISEASE VISIT [facility] Start: 12-08-2023 Hemoglobin A1c measurement HbA1C [facility] Start: 12-08-2023 Hemoglobin A1c/Hemoglobin.total in Blood HBA1C [facility] Start: 12-03-2023 3 comp foot exam completed DIABETIC FOOT EXAM [facility] Start: 12-03-2023 Diabetic foot examination Diabetic Foot Exam [facility] Start: 10-21-2023 Advance Directive Discussion Advance Directive Discussion [facility] Start: 10-21-2023 Behavioral Health Screening Behavioral Health Screening [facility] Start: 10-21-2023 Depression Assessment Depression Ass essment [facility] Start: 06-21-2023 Covid-19 Vaccine () Covid-19 Vaccine () [facility] Start: 06-21-2023 Influenza vaccination [facility] Start: 06-05-2023 End: 08-05-2023 CBC W Auto Differential panel - Blood CBC + DIFF Lab Routine Type 2 diabetes mellitus without complication, unspecified whether fdc insulin use (HCC) Expected: 06/05/2023, Expires: 08/05/2023 [facility] Work Phone: Comment on above: Expected: 06/05/2023 , Expires: 08/05/2023 Start: 06-05-2023 End: 08-05-2023 Comprehensive metabolic 2000 panel - Serum or Plasma COMP METABOLIC PANEL Lab Routine Type 2 diabetes mellitus without complication, unspecified whether fdc insulin use (HCC) Mixed hyperlipidemia Primary hypertension Expected: 06/05/2023, Expires: 08/05/2023 [facility] Work Phone: Comment on above: Expected: 06/05/2023 , Expires: 08/05/2023 Start: 06-05-2023 End: 08-05-2023 Hemoglobin A1c in Blood HGB A1C Lab Routine Type 2 diabetes mellitus without complication, unspecified whether fdc insulin use (HCC) Expected: 06/05/2023, Expires: 08/05/2023 [facility] Work Phone: Comment on above: Expected: 06/05/2023 , Expires: 08/05/2023 Start: 06-05-2023 End: 08-05-2023 Lipid 1996 panel - Serum or Plasma LIPID PANEL BASIC Lab Routine Mixed hyperlipidemia Expected: 06/05/2023, Expires: 08/05/2023 [facility] Work Phone: Comment on above: Expected: 06/05/2023 , Expires: 08/05/2023 Start: 06-05-2023 End: 08-05-2023 PSA/PROSTSPECAG SCRN PSA/PROSTSPECAG SCRN Lab Routine Screening for prostate cancer Expected: 06/05/2023, Expires: 08/05/2023 [facility] Work Phone: Comment on above: Expected: 06/05/2023 , Expires: 08/05/2023 Start: 06-05-2023 End: 08-05-2023 Thyrotropin [Units/volume] in Serum or Plasma TSH BLD Lab Routine Acquired hypothyroidism Expected: 06/05/2023, Expires: 08/05/2023 [facility] Work Phone: Comment on above: Expected: 06/05/2023 , Expires: 08/05/2023 Start: 06-04-2023 ANNUAL PCP TEAM BUSINESS LINE MANAGER LOAN DISEASE VISIT ANNUAL PCP TEAM CHRONIC DISEASE VISIT [facility] Start: 06-04-2023 BP CONTROLLED (<130/80) BP CONTROLLE D (<130/80) [facility] Start: 06-02-2023 Hemoglobin A1c/Hemoglobin.total in Blood HBA1C [facility] Start: 05-28-2023 Hepatitis B surface antibody level LDL CHOLESTEROL [facility] Start: 05-07-2023 Hepatitis C antibody , confirmatory test DILATED RETINAL EXAM [facility] Start: 01-01-2023 ANNUAL PCP TEAM BUSINESS LINE MANAGER LOAN DISEASE VISIT ANNUAL PCP TEAM CHRONIC DISEASE VISIT [facility] Start: 11-28-2022 Hemoglobin A1c/Hemoglobin.total in Blood HBA1C [facility] Start: 11-27-2022 3 comp foot exam completed DIABETIC FOOT EXAM [facility] Start: 11-27-2022 BP CONTROLLED (<130/80) BP CONTROLLE D (<130/80) [facility] Start: 10-24-2022 End: 12-24-2022 Comprehensive metabolic 2000 panel - Serum or Plasma COMP METABOLIC PANEL Lab Routine Primary hypertension Expected: 10/24/2022, Expires: 12/24/2022 [facility] Work Phone: Comment on above: Expected: 10/24/2022 , Expires: 12/24/2022 Start: 10-24-2022 End: 12-24-2022 Hemoglobin A1c in Blood HGB A1C Lab Routine Type 2 diabetes mellitus without complication, unspecified whether parts counterman insulin use (HCC) Expected: 10/24/2022, Expires: 12/24/2022 [facility] Work Phone: Comment on above: Expected: 10/24/2022 , Expires: 12/24/2022 Start: 10-21-2022 ADVANCE DIRECTIVE DISCUSSION ADVANCE DIRECTIVE DISCUSSION [facility] Start: 10-21-2022 DEPRESSION ASSESSMENT DEPRESSION ASS ESSMENT [facility] Start: 08-21-2022 Hepatitis B screening URINE AL BUMIN:CREATININE RATIO [facility] Start: 07-30-2022 COVID-19 VACCINE (5 - Booster for Pfizer series) COVID-19 VACCINE (5 - Booster for Pfizer series) [facility] Start: 07-30-2022 COVID-19 VACCINE (5 - Pfizer series) COVID-19 VACCINE (5 - Pfizer series) [facility] Start: 06-21-2022 Influenza vaccination INFLUENZA (#1) [facility] Start: 05-22-2022 Hemoglobin A1c/Hemoglobin.total in Blood HBA1C [facility] Start: 05-15-2022 End: 07-15-2022 Prostate specific Ag [Mass/volume] in Serum or Plasma PSA/PROSTSPECAG DIAG Lab Routine History of prostate cancer Expected: 05/15/2022, Expires: 07/15/2022 [facility] Work Phone: Comment on above: Expected: 05/15/2022 , Expires: 07/15/2022 Start: 02-26-2022 COVID-19 VACCINE (4 - Booster for Pfizer series) COVID-19 VACCINE (4 - Booster for Pfizer series) [facility] Start: 01-28-2022 Hepatitis B surface antibody level LDL CHOLESTEROL [facility] Start: 01-25-2022 Adult depression screening assessment DEPRESSION SCREENING [facility] Start: 10-25-2021 Hepatitis C antibody , confirmatory test DILATED RETINAL EXAM [facility] Start: 10-21-2021 ADVANCE DIRECTIVE DISCUSSION ADVANCE DIRECTIVE DISCUSSION [facility] Start: 10-21-2021 DEPRESSION ASSESSMENT DEPRESSION ASS ESSMENT [facility] Start: 05-22-2013 SHINGRIX VACCINE (2 of 3) SHINGRIX VACCINE (2 of 3) [facility] Start: 2010 Hepatitis B Vaccine (1 of 3 - Risk 3-dose series) Hepatitis B Vaccine (1 of 3 - Risk 3-dose series) [facility] Start: 2010 RSV Vaccine (1 - 1-d ose 60+ series) RSV Vaccine (1 - 1-dose 60+ series) [facility] Start: 01-11-2007 FECAL OCCULT BLOOD FECAL OCCULT BLOO D [facility] Start: 01-11-2007 Screening for malign ant neoplasm of colon Fecal Occult Blood [facility] Start: 1995 COLOGUARD (FIT-DNA) COLOGUARD (FIT-D NA) [facility] Start: [address] [facility] Start: 1995 Screening for malign ant neoplasm of colon [facility] Start: 1995 SIGMOIDOSCOPY SIGMOIDOSCOPY [facility] Start: 1968 Anxiety Screening Anxiety Screening [facility] Start: 1968 Depression Screening Depression Scre ening [facility] Basic metabolic 2008 panel with ionized calcium - Serum or Plasma [facility] Cardiac event recording [facility] CBC W Auto Different ial panel - Blood [facility] COVID & INFLUENZA A/ B & RSV PCR, ROUTINE COVID & INFLUENZA A/B & RSV PCR, ROUTINE Microbiology Routine Viral URI with cough Ordered: 11/27/2024 [facility] Work Phone: Comment on above: Ordered: 11/27/2024 Natriuretic peptide. B prohormone N-Terminal [Mass/volume] in Serum or Plasma [facility] NM Heart Views W str ess and W radionuclide IV [facility] End: 03-18-2026 US.doppler Extremity arteries - bilateral for physiologic artery study PVR ANK PRESS [facility] Vascular Lab Routine Diminished pulses in lower extremity 1 Occurrences starting 03/18/2025 until 03/18/2026 [facility] Work Phone: Comment on above: 1 Occurrences starti ng 03/18/2025 until 03/18/2026 End: 12-24-2025 XR Knee - bilateral 4 Views XR KNEE GENERAL 4V AP BOTH/PA BOTH/LAT/MERC BILATERAL Radiology Routine Pain in both knees, unspecified chronicity 1 Occurrences starting 11/24/2024 until 12/24/2025 [facility] Work Phone: Comment on above: 1 Occurrences starti ng 11/24/2024 until 12/24/2025 XR Knee - bilateral 4 Views XR KNEE GENERAL 4V AP BOTH/PA BOTH/LAT/MERC BILATERAL Radiology Routine Pain in both knees, unspecified chronicity 12/07/2024 9:01 AM EST [facility] Work Phone: [facility] Immunizations Immunization Date Immunization Notes Care Provider [facility] 06-29-2024 influenza, high dose seasonal, preservative-free Sara Fuller MD Work Phone: [facility] 06-29-2024 influenza virus vaccine, unspecified formulation Sara Fuller MD Work Phone: [facility] 12-09-2023 COVID-19 vaccine, ag e 12+ yr, season ([employer]) Kenyetta Stacy NUTRITION CLUB AMBASSADOR.MAINTENANCE EQUIPMENT OPERATOR Work Phone: [facility] 07-21-2023 influenza virus vaccine, unspecified formulation Josefina Hernandez PA-C Work Phone: [facility] 08-21-2022 influenza, high dose seasonal, preservative-free Sara Fuller MD Work Phone: [facility] 08-21-2022 influenza virus vaccine, unspecified formulation [employer] Work Phone: [facility] 08-12-2022 influenza, high dose seasonal, preservative-free Sara Fuller MD Work Phone: [facility] 06-04-2022 COVID-19 vaccine, ag e 12+ yr (PFIZER-BIONTECH - STAPLES TOP) Kenyetta Stacy NUTRITION CLUB AMBASSADOR.MAINTENANCE EQUIPMENT OPERATOR Work Phone: [facility] 10-29-2021 Covid (Pfizer) Dr. Bradley Fuller MD Work Phone: [facility] 10-22-2021 influenza, injectabl e, quadrivalent, preservative free Dr. Connor Fuller MD Work Phone: [facility] 01-22-2021 COVID-19 vaccine, ag e 12+ yr (PFIZER-BIONTECH - PURPLE TOP) Julieta Mi NUTRITION CLUB AMBASSADOR.MAINTENANCE EQUIPMENT OPERATOR Work Phone: [facility] 12-29-2020 COVID-19 vaccine, ag e 12+ yr (PFIZER-BIONTECH - PURPLE TOP) Julieta Mi NUTRITION CLUB AMBASSADOR.MAINTENANCE EQUIPMENT OPERATOR Work Phone: [facility] 07-08-2020 influenza, high-dose , quadrivalent vaccine (FLUZONE HIGH DOSE QUADRIVALENT) Julieta Mi NUTRITION CLUB AMBASSADOR.MAINTENANCE EQUIPMENT OPERATOR Work Phone: [facility] 07-01-2019 influenza, high dose seasonal, preservative-free Julieta Mi NUTRITION CLUB AMBASSADOR.MAINTENANCE EQUIPMENT OPERATOR Work Phone: [facility] 06-27-2018 influenza, high dose seasonal, preservative-free Julieta Mi NUTRITION CLUB AMBASSADOR.MAINTENANCE EQUIPMENT OPERATOR Work Phone: [facility] 08-21-2017 influenza, high dose seasonal, preservative-free Julieta Mi NUTRITION CLUB AMBASSADOR.MAINTENANCE EQUIPMENT OPERATOR Work Phone: [facility] Work Phone: 10-09-2016 pneumococcal polysaccharide vaccine, 23 valent Julieta Mi NUTRITION CLUB AMBASSADOR.MAINTENANCE EQUIPMENT OPERATOR Work Phone: [facility] 09-09-2016 influenza, high dose seasonal, preservative-free Julieta Mi NUTRITION CLUB AMBASSADOR.MAINTENANCE EQUIPMENT OPERATOR Work Phone: [facility] 09-09-2016 influenza, injectabl e, quadrivalent, contains preservative Julieta Mi NUTRITION CLUB AMBASSADOR.MAINTENANCE EQUIPMENT OPERATOR Work Phone: [facility] 04-05-2016 tetanus toxoid, redu truman diphtheria toxoid, and acellular pertussis vaccine, adsorbed Julieta Mi NUTRITION CLUB AMBASSADOR.[facility] Work Phone: [facility] 10-06-2015 pneumococcal conjuga te vaccine, 13 valent Julieta Mi NUTRITION CLUB AMBASSADOR.[facility] Work Phone: [facility] 07-19-2015 influenza, injectabl e, quadrivalent, contains preservative Julieta Mi NUTRITION CLUB AMBASSADOR.[facility] Work Phone: [facility] 09-07-2014 influenza, seasonal, injectable Julieta Mi NUTRITION CLUB AMBASSADOR.[facility] Work Phone: [facility] 07-28-2013 influenza virus vaccine, unspecified formulation Julieta Mi NUTRITION CLUB AMBASSADOR.[facility] Work Phone: [facility] 03-27-2013 zoster vaccine, live Julieta Mi NUTRITION CLUB AMBASSADOR.[facility] Work Phone: [facility] 09-08-2010 influenza virus vaccine, unspecified formulation Julieta Mi NUTRITION CLUB AMBASSADOR.[facility] Work Phone: [facility] Work Phone: 06-23-2010 pneumococcal polysaccharide vaccine, 23 valent Julieta Mi NUTRITION CLUB AMBASSADOR.[facility] Work Phone: [facility] 11-09-2005 diphtheria and tetan us toxoids, adsorbed for pediatric use Ujlieta Mi NUTRITION CLUB AMBASSADOR.[facility] Work Phone: [facility] Work Phone: Payers Date Payer Category Payer Self-pay 2023 Medicare (Managed Care) AERO FONG [id number] 2023 Private Health Insurance [id number] 2018 Medicare MMO MEDICARE MMO MEDADVANTAGE O [id number] 2018-Present [phone] [address] [place] [address] O [id number] 2018 Medicare [id number] Unknown [id number] Unknown [id number] Unknown [id number] Unknown [id number] Unknown [id number] Unknown [id number] Unknown [id number] Unknown [id number] Unknown [id number] Unknown [id number] Unknown [id number] Social History Date Type Detail Facility Tobacco smoking stat us NHIS Unknown if ever smoked [facility] Start: 1950 Sex Assigned At Not on file [facility] Start: 12-12-2017 End: 06-04-2022 Tobacco smoking status NHIS Never smoked tobacco [facility] Work Phone: Start: 01-15-2022 End: 03-22-2025 Alcohol intake Current non-drinker of alcohol (finding) [facility] Start: 08-04-2020 End: 12-08-2022 History SDOH Alcohol Frequency 2 [facility] Start: 08-04-2020 End: 09-10-2020 History SDOH Alcohol Std Drinks 98 [facility] Start: 08-04-2020 End: 12-08-2022 History SDOH Alcohol Binge 1 [facility] Start: 07-01-2020 End: 12-08-2022 History SDOH Social Connections Phone 5 [facility] Start: 03-01-2020 End: 12-08-2022 History SDOH Social Connections Rastafari 3 [facility] Start: 02-29-2020 Education 12 [facility] Start: 12-12-2017 End: 06-04-2022 Tobacco Comment No smoking in childhood home. [facility] Start: 07-26-2021 End: 01-15-2022 Exposure to SARS-CoV-2 (event) Not sure [facility] Start: 12-12-2017 End: 06-04-2022 Tobacco use and exposure Smokeless tobacco non-user [facility] Work Phone: Start: 12-08-2022 History SDOH Alcohol Std Drinks 0 [facility] Start: 12-08-2022 History SDOH Social Connections Phone 4 [facility] Start: 12-08-2022 End: 03-07-2023 History of Social function [facility] Start: 12-08-2022 End: 03-07-2023 Social connection and isolation panel [facility] Do you belong to any clubs or organizations such as restorationism groups, unions, fraternal or athletic groups, or school groups? Yes [facility] Are you now , , , , never or living with a partner? [facility] How often to you hav e a drink containing alcohol? Monthly or less [facility] Start: 09-21-[address] inks containing alcohol do you have on a typical day? Patient does not drink [facility] How often do you hav e 6 or more drinks on 1 occasion? Never [facility] Do you feel stress - tense, restless, nervous, or anxious, or unable to sleep at night because your mind is troubled all the time - these days [OSQ] Not at all [facility] (I/We) worried wheth er (my/our) food would run out before (I/we) got money to buy more. Never true [facility] In the past 12 month s, was there a time when you were not able to pay the mortgage or rent on time? No [facility] Do you feel stress - tense, restless, nervous, or anxious, or unable to sleep at night because your mind is troubled all the time - these days [OSQ] Only a little [facility] Start: 1950 Sex Assigned At Male [facility] Medical Equipment Procedure Code Equipment Code Equipment Original Text Equipment Identifier Dates [id number], [id number], [id number], [id number], [id number], [id number], [id number], [id number], [id number], [id number], [id number], [id number], [id number] Start: 12-31-2019 End: 01-01-2025 Comment on above: Test blood sugar(s) 2 times daily. Dx: Type 2 DM - Controlled E11.9 Insulin: Yes Test sugar daily and as needed Test blood sugar martita ly and as needed Use with Insulin Test blood sugar(s) 1 times daily and as needed. Dx: Type 2 DM - Uncontrolled E11.65 , Insulin: Yes Inject 1 Each subcut aneously twice daily. Use with Insulin Inject 1 Each subcut aneously two times a day. Use with Insulin Functional Status Date Assessment Result Facility 04-25-2015 Are you deaf, or do you have serious difficulty hearing No 04/25/2015 3:52 PM Becky Velazco LPN No [facility] 04-25-2015 Are you blind, or do you have serious difficulty seeing, even when wearing glasses No 04/25/2015 3:52 PM Becky Velazco LPN No [facility] 04-25-2015 Do you have serious difficulty walking or climbing stairs No 04/25/2015 3:52 PM Becky Velazco LPN No [facility] 04-25-2015 Do you have difficul ty dressing or bathing No 04/25/2015 3:52 PM Becky Velazco LPN No [facility] 04-25-2015 Because of a physica l, mental, or emotional condition, do you have difficulty doing errands alone such as visiting a physician's office or shopping No 04/25/2015 3:52 PM EDT Becky Mays LPN No [facility] Mental Status Date Assessment Result Facility 04-25-2015 Because of a physica l, mental, or emotional condition, do you have serious difficulty concentrating, remembering, or making decisions No 04/25/2015 3:52 PM EDT Becky Mays LPN No [facility] Clinical Notes 09-17-2007 to 06-09-2025 Telephone Encounter - Essence Solis LPN - 06/09/2025 6:44 PM EDTTelephone Encounter - Essence Solis LPN - 06/09/2025 6:44 PM EDTSaad Adan - 05/21/2025 2:24 PM EDT Note Date & Type Note Facility 06-09-2025 Telephone encount er Note Form faxed to with confirmation received. Patient notified via [employer]. Essence Solis LPN [facility] 06-09-2025 Miscellaneous Notes Formattin g of this note might be different from the original. Form faxed to with confirmation received. Patient notified via [employer]. Essence Solis LPN Form completed and in my outbox. Kenyetta Stacy APRN.MAINTENANCE EQUIPMENT OPERATOR Form received. Placed in inbox of Kenyetta Stacy for completion. Essence Solis LPN Patient telephoned and made aware that the [facility] was sent to [facility]. Patient asking what else [facility] would need, instructed patient to call them. Essence Solis LPN Patient notified that we did not receive fax he had stated that [facility] was going to send. Patient asking if order can be faxed again. Please review and advise, Delmi Cam RN Patient called and stated [facility] is going to fax the paperwork. However, he does not know to what fax number. He did not give them [phone]; he does not know if they will call. However, he is requesting our office call Karen Saha: [facility] [phone]. Please follow up with patient on status. Patient calls and states that [facility] is going to reach out to office today in regards to Trulicity. Patient is currently out of Trulicity and patient does not want to pay out of pocket for medication at [facility]. Fasting blood this morning was 114, yesterday it was 112. [facility] what exactly is needed from office for medication. Patient will call back. Delmi Cam RN documented in this encounter [facility] 06-09-2025 Telephone encount er Note Form completed and in my outbox. Kenyetta Stacy APRN.CNP [facility] 06-09-2025 Telephone encount er Note Form received. Placed in inbox of Kenyetta Stacy for completion. sEsence Solis LPN [facility] 06-08-[facility] Patient telephoned and made aware that the [facility] was sent to [facility] on [facility]. Patient asking what else [facility] would need, instructed patient to call them. Essence Solis LPN [facility] 06-08-2025 [facility] Patient notified that we did not receive fax he had [facility] Patient asking if order can be faxed again. Please review and advise, Delmi Cam RN [facility] 06-01-2025 [facility] Patient called and stated [facility] is going to fax the paperwork. However, he does not know to what fax number. He did not give them [phone]; he does not know if they will call. However, he is requesting our office call [facility]: [facility] [phone]. Please follow up with patient on status. T [facility] 06-01-2025 [facility] Trulicity. Patient is currently out of Trulicity and patient does not want to pay out of pocket for medication at [facility]. Fasting blood this morning was 114, yesterday it was 112. Patient is going to call [facility] to see what exactly is needed from office for medication. Patient will call back. Delmi Cam RN [facility] 05-21-2025 Note HNO ID: [id number] Author: ?, ?, ? Service: ? Author Type: ? Type: Progress Notes Filed: 05/21/2025 14:26 Note Text: POPULATION HEALTH NAVIGATION OUTREACH Action/FYI Patient needs F/U for HCCs. Update appt notes. 4 HCCs Mychart sent Reason for Outreach Care Gap/HCC or Scheduling Wellness Visits Care Gaps due: Follow-up Appointment Patient Contacted: Unable or unnecessary to reach patient: MyChart message sent HCC related Updated appointment notes Navigation Signature: Saad Adan May 21, 2025 2:25 PM [facility] 05-21-2025 History of Presen t illness Narrative POPULATION HEALTH NAVIGATION OUTREACH Action/FYI Patient needs F/U for HCCs. Update appt notes. 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 May 21, 2025 9:10am Right bundle branch block (RBBB) with left anterior fascicular block acute May 21 9:10am Essential hypertension chronic Au 2024 9:10am Hyperlipemia chronic May 21, 2025 9:10am Paroxysmal atrial fibrillation chronic May 21, 2025 9:10am [facility] Work Phone: 1(941) 129-464108-01-2025 NotePatient Outreach (NETNAV) BHARATHI SUE ([id number]) 1950 M Date Time Provider Department 05/21/25 SARA FULLER During your visit today, we recorded the following information about you: Saad Adan 05/21/2025 2:26 PM Signed POPULATION HEALTH NAVIGATION OUTREACH Action/FYI Patient needs F/U for HCCs. Update appt notes. 4 HCCs Mychart sent Reason for Outreach Care Gap/HCC or Scheduling Wellness Visits Care Gaps due: Follow-up Appointment Patient Contacted: Unable or unnecessary to reach patient: MyChart message sent HCC related Updated appointment notes Navigation Signature: Saad Adan May 21, 2025 2:25 PM Allergies As of Date: 05/21/2025 Noted Allergy Reaction SUNFLOWER SEED 12/28/2013 10 - Anaphylaxis ZOCOR (SIMVASTATIN) 08/06/2005 17 - Myalgia Comments: muscle pain AMOXICILLIN 08/25/2021 4 - Hives DUST 08/06/2005 ERYTHROMYCIN 08/06/2005 14 - Other: See Comments Comments: Tingling. Date Reviewed: 03/22/2025 Reviewed by: Kyung Soni MA - Fully Assessed Reason for Visit: Population Health Navigation Outreach [3910] Cmt: Aranza Alonso Prescriptions as of 05/21/2025 - dulaglutide (TRULICITY) 3 mg/0.5 mL pen injector Inject 3 mg subcutaneously one time a week. - blood sugar diagnostic (ONETOUCH ULTRA TEST) test strip Test blood sugar BID and as needed - Insulin [place], Disposable, (BD ULTRA-FINE CAROLYN PEN NEEDLE) 32 gauge x 5/32 Inject 1 Each subcutaneously two times a day. Use with Insulin - rosuvastatin (CRESTOR) 20 mg tablet Take 1 tablet by mouth daily at bedtime. - enalapril (VASOTEC) 20 mg tablet Take 1 tablet by mouth once daily. - metFORMIN (GLUCOPHAGE) 500 mg tablet Take 2 tablets by mouth two times a day with meals. - levothyroxine (SYNTHROID) 100 mcg tablet TAKE 1 TABLET DAILY ON AN EMPTY STOMACH - albuterol HFA (VENTOLIN HFA) 90 mcg/actuation inhaler Inhale 2 Puffs as instructed every 4 hours as needed for wheezing/shortness of breath. - insulin glargine (BASAGLAR KWIKPEN U-100 INSULIN) 100 unit/mL (3 mL) Inject 34 Units subcutaneously two times a day. - Lancets (ARKeXTOUCH ULTRASOFT LANCETS) Test blood sugar(s) 2 times daily and as needed. Dx: Type 2 DM - Uncontrolled E11.65 , Insulin: Yes - hydroCHLOROthiazide 25 mg tablet TAKE 1 TABLET (25mg) BY MOUTH ONCE DAILY - ELIQUIS 5 mg tab(s) Take 1 tablet by mouth every 12 hours. - EPINEPHrine (EPIPEN) 0.3 mg/0.3 mL auto-injector Inject 0.3 mL intramuscularly as needed (For allergic reaction). - propylene glycol (SYSTANE BALANCE OPHTHALMIC) Use in eyes. 3-4 times a day - sulfacetamide sodium/sulfur (PRASCION TOPICAL) Apply to affected area once daily. 10-55 - omega-3 DHA-EPA (FISH OIL) 1,200 (144-216) mg capsule Take 1 capsule by mouth daily with breakfast. - MAGNESIUM SULFATE ORAL Take 500 mg by mouth once daily. - CINNAMON BARK ORAL Take 2,000 mcg by mouth once daily. - carvedilol (COREG) 3.125 mg tablet Take 3.125 mg by mouth twice daily with meals. - blood sugar diagnostic (BLOOD GLUCOSE TEST) test strip Test blood sugar(s) 2 times daily. Dx: Type 2 DM - Controlled E11.9 Insulin: Yes - nitroglycerin sublingual (NITROQUICK) 0.[address] 1 tablet under the tongue if needed every 5 minutes for stephen... (REFER TO PRESCRIPTION NOTES). - blood sugar diagnostic (ONETOUCH ULTRA TEST STRIP) test strip Test sugar daily and as needed - Blood-Glucose Meter (ONETOUCH ULTRA2 METER) monitoring kit Check blood sugar daily and as needed - aspirin, enteric coated (ASPIRIN, ENTERIC COATED) 81 mg EC tablet Take 81 mg by mouth once daily. - Compression Knee Highs KNEE HIGH COMPRESSION STOCKINGS 30-40 MM. DX: EDEMA - multivitamin (DAILY MULTI-VITAMIN) ORAL Tab Take one(1) tablet daily. Problem List As Of Date 05/21/2025 Noted Resolved Allergic rhinitis [J30.9] 08/06/2005 Hyperlipidemia [E78.5] 08/06/2005 BUNDLE BRANCH BLOCK NOS [I45.4] 11/09/2005 Blood in stool [K92.1] 12/31/2018 MALIGN NEOPL PROSTATE [C61] 05/20/2007 PAIN IN JOINT, LOWER LEG [M25.569] 09/13/2007 Diabetes mellitus (HCC) [E11.9] 09/17/2007 12/25/2017 Hypothyroidism [E03.9] 10/17/2009 Rosacea [L71.9] 02/17/2010 Hypertension [I10] 07/28/2013 Impotence [N52.9] 01/21/2014 Incontinence of urine [R32] 01/21/2014 Controlled type 2 diabetes mellitus without com*04/05/2016 Prostate cancer (HCC) [C61] 10/21/2005 Morbid obesity (HCC) [E66.01] Shortness of breath [R06.02] 11/27/2021 Pulmonary hypertension, unspecified (HCC) [I27.*11/27/2021 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 Please send to correct [facility] Please contact patient when it has been sent to correct pharmacy. Original encounter is from 05-13-25 [facility] Patient has been identified by name and birthdate. Duration of symptoms: N/A Person calling: self Call patient at: at home [phone] (home) [phone] (cell) Was an appointment scheduled: No Closing statement: Juliana Saucedo Luca Pss [facility]07-28-2025 Miscellaneous Notes* Telephone Encounter - Luca ValenciaJuliana - 05/17/2025 12:40 PM EDT Bharathi is calling Sara Fuller MD today to request Refill Request Trulicity was sent to the wrong pharmacy. Please send to correct pharmacy[facility]. Please contact patient when it has been sent to correct pharmacy. Original encounter is from 05-13-25 [facility] Patient has been identified by name and birthdate. Duration of symptoms: N/A Person calling: self Call patient at: at home [phone] (home) [phone] (cell) Was an appointment scheduled: No Closing statement: Juliana Saucedo Luca Pss [facility] Telephone encounter Note * Telephone Encounter - [place] Francheska Valencia - 05/13/2025 8:08 AM EDT Patient stated he received a message to provide the information for [facility] to received Trulictiy. He stated call number below which is direct number to pharmacy. [facility] [facility] [employer] phone: [phone] [facility]07-24-2025 Miscellaneous Notes* Telephone Encounter - [place] Francheska Valencia - 05/13/2025 8:08 AM EDT Patient stated he received a message to provide the information for [facility] to received Trulictiy. He stated call number below which is direct number to pharmacy. [employer] phone: [phone] * Telephone Encounter - Workman, Maria Del Rosario, MA - 05/13/2025 7:08 AM EDT Left detailed message notifying pt Maria Del Rosario Bey MA * Telephone Encounter - Sara Fuller MD - 05/13/2025 7:04 AM EDT Rx sent. * Telephone Encounter - Jessica Kidd MA - 05/12/2025 4:27 PM EDT Patient has been identified by name and date of : yes Patient phones for refill(s): Requested Prescriptions Pending Prescriptions Disp Refills dulaglutide (TRULICITY) 3 mg/0.5 mL pen injector 6 mL 1 Sig: Inject 3 mg subcutaneously one time a week. Date of last office visit in primary care: 12/29/2024 Date of next office visit in primary care: 07/02/2025 Please advise. Thank you. Jessica Kidd MA. * Telephone Encounter - Anabelle Jasso - 05/12/2025 1:56 PM EDT Patient requesting medication dulaglutide (TRULICITY) 3 mg/0.5 mL pen injector (). Patient last seen: 12-29-24 Patient scheduled: yes PHARMACY: [facility]. [facility] Telephone encounter Note * Telephone Encounter - Maria Del Rosario Bey MA - 05/13/2025 7:08 AM EDT Left detailed message notifying pt Maria Del Rosario Bey MA [facility]07-24-2025 Telephone encounter Note* Telephone Encounter - Sara Fuller MD - 05/13/2025 7:04 AM EDT Rx sent. [facility]07-23-2025 Telephone encounter Note* Telephone Encounter - Jessica Kidd MA - 05/12/2025 4:27 PM EDT Patient has been identified by name and date of : yes Patient phones for refill(s): Requested Prescriptions Pending Prescriptions Disp Refills dulaglutide (TRULICITY) 3 mg/0.5 mL pen injector 6 mL 1 Sig: Inject 3 mg subcutaneously one time a week. Date of last office visit in primary care: 12/29/2024 Date of next office visit in primary care: 07/02/2025 Please advise. Thank you. Jessica Kidd MA. [facility]07-23-2025 Telephone encounter Note* Telephone Encounter - Anabelle Jasso - 05/12/2025 1:56 PM EDT Patient requesting medication dulaglutide (TRULICITY) 3 mg/0.5 mL pen injector (). Patient last seen: 12-29-24 Patient scheduled: yes PHARMACY: [facility]. [facility]06-02-2025 NoteHNO ID: [id number] Author: JOSEFINA HERNANDEZ PA-C Service: ? Author Type: Physician Petal Cutter Type: Progress Notes Filed: 03/22/2025 09:30 Note Text: Large Joint Arthro/Inj: bilateral knee joints 03/22/2025 9:30 AM The procedure site was prepped in the usual sterile fashion. Site: bilateral knee joints Medications (Right): 6 mg betamethasone acetate-betamethasone sodium phosphate 6 mg/mL Medications (Left): 6 mg betamethasone acetate-betamethasone sodium phosphate 6 mg/mL Anesthetics (Right): 5 mL lidocaine (PF) 10 mg/mL (1 %) Anesthetics (Left): 5 mL lidocaine (PF) 10 mg/mL (1 %) Outcome: Tolerated well, no immediate complications Post-injection instructions were reviewed with the patient and the patient voiced understanding of these instructions. Informed Consent Consent Obtained: Verbal [place] Protocol A moment to CARE was completed. SIGN IN Sign in communication not applicable due to emergent procedure. Personnel directly involved with the procedure wore the appropriate PPE. Special Equipment: N/A Patient/Surrogate Stated/Verified: Patient name, Date of , Relevant allergies and Intended procedure TIME OUT Relevant labs, photos, and/or imaging studies have been reviewed. Consent documented and matches the intended procedure. Correct side/site marked and visible. Medications required for procedure verified. No fire risk assessment and interventions applicable. No implant(s) inserted. SIGN OUT No specimen collected. No post-procedure POC communication to the patient's multidisciplinary team (including the bedside nurse for hospitalized patients) applicable.[facility]06-02-2025 History of Present illness Narrative* Josefina Hernandez PA-C - 03/22/2025 9:29 AM EDTAssociated Order(s): Large Joint Arthro/Inj: bilateral knee joints Post-Procedure Diagnose(s): Primary osteoarthritis of both knees Large Joint Arthro/Inj: bilateral knee joints 03/22/2025 9:30 AM The procedure site was prepped in the usual sterile fashion. Site: bilateral knee joints Medications (Right): 6 mg betamethasone acetate-betamethasone sodium phosphate 6 mg/mL Medications (Left): 6 mg betamethasone acetate-betamethasone sodium phosphate 6 mg/mL Anesthetics (Right): 5 mL lidocaine (PF) 10 mg/mL (1 %) Anesthetics (Left): 5 mL lidocaine (PF) 10 mg/mL (1 %) Outcome: Tolerated well, no immediate complications Post-injection instructions were reviewed with the patient and the patient voiced understanding of these instructions. Informed Consent Consent Obtained: Verbal [place] Protocol A moment to CARE was completed. SIGN IN Sign in communication not applicable due to emergent procedure. Personnel directly involved with the procedure wore the appropriate PPE. Special Equipment: N/A Patient/Surrogate Stated/Verified: Patient name, Date of , Relevant allergies and Intended procedure TIME OUT Relevant labs, photos, and/or imaging studies have been reviewed. Consent documented and matches the intended procedure. Correct side/site marked and visible. Medications required for procedure verified. No fire risk assessment and interventions applicable. No implant(s) inserted. SIGN OUT No specimen collected. No post-procedure POC communication to the patient's multidisciplinary team (including the bedside nurse for hospitalized patients) applicable. * Kyung Soni MA - 03/22/2025 9:09 AM EDT Patient presents with: Left Knee - Established Patient, Injections Right Knee - Established Patient, Injections: 15 weeks post visit OA bilateral knees with injections given - Wants injections AMB ROOMING INTAKE FLOWSHEET DATA Pain Pain Level: 8 Pain Location: Knee-Right Description: Sharp Duration Amount of Time: (Ongoing) Frequency: Intermittent Intervention/Comfort measure: Medication Patient here for injections bilateral knees. Taking Tylenol for the pain and is effective when needed. documented in [facility] encounter[facility]-2025 NoteHNO ID: [id number] Author: KYUNG SONI MA Service: ? Author Type: Tank Cleaner Type: Progress Notes Filed: 03/22/2025 09:30 Note Text: Patient presents with: Left Knee - Established Patient, Injections Right Knee - Established Patient, Injections: 15 weeks post visit OA bilateral knees with injections given - Wants injections AMB ROOMING INTAKE FLOWSHEET DATA Pain Pain Level: 8 Pain Location: Knee-Right Description: Sharp Duration Amount of Time: (Ongoing) Frequency: Intermittent Intervention/Comfort measure: Medication Patient here for injections bilateral knees. Taking Tylenol for the pain and is effective when needed.[facility]05-29-2025 NoteHNO ID: [id number] Author: VIKTORIYA ANGELO, ? Service: ? Author Type: Physician Type: Progress Notes Filed: 03/18/2025 14:48 Note Text: Kandy Garvin is a 74-year-old male with a history of diabetes mellitus, presenting for a follow-up foot exam. Diabetes Mellitus: - Blood glucose levels are reportedly well-controlled, with low readings in the morning. - Most recent HbA1c was 6%. - Denies burning, tingling, or numbness in the feet. Foot Care: - History of calluses on both feet. - Using PowerStep inserts, which have provided relief. - Avoids walking barefoot; wears supportive shoes and slippers outside. - Using hammer toe pads for comfort. - Monitoring a toenail deformity on the left great toe; considering removal in the future. 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 Musculoskeletal: (+) right foot pain, (+) right foot cramps PAST MEDICAL HISTORY Diagnosis Date Allergic rhinitis, cause unspecified Allergic rhinitis Atrial fibrillation (HCC) Bilateral lower extremity edema Blood in stool Hypertension Hypothyroidism Lipoma Morbid obesity (HCC) Onychomycosis Other and unspecified hyperlipidemia Prostate cancer (HCC) [address] White. s/p prostatectomy RBBB Rosacea Type II or unspecified type diabetes mellitus without mention of complication, uncontrolled Urinary incontinence Current Outpatient Medications Medication Sig Dispense Refill blood sugar diagnostic (ONETOUCH ULTRA TEST) test strip Test blood sugar BID and as needed 100 strip 3 Insulin [place], Disposable, (BD ULTRA-FINE CAROLYN PEN NEEDLE) 32 gauge x 5/32 Inject 1 Each subcutaneously two times a day. Use with Insulin 100 Each 4 rosuvastatin (CRESTOR) 20 mg tablet Take 1 tablet by mouth daily at bedtime. 90 tablet 1 enalapril (VASOTEC) 20 mg tablet Take 1 tablet by mouth once daily. 90 tablet 1 metFORMIN (GLUCOPHAGE) 500 mg tablet Take 2 tablets by mouth two times a day with meals. 360 tablet 1 levothyroxine (SYNTHROID) 100 mcg tablet TAKE 1 TABLET DAILY ON AN EMPTY STOMACH 90 tablet 1 albuterol HFA (VENTOLIN HFA) 90 mcg/actuation inhaler Inhale 2 Puffs as instructed every 4 hours as needed for wheezing/shortness of breath. 18 g 0 dulaglutide (TRULICITY) 3 mg/0.5 mL pen injector Inject 3 mg subcutaneously one time a week. 6 mL 1 insulin glargine (BASAGLAR KWIKPEN U-100 INSULIN) 100 unit/mL (3 mL) Inject 34 Units subcutaneously two times a day. 5 Each 2 Lancets (ONETOUCH ULTRASOFT LANCETS) Test blood sugar(s) 2 times daily and as needed. Dx: Type 2 DM - Uncontrolled E11.65 , Insulin: Yes 100 Each 11 hydroCHLOROthiazide 25 mg tablet TAKE 1 TABLET (25mg) BY MOUTH ONCE DAILY ELIQUIS 5 mg tab(s) Take 1 tablet by mouth every 12 hours. EPINEPHrine (EPIPEN) 0.3 mg/0.3 mL auto-injector Inject 0.3 mL intramuscularly as needed (For allergic reaction). 2 Each 1 propylene glycol (SYSTANE BALANCE OPHTHALMIC) Use in eyes. 3-4 times a day sulfacetamide sodium/sulfur (PRASCION TOPICAL) Apply to affected area once daily. 10-55 omega-3 DHA-EPA (FISH OIL) 1,200 (144-216) mg capsule Take 1 capsule by mouth daily with breakfast. MAGNESIUM SULFATE ORAL Take 500 mg by mouth once daily. CINNAMON BARK ORAL Take 2,000 mcg by mouth once daily. carvedilol (COREG) 3.125 mg tablet Take 3.125 mg by mouth twice daily with meals. blood sugar diagnostic (BLOOD GLUCOSE TEST) test strip Test blood sugar(s) 2 times daily. Dx: Type 2 DM - Controlled E11.9 Insulin: Yes 50 Strip 11 nitroglycerin sublingual (NITROQUICK) 0.[address] 1 tablet under the tongue if needed every 5 minutes for stephen... (REFER TO PRESCRIPTION NOTES). blood sugar diagnostic (ONETOUCH ULTRA TEST STRIP) test strip Test sugar daily and as needed 200 Each 3 Blood-Glucose Meter (ONETOUCH ULTRA2 METER) monitoring kit Check blood sugar daily and as needed 1 Each 0 aspirin, enteric coated (ASPIRIN, ENTERIC COATED) 81 mg EC tablet Take 81 mg by mouth once daily. Compression Knee Highs KNEE HIGH COMPRESSION STOCKINGS 30-40 MM. DX: EDEMA 2 Device 2 multivitamin (DAILY MULTI-VITAMIN) ORAL Tab Take one(1) tablet daily. 0 No current facility-administered medications for this visit. Family History Problem Relation Age of Onset Diabetes Mother Alzheimer's Disease Father Diabetes Brother Asthma Brother other (parkinsons) Brother Objective There were no vitals taken for this visit. - Cardiovascular: Dorsalis pedis and posterior tibial pulses faintly palpable bilaterally; capillary refill <5 seconds; skin temperature warm to cool bilaterally. - Skin: No open sores noted bilaterally; no calluses present bilaterally; left great toenail thickened and discolored; normal length of all toenails bilaterally; slight skin peeling noted. - Neurological: Protective sensation intact bilaterally; vibratory sensation diminished in right great t (more content not included)...[facility]05-29-2025 History of Present illness Narrative* Viktoriya Angelo - 03/18/2025 2:48 PM EDT Kandy Garvin is a 74-year-old male with a history of diabetes mellitus, presenting for a follow-up foot exam. Diabetes Mellitus: - Blood glucose levels are reportedly well-controlled, with low readings in the morning. - Most recent HbA1c was 6%. - Denies burning, tingling, or numbness in the feet. Foot Care: - History of calluses on both feet. - Using PowerStep inserts, which have provided relief. - Avoids walking barefoot; wears supportive shoes and slippers outside. - Using hammer toe pads for comfort. - Monitoring a toenail deformity on the left great toe; considering removal in the future. 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 Musculoskeletal: (+) right foot pain, (+) right foot cramps PAST MEDICAL HISTORY Diagnosis Date Allergic rhinitis, cause unspecified Allergic rhinitis Atrial fibrillation (HCC) Bilateral lower extremity edema Blood in stool Hypertension Hypothyroidism Lipoma Morbid obesity (HCC) Onychomycosis Other and unspecified hyperlipidemia Prostate cancer (HCC) [address] White. s/p prostatectomy RBBB Rosacea Type II or unspecified type diabetes mellitus without mention of complication, uncontrolled Urinary incontinence Current Outpatient Medications Medication Sig Dispense Refill blood sugar diagnostic (ONETOUCH ULTRA TEST) test strip Test blood sugar BID and as needed 100 strip 3 Insulin [place], Disposable, (BD ULTRA-FINE CAROLYN PEN NEEDLE) 32 gauge x 5/32 Inject 1 Each subcutaneously two times a day. Use with Insulin 100 Each 4 rosuvastatin (CRESTOR) 20 mg tablet Take 1 tablet by mouth daily at bedtime. 90 tablet 1 enalapril (VASOTEC) 20 mg tablet Take 1 tablet by mouth once daily. 90 tablet 1 metFORMIN (GLUCOPHAGE) 500 mg tablet Take 2 tablets by mouth two times a day with meals. 360 tablet1 levothyroxine (SYNTHROID) 100 mcg tablet TAKE 1 TABLET DAILY ON AN EMPTY STOMACH 90 tablet 1 albuterol HFA (VENTOLIN HFA) 90 mcg/actuation inhaler Inhale 2 Puffs as instructed every 4 hours asneeded for wheezing/shortness of breath. 18 g 0 dulaglutide (TRULICITY) 3 mg/0.5 mL pen injector Inject 3 mg subcutaneously one time a week. 6 mL 1 insulin glargine (BASAGLAR KWIKPEN U-100 INSULIN) 100 unit/mL (3 mL) Inject 34 Units subcutaneouslytwo times a day. 5 Each 2 Lancets (iPowerUpUCH ULTRASOFT LANCETS) Test blood sugar(s) 2 times daily and as needed. Dx: Type 2 DM- Uncontrolled E11.65 , Insulin: Yes 100 Each 11 hydroCHLOROthiazide 25 mg tablet TAKE 1 TABLET (25mg) BY MOUTH ONCE DAILY ELIQUIS 5 mg tab(s) Take 1 tablet by mouth every 12 hours. EPINEPHrine (EPIPEN) 0.3 mg/0.3 mL auto-injector Inject 0.3 mL intramuscularly as needed (For allergic reaction). 2 Each 1 propylene glycol (SYSTANE BALANCE OPHTHALMIC) Use in eyes. 3-4 times a day sulfacetamide sodium/sulfur (PRASCION TOPICAL) Apply to affected area once daily. 10-55 omega-3 DHA-EPA (FISH OIL) 1,200 (144-216) mg capsule Take 1 capsule by mouth daily with breakfast. MAGNESIUM SULFATE ORAL Take 500 mg by mouth once daily. CINNAMON BARK ORAL Take 2,000 mcg by mouth once daily. carvedilol (COREG) 3.125 mg tablet Take 3.125 mg by mouth twice daily with meals. blood sugar diagnostic (BLOOD GLUCOSE TEST) test strip Test blood sugar(s) 2 times daily. Dx: Type 2 DM - Controlled E11.9 Insulin: Yes 50 Strip 11 nitroglycerin sublingual (NITROQUICK) 0.[address] 1 tablet under the tongue if needed every 5 minutes for stephen... (REFER TO PRESCRIPTION NOTES). blood sugar diagnostic (ARKeXTOUCH ULTRA TEST STRIP) test strip Test sugar daily and as needed 200 Each 3 Blood-Glucose Meter (ARKeXTOUCH ULTRA2 METER) monitoring kit Check blood sugar daily and as needed 1 Each 0 aspirin, enteric coated (ASPIRIN, ENTERIC COATED) 81 mg EC tablet Take 81 mg by mouth once daily. Compression Knee Highs KNEE HIGH COMPRESSION STOCKINGS 30-40 MM. DX: EDEMA 2 Device 2 multivitamin (DAILY MULTI-VITAMIN) ORAL Tab Take one(1) tablet daily. 0 No current facility-administered medications for this visit. Family History Problem Relation Age of Onset Diabetes Mother Alzheimer's Disease Father Diabetes Brother Asthma Brother other (parkinsons) Brother Objective There were no vitals taken for this visit. - Cardiovascular: Dorsalis pedis and posterior tibial pulses faintly palpable bilaterally; capillary refill <5 seconds; skin temperature warm to cool bilaterally. - Skin: No open sores noted bilaterally; no calluses present bilaterally; left great toenail thickened and discolored; normal length of all toenails bilaterally; slight skin peeling noted. - Neurological: Protective sensation intact bilaterally; vibratory sensation diminished in right great toe. - Musculoskeletal: - Right Foot: Dorsomedial deviation of second toe; bunionette deformity present. - Left Foot: Hammer toes noted in second and third toes. Labs: A1c: 6 Imaging: (2019) X-ray (foot): Bunionette deformity. Assessment & Plan 1. Diabetic polyneuropathy associated with type 2 diabetes mellitus (HCC) (E11.42) - No burning, tingling, or numbness in feet; protective sensation intact bilaterally. - Continue wearing good supportive shoes and applying lotion to feet. - Follow-up every 6 months to a year. 2. Hammer toes of both feet (M20.41) - Dorsal medial deviation of the right second toe; hammer toes noted to the left second and third toe. - Continue using hammer toe pads. - Discussed surgical options for correction if symptoms worsen. - for now, patient is going to continue with wider shoes and toe padding 3. Onychomycosis (B35.1) - Left great toenail thickened and discolored. - Trimmed nail back slightly as courtesy. small bleed present. band aide applied. . - Discussed potential toenail removal; patient prefers to monitor for now. - Consider circulation study prior to removal if decided in the future. 4. Tailor's bunionette, bilateral (M21.621) - Pain noted on the side of the foot; inflammation of the tendon inserting onto the fifth metatarsal. - Continue wearing wide, supportive shoes (Hokas, Jackson, New Balance, Asics) and PowerStep inserts. - Discussed surgical correction if pain persists. - Reviewed 2019 X-ray showing bunionette deformity; offered repeat X-ray if needed. for now, he is going to use gel padding. gel padding dispensed 5. follow-up in 6 months or sooner if problems arise. Recording using [employer] software for draft documentation of the visit was discussed with the patient/authorized inside outside sales representative; all questions welcomed and answered. Patient/authorized inside outside sales representative agreed to proceed Viktoriya Angelo DPM * Queta Guerrero LPN - 03/18/2025 1:59 PM EDT AMB ROOMING INTAKE FLOWSHEET DATA Pain Pain Level: 5 Pain Location: Foot-Left Description: Sore Duration Amount of Time: 3 Duration Units: Weeks Frequency: Intermittent Intervention/Comfort measure: Relaxation, Reposition Patient presents with: Right Foot - Established Patient, Diabetic Foot Care, Callous, Pain: Left Foot - Established Patient, Diabetic Foot Care, Callous: Queta Guerrero LPN [facility] Instructions* Patient Instructions* Viktoriya Angelo - 03/18/2025 2:23 PM EDT - Continue wearing supportive, well-fitting shoes (such as Hoka, Jackson, New Balance, or Asics) andavoid narrow footwear. - Keep using your PowerStep shoe inserts for added cushioning and arch support. - Continue wearing the hammertoe pads on your second and third toes to reduce pressure and rubbing. - Apply a moisturizing lotion to your feet daily to prevent dryness and peeling. - Keep your toenails neatly trimmed; we trimmed the rough edge on your left big toe today and applied a bandage to the small skin flap. - If the thickened, discolored toenail on your left big toe starts to bother you, let us know--you may choose to have it removed after confirming adequate circulation. - Call the office right away if you notice any new foot pain, open sores, or signs of infection. - Plan to schedule your next diabetic foot exam in about 6 to 12 months, or sooner if any problems arise. documented in [facility] encounter[facility]25 NoteHNO ID: [id number] Author: QUETA GUERRERO LPN Service: ? Author Type: LICENSED NURSE Type: Progress Notes Filed: 03/18/2025 14:48 Note Text: AMB ROOMING INTAKE FLOWSHEET DATA Pain Pain Level: 5 Pain Location: Foot-Left Description: Sore Duration Amount of Time: 3 Duration Units: Weeks Frequency: Intermittent Intervention/Comfort measure: Relaxation, Reposition Patient presents with: Right Foot - Established Patient, Diabetic Foot Care, Callous, Pain: Left Foot - Established Patient, Diabetic Foot Care, Callous: Queta Guerrero LPPro[facility] Telephone encounter Note* Telephone Encounter - Bre Bates - 01/01/2025 8:41 AM EDT Patient has been identified by name and date of : Yes Last office visit in this department: 12/29/2024 RX INSTRUCTIONS: Patient aware RX will be sent to pharmacy. No need to notify patient. Patient phones requesting refills as follows: Requested Prescriptions Pending Prescriptions Disp Refills Insulin [place], Disposable, (BD ULTRA-FINE CAROLYN PEN NEEDLE) 32 gauge x 5/32 100 Each 4 Sig: Inject 1 Each subcutaneously two times a day. Use with Insulin Please review and advise. Bre Valencia [facility]03-14-2025 Miscellaneous Notes* Telephone Encounter - Bre Bates - 01/01/2025 8:41 AM EDT Patient has been identified by name and date of : Yes Last office visit in this department: 12/29/2024 RX INSTRUCTIONS: Patient aware RX will be sent to pharmacy. No need to notify patient. Patient phones requesting refills as follows: Requested Prescriptions Pending Prescriptions Disp Refills Insulin [place], Disposable, (BD ULTRA-FINE CAROLYN PEN NEEDLE) 32 gauge x 5/32 100 Each 4 Sig: Inject 1 Each subcutaneously two times a day. Use with Insulin Please review and advise. Bre Valencia documented in [facility] encounterUpper [facility]03-13-2025 Telephone encounter Note * Telephone Encounter - Bre Malin LPN - 12/31/2024 3:59 PM EDT Phoned patient and updated him with provider's message. Patient voiced understanding. Bre Malin LPN [facility]03-13-2025 Miscellaneous Notes* Telephone Encounter - Bre Malin LPN - 12/31/2024 3:59 PM EDT Phoned patient and updated him with provider's message. Patient voiced understanding. Bre Malin LPN * Telephone Encounter - Bre Malin LPN - 12/31/2024 3:58 PM EDT ----- Message from Sara Fuller MD sent at 12/31/2024 9:09 AM EDT ----- Diabetes well controlled. Other labs normal. No change in regimen. documented in [facility] encounter[facility]03-[facility]-2025 Telephone encounter Note * Telephone Encounter - Bre Malin LPN - 12/31/2024 3:58 PM EDT ----- Message from Sara Fuller MD sent at 12/31/2024 9:09 AM EDT ----- Diabetes well controlled. Other labs normal. No change in regimen. [facility]03-11-2025 NoteHNO ID: [id number] Author: SARA FULLER MD Service: ? Author Type: Physician Type: Progress Notes Filed: 12/31/2024 09:32 Note Text: Chief Complaint Patient presents with: Follow Up: 6 month HPI Bharathi Sue is a 74 year old male who presents here today for Above Complaints. DIABETES MELLITUS: Mr. Sue was last seen 6 months ago. Since our last visit he denies excessive thirst or increased frequency of urination, numbness, tingling or pain in extremities, new or unusual visual symptoms, and low sugar/hypoglycemic reactions. Follows a diabetic diet most of the time. He is compliant with medication(s) and is tolerating med(s) without any side effects. He reports checking his glucose on a 1-2 times a day schedule with sugars in the fasting <130 range. Patient's last HgA1C was Hemoglobin A1C (%) Date Value 06/25/2024 6.1 02/21/2024 7.0 11/22/2021 6.7 08/21/2021 6.8 ) Last Ophthalmology exam was within the past 12 months Last Podiatry exam was within the past 12 months A fib managed by [facility] cardiology with last OV about 1-[address] Rodas. No changes to regimen. Denies chest pain, palpitations, SOB, leg swelling. No bleeding or bruising with Eliquis which he is getting from [facility]. Taking synthroid as prescribed for hypothyroidism. Asymptomatic on current regimen due for TSH. Past medical history, appointments, medications, allergies reviewed. Previous Medical History PAST MEDICAL HISTORY Diagnosis Date Allergic rhinitis, cause unspecified Allergic rhinitis Atrial fibrillation (HCC) Bilateral lower extremity edema Blood in stool Hypertension Hypothyroidism Lipoma Morbid obesity (HCC) Onychomycosis Other and unspecified hyperlipidemia Prostate cancer (HCC) [address] White. s/p prostatectomy RBBB Rosacea Type II or unspecified type diabetes mellitus without mention of complication, uncontrolled Urinary incontinence Previous Surgical History PAST SURGICAL HISTORY Procedure Laterality Date COLONOSCOPY FLX DX W/COLLJ SPEC WHEN PFRMD 01/22/06 COLONOSCOPY FLX DX W/COLLJ SPEC WHEN PFRMD 02/16/16 Colonoscopy PAST SURGICAL HISTORY OF 2005 prostatectomy REPAIR UMBILICAL HERNIA 2001 Family History FAMILY HISTORY Problem Relation Age of Onset Diabetes Mother Alzheimer's Disease Father Diabetes Brother Asthma Brother other (parkinsons) Brother Patient Allergies ALLERGIES Allergen Reactions Mellette Seed Anaphylaxis Zocor [Simvastatin] Myalgia muscle pain Amoxicillin Hives Dust Erythromycin Other: See Comments Tingling. Current Medications Current Outpatient Medications on File Prior to Visit Medication Sig albuterol HFA (VENTOLIN HFA) 90 mcg/actuation inhaler Inhale 2 Puffs as instructed every 4 hours as needed for wheezing/shortness of breath. dulaglutide (TRULICITY) 3 mg/0.5 mL pen injector Inject 3 mg subcutaneously one time a week. insulin glargine (BASAGLAR KWIKPEN U-100 INSULIN) 100 unit/mL (3 mL) Inject 34 Units subcutaneously two times a day. warfarin (COUMADIN) 2 mg tablet Take 1 tablet by mouth daily as directed. (Patient not taking: Reported on 08/31/2024) enalapril (VASOTEC) 20 mg tablet Take 1 tablet by mouth once daily. rosuvastatin (CRESTOR) 20 mg tablet Take 1 tablet by mouth daily at bedtime. levothyroxine (SYNTHROID) 100 mcg tablet TAKE 1 TABLET DAILY ON AN EMPTY STOMACH metFORMIN (GLUCOPHAGE) 500 mg tablet Take 2 tablets by mouth two times a day with meals. blood sugar diagnostic (ONETOUCH ULTRA TEST) test strip Test blood sugar BID and as needed Insulin [place], Disposable, (BD ULTRA-FINE CAROLYN PEN NEEDLE) 32 gauge x 5/32 Inject 1 Each subcutaneously two times a day. Use with Insulin Lancets (ONETOUCH ULTRASOFT LANCETS) Test blood sugar(s) 2 times daily and as needed. Dx: Type 2 DM - Uncontrolled E11.65 , Insulin: Yes hydroCHLOROthiazide 25 mg tablet TAKE 1 TABLET (25mg) BY MOUTH ONCE DAILY ELIQUIS 5 mg tab(s) Take 1 tablet by mouth every 12 hours. EPINEPHrine (EPIPEN) 0.3 mg/0.3 mL auto-injector Inject 0.3 mL intramuscularly as needed (For allergic reaction). propylene glycol (SYSTANE BALANCE OPHTHALMIC) Use in eyes. 3-4 times a day sulfacetamide sodium/sulfur (PRASCION TOPICAL) Apply to affected area once daily. 10-55 omega-3 DHA-EPA (FISH OIL) 1,200 (144-216) mg capsule Take 1 capsule by mouth daily with breakfast. MAGNESIUM SULFATE ORAL Take 500 mg by mouth once daily. CINNAMON BARK ORAL Take 2,000 mcg by mouth once daily. carvedilol (COREG) 3.125 mg tablet Take 3.125 mg by mouth twice daily with meals. blood sugar diagnostic (BLOOD GLUCOSE TEST) test strip Test blood sugar(s) 2 times daily. Dx: Type 2 DM - Controlled E11.9 Insulin: Yes nitroglycerin sublingual (NITROQUICK) 0.[address] 1 tablet under the tongue if needed every 5 minutes for stephen... (REFER TO PRESCRIPTION NOTES). blood sugar diagnostic (ONETOUCH UL (more content not included)...[facility]03[facility] History of Present illness Narrative* Sara Fuller MD - 12/29/2024 8:06 AM EDT Chief Complaint Patient presents with: Follow Up: 6 month HPI Bharathi Seu is a 74 year old male who presents here today for Above Complaints. DIABETES MELLITUS: Mr. Sue was last seen 6 months ago. Since our last visit he denies excessive thirst or increased frequency of urination, numbness, tingling or pain in extremities, new or unusual visual symptoms, and low sugar/hypoglycemic reactions. Follows a diabetic diet most of the time. He is compliant with medication(s) and is tolerating med(s) without any side effects. He reports checking his glucose on a 1-2 times a day schedule with sugars in the fasting <130 range. Patient's last HgA1C was Hemoglobin A1C (%) Date Value 06/25/2024 6.1 02/21/2024 7.0 11/22/2021 6.7 08/21/2021 6.8 ) Last Ophthalmology exam was within the past 12 months Last Podiatry exam was within the past 12 months A fib managed by [facility] cardiology with last OV about 1-[address] Rodas. No changes to regimen. Denies chest pain, palpitations, SOB, leg swelling. No bleeding or bruising with Eliquis whichhe is getting from [facility]. Taking synthroid as prescribed for hypothyroidism. Asymptomatic on current regimen due for TSH. Past medical history, appointments, medications, allergies reviewed. Previous Medical History PAST MEDICAL HISTORY Diagnosis Date Allergic rhinitis, cause unspecified Allergic rhinitis Atrial fibrillation (HCC) Bilateral lower extremity edema Blood in stool Hypertension Hypothyroidism Lipoma Morbid obesity (HCC) Onychomycosis Other and unspecified hyperlipidemia Prostate cancer (HCC) [address] White. s/p prostatectomy RBBB Rosacea Type II or unspecified type diabetes mellitus without mention of complication, uncontrolled Urinary incontinence Previous Surgical History PAST SURGICAL HISTORY Procedure Laterality Date COLONOSCOPY FLX DX W/COLLJ SPEC WHEN PFRMD 01/22/06 COLONOSCOPY FLX DX W/COLLJ SPEC WHEN PFRMD 02/16/16 Colonoscopy PAST SURGICAL HISTORY OF 2005 prostatectomy REPAIR UMBILICAL HERNIA 2001 Family History FAMILY HISTORY Problem Relation Age of Onset Diabetes Mother Alzheimer's Disease Father Diabetes Brother Asthma Brother other (parkinsons) Brother Patient Allergies ALLERGIES Allergen Reactions Mellette Seed Anaphylaxis Zocor [Simvastatin] Myalgia muscle pain Amoxicillin Hives Dust Erythromycin Other: See Comments Tingling. Current Medications Current Outpatient Medications on File Prior to Visit Medication Sig albuterol HFA (VENTOLIN HFA) 90 mcg/actuation inhaler Inhale 2 Puffs as instructed every 4 hours asneeded for wheezing/shortness of breath. dulaglutide (TRULICITY) 3 mg/0.5 mL pen injector Inject 3 mg subcutaneously one time a week. insulin glargine (BASAGLAR KWIKPEN U-100 INSULIN) 100 unit/mL (3 mL) Inject 34 Units subcutaneouslytwo times a day. warfarin (COUMADIN) 2 mg tablet Take 1 tablet by mouth daily as directed. (Patient not taking: Reported on 08/31/2024) enalapril (VASOTEC) 20 mg tablet Take 1 tablet by mouth once daily. rosuvastatin (CRESTOR) 20 mg tablet Take 1 tablet by mouth daily at bedtime. levothyroxine (SYNTHROID) 100 mcg tablet TAKE 1 TABLET DAILY ON AN EMPTY STOMACH metFORMIN (GLUCOPHAGE) 500 mg tablet Take 2 tablets by mouth two times a day with meals. blood sugar diagnostic (ARKeXTOUCH ULTRA TEST) test strip Test blood sugar BID and as needed Insulin [place], Disposable, (BD ULTRA-FINE CAROLYN PEN NEEDLE) 32 gauge x 5/32 Inject 1 Each subcutaneously two times a day. Use with Insulin Lancets (ONETOUCH ULTRASOFT LANCETS) Test blood sugar(s) 2 times daily and as needed. Dx: Type 2 DM- Uncontrolled E11.65 , Insulin: Yes hydroCHLOROthiazide 25 mg tablet TAKE 1 TABLET (25mg) BY MOUTH ONCE DAILY ELIQUIS 5 mg tab(s) Take 1 tablet by mouth every 12 hours. EPINEPHrine (EPIPEN) 0.3 mg/0.3 mL auto-injector Inject 0.3 mL intramuscularly as needed (For allergic reaction). propylene glycol (SYSTANE BALANCE OPHTHALMIC) Use in eyes. 3-4 times a day sulfacetamide sodium/sulfur (PRASCION TOPICAL) Apply to affected area once daily. 10-55 omega-3 DHA-EPA (FISH OIL) 1,200 (144-216) mg capsule Take 1 capsule by mouth daily with breakfast. MAGNESIUM SULFATE ORAL Take 500 mg by mouth once daily. CINNAMON BARK ORAL Take 2,000 mcg by mouth once daily. carvedilol (COREG) 3.125 mg tablet Take 3.125 mg by mouth twice daily with meals. blood sugar diagnostic (BLOOD GLUCOSE TEST) test strip Test blood sugar(s) 2 times daily. Dx: Type 2 DM - Controlled E11.9 Insulin: Yes nitroglycerin sublingual (NITROQUICK) 0.[address] 1 tablet under the tongue if needed every 5 minutes for stephen... (REFER TO PRESCRIPTION NOTES). blood sugar diagnostic (ONETOUCH ULTRA TEST STRIP) test strip Test sugar daily and as needed Blood-Glucose Meter (ONETOUCH ULTRA2 METER) monitoring kit Check blood sugar daily and as needed aspirin, enteric coated (ASPIRIN, ENTERIC COATED) 81 mg EC tablet Take 81 mg by mouth once daily. Compression Knee Highs KNEE HIGH COMPRESSION STOCKINGS 30-40 MM. DX: EDEMA multivitamin (DAILY MULTI-VITAMIN) ORAL Tab Take one(1) tablet daily. No current facility-administered medications on file prior to visit. Social History Social History Tobacco Use Smoking status: Never Smokeless tobacco: Never Tobacco comments: No smoking in childhood home. Vaping Use Vaping status: Never Used Substance Use Topics Alcohol use: No Drug use: No Review of Symptoms REVIEW OF SYSTEMS GENERAL: No weight loss, malaise or fevers RESPIRATORY: Negative for cough, hemoptysis, wheezing, COPD, dyspnea or shortness of breath CARDIOVASCULAR: Negative for chest pain, leg swelling, hypertension, CHF or palpitations GI: No nausea, vomiting, or diarrhea : No history of dysuria, frequency or incontinence, No difficulty urinating, nocturia > 1 timeper night or hematuria SKIN: Negative for lesions, rash, and itching EXAM: BP 128/78 Pulse 64 Resp 17 Wt 125 kg (275 lb 9.6 oz) BMI 37.38 kg/m General Appearance: Well appearing, alert, in no acute distress, well-hydrated, well nourished.. Skin: Skin color, texture, turgor normal, no suspicious rashes or lesions. Lungs: Lungs clear to auscultation. No wheezing, rhonchi, rales.. Heart: RRR without murmur, gallop, or rubs. No ectopy. Abdomen: Normal abdominal exam, Abdomen soft, non-tender. Bowel sounds normal. No masses, organomegaly. Extremities: No deformities, edema, skin discoloration, clubbing or cyanosis. Good capillary refill. Health Maintenance List Depression Screening Never done Anxiety Screening Never done BP Controlled (<130/80) due on 06/10/2024 Advance Directive Discussion Never done HbA1C due on 12/23/2024 Urine Albumin:Creatinine Ratio due on 12/06/2024 Covid-19 Vaccine( season) due on 02/14/2025 Dilated Retinal Exam due on 06/17/2025 Diabetic Foot Exam due on 06/29/2025 LDL Cholesterol due on 08/21/2025 Annual PCP Team Chronic Disease Visit due on 12/29/2025 Colorectal Cancer Screening due on 02/15/2026 DTaP,Tdap,Td Vaccine(3 - Td or Tdap) due on 04/05/2026 Influenza Vaccine Completed RSV Vaccine Completed Hepatitis C Screening Completed Shingrix Vaccine Completed Pneumococcal Vaccine: 50+ Completed Data reviewed Latest Ref Rng 06/25/2024 08/21/2024 WBC 3.70 - 11.00 k/uL 8.39 RBC 4.20 - 6.00 m/uL 4.33 Hemoglobin 13.0 - 17.0 g/dL 13.5 Hematocrit 39.0 - 51.0 % 42.2 MCV 80.0 - 100.0 fL 97.5 MCH 26.0 - 34.0 pg 31.2 MCHC 30.5 - 36.0 g/dL 32.0 RDW-CV 11.5 - 15.0 % 14.0 Platelet Count 150 - 400 k/uL 222 MPV 9.0 - 12.7 fL 11.3 Neut% % 56.1 Abs Neut (ANC) 1.45 - 7.50 k/uL 4.70 Lymph% % 33.5 Abs Lymph 1.00 - 4.00 k/uL 2.81 [place]% % 7.0 Abs [place] <0.87 k/uL 0.59 Eosin% % 1.8 Abs Eosin <0.46 k/uL 0.15 Baso% % 0.8 Abs Baso <0.11 k/uL 0.07 Immature Gran % % 0.8 IMMATURE GRANS (ABS) <0.10 k/uL 0.07 NRBC /100 WBC 0.0 Absolute nRBC <0.01 k/uL <0.01 DTYPE Auto Protein, Total 6.3 - 8.0 g/dL 6.7 7.3 Albumin 3.9 - 4.9 g/dL 4.4 4.5 Calcium 8.5 - 10.2 mg/dL 9.6 9.7 Bilirubin, Total 0.2 - 1.3 mg/dL 0.4 0.3 Alkaline Phosphatase 38 - 113 U/L 55 59 AST 14 - 40 U/L 20 27 ALT 10 - 54 U/L 25 28 Glucose 74 - 99 mg/dL 92 94 BUN 9 - 24 mg/dL 25 (H) 29 (H) Creatinine 0.73 - 1.22 mg/dL 1.06 1.06 Sodium 136 - 144 mmol/L 140 139 Potassium 3.7 - 5.1 mmol/L 4.6 4.7 Chloride 98 - 107 mmol/L 99 100 CO2 22 - 30 mmol/L 27 27 Anion Gap 8 - 15 mmol/L 14 12 eGFR >=60 mL/min/1.73m 74 74 Cholesterol, Total <200 mg/dL 261 (H) 156 Triglyceride <150 mg/dL 531 (H) 238 (H) HDL Cholesterol >39 mg/dL 30 (L) 28 (L) Non HDL Cholesterol <130 mg/dL 231 (H) 128 Fasting Time hrs 12 13 VLDL Cholesterol <30 mg/dL -- 48 (H) VLDL Cholesterol 107 (H) TC:HDL Ratio <5.10 8.70 (H) 5.57 (H) LDL Cholesterol <100 mg/dL -- 80 LDL:HDL Ratio <2.54 -- 2.86 (H) Hemoglobin A1C 4.3 - 5.6 % 6.1 (H) Estimated Average Glucose mg/dL 128 LDL Cholesterol, Direct <100 mg/dL 124 (H) PSA Screening <2.60 ng/mL <0.02 Legend: (H) High (L) Low ASSESSMENT/PLAN: 1. Type 2 diabetes mellitus without complication, with long-term current use of insulin (HCC) - ICD9: 250.00, V58.67, ICD10: E11.9, Z79.4 (primary diagnosis) - Control undetermined, due for labs - Continue current medications - Statin prescribed - rosuvastatin - Blood glucose monitoring on a twice daily schedule - Counseled on healthy diet and regular exercise - Discussed need for and benefit of weight loss. BMI 37.38 kg/(m^2) - Discussed diabetic education issues of diabetes complications and monitoring required, hypoglycemic/hyperglycemic symptoms, medication-specific side effects and monitoring, and diabetic sick day rules - Follow up in 6 months, sooner should any other issues arise. - ROSUVASTATIN 20 MG TABLET - ENALAPRIL MALEATE 20 MG TABLET - METFORMIN 500 MG TABLET - HEMOGLOBIN A1C - COMPREHENSIVE METABOLIC PANEL - ALBUMIN/CREATININE RATIO, URINE 2. Atrial fibrillation, unspecified type (HCC) - ICD9: 427.31, ICD10: I48.91 Rate controlled. On anticoagulation with Eliquis. Asymptomatic on medical management. F/u with cardiology as scheduled. No changes to regimen. 3. Acquired hypothyroidism - ICD9: 244.9, ICD10: E03.9 - Instructed patient on importance of taking on an empty stomach either first thing in the morning or at bedtime. - check TSH today - continue current dose of Synthroid - THYROID STIMULATING HORMONE 4. Mixed hyperlipidemia - ICD9: 272.2, ICD10: E78.2 - Controlled - Continue current medications - Counseled on healthy diet and regular exercise 5. History of prostate cancer - ICD9: V10.46, ICD10: Z85.46 PSA 0 when checked 6 months ago. No change in symptoms. Recheck yearly. Sara Fuller MD [facility] NoteHNO ID: [id number] Author: JOSEFINA HERNANDEZ PA-C Service: ? Author Type: Physician Petal Cutter Type: Progress Notes Filed: 12/07/2024 09:30 Note Text: Josefina Hernandez PA-C Department of Orthopaedics Orthopaed[facility] [address] [facility] [address] Dept: [phone] Dept December 07, 2024 CHIEF COMPLAINT: Follow Up of the Right Knee and Follow Up and Injections of the Left Knee (14 weeks post visit OA Bilateral knees with injections given/Wants injections). ASSESSMENT: M17.0 Primary osteoarthritis of both knees (primary encounter diagnosis) SUMMARY/PLAN: Patient presents for repeat bilateral knee corticosteroid injections. He has been getting a few months of relief with the corticosteroid injections. Reports that he was recently ill and was not able to work, slowly getting over his fatigue following his illness. Knees have not been bothering him as much as he has not been as active. We did try for viscosupplementation, the patient was denied as he did not participate in physical therapy. Patient does not live in an area where there are facilities that he can participate in therapy. We discussed getting him at home PT exercise program, once he completes his self-guided PT program we can certainly resubmit for authorization of viscosupplementation. Patient agrees to plan. Will proceed with repeat corticosteroid injections today. Mr. Bharathi Sue was advised as to contrast therapies and/or to take analgesics/anti-inflammatories as needed and all contraindications were reviewed. Supporting Information Below: Medications: Current Outpatient Medications Medication Sig benzonatate (TESSALON PERLE) 100 mg capsule Take 1 capsule by mouth three times a day as needed for up to 10 days. albuterol HFA (VENTOLIN HFA) 90 mcg/actuation inhaler Inhale 2 Puffs as instructed every 4 hours as needed for wheezing/shortness of breath. insulin glargine (BASAGLAR KWIKPEN U-100 INSULIN) 100 unit/mL (3 mL) Inject 34 Units subcutaneously two times a day. enalapril (VASOTEC) 20 mg tablet Take 1 tablet by mouth once daily. rosuvastatin (CRESTOR) 20 mg tablet Take 1 tablet by mouth daily at bedtime. levothyroxine (SYNTHROID) 100 mcg tablet TAKE 1 TABLET DAILY ON AN EMPTY STOMACH metFORMIN (GLUCOPHAGE) 500 mg tablet Take 2 tablets by mouth two times a day with meals. hydroCHLOROthiazide 25 mg tablet TAKE 1 TABLET (25mg) BY MOUTH ONCE DAILY ELIQUIS 5 mg tab(s) Take 1 tablet by mouth every 12 hours. EPINEPHrine (EPIPEN) 0.3 mg/0.3 mL auto-injector Inject 0.3 mL intramuscularly as needed (For allergic reaction). propylene glycol (SYSTANE BALANCE OPHTHALMIC) Use in eyes. 3-4 times a day sulfacetamide sodium/sulfur (PRASCION TOPICAL) Apply to affected area once daily. 10-55 omega-3 DHA-EPA (FISH OIL) 1,200 (144-216) mg capsule Take 1 capsule by mouth daily with breakfast. MAGNESIUM SULFATE ORAL Take 500 mg by mouth once daily. CINNAMON BARK ORAL Take 2,000 mcg by mouth once daily. carvedilol (COREG) 3.125 mg tablet Take 3.125 mg by mouth twice daily with meals. nitroglycerin sublingual (NITROQUICK) 0.[address] 1 tablet under the tongue if needed every 5 minutes for stephen... (REFER TO PRESCRIPTION NOTES). aspirin, enteric coated (ASPIRIN, ENTERIC COATED) 81 mg EC tablet Take 81 mg by mouth once daily. multivitamin (DAILY MULTI-VITAMIN) ORAL Tab Take one(1) tablet daily. dulaglutide (TRULICITY) 3 mg/0.5 mL pen injector Inject 3 mg subcutaneously one time a week. warfarin (COUMADIN) 2 mg tablet Take 1 tablet by mouth daily as directed. (Patient not taking: Reported on 08/31/2024) blood sugar diagnostic (ONETOUCH ULTRA TEST) test strip Test blood sugar BID and as needed Insulin [place], Disposable, (BD ULTRA-FINE CAROLYN PEN NEEDLE) 32 gauge x 5/32 Inject 1 Each subcutaneously two times a day. Use with Insulin Lancets (ONETOUCH ULTRASOFT LANCETS) Test blood sugar(s) 2 times daily and as needed. Dx: Type 2 DM - Uncontrolled E11.65 , Insulin: Yes blood sugar diagnostic (BLOOD GLUCOSE TEST) test strip Test blood sugar(s) 2 times daily. Dx: Type 2 DM - Controlled E11.9 Insulin: Yes blood sugar diagnostic (ONETOUCH ULTRA TEST STRIP) test strip Test sugar daily and as needed Blood-Glucose Meter (ONETOUCH ULTRA2 METER) monitoring kit Check blood sugar daily and as needed Compression Knee Highs KNEE HIGH COMPRESSION STOCKINGS 30-40 MM. DX: EDEMA No current facility-administered medications for this visit. Allergies: Mellette Seed, Zocor [Simvastatin], Amoxicillin, Dust, and Erythromycin This note was partially generated using Trada voice recognition system, and there may be some incorrect words, spellings, and punctuation that were not noted in checking the note before saving. Josefina Hernandez PA-C Large Joint Arthro/Inj: bilateral knee joints Informed Consent Consent Obtained: Verbal [place] Protocol A moment to CARE was completed. (more content not included)...[facility]02-17-[facility] History of Present illness Narrative* Josefina Hernandez PA-C - 12/07/2024 9:25 AM EST Associated Order(s): Large Joint Arthro/Inj: bilateral knee joints Post-Procedure Diagnose(s): Primary osteoarthritis of both knees Josefina Hernandez PA-C Department of Orthopaedics Orthopaedics [address] [facility] [address] Dept: [phone] Dept December 07, 2024 CHIEF COMPLAINT: Follow Up of the Right Knee and Follow Up and Injections of the Left Knee (14 weeks post visit OA Bilateral knees with injections given/Wants injections). ASSESSMENT: M17.0 Primary osteoarthritis of both knees (primary encounter diagnosis) SUMMARY/PLAN: Patient presents for repeat bilateral knee corticosteroid injections. He has been getting a few months of relief with the corticosteroid injections. Reports that he was recently ill and was not able to work, slowly getting over his fatigue following his illness. Knees have not been bothering him asmuch as he has not been as active. We did try for viscosupplementation, the patient was denied as he did not participate in physical therapy. Patient does not live in an area where there are facilities that he can participate in therapy. We discussed getting him at home PT exercise program, once hecompletes his self- guided PT program we can certainly resubmit for authorization of viscosupplementation. Patient agrees to plan. Will proceed with repeat corticosteroid injections today. Mr. Bharathi Sue was advised as to contrast therapies and/or to take analgesics/anti-inflammatories as needed and all contraindications were reviewed. Supporting Information Below: Medications: Current Outpatient Medications Medication Sig benzonatate (TESSALON PERLE) 100 mg capsule Take 1 capsule by mouth three times a day as needed forup to 10 days. albuterol HFA (VENTOLIN HFA) 90 mcg/actuation inhaler Inhale 2 Puffs as instructed every 4 hours asneeded for wheezing/shortness of breath. insulin glargine (BASAGLAR KWIKPEN U-100 INSULIN) 100 unit/mL (3 mL) Inject 34 Units subcutaneouslytwo times a day. enalapril (VASOTEC) 20 mg tablet Take 1 tablet by mouth once daily. rosuvastatin (CRESTOR) 20 mg tablet Take 1 tablet by mouth daily at bedtime. levothyroxine (SYNTHROID) 100 mcg tablet TAKE 1 TABLET DAILY ON AN EMPTY STOMACH metFORMIN (GLUCOPHAGE) 500 mg tablet Take 2 tablets by mouth two times a day with meals. hydroCHLOROthiazide 25 mg tablet TAKE 1 TABLET (25mg) BY MOUTH ONCE DAILY ELIQUIS 5 mg tab(s) Take 1 tablet by mouth every 12 hours. EPINEPHrine (EPIPEN) 0.3 mg/0.3 mL auto-injector Inject 0.3 mL intramuscularly as needed (For allergic reaction). propylene glycol (SYSTANE BALANCE OPHTHALMIC) Use in eyes. 3-4 times a day sulfacetamide sodium/sulfur (PRASCION TOPICAL) Apply to affected area once daily. 10-55 omega-3 DHA-EPA (FISH OIL) 1,200 (144-216) mg capsule Take 1 capsule by mouth daily with breakfast. MAGNESIUM SULFATE ORAL Take 500 mg by mouth once daily. CINNAMON BARK ORAL Take 2,000 mcg by mouth once daily. carvedilol (COREG) 3.125 mg tablet Take 3.125 mg by mouth twice daily with meals. nitroglycerin sublingual (NITROQUICK) 0.[address] 1 tablet under the tongue if needed every 5 minutes for stephen... (REFER TO PRESCRIPTION NOTES). aspirin, enteric coated (ASPIRIN, ENTERIC COATED) 81 mg EC tablet Take 81 mg by mouth once daily. multivitamin (DAILY MULTI-VITAMIN) ORAL Tab Take one(1) tablet daily. dulaglutide (TRULICITY) 3 mg/0.5 mL pen injector Inject 3 mg subcutaneously one time a week. warfarin (COUMADIN) 2 mg tablet Take 1 tablet by mouth daily as directed. (Patient not taking: Reported on 08/31/2024) blood sugar diagnostic (ONETOUCH ULTRA TEST) test strip Test blood sugar BID and as needed Insulin [place], Disposable, (BD ULTRA-FINE CAROLYN PEN NEEDLE) 32 gauge x 5/32 Inject 1 Each subcutaneously two times a day. Use with Insulin Lancets (ONETOUCH ULTRASOFT LANCETS) Test blood sugar(s) 2 times daily and as needed. Dx: Type 2 DM- Uncontrolled E11.65 , Insulin: Yes blood sugar diagnostic (BLOOD GLUCOSE TEST) test strip Test blood sugar(s) 2 times daily. Dx: Type 2 DM - Controlled E11.9 Insulin: Yes blood sugar diagnostic (ONETOUCH ULTRA TEST STRIP) test strip Test sugar daily and as needed Blood-Glucose Meter (ONETOUCH ULTRA2 METER) monitoring kit Check blood sugar daily and as needed Compression Knee Highs KNEE HIGH COMPRESSION STOCKINGS 30-40 MM. DX: EDEMA No current facility-administered medications for this visit. Allergies: Mellette Seed, Zocor [Simvastatin], Amoxicillin, Dust, and Erythromycin This note was partially generated using Trada voice recognition system, and there may be some incorrect words, spellings, and punctuation that were not noted in checking the note before saving. Josefina Hernandez PA-C Large Joint Arthro/Inj: bilateral knee joints Informed Consent Consent Obtained: Verbal [place] Protocol A moment to CARE was completed. SIGN IN Sign in communication not applicable due to emergent procedure. Personnel directly involved with the procedure wore the appropriate PPE. Special Equipment: N/A Patient/Surrogate Stated/Verified: Patient name, Date of , Relevant allergies and Intended procedure TIME OUT Relevant labs, photos, and/or imaging studies have been reviewed. Intended patient and procedure match the source document(s). Consent documented and matches the intended procedure. Correct side/site marked and visible. Medications required for procedure verified. No fire risk assessment and interventions applicable. No implant(s) inserted.12/07/2024 9:25 AM The procedure site was prepped in the usual sterile fashion. Site: bilateral knee joints Medications (Right): 6 mg betamethasone acetate-betamethasone sodium phosphate 6 mg/mL Medications (Left): 6 mg betamethasone acetate-betamethasone sodium phosphate 6 mg/mL Anesthetics (Right): 5 mL lidocaine (PF) 10 mg/mL (1 %) Anesthetics (Left): 5 mL lidocaine (PF) 10 mg/mL (1 %) Outcome: Tolerated well, no immediate complications Post-injection instructions were reviewed with the patient and the patient voiced understanding of these instructions. SIGN OUT No specimen collected. No instruments, equipment or retained foreign bodies applicable. Post-procedure follow-up management communicated and Plan of Care Visit completed when applicable * Kyung Soni MA - 12/07/2024 9:02 AM EST Patient presents with: Right Knee - Follow Up Left Knee - Follow Up, Injections: 14 weeks post visit OA Bilateral knees with injections given Wants injections AMB 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 Patient feels injections helped more this time than before. Here forcortisone injections bilateral knees. New X-rays done today. [facility] NoteHNO ID: [id number] Author: KYUNG SONI MA Service: ? Author Type: Tank Cleaner Type: Progress Notes Filed: 12/07/2024 09:30 Note Text: Patient presents with: Right Knee - Follow Up Left Knee - Follow Up, Injections: 14 weeks post visit OA Bilateral knees with injections given Wants injections AMB 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 Patient feels injections helped more this time than before. Here for cortisone injections bilateral knees. New X-rays done today.[facility] History of Present illness Narrative * Natali Patiño, RT(R) - 12/07/2024 8:40 AM EST Radiology Service Progress Note PATIENT NAME: Bharathi Sue DATE OF SERVICE: December 07, 2024 TIME: 11:25 AM PATIENT IDENTITY VERIFICATION COMPLETED USING TWO (2) IDENTIFIERS: Name and Date of confirmedby patient verbally. FALL SCREENING: Has the patient had 2 falls in the last year or 1 fall with injury or currently using an Ambulatory Assistive Device (Walker, Cane, Wheelchair, Crutches, etc.)? No PATIENT GENDER DATA: Assigned male at PATIENT RELEVANT IMPLANT DATA REVIEWED: Not Applicable PATIENT PRESENTS WITH AN IMPLANTABLE OR ATTACHED EQUIPMENT SERVICE TECHNICIAN: No RADIOLOGY DEPARTMENT: General X-ray: Exam(s) Completed: Lower Extremity X- Ray(s): Knee, AP / Lat / Tunne / Merchant Bilateral and Wt. Bearing PERIPHERAL IV DATA: Not applicable SIGNED BY: RT Rinku(Cathy) December 07, 2024 11:25 AM documented in [facility]-2025 NoteHNO ID: [id number] Author: NATALI PATIÑO RT(R) Service: ? Author Type: Technologist Type: Progress Notes Filed: 12/07/2024 11:25 Note Text: Radiology Service Progress Note PATIENT NAME: Bharathi Sue DATE OF SERVICE: December 07, 2024 TIME: 11:25 AM PATIENT IDENTITY VERIFICATION COMPLETED USING TWO (2) IDENTIFIERS: Name and Date of confirmed by patient verbally. FALL SCREENING: Has the patient had 2 falls in the last year or 1 fall with injury or currently using an Ambulatory Assistive Device (Walker, Cane, Wheelchair, Crutches, etc.)? No PATIENT GENDER DATA: Assigned male at PATIENT RELEVANT IMPLANT DATA REVIEWED: Not Applicable PATIENT PRESENTS WITH AN IMPLANTABLE OR ATTACHED EQUIPMENT SERVICE TECHNICIAN: No RADIOLOGY DEPARTMENT: General X-ray: Exam(s) Completed: Lower Extremity X-Ray(s): Knee, AP / Lat / Tunne / Merchant Bilateral and Wt. Bearing PERIPHERAL IV DATA: Not applicable SIGNED BY: RT Rinku(R) December 07, 2024 11:25 [facility]02-10-2025 Telephone encounter Note* Telephone Encounter - Latonya Lo MA - 11/30/2024 12:31 PM EST Patient was made aware of the results. Patient verbalizes understanding. Latonya Lo Ma [facility]02-10-2025 Miscellaneous Notes* Telephone Encounter - Latonya Lo MA - 11/30/2024 12:31 PM EST Patient was made aware of the results. Patient verbalizes understanding. Latonya Lo Ma * Telephone Encounter - Latonya Lo MA - 11/30/2024 12:30 PM EST ----- Message from Sara Fuller MD sent at 11/30/2024 7:02 AM EST ----- Patient positive for influenza A. Continue supportive care as discussed in office. Call if symptomsnot improving after 7 days or if worsening. documented in [facility] Telephone encounter Note * Telephone Encounter - Latonya Lo MA - 11/30/2024 12:30 PM EST ----- Message from Sara Fuller MD sent at 11/30/2024 7:02 AM EST ----- Patient positive for influenza A. Continue supportive care as discussed in office. Call if symptomsnot improving after 7 days or if worsening. [facility]02-07-[facility] Telephone encounter Note* Telephone Encounter - Essence Mcallister RN - 11/27/2024 11:47 AM EST PATIENT NOTIFIED OF INFORMATION [facility]02-07-2025 Miscellaneous Notes* Telephone Encounter - Essence Mcallister RN - 11/27/2024 11:47 AM EST PATIENT NOTIFIED OF INFORMATION * Telephone Encounter - Vani Martinez LPN - 11/27/2024 11:23 AM EST Left a message for pt to call the office and ask to speak to a nurse. Vani Martinez LPN * Telephone Encounter - Vani Martinez LPN - 11/27/2024 11:23 AM EST ----- Message from Sara Fuller MD sent at 11/27/2024 10:36 AM EST ----- Normal chest xray. Continue treatment as discussed. [facility] in [facility] Telephone encounter Note * Telephone Encounter - Vani Martinez LPN - 11/27/2024 11:23 AM EST Left a message for pt to call the office and ask to speak to a nurse. Vani Martinez LPN [facility]02-07-20[facility] Telephone encounter Note* Telephone Encounter - Vani Martinez LPN - 11/27/2024 11:23 AM EST ----- Message from Sara Fuller MD sent at 11/27/2024 10:36 AM EST ----- Normal chest xray. Continue treatment as discussed. [facility]02-07-[facility] History of Present illness Narrative* Tete Chakraborty, RT(R) - 11/27/2024 9:30 AM EST Radiology Service Progress Note PATIENT NAME: Bharathi Sue DATE OF SERVICE: November 27, 2024 TIME: 9:23 AM PATIENT IDENTITY VERIFICATION COMPLETED USING TWO (2) IDENTIFIERS: Name and Date of confirmedby patient verbally. FALL SCREENING: Has the patient had 2 falls in the last year or 1 fall with injury or currently using an Ambulatory Assistive Device (Walker, Cane, Wheelchair, Crutches, etc.)? No PATIENT GENDER DATA: Assigned male at PATIENT RELEVANT IMPLANT DATA REVIEWED: Not Applicable PATIENT PRESENTS WITH AN IMPLANTABLE OR ATTACHED EQUIPMENT SERVICE TECHNICIAN: No RADIOLOGY DEPARTMENT: General X-ray: Exam(s) Completed: Chest X-Ray PERIPHERAL IV DATA: Not applicable SIGNED BY: RT Bernice(Cathy) November 27, 2024 9:23 AM documented in this encounterUpper [facility]02-[facility]-2025 NoteHNO ID: [id number] Author: TETE CHAKRABORTY RT(R) Service: Radiology Author Type: Technologist Type: Progress Notes Filed: 11/27/2024 09:31 Note Text: Radiology Service Progress Note PATIENT NAME: Bharathi Sue DATE OF SERVICE: November 27, 2024 TIME: 9:23 AM PATIENT IDENTITY VERIFICATION COMPLETED USING TWO (2) IDENTIFIERS: Name and Date of confirmed by patient verbally. FALL SCREENING: Has the patient had 2 falls in the last year or 1 fall with injury or currently using an Ambulatory Assistive Device (Walker, Cane, Wheelchair, Crutches, etc.)? No PATIENT GENDER DATA: Assigned male at PATIENT RELEVANT IMPLANT DATA REVIEWED: Not Applicable PATIENT PRESENTS WITH AN IMPLANTABLE OR ATTACHED EQUIPMENT SERVICE TECHNICIAN: No RADIOLOGY DEPARTMENT: General X-ray: Exam(s) Completed: Chest X-Ray PERIPHERAL IV DATA: Not applicable SIGNED BY: RT Bernice(R) November 27, 2024 9:23 [facility]02-07-2025 [id number] (AGENT OF COVID-19) RNA: Not detected INFLUENZA A RNA: Detected INFLUENZA B RNA: Not detected RESPIRATORY SYNCYTIAL VIRUS (RSV) RNA: Not detectedPromedica Defiance Regional HospitalComment on above:Performed By: #### [id number] ####[facility] LABCLIA [id number] [place] [id number] [place] [id number] Instructions* Patient Instructions* Sara Fuller MD - 11/27/2024 9:08 AM EST You can use Coricidin HPB or Delsym over the counter for your cough in place of the tessalon if it is not working for you. documented in this encounterUpper Valley [facility] NoteHNO ID: [id number] Author: SARA FULLER MD Service: ? Author Type: Physician Type: Progress Notes Filed: 11/27/2024 09:41 Note Text: Chief Complaint Patient presents with: Fatigue Cough chills w/o temp check HPI Bharathi Sue is a 74 year old male who presents here today for Above Complaints.. Patient complaining of chills, tactile fever, productive cough with white sputum, wheezing, chest pain with cough, rhinorrhea fatigue which started 2-3 days ago. Treating with Mucinex OTC. Denies SOB, chest congestion, headache, sore throat, myalgias, new loss of taste/smell, nasal congestion, sinus pain/pressure, nausea, vomiting, diarrhea. No recent sick contacts or exposure to COVID/flu. Has not tested for COVID. Symptoms gradually worsening. Past medical history, appointments, medications, allergies reviewed. Previous Medical History PAST MEDICAL HISTORY Diagnosis Date Allergic rhinitis, cause unspecified Allergic rhinitis Atrial fibrillation (HCC) Bilateral lower extremity edema Blood in stool Hypertension Hypothyroidism Lipoma Morbid obesity (HCC) Onychomycosis Other and unspecified hyperlipidemia Prostate cancer (HCC) [address] White. s/p prostatectomy RBBB Rosacea Type II or unspecified type diabetes mellitus without mention of complication, uncontrolled Urinary incontinence Previous Surgical History PAST SURGICAL HISTORY Procedure Laterality Date COLONOSCOPY FLX DX W/COLLJ SPEC WHEN PFRMD 01/22/06 COLONOSCOPY FLX DX W/COLLJ SPEC WHEN PFRMD 02/16/16 Colonoscopy PAST SURGICAL HISTORY OF 2005 prostatectomy REPAIR UMBILICAL HERNIA 2001 Family History FAMILY HISTORY Problem Relation Age of Onset Diabetes Mother Alzheimer's Disease Father Diabetes Brother Asthma Brother other (parkinsons) Brother Patient Allergies ALLERGIES Allergen Reactions Mellette Seed Anaphylaxis Zocor [Simvastatin] Myalgia muscle pain Amoxicillin Hives Dust Erythromycin Other: See Comments Tingling. Current Medications Current Outpatient Medications on File Prior to Visit Medication Sig dulaglutide (TRULICITY) 3 mg/0.5 mL pen injector Inject 3 mg subcutaneously one time a week. insulin glargine (BASAGLAR KWIKPEN U-100 INSULIN) 100 unit/mL (3 mL) Inject 34 Units subcutaneously two times a day. enalapril (VASOTEC) 20 mg tablet Take 1 tablet by mouth once daily. rosuvastatin (CRESTOR) 20 mg tablet Take 1 tablet by mouth daily at bedtime. levothyroxine (SYNTHROID) 100 mcg tablet TAKE 1 TABLET DAILY ON AN EMPTY STOMACH metFORMIN (GLUCOPHAGE) 500 mg tablet Take 2 tablets by mouth two times a day with meals. blood sugar diagnostic (ARKeXTOUCH ULTRA TEST) test strip Test blood sugar BID and as needed Insulin [place], Disposable, (BD ULTRA-FINE CAROLYN PEN NEEDLE) 32 gauge x 5/32 Inject 1 Each subcutaneously two times a day. Use with Insulin Lancets (ARKeXTOUCH ULTRASOFT LANCETS) Test blood sugar(s) 2 times daily and as needed. Dx: Type 2 DM - Uncontrolled E11.65 , Insulin: Yes hydroCHLOROthiazide 25 mg tablet TAKE 1 TABLET (25mg) BY MOUTH ONCE DAILY ELIQUIS 5 mg tab(s) Take 1 tablet by mouth every 12 hours. EPINEPHrine (EPIPEN) 0.3 mg/0.3 mL auto-injector Inject 0.3 mL intramuscularly as needed (For allergic reaction). propylene glycol (SYSTANE BALANCE OPHTHALMIC) Use in eyes. 3-4 times a day sulfacetamide sodium/sulfur (PRASCION TOPICAL) Apply to affected area once daily. 10-55 omega-3 DHA-EPA (FISH OIL) 1,200 (144-216) mg capsule Take 1 capsule by mouth daily with breakfast. MAGNESIUM SULFATE ORAL Take 500 mg by mouth once daily. CINNAMON BARK ORAL Take 2,000 mcg by mouth once daily. carvedilol (COREG) 3.125 mg tablet Take 3.125 mg by mouth twice daily with meals. blood sugar diagnostic (BLOOD GLUCOSE TEST) test strip Test blood sugar(s) 2 times daily. Dx: Type 2 DM - Controlled E11.9 Insulin: Yes nitroglycerin sublingual (NITROQUICK) 0.[address] 1 tablet under the tongue if needed every 5 minutes for stephen... (REFER TO PRESCRIPTION NOTES). albuterol HFA (VENTOLIN HFA) 90 mcg/actuation inhaler Inhale 2 Puffs as instructed every 4 hours as needed for wheezing/shortness of breath. blood sugar diagnostic (ONETOUCH ULTRA TEST STRIP) test strip Test sugar daily and as needed Blood-Glucose Meter (ONETOUCH ULTRA2 METER) monitoring kit Check blood sugar daily and as needed aspirin, enteric coated (ASPIRIN, ENTERIC COATED) 81 mg EC tablet Take 81 mg by mouth once daily. Compression Knee Highs KNEE HIGH COMPRESSION STOCKINGS 30-40 MM. DX: EDEMA multivitamin (DAILY MULTI-VITAMIN) ORAL Tab Take one(1) tablet daily. warfarin (COUMADIN) 2 mg tablet Take 1 tablet by mouth daily as directed. (Patient not taking: Reported on 08/31/2024) No current facility-administered medications on file prior to visit. Social History Social History Tobacco Use Smoking status: Never Smokeless tobacco: Never (more content not included)...[facility]02-07-[facility]25 History of Present illness Narrative* Sara Fuller MD - 11/27/2024 8:55 AM EST Chief Complaint Patient presents with: Fatigue Cough chills w/o temp check HPI Bharathi Sue is a 74 year old male who presents here today for Above Complaints.. Patient complaining of chills, tactile fever, productive cough with white sputum, wheezing, chest pain with cough, rhinorrhea fatigue which started 2-3 days ago. Treating with Mucinex OTC. Denies SOB, chest congestion, headache, sore throat, myalgias, new loss of taste/smell, nasal congestion, sinus pain/pressure, nausea, vomiting, diarrhea. No recent sick contacts or exposure to COVID/flu. Has not tested for COVID. Symptoms gradually worsening. Past medical history, appointments, medications, allergies reviewed. Previous Medical History PAST MEDICAL HISTORY Diagnosis Date Allergic rhinitis, cause unspecified Allergic rhinitis Atrial fibrillation (HCC) Bilateral lower extremity edema Blood in stool Hypertension Hypothyroidism Lipoma Morbid obesity (HCC) Onychomycosis Other and unspecified hyperlipidemia Prostate cancer (HCC) [address] White. s/p prostatectomy RBBB Rosacea Type II or unspecified type diabetes mellitus without mention of complication, uncontrolled Urinary incontinence Previous Surgical History PAST SURGICAL HISTORY Procedure Laterality Date COLONOSCOPY FLX DX W/COLLJ SPEC WHEN PFRMD 01/22/06 COLONOSCOPY FLX DX W/COLLJ SPEC WHEN PFRMD 02/16/16 Colonoscopy PAST SURGICAL HISTORY OF 2005 prostatectomy REPAIR UMBILICAL HERNIA 2001 Family History FAMILY HISTORY Problem Relation Age of Onset Diabetes Mother Alzheimer's Disease Father Diabetes Brother Asthma Brother other (parkinsons) Brother Patient Allergies ALLERGIES Allergen Reactions Mellette Seed Anaphylaxis Zocor [Simvastatin] Myalgia muscle pain Amoxicillin Hives Dust Erythromycin Other: See Comments Tingling. Current Medications Current Outpatient Medications on File Prior to Visit Medication Sig dulaglutide (TRULICITY) 3 mg/0.5 mL pen injector Inject 3 mg subcutaneously one time a week. insulin glargine (BASAGLAR KWIKPEN U-100 INSULIN) 100 unit/mL (3 mL) Inject 34 Units subcutaneouslytwo times a day. enalapril (VASOTEC) 20 mg tablet Take 1 tablet by mouth once daily. rosuvastatin (CRESTOR) 20 mg tablet Take 1 tablet by mouth daily at bedtime. levothyroxine (SYNTHROID) 100 mcg tablet TAKE 1 TABLET DAILY ON AN EMPTY STOMACH metFORMIN (GLUCOPHAGE) 500 mg tablet Take 2 tablets by mouth two times a day with meals. blood sugar diagnostic (ARKeXTOUCH ULTRA TEST) test strip Test blood sugar BID and as needed Insulin [place], Disposable, (BD ULTRA-FINE CAROLYN PEN NEEDLE) 32 gauge x 5/32 Inject 1 Each subcutaneously two times a day. Use with Insulin Lancets (ARKeXTOUCH ULTRASOFT LANCETS) Test blood sugar(s) 2 times daily and as needed. Dx: Type 2 DM- Uncontrolled E11.65 , Insulin: Yes hydroCHLOROthiazide 25 mg tablet TAKE 1 TABLET (25mg) BY MOUTH ONCE DAILY ELIQUIS 5 mg tab(s) Take 1 tablet by mouth every 12 hours. EPINEPHrine (EPIPEN) 0.3 mg/0.3 mL auto-injector Inject 0.3 mL intramuscularly as needed (For allergic reaction). propylene glycol (SYSTANE BALANCE OPHTHALMIC) Use in eyes. 3-4 times a day sulfacetamide sodium/sulfur (PRASCION TOPICAL) Apply to affected area once daily. 10-55 omega-3 DHA-EPA (FISH OIL) 1,200 (144-216) mg capsule Take 1 capsule by mouth daily with breakfast. MAGNESIUM SULFATE ORAL Take 500 mg by mouth once daily. CINNAMON BARK ORAL Take 2,000 mcg by mouth once daily. carvedilol (COREG) 3.125 mg tablet Take 3.125 mg by mouth twice daily with meals. blood sugar diagnostic (BLOOD GLUCOSE TEST) test strip Test blood sugar(s) 2 times daily. Dx: Type 2 DM - Controlled E11.9 Insulin: Yes nitroglycerin sublingual (NITROQUICK) 0.[address] 1 tablet under the tongue if needed every 5 minutes for stephen... (REFER TO PRESCRIPTION NOTES). albuterol HFA (VENTOLIN HFA) 90 mcg/actuation inhaler Inhale 2 Puffs as instructed every 4 hours asneeded for wheezing/shortness of breath. blood sugar diagnostic (ONETOUCH ULTRA TEST STRIP) test strip Test sugar daily and as needed Blood-Glucose Meter (ONETOUCH ULTRA2 METER) monitoring kit Check blood sugar daily and as needed aspirin, enteric coated (ASPIRIN, ENTERIC COATED) 81 mg EC tablet Take 81 mg by mouth once daily. Compression Knee Highs KNEE HIGH COMPRESSION STOCKINGS 30-40 MM. DX: EDEMA multivitamin (DAILY MULTI-VITAMIN) ORAL Tab Take one(1) tablet daily. warfarin (COUMADIN) 2 mg tablet Take 1 tablet by mouth daily as directed. (Patient not taking: Reported on 08/31/2024) No current facility-administered medications on file prior to visit. Social History Social History Tobacco Use Smoking status: Never Smokeless tobacco: Never Tobacco comments: No smoking in childhood home. Vaping Use Vaping status: Never Used Substance Use Topics Alcohol use: No Drug use: No Review of Symptoms REVIEW OF SYSTEMS See HPI EXAM: BP 112/64 Pulse 88 Temp 37.5 C (99.5 F) Resp 18 Wt 125.1 kg (275 lb 12.8 oz) SpO2 95% BMI 37.41 kg/m General Appearance: ill appearing, non toxic. Skin: Skin color, texture, turgor normal, no suspicious rashes or lesions. Head: Normocephalic, no masses, lesions, tenderness or abnormalities. Eyes: Anicteric sclera. Pupils are equally round and reactive to light. Extraocular movements are intact. . Ears: External ears normal, canals clear. Nose/Sinuses: No sinus tenderness. Oropharynx: Lips, mucosa, and tongue normal, teeth and gums normal, oropharynx normal. Neck: Supple, no adenopathy; thyroid symmetric, normal size, no bruits. Lungs: decreased lung sounds bilaterally which is likely due to habitus. Scattered mild wheezing bilaterally on anterior exam. Heart: RRR without murmur, gallop, or rubs. No ectopy. Health Maintenance List Depression Screening Never done Anxiety Screening Never done BP Controlled (<130/80) due on 06/10/2024 Advance Directive Discussion Never done Urine Albumin:Creatinine Ratio due on 12/06/2024 HbA1C due on 12/23/2024 Dilated Retinal Exam due on 06/17/2025 Diabetic Foot Exam due on 06/29/2025 Annual PCP Team Chronic Disease Visit due on 07/29/2025 LDL Cholesterol due on 08/21/2025 Colorectal Cancer Screening due on 02/15/2026 DTaP,Tdap,Td Vaccine(3 - Td or Tdap) due on 04/05/2026 Influenza Vaccine Completed RSV Vaccine Completed Hepatitis C Screening Completed Shingrix Vaccine Completed Covid-19 Vaccine Completed Pneumococcal Vaccine: 50+ Completed HPV Vaccine Aged Out ASSESSMENT/PLAN: 1. Viral URI with cough - ICD9: 465.9, ICD10: J06.9 (primary diagnosis) - Discussed viral etiology and rationale for treatment. - Symptomatic treatment with prn analgesia - Supportive care with fluids and rest - The patient may also use OTC cough and cold meds as needed, warm salt water gargles, throat lozenges and/or OTC throat spray as needed, and nasal saline gtts and suction prn. - Follow up in one week if symptoms persist or sooner if worsening of symptoms - COVID & INFLUENZA A/B & RSV PCR, ROUTINE 2. Bronchitis - ICD9: 490, ICD10: J40 See above. Given albuterol inhaler to use every 4 hours for the next 2-3, then PRN for wheezing or SOB. Red flags for re-assessment reviewed with patient in detail. - ALBUTEROL SULFATE HFA 90 MCG/ACTUATION AEROSOL INHALER 3. Decreased breath sounds of both lungs - ICD9: 786.9, ICD10: R09.89 May be due to habitus. Obtain CXR to evaluate for PNA. - XR CHEST 2V FRONTAL/LAT 4. Wheezing - ICD9: 786.07, ICD10: R06.2 See above. - XR CHEST 2V FRONTAL/LAT - ALBUTEROL SULFATE HFA 90 MCG/ACTUATION AEROSOL INHALER 5. Cough - ICD9: 786.2, ICD10: R05.9 See above. - BENZONATATE 100 MG CAPSULE Sara Fuller MD [facility] NoteHNO ID: [id number] Author: QUETA GUERRERO LPN Service: ? Author Type: LICENSED NURSE Type: Progress Notes Filed: 11/23/2024 08:32 Note Text: Per Dr. Angelo Bharathi was provided with 4 hammer toe crest pad and 4 toe straighter and instructed/educated in its application, wear, and care. All questions were answered, and patient was able to demonstrate competence with the necessary skills to utilize the above equipment. [facility] History of Present illness Narrative* Queta Guerrero LPN - 11/23/2024 8:31 AM EST Per Bharathi Rand was provided with 4 hammer toe crest pad and 4 toe straighter and instructed/educated in its application, wear, and care. All questions were answered, and patient was able todemonstrate competence with the necessary skills to utilize the above equipment. Queta Guerrero LPN * Viktoriya Angelo - 11/23/2024 8:13 AM EST Initial Office Visit Subjective: This 74 year old male presents to clinic for diabetic foot check. Patient has no complaints. Patient admits to being diabetic for multiple years now. Patient -B/T/N in feet at this time. Patient -pain in legs when walking. No other pedal complaints at this time. No change in medications or medical history since last visit. PAIN EVALUATION No data found in the last 1 encounters. Hemoglobin A1C (%) Date Value 06/25/2024 6.1 02/21/2024 7.0 12/06/2023 6.8 06/07/2023 6.4 12/03/2022 6.4 11/22/2021 6.7 08/21/2021 6.8 05/18/2021 6.7 01/28/2021 7.5 10/03/2020 7.0 PCP: Sara Fuller MD PAST MEDICAL HISTORY Diagnosis Date Allergic rhinitis, cause unspecified Allergic rhinitis Atrial fibrillation (HCC) Bilateral lower extremity edema Blood in stool Hypertension Hypothyroidism Lipoma Morbid obesity (HCC) Onychomycosis Other and unspecified hyperlipidemia Prostate cancer (HCC) [address] White. s/p prostatectomy RBBB Rosacea Type II or unspecified type diabetes mellitus without mention of complication, uncontrolled Urinary incontinence Current Outpatient Medications Medication Sig dulaglutide (TRULICITY) 3 mg/0.5 mL pen injector Inject 3 mg subcutaneously one time a week. insulin glargine (BASAGLAR KWIKPEN U-100 INSULIN) 100 unit/mL (3 mL) Inject 34 Units subcutaneouslytwo times a day. enalapril (VASOTEC) 20 mg tablet Take 1 tablet by mouth once daily. rosuvastatin (CRESTOR) 20 mg tablet Take 1 tablet by mouth daily at bedtime. levothyroxine (SYNTHROID) 100 mcg tablet TAKE 1 TABLET DAILY ON AN EMPTY STOMACH metFORMIN (GLUCOPHAGE) 500 mg tablet Take 2 tablets by mouth two times a day with meals. hydroCHLOROthiazide 25 mg tablet TAKE 1 TABLET (25mg) BY MOUTH ONCE DAILY ELIQUIS 5 mg tab(s) Take 1 tablet by mouth every 12 hours. EPINEPHrine (EPIPEN) 0.3 mg/0.3 mL auto-injector Inject 0.3 mL intramuscularly as needed (For allergic reaction). propylene glycol (SYSTANE BALANCE OPHTHALMIC) Use in eyes. 3-4 times a day omega-3 DHA-EPA (FISH OIL) 1,200 (144-216) mg capsule Take 1 capsule by mouth daily with breakfast. MAGNESIUM SULFATE ORAL Take 500 mg by mouth once daily. CINNAMON BARK ORAL Take 2,000 mcg by mouth once daily. carvedilol (COREG) 3.125 mg tablet Take 3.125 mg by mouth twice daily with meals. nitroglycerin sublingual (NITROQUICK) 0.[address] 1 tablet under the tongue if needed every 5 minutes for stephen... (REFER TO PRESCRIPTION NOTES). aspirin, enteric coated (ASPIRIN, ENTERIC COATED) 81 mg EC tablet Take 81 mg by mouth once daily. multivitamin (DAILY MULTI-VITAMIN) ORAL Tab Take one(1) tablet daily. warfarin (COUMADIN) 2 mg tablet Take 1 tablet by mouth daily as directed. (Patient not taking: Reported on 08/31/2024) blood sugar diagnostic (ONETOUCH ULTRA TEST) test strip Test blood sugar BID and as needed Insulin [place], Disposable, (BD ULTRA-FINE CAROLYN PEN NEEDLE) 32 gauge x 5/32 Inject 1 Each subcutaneously two times a day. Use with Insulin Lancets (iPowerUpUCH ULTRASOFT LANCETS) Test blood sugar(s) 2 times daily and as needed. Dx: Type 2 DM- Uncontrolled E11.65 , Insulin: Yes sulfacetamide sodium/sulfur (PRASCION TOPICAL) Apply to affected area once daily. 10-55 (Patient not taking: Reported on 03/07/2023) blood sugar diagnostic (BLOOD GLUCOSE TEST) test strip Test blood sugar(s) 2 times daily. Dx: Type 2 DM - Controlled E11.9 Insulin: Yes albuterol HFA (VENTOLIN HFA) 90 mcg/actuation inhaler Inhale 2 Puffs as instructed every 4 hours asneeded for wheezing/shortness of breath. (Patient not taking: Reported on 11/27/2021) blood sugar diagnostic (ONETOUCH ULTRA TEST STRIP) test strip Test sugar daily and as needed Blood-Glucose Meter (ONETOUCH ULTRA2 METER) monitoring kit Check blood sugar daily and as needed Compression Knee Highs KNEE HIGH COMPRESSION STOCKINGS 30-40 MM. DX: EDEMA No current facility-administered medications for this visit. ALLERGIES Allergen Reactions Mellette Seed Anaphylaxis Zocor [Simvastatin] Myalgia muscle pain Amoxicillin Hives Dust Erythromycin Other: See Comments Tingling. PAST SURGICAL HISTORY Procedure Laterality Date COLONOSCOPY FLX DX W/COLLJ SPEC WHEN PFRMD 01/22/06 COLONOSCOPY FLX DX W/COLLJ SPEC WHEN PFRMD 02/16/16 Colonoscopy PAST SURGICAL HISTORY OF 2005 prostatectomy REPAIR UMBILICAL HERNIA 2002 FAMILY HISTORY Problem Relation Age of Onset Diabetes Mother Alzheimer's Disease Father Diabetes Brother Asthma Brother other (parkinsons) Brother Social History Tobacco Use Smoking status: Never Smokeless tobacco: Never Tobacco comments: No smoking in childhood home. Vaping Use Vaping status: Never Used Substance Use Topics Alcohol use: No Drug use: No REVIEW OF SYSTEMS GENERAL: Negative for Malaise, significant weight loss, fever RESPIRATORY: Negative for cough, wheezing and shortness of breath CARDIOVASCULAR: Negative for chest pain, leg swelling and palpitations GI: Negative for abdominal discomfort, blood in stools or black stools and change in bowel habits : Negative for dysuria, frequency and incontinence MUSCULOSKELETAL: Negative for joint pain or swelling, back pain, and muscle pain. SKIN: Negative for lesions, rash, and itching. HEMATOLOGY/LYMPHOLOGY Negative for prolonged bleeding, bruising easily, and swollen nodes. ENDOCRINE: Negative for cold or heat intolerance, polyuria, polydipsia and goiter. NEURO: negative The remainder of the review of systems is noncontributory. Objective: Patient presents to clinic ambulating in boots Constitutional: Pt is a well developed 74 year old male who is alert, oriented, cooperative and in no apparent distress. Eyes: Following during examination. No redness or drainage. Respiratory: RR normal and nonlabored. Even breathing. No evidence of distress. Psychology: Patient is engaged during conversation. Normal affect and mood. Does not appear depressed or anxious. Vasc: DP and PT pulses are palpable bilateral. CFT is less than 5 seconds bilateral. Skin temperature is warm to warm proximal to distal bilateral. There is no edema or varicosities noted. Hair growth present. Neuro: Protective sensation is intact to the foot and toes when tested with the 5.07 SWM bilateral.Vibratory sensation is decreased at the hallux bilateral. + Significant neurological defecits. Derm: Inspection and palpation performed. Nails 1 left are discolored-yellow, thick, crumbly, dystrophic and with subungal debris. Skin is of normal turgor and texture. Hyperkeratosis noted to not present. NO ulcerations, scars, verruca or other lesions noted. Ortho: Ankle joint DF is full with the knee extended and full with knee flexed. No pain or crepitusnoted. STJ, MTJ ROM are full and free of pain or crepitus. Muscle strength is 5/5 for dorsiflexors,plantarflexors, inverters, everters. Digital deformities include hammertoe 2nd and 3rd b/l. Assessment: (E11.42) Diabetic polyneuropathy associated with type 2 diabetes mellitus (HCC) (primary encounter diagnosis) (M20.41, M20.42) Hammer toes of both feet (B35.1) Onychomycosis Plan: 1. Patient was seen and evaluated. 2. Patient was instructed on the continued importance of diabetic foot care along with proper diet and keeping their blood sugar under control to prevent complications. Stressed the importance of avoiding barefoot walking, wearing good shoes and inspection of feet Instructions given both oral and written. 3. Patient has hammertoes to both feet, 2nd and 3rd. Options include wider shoes, padding vs surgery. patient has elected to continue with padding. 4. Discussed dystrophic left hallux nail. Has already completed course of oral medication without improvement. Options include filing down vs permanent nail removal. Today we filed as courtesy. In order to perform a complete physical exam, one nail slant back was performed. This incidental service is integral to the evaluation and management visit in order to appropriately manage and treat the patient (for their complaint or for this visit). Could consider removal. Viktoriya Angelo DPM [facility] Instructions* Patient Instructions* Viktoriya Angelo - 11/23/2024 8:16 AM EST Diabetes Foot Care Instructions When you have diabetes, proper foot care is very important. Poor foot care may lead to amputation of a foot or leg. As a person with diabetes, you are more vulnerable to foot problems, because diabetes can damage your nerves and reduce blood flow to your feet. Here are some diabetes foot care tips to follow: Wash and Dry Your Feet Daily Use mild soaps Use warm water Pat your skin dry; do not rub. Thoroughly dry your feet. After washing, use lotion on your feet to prevent cracking. Do not put lotion between your toes. Examine Your Feet Each Day Check the tops and bottoms of your feet. Have someone else look at your feet if you cannot see them. Check for dry, cracked skin. Look for blisters, cuts, scratches, or other sores. Check for redness, increased warmth, or tenderness when touching any area of your feet. Check for ingrown toenails, corns, and calluses. If you get a blister or sore from your shoes, do not pop it. Apply a bandage and wear a differentpair of shoes. Take Care of Your Toenails Cut toenails after bathing, when they are soft. Cut toenails straight across and smooth with a nail file. Avoid cutting into the corners of toes. Do not cut cuticles. If you have neuropathy (or decreased sensation in your feet) a claim analyst should always cut your toenails. Be Careful When Exercising Walk and exercise in comfortable shoes. Do not exercise when you have open sores on your feet. Protect Your Feet With Shoes and Socks Never go barefoot. Always protect your feet by wearing shoes or hard-soled slippers or footwear. Avoid shoes with high heels and pointed toes. Avoid shoes that expose your toes or heels (such as open-toed shoes or sandals). These types of shoes increase your risk for injury and potential infections. Try on new footwear with the type of socks you usually wear. Do not wear new shoes for more than an hour at a time. Change your socks daily. Look and feel inside your shoes before putting them on to make sure there are no foreign objects orrough areas. Avoid tight socks. Wear natural-fiber socks (cotton, wool, or a cotton-wool blend). Wear special shoes if your health care provider recommends them. Wear shoes/boots that will protect your feet from various weather conditions (cold, moisture, etc.). Make sure your shoes fit properly. If you have neuropathy (nerve damage), you may not notice that your shoes are too tight. Perform the footwear test described below. Footwear Test Use this simple test to see if your shoes fit correctly: Stand on a piece of paper. (Make sure you are standing and not sitting, because your foot changes shape when you stand.) Trace the outline of your foot. Trace the outline of your shoe. Compare the tracings: Is the shoe too narrow? Is your foot crammed into the shoe? The shoe should be at least 1/2 inch longer than your longest toe and as wide as your foot. Proper Shoe Choices The following types of shoes are best for people with diabetes Closed toes and heels Leather uppers without a seam inside At least 1/2 inch extra space at the end of your longest toe Inside of shoe should be soft with no rough areas Outer sole should be made of stiff material Shoes should be at least as wide as your feet Tips for Foot Care in Diabetes Don't wait to treat a minor foot problem if you have diabetes. Follow your health care provider's guidelines and first aid guidelines. Report foot injuries and infections to your health care provider immediately. Check water temperature with your elbow, not your foot. Do not use a heating pad on your feet. Do not cross your legs. Do not self-treat your corns, calluses, or other foot problems. Go to your health care provider or claim analyst to treat these conditions. [facility] NoteHNO ID: [id number] Author: VIKTORIYA ANGELO, ? Service: ? Author Type: Physician Type: Progress Notes Filed: 11/23/2024 08:22 Note Text: Initial Office Visit Subjective: This 74 year old male presents to clinic for diabetic foot check. Patient has no complaints. Patient admits to being diabetic for multiple years now. Patient -B/T/N in feet at this time. Patient -pain in legs when walking. No other pedal complaints at this time. No change in medications or medical history since last visit. PAIN EVALUATION No data found in the last 1 encounters. Hemoglobin A1C (%) Date Value 06/25/2024 6.1 02/21/2024 7.0 12/06/2023 6.8 06/07/2023 6.4 12/03/2022 6.4 11/22/2021 6.7 08/21/2021 6.8 05/18/2021 6.7 01/28/2021 7.5 10/03/2020 7.0 PCP: Sara Fuller MD PAST MEDICAL HISTORY Diagnosis Date Allergic rhinitis, cause unspecified Allergic rhinitis Atrial fibrillation (HCC) Bilateral lower extremity edema Blood in stool Hypertension Hypothyroidism Lipoma Morbid obesity (HCC) Onychomycosis Other and unspecified hyperlipidemia Prostate cancer (HCC) [address] White. s/p prostatectomy RBBB Rosacea Type II or unspecified type diabetes mellitus without mention of complication, uncontrolled Urinary incontinence Current Outpatient Medications Medication Sig dulaglutide (TRULICITY) 3 mg/0.5 mL pen injector Inject 3 mg subcutaneously one time a week. insulin glargine (BASAGLAR KWIKPEN U-100 INSULIN) 100 unit/mL (3 mL) Inject 34 Units subcutaneously two times a day. enalapril (VASOTEC) 20 mg tablet Take 1 tablet by mouth once daily. rosuvastatin (CRESTOR) 20 mg tablet Take 1 tablet by mouth daily at bedtime. levothyroxine (SYNTHROID) 100 mcg tablet TAKE 1 TABLET DAILY ON AN EMPTY STOMACH metFORMIN (GLUCOPHAGE) 500 mg tablet Take 2 tablets by mouth two times a day with meals. hydroCHLOROthiazide 25 mg tablet TAKE 1 TABLET (25mg) BY MOUTH ONCE DAILY ELIQUIS 5 mg tab(s) Take 1 tablet by mouth every 12 hours. EPINEPHrine (EPIPEN) 0.3 mg/0.3 mL auto-injector Inject 0.3 mL intramuscularly as needed (For allergic reaction). propylene glycol (SYSTANE BALANCE OPHTHALMIC) Use in eyes. 3-4 times a day omega-3 DHA-EPA (FISH OIL) 1,200 (144-216) mg capsule Take 1 capsule by mouth daily with breakfast. MAGNESIUM SULFATE ORAL Take 500 mg by mouth once daily. CINNAMON BARK ORAL Take 2,000 mcg by mouth once daily. carvedilol (COREG) 3.125 mg tablet Take 3.125 mg by mouth twice daily with meals. nitroglycerin sublingual (NITROQUICK) 0.[address] 1 tablet under the tongue if needed every 5 minutes for stephen... (REFER TO PRESCRIPTION NOTES). aspirin, enteric coated (ASPIRIN, ENTERIC COATED) 81 mg EC tablet Take 81 mg by mouth once daily. multivitamin (DAILY MULTI-VITAMIN) ORAL Tab Take one(1) tablet daily. warfarin (COUMADIN) 2 mg tablet Take 1 tablet by mouth daily as directed. (Patient not taking: Reported on 08/31/2024) blood sugar diagnostic ([employer] ULTRA TEST) test strip Test blood sugar BID and as needed Insulin [place], Disposable, (BD ULTRA-FINE CAROLYN PEN NEEDLE) 32 gauge x 5/32 Inject 1 Each subcutaneously two times a day. Use with Insulin Lancets (ONETOUCH ULTRASOFT LANCETS) Test blood sugar(s) 2 times daily and as needed. Dx: Type 2 DM - Uncontrolled E11.65 , Insulin: Yes sulfacetamide sodium/sulfur (PRASCION TOPICAL) Apply to affected area once daily. 10-55 (Patient not taking: Reported on 03/07/2023) blood sugar diagnostic (BLOOD GLUCOSE TEST) test strip Test blood sugar(s) 2 times daily. Dx: Type 2 DM - Controlled E11.9 Insulin: Yes albuterol HFA (VENTOLIN HFA) 90 mcg/actuation inhaler Inhale 2 Puffs as instructed every 4 hours as needed for wheezing/shortness of breath. (Patient not taking: Reported on 11/27/2021) blood sugar diagnostic (ONETOUCH ULTRA TEST STRIP) test strip Test sugar daily and as needed Blood-Glucose Meter (ONETOUCH ULTRA2 METER) monitoring kit Check blood sugar daily and as needed Compression Knee Highs KNEE HIGH COMPRESSION STOCKINGS 30-40 MM. DX: EDEMA No current facility-administered medications for this visit. ALLERGIES Allergen Reactions Mellette Seed Anaphylaxis Zocor [Simvastatin] Myalgia muscle pain Amoxicillin Hives Dust Erythromycin Other: See Comments Tingling. PAST SURGICAL HISTORY Procedure Laterality Date COLONOSCOPY FLX DX W/COLLJ SPEC WHEN PFRMD 01/22/06 COLONOSCOPY FLX DX W/COLLJ SPEC WHEN PFRMD 02/16/16 Colonoscopy PAST SURGICAL HISTORY OF 2005 prostatectomy REPAIR UMBILICAL HERNIA 2001 FAMILY HISTORY Problem Relation Age of Onset Diabetes Mother Alzheimer's Disease Father Diabetes Brother Asthma Brother other (parkinsons) Brother Social History Tobacco Use Smoking status: Never Smokeless tobacco: Never Tobacco comments: No smoking in childhood home. Vaping Use Vaping status: Never Used Substance Use Topics Alcoh (more content not included)...[facility]12-23-2024 Telephone encounter Note* Telephone Encounter - Essence Solis LPN - 10/12/2024 4:19 PM EST Prescriptions and forms faxed to [facility] at with confirmation received. Essence Solis LPN [facility]12-23-[facility] Miscellaneous Notes* Telephone Encounter - Essence Solis LPN - 10/12/2024 4:19 PM EST Prescriptions and forms faxed to [facility] at with confirmation received. Essence Solis LPN * Telephone Encounter - Kenyetta Stacy APRN.CNP - 10/12/2024 3:01 PM EST Prescriptions printed. Please fax with forms in my outbox. Kenyetta Stacy APRN.FRANCY documented in [facility]12-[facility]24 Telephone encounter Note * Telephone Encounter - Kenyetta Stacy APRN.FRANCY - 10/12/2024 3:01 PM EST Prescriptions printed. Please fax with forms in my outbox. Kenyetta Stacy APRN.FRANCY [facility]12-18-2024 Telephone encounter Note* Telephone Encounter - Essence Solis LPN - 10/07/2024 2:19 PM EST Forms faxed to [facility] at with confirmation received. Originals sent to scanning. Essence Solis LPN [facility]12-18-2024 Miscellaneous Notes* Telephone Encounter - Essence Solis LPN - 10/07/2024 2:19 PM EST Forms faxed to [facility] at with confirmation received. Originals sent to scanning. Essence Solis LPN * Telephone Encounter - Marie Lundy RN - 10/07/2024 11:14 AM EST Patient returns call and provider message reviewed. Patient requests that forms are faxed to [facility]. Marie Lundy RN * Telephone Encounter - Essence Solis LPN - 10/06/2024 3:37 PM EST Telephone call placed to patient. Message left to call office back for update. When patient calls back please ask if he wants the office to fax forms to [facility]. Eric at my desk at this time. Essence Solis LPN * Telephone Encounter - Kenyetta Stacy APRN.CNP - 10/06/2024 3:27 PM EST Forms completed and in mu outbox. 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 Kenyetta Stacy APRN.FRANCY * Telephone Encounter - Essence Solis LPN - 10/06/2024 9:15 AM EST Type of form: [facility] Patient Assistance Forms Form received via walk in When form is completed, call patient. Form has been forwarded to Nurse Practitioner: Kenyetta Stacy Patient states one form is for Trulicity and the other is for Basaglar. Essence Solis LPN documented in [facility] encounter[facility]12-18-2024 Telephone encounter Note * Telephone Encounter - Marie Lundy RN - 10/07/2024 11:14 AM EST Patient returns call and provider message reviewed. Patient requests that forms are faxed to [facility]. Marie Lundy RN [facility]12-17-[facility] Telephone encounter Note* Telephone Encounter - Essence Solis LPN - 10/06/2024 3:37 PM EST Telephone call placed to patient. Message left to call office back for update. When patient calls back please ask if he wants the office to fax forms to [facility]. Forns at my desk at this time. Essenec Solis LPN [facility]12-17-[facility] Telephone encounter Note* Telephone Encounter - Kenyetta Stacy APRN.FRANCY - 10/06/2024 3:27 PM EST Forms completed and in mu outbox. 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 Kenyetta Stacy APRN.FRANCY [facility]12-17-2024 Telephone encounter Note* Telephone Encounter - Essence Solis LPN - 10/06/2024 9:15 AM EST Type of form: [facility] Patient Assistance Forms Form received via walk in When form is completed, call patient. Form has been forwarded to Nurse Practitioner: Kenyetta Stacy Patient states one form is for Trulicity and the other is for Basaglar. Essence Solis LPN [facility]11-15-[facility] Telephone encounter Note* Telephone Encounter - Queta Giraldo RN - 09/04/2024 10:15 AM EST Attempted to call pt. A gentleman answered but did not respond after saying hello. I could hear theTV in the background but no one responded to me. I will try again in a little while. [facility]11-[facility] Miscellaneous Notes* Telephone Encounter - Queta Giraldo RN - 09/04/2024 10:15 AM EST Attempted to call pt. A gentleman answered but did not respond after saying hello. I could hear theTV in the background but no one responded to me. I will try again in a little while. * Telephone Encounter - Josefina Hernandez PA-C - 09/03/2024 4:09 PM EST Can we let the patient know that he was denied for viscosupplementation. He has to participate in an at home therapy program or formal physical therapy, we can send him a packet of exercises and theywould also like him to work on weight loss. Did not specify how that needed to be documented. Payer Request Additional Information Other (must complete Comment section) Patient Name: Bharathi Sue Appt Date: [facility] code(s) & drug name(s): EUFLEXXA [id number] Comments: Documentation of Physical therapy or documented home exercise routine (at least 4-6 weeks1 Clinical Documentation Requirements Hyaluronic Acid Derivatives/Vicosupplements Below are the most common requirements for most major payers. Failure to document all necessary criteria will result in delays or denials. Payer policies will always serve as the document to reference for specific requirements. Initial Requests (Most Payers A & B are required) A. Diagnosis of osteoarthritis confirmed by radiological evidence (e.g. x-ray, MRI, CT Scan) AND B. Patient has tried and failed conservative therapies (when & for how long): 1. Physical therapy or documented home exercise routine (at least 4-6 weeks1) and 2. NSAIDS, acetaminophen or topical capsacin creams (document length of use) and 3. At least two cortisone injectionswith documented results* (or efficacy was less than 4 weeks duration or 4. Document patient is unable to tolerate conservative therapy because of adverse side effects AND C. Weight loss attempts or attempts at lifestyle modifications to promote weight loss (only for members with BMI >= 30) AND D. Member must be 40 years old or older AND E. Patient reports pain whichinterferes with functional activities (e.g., ambulation, prolonged standing) Pharmacy Authorization Department ----- Message ----- From: Burke (Pharm[facility])Zarina Sent: 09/01/2024 3:40 PM EST To: Bryson Patel Auth Rep; Josefina Hernandez PA-C; * Subject: Prior Auth Delayed: Additional Info Needed Additional Clinical Information Request Please reply all to this email Please provide the following information to facilitate or complete the prior authorization Clinical Information - See Comments Sign OV Notes Clarify Information Updated / Correct Insurance Updated diagnosis code on order and or office note x Medical Necessity Not Met Per Payer Guidelines [facility] in [facility] Telephone encounter Note * Telephone Encounter - Josefina Hernandez PA-C - 09/03/2024 4:09 PM EST Can we let the patient know that he was denied for viscosupplementation. He has to participate in an at home therapy program or formal physical therapy, we can send him a packet of exercises and theywould also like him to work on weight loss. Did not specify how that needed to be documented. Payer Request Additional Information Other (must complete Comment section) Patient Name: Bharathi Sue Appt Date: [facility] code(s) & drug name(s): EUFLEXXA [id number] Comments: Documentation of Physical therapy or documented home exercise routine (at least 4-6 weeks1 Clinical Documentation Requirements Hyaluronic Acid Derivatives/Vicosupplements Below are the most common requirements for most major payers. Failure to document all necessary criteria will result in delays or denials. Payer policies will always serve as the document to reference for specific requirements. Initial Requests (Most Payers A & B are required) A. Diagnosis of osteoarthritis confirmed by radiological evidence (e.g. x-ray, MRI, CT Scan) AND B. Patient has tried and failed conservative therapies (when & for how long): 1. Physical therapy or documented home exercise routine (at least 4-6 weeks1) and 2. NSAIDS, acetaminophen or topical capsacin creams (document length of use) and 3. At least two cortisone injectionswith documented results* (or efficacy was less than 4 weeks duration or 4. Document patient is unable to tolerate conservative therapy because of adverse side effects AND C. Weight loss attempts or attempts at lifestyle modifications to promote weight loss (only for members with BMI >= 30) AND D. Member must be 40 years old or older AND E. Patient reports pain whichinterferes with functional activities (e.g., ambulation, prolonged standing) Pharmacy Authorization Department ----- Message ----- From: Burke (Pharm[facility])Zarina Sent: 09/01/2024 3:40 PM EST To: Bryson Patel Auth Rep; Josefina Hernandez PA-C; * Subject: Prior Auth Delayed: Additional Info Needed Additional Clinical Information Request Please reply all to this email Please provide the following information to facilitate or complete the prior authorization Clinical Information - See Comments Sign OV Notes Clarify Information Updated / Correct Insurance Updated diagnosis code on order and or office note x Medical Necessity Not Met Per Payer Guidelines [facility] Work Phone: 1(929) 325-166111-11-2024 NoteHNO ID: [id number] Author: JOSEFINA HERNANDEZ PA-C Service: ? Author Type: Physician Petal Cutter Type: Progress Notes Filed: 08/31/2024 09:25 Note Text: Josefina Hernandez PA-C Department [facility]edics [facility] [address] [facility] [address] Dept: [phone] Dept August 31, 2024 CHIEF COMPLAINT: Established Patient and Follow Up of the Left Knee and Established Patient and Follow Up of the Right Knee. ASSESSMENT: M17.0 Primary osteoarthritis of both knees (primary encounter diagnosis) SUMMARY/PLAN: Patient presents for repeat bilateral knee corticosteroid injections, injections have been helping him for several months at a time. He is also been using some heat when these are bothering him which he does find to be effective. He is interested in trying viscosupplementation, we will put in a prior authorization. Large Joint Arthro/Inj: bilateral knee joints Informed Consent Consent Obtained: Verbal [place] Protocol A moment to CARE was completed. SIGN IN Sign in communication not applicable due to emergent procedure. Personnel directly involved with the procedure wore the appropriate PPE. Special Equipment: N/A Patient/Surrogate Stated/Verified: Patient name, Date of , Relevant allergies and Intended procedure TIME OUT Intended patient and procedure match the source document(s). Consent documented and matches the intended procedure. Relevant labs, photos, and/or imaging studies have been reviewed. Correct side/site marked and visible. Medications required for procedure verified. No fire risk assessment and interventions applicable. No implant(s) inserted. 08/31/2024 9:25 AM The procedure site was prepped in the usual sterile fashion. Site: bilateral knee joints Medications (Right): 6 mg betamethasone acetate-betamethasone sodium phosphate 6 mg/mL Medications (Left): 6 mg betamethasone acetate-betamethasone sodium phosphate 6 mg/mL Anesthetics (Right): 5 mL lidocaine (PF) 10 mg/mL (1 %) Anesthetics (Left): 5 mL lidocaine (PF) 10 mg/mL (1 %) Outcome: Tolerated well, no immediate complications Post-injection instructions were reviewed with the patient and the patient voiced understanding of these instructions. SIGN OUT No specimen collected. No instruments, equipment or retained foreign bodies applicable. Post-procedure follow-up management communicated and Plan of Care Visit completed when applicable Mr. Bharathi Sue was advised as to contrast therapies and/or to take analgesics/anti-inflammatories as needed and all contraindications were reviewed. Supporting Information Below: Medications: Current Outpatient Medications Medication Sig dulaglutide (TRULICITY) 3 mg/0.5 mL pen injector Inject 3 mg subcutaneously one time a week. enalapril (VASOTEC) 20 mg tablet Take 1 tablet by mouth once daily. rosuvastatin (CRESTOR) 20 mg tablet Take 1 tablet by mouth daily at bedtime. terbinafine HCl (LAMISIL) 250 mg tablet Take 1 tablet by mouth once daily. insulin glargine (BASAGLAR KWIKPEN U-100 INSULIN) 100 unit/mL (3 mL) Inject 34 Units subcutaneously two times a day. levothyroxine (SYNTHROID) 100 mcg tablet TAKE 1 TABLET DAILY ON AN EMPTY STOMACH metFORMIN (GLUCOPHAGE) 500 mg tablet Take 2 tablets by mouth two times a day with meals. hydroCHLOROthiazide 25 mg tablet TAKE 1 TABLET (25mg) BY MOUTH ONCE DAILY ELIQUIS 5 mg tab(s) Take 1 tablet by mouth every 12 hours. propylene glycol (SYSTANE BALANCE OPHTHALMIC) Use in eyes. 3-4 times a day omega-3 DHA-EPA (FISH OIL) 1,200 (144-216) mg capsule Take 1 capsule by mouth daily with breakfast. MAGNESIUM SULFATE ORAL Take 500 mg by mouth once daily. CINNAMON BARK ORAL Take 2,000 mcg by mouth once daily. carvedilol (COREG) 3.125 mg tablet Take 3.125 mg by mouth twice daily with meals. aspirin, enteric coated (ASPIRIN, ENTERIC COATED) 81 mg EC tablet Take 81 mg by mouth once daily. multivitamin (DAILY MULTI-VITAMIN) ORAL Tab Take one(1) tablet daily. warfarin (COUMADIN) 2 mg tablet Take 1 tablet by mouth daily as directed. (Patient not taking: Reported on 08/31/2024) blood sugar diagnostic (ONETOUCH ULTRA TEST) test strip Test blood sugar BID and as needed Insulin [place], Disposable, (BD ULTRA-FINE CAROLYN PEN NEEDLE) 32 gauge x 5/32 Inject 1 Each subcutaneously two times a day. Use with Insulin Lancets (ARKeXTOUCH ULTRASOFT LANCETS) Test blood sugar(s) 2 times daily and as needed. Dx: Type 2 DM - Uncontrolled E11.65 , Insulin: Yes EPINEPHrine (EPIPEN) 0.3 mg/0.3 mL auto-injector Inject 0.3 mL intramuscularly as needed (For allergic reaction). sulfacetamide sodium/sulfur (PRASCION TOPICAL) Apply to affected area once daily. 10-55 (Patient not taking: Reported on 03/07/2023) blood sugar diagnostic (BLOOD GLUCOSE TEST) test strip Test blood sugar(s) 2 times daily. Dx: Type 2 DM - Controlled E11.9 Insulin: Yes nitroglycerin sublingual (NITROQUICK) 0. (more content not included)...[facility] History of Present illness Narrative* Vetovitz, Josefina, PA-C - 08/31/2024 9:04 AM ESTAssociated Order(s): Large Joint Arthro/Inj: bilateral knee joints Post-Procedure Diagnose(s): Primary osteoarthritis of both knees Josefina Hernandez PA-C Department of Orthopaedics Orthopaedics [address] [facility] [address] Dept: [phone] Dept August 31, 2024 CHIEF COMPLAINT: Established Patient and Follow Up of the Left Knee and Established Patient and Follow Up of the Right Knee. ASSESSMENT: M17.0 Primary osteoarthritis of both knees (primary encounter diagnosis) SUMMARY/PLAN: Patient presents for repeat bilateral knee corticosteroid injections, injections have been helping him for several months at a time. He is also been using some heat when these are bothering him whichhe does find to be effective. He is interested in trying viscosupplementation, we will put in a prior authorization. Large Joint Arthro/Inj: bilateral knee joints Informed Consent Consent Obtained: Verbal [place] Protocol A moment to CARE was completed. SIGN IN Sign in communication not applicable due to emergent procedure. Personnel directly involved with the procedure wore the appropriate PPE. Special Equipment: N/A Patient/Surrogate Stated/Verified: Patient name, Date of , Relevant allergies and Intended procedure TIME OUT Intended patient and procedure match the source document(s). Consent documented and matches the intended procedure. Relevant labs, photos, and/or imaging studies have been reviewed. Correct side/site marked and visible. Medications required for procedure verified. No fire risk assessment and interventions applicable. No implant(s) inserted. 08/31/2024 9:25 AM The procedure site was prepped in the usual sterile fashion. Site: bilateral knee joints Medications (Right): 6 mg betamethasone acetate-betamethasone sodium phosphate 6 mg/mL Medications (Left): 6 mg betamethasone acetate-betamethasone sodium phosphate 6 mg/mL Anesthetics (Right): 5 mL lidocaine (PF) 10 mg/mL (1 %) Anesthetics (Left): 5 mL lidocaine (PF) 10 mg/mL (1 %) Outcome: Tolerated well, no immediate complications Post-injection instructions were reviewed with the patient and the patient voiced understanding of these instructions. SIGN OUT No specimen collected. No instruments, equipment or retained foreign bodies applicable. Post-procedure follow-up management communicated and Plan of Care Visit completed when applicable Mr. Bharathi Sue was advised as to contrast therapies and/or to take analgesics/anti-inflammatories as needed and all contraindications were reviewed. Supporting Information Below: Medications: Current Outpatient Medications Medication Sig dulaglutide (TRULICITY) 3 mg/0.5 mL pen injector Inject 3 mg subcutaneously one time a week. enalapril (VASOTEC) 20 mg tablet Take 1 tablet by mouth once daily. rosuvastatin (CRESTOR) 20 mg tablet Take 1 tablet by mouth daily at bedtime. terbinafine HCl (LAMISIL) 250 mg tablet Take 1 tablet by mouth once daily. insulin glargine (BASAGLAR KWIKPEN U-100 INSULIN) 100 unit/mL (3 mL) Inject 34 Units subcutaneouslytwo times a day. levothyroxine (SYNTHROID) 100 mcg tablet TAKE 1 TABLET DAILY ON AN EMPTY STOMACH metFORMIN (GLUCOPHAGE) 500 mg tablet Take 2 tablets by mouth two times a day with meals. hydroCHLOROthiazide 25 mg tablet TAKE 1 TABLET (25mg) BY MOUTH ONCE DAILY ELIQUIS 5 mg tab(s) Take 1 tablet by mouth every 12 hours. propylene glycol (SYSTANE BALANCE OPHTHALMIC) Use in eyes. 3-4 times a day omega-3 DHA-EPA (FISH OIL) 1,200 (144-216) mg capsule Take 1 capsule by mouth daily with breakfast. MAGNESIUM SULFATE ORAL Take 500 mg by mouth once daily. CINNAMON BARK ORAL Take 2,000 mcg by mouth once daily. carvedilol (COREG) 3.125 mg tablet Take 3.125 mg by mouth twice daily with meals. aspirin, enteric coated (ASPIRIN, ENTERIC COATED) 81 mg EC tablet Take 81 mg by mouth once daily. multivitamin (DAILY MULTI-VITAMIN) ORAL Tab Take one(1) tablet daily. warfarin (COUMADIN) 2 mg tablet Take 1 tablet by mouth daily as directed. (Patient not taking: Reported on 08/31/2024) blood sugar diagnostic (ARKeXTOUCH ULTRA TEST) test strip Test blood sugar BID and as needed Insulin [place], Disposable, (BD ULTRA-FINE CAROLYN PEN NEEDLE) 32 gauge x 5/32 Inject 1 Each subcutaneously two times a day. Use with Insulin Lancets (ONETOUCH ULTRASOFT LANCETS) Test blood sugar(s) 2 times daily and as needed. Dx: Type 2 DM- Uncontrolled E11.65 , Insulin: Yes EPINEPHrine (EPIPEN) 0.3 mg/0.3 mL auto-injector Inject 0.3 mL intramuscularly as needed (For allergic reaction). sulfacetamide sodium/sulfur (PRASCION TOPICAL) Apply to affected area once daily. 10-55 (Patient not taking: Reported on 03/07/2023) blood sugar diagnostic (BLOOD GLUCOSE TEST) test strip Test blood sugar(s) 2 times daily. Dx: Type 2 DM - Controlled E11.9 Insulin: Yes nitroglycerin sublingual (NITROQUICK) 0.[address] 1 tablet under the tongue if needed every 5 minutes for stephen... (REFER TO PRESCRIPTION NOTES). albuterol HFA (VENTOLIN HFA) 90 mcg/actuation inhaler Inhale 2 Puffs as instructed every 4 hours asneeded for wheezing/shortness of breath. (Patient not taking: Reported on 11/27/2021) blood sugar diagnostic (ONETOUCH ULTRA TEST STRIP) test strip Test sugar daily and as needed Blood-Glucose Meter (ONETOUCH ULTRA2 METER) monitoring kit Check blood sugar daily and as needed Compression Knee Highs KNEE HIGH COMPRESSION STOCKINGS 30-40 MM. DX: EDEMA No current facility-administered medications for this visit. Allergies: Mellette Seed, Zocor [Simvastatin], Amoxicillin, Dust, and Erythromycin This note was partially generated using [employer] voice recognition system, and there may be some incorrect words, spellings, and punctuation that were not noted in checking the note before saving. Josefina Hernandez PA-C Rationale for Viscosupplementation: Initial Request As a part of a multimodal treatment plan, we are requesting authorization of hyaluronic acid viscosupplementation injections for the improvement of symptoms related to osteoarthritis. Authorization is being requested for treatment of Bilateral knees. Rationale for authorization of these injections is based on the following elements: Signs and Symptoms Length of symptoms > 3 months Pain interferes with ADLs? Yes Radiographic evidence of OA? Yes Previous Treatments Bracing attempted? No Formal Physical Therapy (PT)/ Home Exercise Program (HEP) attempted? Patient has not attended PT or attempted HEP NSAID medication attempted? Yes Corticosteroid injection attempted? Patient has had a previous CSI with intermittent relief Weight management attempted? No Patient continues to be symptomatic despite above treatment attempts. Requested Viscosupplementation Preferred product: Euflexxa Alternative product: Durolane or payor preferred * Priya Parrish MA - 08/31/2024 8:46 AM EST AMB ROOMING INTAKE FLOWSHEET DATA Pain Pain Level: 7 Pain Location: (bilateral knees) Description: Dull, Aching Duration Amount of Time: (ongoing) Frequency: Continuous Intervention/Comfort measure: Heat, Medication Patient here today for 16 weeks post visit bilateral knee pain with injections given. He would likerepeat cortisone injections today. [facility] NoteHNO ID: [id number] Author: PRIYA PARRISH MA Service: ? Author Type: Tank Cleaner Type: Progress Notes Filed: 08/31/2024 09:25 Note Text: AMB ROOMING INTAKE FLOWSHEET DATA Pain Pain Level: 7 Pain Location: (bilateral knees) Description: Dull, Aching Duration Amount of Time: (ongoing) Frequency: Continuous Intervention/Comfort measure: Heat, Medication Patient here today for 16 weeks post visit bilateral knee pain with injections given. He would like repeat cortisone injections today.[facility]11-08-2024 Telephone encounter Note* Telephone Encounter - Queta Giraldo RN - 08/28/2024 9:54 AM EST Spoke with pt -he would like to discuss option of Gel injections with Josefina next week at his appointment and will then decide yes or no to move forward with gel injections. [facility]11-08-[facility] Miscellaneous Notes* Telephone Encounter - Queta Giraldo RN - 08/28/2024 9:54 AM EST Spoke with pt -he would like to discuss option of Gel injections with Josefina next week at his appointment and will then decide yes or no to move forward with gel injections. * Telephone Encounter - Vani Davila MA - 08/26/2024 9:23 AM EST LVM for pt to return call or retrieve [employer] message. Vani Davila MA * Telephone Encounter - Vani Davila MA - 08/26/2024 9:22 AM EST Images from the original note were not included. COOKIE Arce- we can submit for approval for Gel injections but they have 15 days to approve them. If you still want the steroid injection you would have to wait 30 days (after getting the steroid injection) before you can then get the gel injections. Let me know what you would like to do? Queta * Telephone Encounter - Vani Davila MA - 08/25/2024 10:33 AM EST Pt calling to inquire about other injection to knees instead of the cortisone. Pt has appt on Saturday to get the cortisone, but is wondering if the other would be better and how to go about getting that authorized. Bilateral knee pain, right worse than left. Please review and advise. Vani Davila MA documented [facility] Telephone encounter Note * Telephone Encounter - Vani Davila MA - 08/26/2024 9:23 AM EST LVM for pt to return call or retrieve [employer] message. Vani Davila MA [facility]11-06-[facility] Telephone encounter Note* Telephone Encounter - Vani Davila MA - 08/26/2024 9:22 AM EST Images from the original note were not included. COOKIE Arce- we can submit for approval for Gel injections but they have 15 days to approve them. If you still want the steroid injection you would have to wait 30 days (after getting the steroid injection) before you can then get the gel injections. Let me know what you would like to do? Queta [facility]11-05-2024 Telephone encounter Note* Telephone Encounter - Vani Davila MA - 08/25/2024 10:33 AM EST Pt calling to inquire about other injection to knees instead of the cortisone. Pt has appt on Saturday to get the cortisone, but is wondering if the other would be better and how to go about getting that authorized. Bilateral knee pain, right worse than left. Please review and advise. Vani Davila MA [facility]10-09-2024 History of Present illness Narrative* Kenyetta Stacy APRN.FRANCY - 07/29/2024 7:40 AM EDT 07/29/2024 Patient presents with: BP Check SUBJECTIVE: This is a 73 year old that is here today for Above Complaints. BP elevated at last office visit. Enalapril increased. Taking and tolerating without side effects.Not checking BP at home.Denies visual changes, headaches, lightheadedness, dizziness, slurred speech,facial drooping, extremity numbness, tingling or weakness PAST MEDICAL HISTORY Diagnosis Date Allergic rhinitis, cause unspecified Allergic rhinitis Atrial fibrillation (HCC) Bilateral lower extremity edema Blood in stool Hypertension Hypothyroidism Lipoma Morbid obesity (HCC) Onychomycosis Other and unspecified hyperlipidemia Prostate cancer (HCC) [address] White. s/p prostatectomy RBBB Rosacea Type II or unspecified type diabetes mellitus without mention of complication, uncontrolled Urinary incontinence ALLERGIES Mellette Seed, Zocor [Simvastatin], Amoxicillin, Dust, and Erythromycin MEDICATIONS Current Outpatient Medications Medication Sig dulaglutide (TRULICITY) 3 mg/0.5 mL pen injector Inject 3 mg subcutaneously one time a week. warfarin (COUMADIN) 2 mg tablet Take 1 tablet by mouth daily as directed. enalapril (VASOTEC) 20 mg tablet Take 1 tablet by mouth once daily. rosuvastatin (CRESTOR) 20 mg tablet Take 1 tablet by mouth daily at bedtime. terbinafine HCl (LAMISIL) 250 mg tablet Take 1 tablet by mouth once daily. insulin glargine (BASAGLAR KWIKPEN U-100 INSULIN) 100 unit/mL (3 mL) Inject 34 Units subcutaneouslytwo times a day. levothyroxine (SYNTHROID) 100 mcg tablet TAKE 1 TABLET DAILY ON AN EMPTY STOMACH metFORMIN (GLUCOPHAGE) 500 mg tablet Take 2 tablets by mouth two times a day with meals. blood sugar diagnostic (iPowerUpUCH ULTRA TEST) test strip Test blood sugar BID and as needed Insulin [place], Disposable, (BD ULTRA-FINE CAROLYN PEN NEEDLE) 32 gauge x 5/32 Inject 1 Each subcutaneously two times a day. Use with Insulin Lancets (iPowerUpUCH ULTRASOFT LANCETS) Test blood sugar(s) 2 times daily and as needed. Dx: Type 2 DM- Uncontrolled E11.65 , Insulin: Yes hydroCHLOROthiazide 25 mg tablet TAKE 1 TABLET (25mg) BY MOUTH ONCE DAILY ELIQUIS 5 mg tab(s) Take 1 tablet by mouth every 12 hours. EPINEPHrine (EPIPEN) 0.3 mg/0.3 mL auto-injector Inject 0.3 mL intramuscularly as needed (For allergic reaction). propylene glycol (SYSTANE BALANCE OPHTHALMIC) Use in eyes. 3-4 times a day sulfacetamide sodium/sulfur (PRASCION TOPICAL) Apply to affected area once daily. 10-55 (Patient not taking: Reported on 03/07/2023) omega-3 DHA-EPA (FISH OIL) 1,200 (144-216) mg capsule Take 1 capsule by mouth daily with breakfast. MAGNESIUM SULFATE ORAL Take 500 mg by mouth once daily. CINNAMON BARK ORAL Take 2,000 mcg by mouth once daily. carvedilol (COREG) 3.125 mg tablet Take 3.125 mg by mouth twice daily with meals. blood sugar diagnostic (BLOOD GLUCOSE TEST) test strip Test blood sugar(s) 2 times daily. Dx: Type 2 DM - Controlled E11.9 Insulin: Yes nitroglycerin sublingual (NITROQUICK) 0.[address] 1 tablet under the tongue if needed every 5 minutes for stephen... (REFER TO PRESCRIPTION NOTES). albuterol HFA (VENTOLIN HFA) 90 mcg/actuation inhaler Inhale 2 Puffs as instructed every 4 hours asneeded for wheezing/shortness of breath. (Patient not taking: Reported on 11/27/2021) blood sugar diagnostic (ONETOUCH ULTRA TEST STRIP) test strip Test sugar daily and as needed Blood-Glucose Meter (iPowerUpUCH ULTRA2 METER) monitoring kit Check blood sugar daily and as needed aspirin, enteric coated (ASPIRIN, ENTERIC COATED) 81 mg EC tablet Take 81 mg by mouth once daily. Compression Knee Highs KNEE HIGH COMPRESSION STOCKINGS 30-40 MM. DX: EDEMA multivitamin (DAILY MULTI-VITAMIN) ORAL Tab Take one(1) tablet daily. No current facility-administered medications for this visit. Medications and allergies reviewed by this provider. SOCIAL HISTORY Social History Tobacco Use Smoking status: Never Smokeless tobacco: Never Tobacco comments: No smoking in childhood home. Vaping Use Vaping status: Never Used Substance Use Topics Alcohol use: No Drug use: No REVIEW OF SYSTEMS All other reviewed and negative other than HPI. OBJECTIVE: BP 138/78 Pulse 64 Resp 16 Wt 130.1 kg (286 lb 13.1 oz) SpO2 97% BMI 38.90 kg/m . Vital signs reviewed by this provider. APPEARANCE Well appearing, alert, in no acute distress, well-hydrated, well nourished. Depression Screening Never done Anxiety Screening Never done Advance Directive Discussion Never done BP Controlled (<130/80) due on 06/10/2024 Shingrix Vaccine(3 of 3) due on 06/29/2025 Covid-19 Vaccine() due on 06/29/2025 Urine Albumin:Creatinine Ratio due on 12/06/2024 HbA1C due on 12/23/2024 Dilated Retinal Exam due on 06/17/2025 LDL Cholesterol due on 06/25/2025 Diabetic Foot Exam due on 06/29/2025 Annual PCP Team Chronic Disease Visit due on 07/15/2025 Colorectal Cancer Screening due on 02/15/2026 DTaP,Tdap,Td Vaccine(3 - Td or Tdap) due on 04/05/2026 Influenza Vaccine Completed RSV Vaccine Completed Hepatitis C Screening Completed Pneumococcal Vaccine: 65+ Completed HPV Vaccine Aged Out ASSESSMENT/PLAN: 1. Primary hypertension - ICD9: 401.9, ICD10: I10 - Controlled - Continue current medications - Recommend home blood pressure monitoring, to bring results to next visit - Encouraged sodium restriction, DASH or Mediterranean diet - Recommend regular aerobic exercise - Discussed need for and benefit of weight loss. BMI 38.90 kg/(m^2) - Follow up in 6 months for hypertension visit Kenyetta Stacy APRN.FRANCY Prescription instructions reviewed with patient as applicable. Patient advised if symptoms do not improve or if symptoms worsen sooner, to contact their primary care physician. Potential red flag symptoms discussed with the patient. Reviewed appropriate action plan to take if red flag symptoms occur. Patient agreeable to treatment plan. Medical Decision Making: Problems: Low: Stable chronic illness Risk: Moderate: Moderate risk from testing/treatment Medical Decision Making Level: 3 - Low [facility]24 NoteHNO ID: [id number] Author: KENYETTA STACY APRN.CNP Service: ? Author Type: Nurse Practitioner Type: Progress Notes Filed: 07/29/2024 08:12 Note Text: 07/29/2024 Patient presents with: BP Check SUBJECTIVE: This is a 73 year old that is here today for Above Complaints. BP elevated at last office visit. Enalapril increased. Taking and tolerating without side effects.Not checking BP at home.Denies visual changes, headaches, lightheadedness, dizziness, slurred speech, facial drooping, extremity numbness, tingling or weakness PAST MEDICAL HISTORY Diagnosis Date Allergic rhinitis, cause unspecified Allergic rhinitis Atrial fibrillation (HCC) Bilateral lower extremity edema Blood in stool Hypertension Hypothyroidism Lipoma Morbid obesity (HCC) Onychomycosis Other and unspecified hyperlipidemia Prostate cancer (HCC) [address] White. s/p prostatectomy RBBB Rosacea Type II or unspecified type diabetes mellitus without mention of complication, uncontrolled Urinary incontinence ALLERGIES Mellette Seed, Zocor [Simvastatin], Amoxicillin, Dust, and Erythromycin MEDICATIONS Current Outpatient Medications Medication Sig dulaglutide (TRULICITY) 3 mg/0.5 mL pen injector Inject 3 mg subcutaneously one time a week. warfarin (COUMADIN) 2 mg tablet Take 1 tablet by mouth daily as directed. enalapril (VASOTEC) 20 mg tablet Take 1 tablet by mouth once daily. rosuvastatin (CRESTOR) 20 mg tablet Take 1 tablet by mouth daily at bedtime. terbinafine HCl (LAMISIL) 250 mg tablet Take 1 tablet by mouth once daily. insulin glargine (BASAGLAR KWIKPEN U-100 INSULIN) 100 unit/mL (3 mL) Inject 34 Units subcutaneously two times a day. levothyroxine (SYNTHROID) 100 mcg tablet TAKE 1 TABLET DAILY ON AN EMPTY STOMACH metFORMIN (GLUCOPHAGE) 500 mg tablet Take 2 tablets by mouth two times a day with meals. blood sugar diagnostic (ARKeXTOUCH ULTRA TEST) test strip Test blood sugar BID and as needed Insulin [place], Disposable, (BD ULTRA-FINE CAROLYN PEN NEEDLE) 32 gauge x 5/32 Inject 1 Each subcutaneously two times a day. Use with Insulin Lancets (iPowerUpUCH ULTRASOFT LANCETS) Test blood sugar(s) 2 times daily and as needed. Dx: Type 2 DM - Uncontrolled E11.65 , Insulin: Yes hydroCHLOROthiazide 25 mg tablet TAKE 1 TABLET (25mg) BY MOUTH ONCE DAILY ELIQUIS 5 mg tab(s) Take 1 tablet by mouth every 12 hours. EPINEPHrine (EPIPEN) 0.3 mg/0.3 mL auto-injector Inject 0.3 mL intramuscularly as needed (For allergic reaction). propylene glycol (SYSTANE BALANCE OPHTHALMIC) Use in eyes. 3-4 times a day sulfacetamide sodium/sulfur (PRASCION TOPICAL) Apply to affected area once daily. 10-55 (Patient not taking: Reported on 03/07/2023) omega-3 DHA-EPA (FISH OIL) 1,200 (144-216) mg capsule Take 1 capsule by mouth daily with breakfast. MAGNESIUM SULFATE ORAL Take 500 mg by mouth once daily. CINNAMON BARK ORAL Take 2,000 mcg by mouth once daily. carvedilol (COREG) 3.125 mg tablet Take 3.125 mg by mouth twice daily with meals. blood sugar diagnostic (BLOOD GLUCOSE TEST) test strip Test blood sugar(s) 2 times daily. Dx: Type 2 DM - Controlled E11.9 Insulin: Yes nitroglycerin sublingual (NITROQUICK) 0.[address] 1 tablet under the tongue if needed every 5 minutes for stephen... (REFER TO PRESCRIPTION NOTES). albuterol HFA (VENTOLIN HFA) 90 mcg/actuation inhaler Inhale 2 Puffs as instructed every 4 hours as needed for wheezing/shortness of breath. (Patient not taking: Reported on 11/27/2021) blood sugar diagnostic (ONETOUCH ULTRA TEST STRIP) test strip Test sugar daily and as needed Blood-Glucose Meter (ARKeXTOUCH ULTRA2 METER) monitoring kit Check blood sugar daily and as needed aspirin, enteric coated (ASPIRIN, ENTERIC COATED) 81 mg EC tablet Take 81 mg by mouth once daily. Compression Knee Highs KNEE HIGH COMPRESSION STOCKINGS 30-40 MM. DX: EDEMA multivitamin (DAILY MULTI-VITAMIN) ORAL Tab Take one(1) tablet daily. No current facility-administered medications for this visit. Medications and allergies reviewed by this provider. SOCIAL HISTORY Social History Tobacco Use Smoking status: Never Smokeless tobacco: Never Tobacco comments: No smoking in childhood home. Vaping Use Vaping status: Never Used Substance Use Topics Alcohol use: No Drug use: No REVIEW OF SYSTEMS All other reviewed and negative other than HPI. OBJECTIVE: BP 138/78 Pulse 64 Resp 16 Wt 130.1 kg (286 lb 13.1 oz) SpO2 97% BMI 38.90 kg/m? . Vital signs reviewed by this provider. APPEARANCE Well appearing, alert, in no acute distress, well-hydrated, well nourished. Depression Screening Never done Anxiety Screening Never done Advance Directive Discussion Never done BP Controlled (<130/80) due on 06/10/2024 Shingrix Vaccine(3 of 3) due on 06/29/2025 Covid-19 Vaccine( season) due on 06/29/2025 Urine Albumin:Creatinine Ratio due on 12/06/2024 HbA1C du (more content not included)...[facility]10-01-2024 Telephone encounter Note* Telephone Encounter - Perla Cutler LPN - 07/21/2024 5:03 PM EDT Written rx has been faxed to number given. Perla Cutler LPN [facility]10-01-[facility] Miscellaneous Notes* Telephone Encounter - Pelra Cutler LPN - 07/21/2024 5:03 PM EDT Written rx has been faxed to number given. Perla Cutler LPN * Telephone Encounter - Sara Fuller MD - 07/21/2024 4:19 PM EDT 90 day rx sent. * Telephone Encounter - Marie Lundy RN - 07/21/2024 2:58 PM EDT Rosalee with [facility] ([facility] [employer]) calls to ask if provider would change Trulicity prescription to a 90 day supply for shipping and cost. Pended for review. Prescription would need faxed to [facility] at [phone]. Marie Lundy, RN documented in [facility]24 Telephone encounter Note * Telephone Encounter - Sara Fuller MD - 07/21/2024 4:19 PM EDT 90 day rx sent. [facility] Telephone encounter Note* Telephone Encounter - Marie Lundy, COOKIE - 07/21/2024 2:58 PM EDT Rosalee with [facility] ([facility] [employer]) calls to ask if provider would change Trulicity prescription to a 90 day supply for shipping and cost. Pended for review. Prescription would need faxed to [facility] at [phone]. Marie Lundy RN [facility] NoteHNO ID: [id number] Author: SARA FULLER MD Service: ? Author Type: Physician Type: Progress Notes Filed: 07/15/2024 08:32 Note Text: Chief Complaint Patient presents with: Follow Up: blood pressure check for evalated HPI Bharathi Sue is a 73 year old male who presents here today for Above Complaints.. BP elevated above goal of <130/80 at last OV. No change in regimen at that time, but recommended low sodium diet and exercise as tolerated. Since last OV, patient has not been checking his BP at home and has not gotten a new cuff. Has been working on low sodium diet and taking medications as prescribed without side effects. Denies chest pain, vision changes, headaches, SOB, palpitations, LE edema. Patient notes that [facility] cardiology switched him from Eliquis to coumadin due to cost and they are monitoring. Past medical history, appointments, medications, allergies reviewed. Previous Medical History PAST MEDICAL HISTORY Diagnosis Date Allergic rhinitis, cause unspecified Allergic rhinitis Atrial fibrillation (HCC) Bilateral lower extremity edema Blood in stool Hypertension Hypothyroidism Lipoma Morbid obesity (HCC) Onychomycosis Other and unspecified hyperlipidemia Prostate cancer (HCC) [address] White. s/p prostatectomy RBBB Rosacea Type II or unspecified type diabetes mellitus without mention of complication, uncontrolled Urinary incontinence Previous Surgical History PAST SURGICAL HISTORY Procedure Laterality Date COLONOSCOPY FLX DX W/COLLJ SPEC WHEN PFRMD 01/22/06 COLONOSCOPY FLX DX W/COLLJ SPEC WHEN PFRMD 02/16/16 Colonoscopy PAST SURGICAL HISTORY OF 2005 prostatectomy REPAIR UMBILICAL HERNIA 2001 Family History FAMILY HISTORY Problem Relation Age of Onset Diabetes Mother Alzheimer's Disease Father Diabetes Brother Asthma Brother other (parkinsons) Brother Patient Allergies ALLERGIES Allergen Reactions Mellette Seed Anaphylaxis Zocor [Simvastatin] Myalgia muscle pain Amoxicillin Hives Dust Erythromycin Other: See Comments Tingling. Current Medications Current Outpatient Medications on File Prior to Visit Medication Sig warfarin (COUMADIN) 2 mg tablet Take 1 tablet by mouth daily as directed. rosuvastatin (CRESTOR) 20 mg tablet Take 1 tablet by mouth daily at bedtime. terbinafine HCl (LAMISIL) 250 mg tablet Take 1 tablet by mouth once daily. enalapril (VASOTEC) 10 mg tablet Take 1 tablet by mouth once daily. insulin glargine (BASAGLAR KWIKPEN U-100 INSULIN) 100 unit/mL (3 mL) Inject 34 Units subcutaneously two times a day. levothyroxine (SYNTHROID) 100 mcg tablet TAKE 1 TABLET DAILY ON AN EMPTY STOMACH metFORMIN (GLUCOPHAGE) 500 mg tablet Take 2 tablets by mouth two times a day with meals. dulaglutide (TRULICITY) 3 mg/0.5 mL pen injector Inject 3 mg subcutaneously one time a week. blood sugar diagnostic (iPowerUpUCH ULTRA TEST) test strip Test blood sugar BID and as needed Insulin [place], Disposable, (BD ULTRA-FINE CAROLYN PEN NEEDLE) 32 gauge x 5/32 Inject 1 Each subcutaneously two times a day. Use with Insulin Lancets (iPowerUpUCH ULTRASOFT LANCETS) Test blood sugar(s) 2 times daily and as needed. Dx: Type 2 DM - Uncontrolled E11.65 , Insulin: Yes hydroCHLOROthiazide 25 mg tablet TAKE 1 TABLET (25mg) BY MOUTH ONCE DAILY ELIQUIS 5 mg tab(s) Take 1 tablet by mouth every 12 hours. EPINEPHrine (EPIPEN) 0.3 mg/0.3 mL auto-injector Inject 0.3 mL intramuscularly as needed (For allergic reaction). propylene glycol (SYSTANE BALANCE OPHTHALMIC) Use in eyes. 3-4 times a day sulfacetamide sodium/sulfur (PRASCION TOPICAL) Apply to affected area once daily. 10-55 (Patient not taking: Reported on 03/07/2023) omega-3 DHA-EPA (FISH OIL) 1,200 (144-216) mg capsule Take 1 capsule by mouth daily with breakfast. MAGNESIUM SULFATE ORAL Take 500 mg by mouth once daily. CINNAMON BARK ORAL Take 2,000 mcg by mouth once daily. carvedilol (COREG) 3.125 mg tablet Take 3.125 mg by mouth twice daily with meals. blood sugar diagnostic (BLOOD GLUCOSE TEST) test strip Test blood sugar(s) 2 times daily. Dx: Type 2 DM - Controlled E11.9 Insulin: Yes nitroglycerin sublingual (NITROQUICK) 0.[address] 1 tablet under the tongue if needed every 5 minutes for stephen... (REFER TO PRESCRIPTION NOTES). albuterol HFA (VENTOLIN HFA) 90 mcg/actuation inhaler Inhale 2 Puffs as instructed every 4 hours as needed for wheezing/shortness of breath. (Patient not taking: Reported on 11/27/2021) blood sugar diagnostic (ARKeXTOUCH ULTRA TEST STRIP) test strip Test sugar daily and as needed Blood-Glucose Meter (ARKeXTOUCH ULTRA2 METER) monitoring kit Check blood sugar daily and as needed aspirin, enteric coated (ASPIRIN, ENTERIC COATED) 81 mg EC tablet Take 81 mg by mouth once daily. Compression Knee Highs KNEE HIGH COMPRESSION STOCKINGS 30-40 MM. DX: EDEMA multivitamin (DAILY MULTI-VITAMIN) ORAL Tab Take one(1 (more content not included)...[facility]09-25-2024 History of Present illness Narrative* Sara Fuller MD - 07/15/2024 8:10 AM EDT Chief Complaint Patient presents with: Follow Up: blood pressure check for evalated HPI Bharathi Sue is a 73 year old male who presents here today for Above Complaints.. BP elevated above goal of <130/80 at last OV. No change in regimen at that time, but recommendedlow sodium diet and exercise as tolerated. Since last OV, patient has not been checking his BP at home and has not gotten a new cuff. Has been working on low sodium diet and taking medications as prescribed without side effects. Denies chest pain, vision changes, headaches, SOB, palpitations, LE edema. Patient notes that [facility] cardiology switched him from Eliquis to coumadin due to cost and they are monitoring. Past medical history, appointments, medications, allergies reviewed. Previous Medical History PAST MEDICAL HISTORY Diagnosis Date Allergic rhinitis, cause unspecified Allergic rhinitis Atrial fibrillation (HCC) Bilateral lower extremity edema Blood in stool Hypertension Hypothyroidism Lipoma Morbid obesity (HCC) Onychomycosis Other and unspecified hyperlipidemia Prostate cancer (HCC) [address] White. s/p prostatectomy RBBB Rosacea Type II or unspecified type diabetes mellitus without mention of complication, uncontrolled Urinary incontinence Previous Surgical History PAST SURGICAL HISTORY Procedure Laterality Date COLONOSCOPY FLX DX W/COLLJ SPEC WHEN PFRMD 01/22/06 COLONOSCOPY FLX DX W/COLLJ SPEC WHEN PFRMD 02/16/16 Colonoscopy PAST SURGICAL HISTORY OF 2005 prostatectomy REPAIR UMBILICAL HERNIA 2001 Family History FAMILY HISTORY Problem Relation Age of Onset Diabetes Mother Alzheimer's Disease Father Diabetes Brother Asthma Brother other (parkinsons) Brother Patient Allergies ALLERGIES Allergen Reactions Mellette Seed Anaphylaxis Zocor [Simvastatin] Myalgia muscle pain Amoxicillin Hives Dust Erythromycin Other: See Comments Tingling. Current Medications Current Outpatient Medications on File Prior to Visit Medication Sig warfarin (COUMADIN) 2 mg tablet Take 1 tablet by mouth daily as directed. rosuvastatin (CRESTOR) 20 mg tablet Take 1 tablet by mouth daily at bedtime. terbinafine HCl (LAMISIL) 250 mg tablet Take 1 tablet by mouth once daily. enalapril (VASOTEC) 10 mg tablet Take 1 tablet by mouth once daily. insulin glargine (BASAGLAR KWIKPEN U-100 INSULIN) 100 unit/mL (3 mL) Inject 34 Units subcutaneouslytwo times a day. levothyroxine (SYNTHROID) 100 mcg tablet TAKE 1 TABLET DAILY ON AN EMPTY STOMACH metFORMIN (GLUCOPHAGE) 500 mg tablet Take 2 tablets by mouth two times a day with meals. dulaglutide (TRULICITY) 3 mg/0.5 mL pen injector Inject 3 mg subcutaneously one time a week. blood sugar diagnostic (ARKeXTOUCH ULTRA TEST) test strip Test blood sugar BID and as needed Insulin [place], Disposable, (BD ULTRA-FINE CAROLYN PEN NEEDLE) 32 gauge x 5/32 Inject 1 Each subcutaneously two times a day. Use with Insulin Lancets (ARKeXTOUCH ULTRASOFT LANCETS) Test blood sugar(s) 2 times daily and as needed. Dx: Type 2 DM- Uncontrolled E11.65 , Insulin: Yes hydroCHLOROthiazide 25 mg tablet TAKE 1 TABLET (25mg) BY MOUTH ONCE DAILY ELIQUIS 5 mg tab(s) Take 1 tablet by mouth every 12 hours. EPINEPHrine (EPIPEN) 0.3 mg/0.3 mL auto-injector Inject 0.3 mL intramuscularly as needed (For allergic reaction). propylene glycol (SYSTANE BALANCE OPHTHALMIC) Use in eyes. 3-4 times a day sulfacetamide sodium/sulfur (PRASCION TOPICAL) Apply to affected area once daily. 10-55 (Patient not taking: Reported on 03/07/2023) omega-3 DHA-EPA (FISH OIL) 1,200 (144-216) mg capsule Take 1 capsule by mouth daily with breakfast. MAGNESIUM SULFATE ORAL Take 500 mg by mouth once daily. CINNAMON BARK ORAL Take 2,000 mcg by mouth once daily. carvedilol (COREG) 3.125 mg tablet Take 3.125 mg by mouth twice daily with meals. blood sugar diagnostic (BLOOD GLUCOSE TEST) test strip Test blood sugar(s) 2 times daily. Dx: Type 2 DM - Controlled E11.9 Insulin: Yes nitroglycerin sublingual (NITROQUICK) 0.[address] 1 tablet under the tongue if needed every 5 minutes for stephen... (REFER TO PRESCRIPTION NOTES). albuterol HFA (VENTOLIN HFA) 90 mcg/actuation inhaler Inhale 2 Puffs as instructed every 4 hours asneeded for wheezing/shortness of breath. (Patient not taking: Reported on 11/27/2021) blood sugar diagnostic (ONETOUCH ULTRA TEST STRIP) test strip Test sugar daily and as needed Blood-Glucose Meter (ONETOUCH ULTRA2 METER) monitoring kit Check blood sugar daily and as needed aspirin, enteric coated (ASPIRIN, ENTERIC COATED) 81 mg EC tablet Take 81 mg by mouth once daily. Compression Knee Highs KNEE HIGH COMPRESSION STOCKINGS 30-40 MM. DX: EDEMA multivitamin (DAILY MULTI-VITAMIN) ORAL Tab Take one(1) tablet daily. No current facility-administered medications on file prior to visit. Social History Social History Tobacco Use Smoking status: Never Smokeless tobacco: Never Tobacco comments: No smoking in childhood home. Vaping Use Vaping status: Never Used Substance Use Topics Alcohol use: No Drug use: No Review of Symptoms REVIEW OF SYSTEMS GENERAL: No weight loss, malaise or fevers RESPIRATORY: Negative for cough, hemoptysis, wheezing, COPD, dyspnea or shortness of breath CARDIOVASCULAR: Negative for chest pain, leg swelling, hypertension, CHF or palpitations GI: No nausea, vomiting, or diarrhea SKIN: Negative for lesions, rash, and itching EXAM: BP 150/70 (BP Site: Left Arm, BP Position: Sitting, BP Cuff Size: Large Adult) Pulse 65 Resp 16 Ht 182.9 cm (6') Wt 128.4 kg (283 lb) SpO2 96% BMI 38.38 kg/m General Appearance: Well appearing, alert, in no acute distress, well-hydrated, well nourished.. Skin: Skin color, texture, turgor normal, no suspicious rashes or lesions. Lungs: Lungs clear to auscultation. No wheezing, rhonchi, rales.. Heart: RRR without murmur, gallop, or rubs. No ectopy. Extremities: No deformities, edema, skin discoloration, clubbing or cyanosis. Good capillary refill. . Health Maintenance List Depression Screening Never done Anxiety Screening Never done Advance Directive Discussion Never done BP Controlled (<130/80) due on 06/10/2024 Shingrix Vaccine(3 of 3) due on 06/29/2025 Covid-19 Vaccine( season) due on 06/29/2025 Urine Albumin:Creatinine Ratio due on 12/06/2024 HbA1C due on 12/23/2024 Dilated Retinal Exam due on 06/17/2025 LDL Cholesterol due on 06/25/2025 Diabetic Foot Exam due on 06/29/2025 Annual PCP Team Chronic Disease Visit due on 06/29/2025 Colorectal Cancer Screening due on 02/15/2026 DTaP,Tdap,Td Vaccine(3 - Td or Tdap) due on 04/05/2026 Influenza Vaccine Completed RSV Vaccine Completed Hepatitis C Screening Completed Pneumococcal Vaccine: 65+ Completed HPV Vaccine Aged Out Data reviewed Latest Ref Rng 06/25/2024 WBC 3.70 - 11.00 k/uL 8.39 RBC 4.20 - 6.00 m/uL 4.33 Hemoglobin 13.0 - 17.0 g/dL 13.5 Hematocrit 39.0 - 51.0 % 42.2 MCV 80.0 - 100.0 fL 97.5 MCH 26.0 - 34.0 pg 31.2 MCHC 30.5 - 36.0 g/dL 32.0 RDW-CV 11.5 - 15.0 % 14.0 Platelet Count 150 - 400 k/uL 222 MPV 9.0 - 12.7 fL 11.3 Neut% % 56.1 Abs Neut (ANC) 1.45 - 7.50 k/uL 4.70 Lymph% % 33.5 Abs Lymph 1.00 - 4.00 k/uL 2.81 [place]% % 7.0 Abs [place] <0.87 k/uL 0.59 Eosin% % 1.8 Abs Eosin <0.46 k/uL 0.15 Baso% % 0.8 Abs Baso <0.11 k/uL 0.07 Immature Gran % % 0.8 IMMATURE GRANS (ABS) <0.10 k/uL 0.07 NRBC /100 WBC 0.0 Absolute nRBC <0.01 k/uL <0.01 DTYPE Auto Protein, Total 6.3 - 8.0 g/dL 6.7 Albumin 3.9 - 4.9 g/dL 4.4 Calcium 8.5 - 10.2 mg/dL 9.6 Bilirubin, Total 0.2 - 1.3 mg/dL 0.4 Alkaline Phosphatase 38 - 113 U/L 55 AST 14 - 40 U/L 20 ALT 10 - 54 U/L 25 Glucose 74 - 99 mg/dL 92 BUN 9 - 24 mg/dL 25 (H) Creatinine 0.73 - 1.22 mg/dL 1.06 Sodium 136 - 144 mmol/L 140 Potassium 3.7 - 5.1 mmol/L 4.6 Chloride 98 - 107 mmol/L 99 CO2 22 - 30 mmol/L 27 Anion Gap 8 - 15 mmol/L 14 eGFR >=60 mL/min/1.73m 74 Cholesterol, Total <200 mg/dL 261 (H) Triglyceride <150 mg/dL 531 (H) HDL Cholesterol >39 mg/dL 30 (L) Non HDL Cholesterol <130 mg/dL 231 (H) Fasting Time hrs 12 VLDL Cholesterol <30 mg/dL -- VLDL Cholesterol 107 (H) TC:HDL Ratio <5.10 8.70 (H) LDL Cholesterol -- LDL:HDL Ratio -- Hemoglobin A1C 4.3 - 5.6 % 6.1 (H) Estimated Average Glucose mg/dL 128 LDL Cholesterol, Direct <100 mg/dL 124 (H) PSA Screening <2.60 ng/mL <0.02 Legend: (H) High (L) Low ASSESSMENT/PLAN: 1. Primary hypertension - ICD9: 401.9, ICD10: I10 - Uncontrolled - Increase enalapril - Recommend home blood pressure monitoring, to bring results to next visit - Encouraged sodium restriction, DASH or Mediterranean diet - Recommend regular aerobic exercise - Follow up in 2 weeks for hypertension visit Sara Fuller MD documented in this encounterC[place] [id number] NoteHNO ID: [id number] Author: CLEO FERNANDEZ RN Service: ? Author Type: Registered Nurse Type: Progress Notes Filed: 07/02/2024 14:49 Note Text: Patient's spouse picking up extra Budin splint for Bilateral feet at this time. [facility]09-12-2024 History of Present illness Narrative* Cleo Fernandez RN - 07/02/2024 2:48 PM EDT Patient's spouse picking up extra Budin splint for Bilateral feet at this time. [facility] Instructions* Patient Instructions* Sara Fuller MD - 06/29/2024 7:43 AM EDT Please check your blood pressure in the morning daily. Goal: less than 130/80 Please come back in for fasting blood work in 6 weeks. [facility]24 NoteHNO ID: [id number] Author: SARA FULLER MD Service: ? Author Type: Physician Type: Progress Notes Filed: 06/29/2024 08:08 Note Text: Chief Complaint Patient presents with: Follow Up: 6 month HPI Bharathi Sue is a 73 year old male who presents here today for Above Complaints.. DIABETES MELLITUS: Mr. Sue was last seen 6 months ago. Since our last visit he denies excessive thirst or increased frequency of urination, numbness, tingling or pain in extremities, new or unusual visual symptoms, and low sugar/hypoglycemic reactions. Follows a diabetic diet most of the time. He is compliant with medication(s) and is tolerating med(s) without any side effects. He reports checking his glucose on a once a day schedule with sugars in the <130 range. Patient's last HgA1C was Hemoglobin A1C (%) Date Value 06/25/2024 6.1 02/21/2024 7.0 11/22/2021 6.7 08/21/2021 6.8 ) Last Ophthalmology exam was within the past 1 months- mild retinopathy. No treatment recommended. Last Podiatry exam was more than 12 months ago. HTN: Mr. Sue indicates that he is feeling well and denies any symptoms referable to elevated blood pressure. Specifically denies headache, chest pain, palpitations, dyspnea, and peripheral edema. Patient denies any side effects of his medication(s) and is compliant with their regimen. 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 He does not check BP's generally. Bharathi likes to exercise by walking. He watches his diet for sodium, low fat and low cholesterol most of the time. Last 3 Encounter BP Readings: Date: BP: 06/29/2024 138/70[124/66 home cuff[ 02/21/2024 139/74[SILVANO BP[ 01/22/2024 158/76 Patient states that he has not been taking his statin as prescribed. Ran out a couple of months ago. CAD/A fib: managed by [facility] cardiology. Patient compliant with regimen without side effects, bleeding or bruising. Compliant with synthroid daily. Asymptomatic. Denies side effects. Requesting flu shot. Past medical history, appointments, medications, allergies reviewed. Previous Medical History PAST MEDICAL HISTORY No date: Allergic rhinitis, cause unspecified Comment: Allergic rhinitis No date: Atrial fibrillation (HCC) No date: Bilateral lower extremity edema No date: Blood in stool No date: Hypertension No date: Hypothyroidism No date: Lipoma No date: Morbid obesity (HCC) No date: Other and unspecified hyperlipidemia 2006: Prostate cancer (HCC) Comment: Previously seeing Dr. White. s/p prostatectomy No date: RBBB No date: Rosacea No date: Type II or unspecified type diabetes mellitus without mention of complication, uncontrolled No date: Urinary incontinence Previous Surgical History PAST SURGICAL HISTORY 01/22/06: COLONOSCOPY FLX DX W/COLLJ SPEC WHEN PFRMD 02/16/16: COLONOSCOPY FLX DX W/COLLJ SPEC WHEN PFRMD Comment: Colonoscopy 2006: PAST SURGICAL HISTORY OF Comment: prostatectomy 2001: REPAIR UMBILICAL HERNIA Family History FAMILY HISTORY Problem Relation Age of Onset Diabetes Mother Alzheimer's Disease Father Diabetes Brother Asthma Brother other (parkinsons) Brother Patient Allergies ALLERGIES Allergen Reactions 12 Grain Bread [Oth* Swelling Throat swelled. Bread had sunflower seeds in it. Mellette Seed Anaphylaxis Zocor [Simvastatin] Myalgia muscle pain Amoxicillin Hives Dust Erythromycin Other: See Comments Tingling. Grasses [Other] Molds [Other] Current Medications Current Outpatient Medications on File Prior to Visit Medication Sig dulaglutide (TRULICITY) 3 mg/0.5 mL pen injector Inject 3 mg subcutaneously one time a week. blood sugar diagnostic (iPowerUpUCH ULTRA TEST) test strip Test blood sugar BID and as needed Insulin [place], Disposable, (BD ULTRA-FINE CAROLYN PEN NEEDLE) 32 gauge x 5/32 Inject 1 Each subcutaneously two times a day. Use with Insulin Lancets (iPowerUpUCH ULTRASOFT LANCETS) Test blood sugar(s) 2 times daily and as needed. Dx: Type 2 DM - Uncontrolled E11.65 , Insulin: Yes hydroCHLOROthiazide 25 mg tablet TAKE 1 TABLET (25mg) BY MOUTH ONCE DAILY enalapril (VASOTEC) 10 mg tablet Take 1 tablet by mouth once daily. levothyroxine (SYNTHROID) 100 mcg tablet TAKE 1 TABLET DAILY ON AN EMPTY STOMACH metFORMIN (GLUCOPHAGE) 500 mg tablet Take 2 tablets by mouth two times a day with meals. ELIQUIS 5 mg tab(s) Take 1 tablet by mouth every 12 hours. EPINEPHrine (EPIPEN) 0.3 mg/0.3 mL auto-injector Inject 0.3 mL intramuscularly as needed (For allergic reaction). propylene glycol (SYSTANE BALANCE OPHTHALMIC) Use in eyes. 3-4 times a day omega-3 DHA-EPA (FISH OIL) 1,200 (144-216) mg capsule Take 1 capsule by mouth daily with breakfast. MAGNESIUM SULFATE ORAL Take 500 mg by mouth once daily. CINNAMON BARK ORAL Take 2,000 mcg by mouth once daily. carvedilol (COREG) 3.125 mg tablet Take 3.125 mg by mouth twice daily with meals. blood sugar diagnostic (BLOOD (more content not included)...[facility]09-09-2024 History of Present illness Narrative* Sara Fuller MD - 06/29/2024 7:16 AM EDT Chief Complaint Patient presents with: Follow Up: 6 month HPI Bharathi Sue is a 73 year old male who presents here today for Above Complaints.. DIABETES MELLITUS: Mr. Sue was last seen 6 months ago. Since our last visit he denies excessive thirst or increased frequency of urination, numbness, tingling or pain in extremities, new or unusual visual symptoms, and low sugar/hypoglycemic reactions. Follows a diabetic diet most of the time. He is compliant with medication(s) and is tolerating med(s) without any side effects. He reports checking his glucose on a once a day schedule with sugars in the <130 range. Patient's last HgA1C was Hemoglobin A1C (%) Date Value 06/25/2024 6.1 02/21/2024 7.0 11/22/2021 6.7 08/21/2021 6.8 ) Last Ophthalmology exam was within the past 1 months- mild retinopathy. No treatment recommended. Last Podiatry exam was more than 12 months ago. HTN: Mr. Sue indicates that he is feeling well and denies any symptoms referable to elevated bloodpressure. Specifically denies headache, chest pain, palpitations, dyspnea, and peripheral edema. Patient denies any side effects of his medication(s) and is compliant with their regimen. 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 He does not check BP's generally. Bharathi likes to exercise by walking. He watches his diet for sodium, low fat and low cholesterol most of the time. Last 3 Encounter BP Readings: Date: BP: 06/29/2024 138/70[124/66 home cuff[ 02/21/2024 139/74[SILVANO BP[ 01/22/2024 158/76 Patient states that he has not been taking his statin as prescribed. Ran out a couple of months ago. CAD/A fib: managed by [facility] cardiology. Patient compliant with regimen without side effects, bleedingor bruising. Compliant with synthroid daily. Asymptomatic. Denies side effects. Requesting flu shot. Past medical history, appointments, medications, allergies reviewed. Previous Medical History PAST MEDICAL HISTORY No date: Allergic rhinitis, cause unspecified Comment: Allergic rhinitis No date: Atrial fibrillation (HCC) No date: Bilateral lower extremity edema No date: Blood in stool No date: Hypertension No date: Hypothyroidism No date: Lipoma No date: Morbid obesity (HCC) No date: Other and unspecified hyperlipidemia 2006: Prostate cancer (HCC) Comment: Previously seeing Dr. White. s/p prostatectomy No date: RBBB No date: Rosacea No date: Type II or unspecified type diabetes mellitus without mention of complication, uncontrolled No date: Urinary incontinence Previous Surgical History PAST SURGICAL HISTORY 01/22/06: COLONOSCOPY FLX DX W/COLLJ SPEC WHEN PFRMD 02/16/16: COLONOSCOPY FLX DX W/COLLJ SPEC WHEN PFRMD Comment: Colonoscopy 2006: PAST SURGICAL HISTORY OF Comment: prostatectomy 2001: REPAIR UMBILICAL HERNIA Family History FAMILY HISTORY Problem Relation Age of Onset Diabetes Mother Alzheimer's Disease Father Diabetes Brother Asthma Brother other (parkinsons) Brother Patient Allergies ALLERGIES Allergen Reactions 12 Grain Bread [Oth* Swelling Throat swelled. Bread had sunflower seeds in it. Mellette Seed Anaphylaxis Zocor [Simvastatin] Myalgia muscle pain Amoxicillin Hives Dust Erythromycin Other: See Comments Tingling. Grasses [Other] Molds [Other] Current Medications Current Outpatient Medications on File Prior to Visit Medication Sig dulaglutide (TRULICITY) 3 mg/0.5 mL pen injector Inject 3 mg subcutaneously one time a week. blood sugar diagnostic (ONETOUCH ULTRA TEST) test strip Test blood sugar BID and as needed Insulin [place], Disposable, (BD ULTRA-FINE CAROLYN PEN NEEDLE) 32 gauge x 5/32 Inject 1 Each subcutaneously two times a day. Use with Insulin Lancets (ONETOUCH ULTRASOFT LANCETS) Test blood sugar(s) 2 times daily and as needed. Dx: Type 2 DM- Uncontrolled E11.65 , Insulin: Yes hydroCHLOROthiazide 25 mg tablet TAKE 1 TABLET (25mg) BY MOUTH ONCE DAILY enalapril (VASOTEC) 10 mg tablet Take 1 tablet by mouth once daily. levothyroxine (SYNTHROID) 100 mcg tablet TAKE 1 TABLET DAILY ON AN EMPTY STOMACH metFORMIN (GLUCOPHAGE) 500 mg tablet Take 2 tablets by mouth two times a day with meals. ELIQUIS 5 mg tab(s) Take 1 tablet by mouth every 12 hours. EPINEPHrine (EPIPEN) 0.3 mg/0.3 mL auto-injector Inject 0.3 mL intramuscularly as needed (For allergic reaction). propylene glycol (SYSTANE BALANCE OPHTHALMIC) Use in eyes. 3-4 times a day omega-3 DHA-EPA (FISH OIL) 1,200 (144-216) mg capsule Take 1 capsule by mouth daily with breakfast. MAGNESIUM SULFATE ORAL Take 500 mg by mouth once daily. CINNAMON BARK ORAL Take 2,000 mcg by mouth once daily. carvedilol (COREG) 3.125 mg tablet Take 3.125 mg by mouth twice daily with meals. blood sugar diagnostic (BLOOD GLUCOSE TEST) test strip Test blood sugar(s) 2 times daily. Dx: Type 2 DM - Controlled E11.9 Insulin: Yes insulin glargine (BASAGLAR KWIKPEN U-100 INSULIN) 100 unit/mL (3 mL) Inject 34 Units subcutaneouslytwice daily. nitroglycerin sublingual (NITROQUICK) 0.[address] 1 tablet under the tongue if needed every 5 minutes for stephen... (REFER TO PRESCRIPTION NOTES). blood sugar diagnostic (ONETOUCH ULTRA TEST STRIP) test strip Test sugar daily and as needed Blood-Glucose Meter (ONETOUCH ULTRA2 METER) monitoring kit Check blood sugar daily and as needed aspirin, enteric coated (ASPIRIN, ENTERIC COATED) 81 mg EC tablet Take 81 mg by mouth once daily. multivitamin (DAILY MULTI-VITAMIN) ORAL Tab Take one(1) tablet daily. rosuvastatin (CRESTOR) 20 mg tablet Take 1 tablet by mouth daily at bedtime. sulfacetamide sodium/sulfur (PRASCION TOPICAL) Apply to affected area once daily. 10-55 (Patient not taking: Reported on 03/07/2023) albuterol HFA (VENTOLIN HFA) 90 mcg/actuation inhaler Inhale 2 Puffs as instructed every 4 hours asneeded for wheezing/shortness of breath. (Patient not taking: Reported on 11/27/2021) Compression Knee Highs KNEE HIGH COMPRESSION STOCKINGS 30-40 MM. DX: EDEMA No current facility-administered medications on file prior to visit. Social History Social History Tobacco Use Smoking status: Never Smokeless tobacco: Never Tobacco comments: No smoking in childhood home. Vaping Use Vaping status: Never Used Substance Use Topics Alcohol use: No Drug use: No Review of Symptoms REVIEW OF SYSTEMS GENERAL: No weight loss, malaise or fevers RESPIRATORY: Negative for cough, hemoptysis, wheezing, COPD, dyspnea or shortness of breath CARDIOVASCULAR: Negative for chest pain, leg swelling, hypertension, CHF or palpitations GI: No nausea, vomiting, or diarrhea SKIN: Negative for lesions, rash, and itching EXAM: BP 138/70 Pulse 66 Resp 18 Wt 128.2 kg (282 lb 9.6 oz) SpO2 98% BMI 38.33 kg/m HOME CUFF: 124/66 General Appearance: Well appearing, alert, in no acute distress, well-hydrated, well nourished.. Skin: Skin color, texture, turgor normal, no suspicious rashes or lesions. Lungs: Lungs clear to auscultation. No wheezing, rhonchi, rales.. Heart: RRR without murmur, gallop, or rubs. No ectopy. Abdomen: Normal abdominal exam, Abdomen soft, non-tender. Bowel sounds normal. No masses, organomegaly. Extremities: No deformities, edema, skin discoloration, clubbing or cyanosis. Good capillary refill. . Feet: Shoes and socks removed, No deformities, ulcers, calluses, normal distal pulses, sensitive to10 gm monofilament, and nails notable for Crumbly, Deformed, Hypertrophic, or Yellowish Health Maintenance List Depression Screening Never done Anxiety Screening Never done Advance Directive Discussion Never done Diabetic Foot Exam due on 12/03/2023 Shingrix Vaccine(3 of 3) due on 04/05/2024 BP Controlled (<130/80) due on 06/10/2024 Covid-19 Vaccine(2022- season) due on 06/21/2024 Influenza Vaccine(1) due on 06/21/2024 Urine Albumin:Creatinine Ratio due on 12/06/2024 HbA1C due on 12/23/2024 Dilated Retinal Exam due on 06/17/2025 LDL Cholesterol due on 06/25/2025 Annual PCP Team Chronic Disease Visit due on 06/29/2025 Colorectal Cancer Screening due on 02/15/2026 DTaP,Tdap,Td Vaccine(3 - Td or Tdap) due on 04/05/2026 RSV Vaccine Completed Hepatitis C Screening Completed Pneumococcal Vaccine: 65+ Completed HPV Vaccine Aged Out Data reviewed Latest Ref Rng 12/06/2023 02/21/2024 06/25/2024 WBC 3.70 - 11.00 k/uL 8.39 RBC 4.20 - 6.00 m/uL 4.33 Hemoglobin 13.0 - 17.0 g/dL 13.5 Hematocrit 39.0 - 51.0 % 42.2 MCV 80.0 - 100.0 fL 97.5 MCH 26.0 - 34.0 pg 31.2 MCHC 30.5 - 36.0 g/dL 32.0 RDW-CV 11.5 - 15.0 % 14.0 Platelet Count 150 - 400 k/uL 222 MPV 9.0 - 12.7 fL 11.3 Neut% % 56.1 Abs Neut (ANC) 1.45 - 7.50 k/uL 4.70 Lymph% % 33.5 Abs Lymph 1.00 - 4.00 k/uL 2.81 [place]% % 7.0 Abs [place] <0.87 k/uL 0.59 Eosin% % 1.8 Abs Eosin <0.46 k/uL 0.15 Baso% % 0.8 Abs Baso <0.11 k/uL 0.07 Immature Gran % % 0.8 IMMATURE GRANS (ABS) <0.10 k/uL 0.07 NRBC /100 WBC 0.0 Absolute nRBC <0.01 k/uL <0.01 DTYPE Auto Protein, Total 6.3 - 8.0 g/dL 6.7 6.7 Albumin 3.9 - 4.9 g/dL 4.1 4.4 Calcium 8.5 - 10.2 mg/dL 8.8 9.6 Bilirubin, Total 0.2 - 1.3 mg/dL 0.4 0.4 Alkaline Phosphatase 38 - 113 U/L 59 55 AST 14 - 40 U/L -- 20 ALT 10 - 54 U/L 35 25 Glucose 74 - 99 mg/dL 120 (H) 92 BUN 9 - 24 mg/dL 30 (H) 25 (H) Creatinine 0.73 - 1.22 mg/dL 0.97 1.06 Sodium 136 - 144 mmol/L 139 140 Potassium 3.7 - 5.1 mmol/L 4.9 4.6 Chloride 98 - 107 mmol/L 102 99 CO2 22 - 30 mmol/L 27 27 Anion Gap 8 - 15 mmol/L 10 14 eGFR >=60 mL/min/1.73m 82 74 Cholesterol, Total <200 mg/dL 261 (H) Triglyceride <150 mg/dL 531 (H) HDL Cholesterol >39 mg/dL 30 (L) Non HDL Cholesterol <130 mg/dL 231 (H) Fasting Time hrs 12 VLDL Cholesterol <30 mg/dL -- VLDL Cholesterol 107 (H) TC:HDL Ratio <5.10 8.70 (H) LDL Cholesterol -- LDL:HDL Ratio -- Creatinine, Ur Random (UCRR) 20.0 - 300.0 mg/dL 79.6 Albumin, Urine Random mg/L <12.0 Albumin/Creat Ratio <30 mg/g <15 Hemoglobin A1C 4.3 - 5.6 % 6.8 (H) 7.0 (H) 6.1 (H) Estimated Average Glucose mg/dL 148 154 128 LDL Cholesterol, Direct <100 mg/dL 124 (H) PSA Screening <2.60 ng/mL <0.02 Legend: (H) High (L) Low ASSESSMENT/PLAN: 1. Type 2 diabetes mellitus without complication, unspecified whether parts counterman insulin use (HCC) -ICD9: 250.00, ICD10: E11.9 (primary diagnosis) - Controlled - Continue current medications - Statin prescribed - rosuvastatin - Blood glucose monitoring on a once daily schedule - Counseled on healthy diet and regular exercise - Discussed need for and benefit of weight loss. BMI 38.33 kg/(m^2) - Discussed diabetic education issues of diabetes complications and monitoring required, hypoglycemic/hyperglycemic symptoms, and medication-specific side effects and monitoring - Follow up in 6 months, sooner should any other issues arise. - BASAGLAR KWIKPEN U-100 INSULIN 100 UNIT/ML (3 ML) SUBCUTANEOUS - METFORMIN 500 MG TABLET - BASAGLAR KWIKPEN U-100 INSULIN 100 UNIT/ML (3 ML) SUBCUTANEOUS - METFORMIN 500 MG TABLET 2. Primary hypertension - ICD9: 401.9, ICD10: I10 - Uncontrolled - Continue current medications - Recommend home blood pressure monitoring, to bring results to next visit - Encouraged sodium restriction, DASH or Mediterranean diet - Recommend regular aerobic exercise - Follow up in 2 weeks for hypertension visit 3. Mixed hyperlipidemia - ICD9: 272.2, ICD10: E78.2 - Uncontrolled since he ran out of statin. - Continue current medications - Counseled on healthy diet and regular exercise - recheck in 6 weeks after restarting Crestor. - LIPID PANEL BASIC 4. Atrial fibrillation, unspecified type (HCC) - ICD9: 427.31, ICD10: I48.91 Rate controlled on current regimen. Continue anticoagulation. F/u with cardiology. 5. Coronary artery disease involving [place] heart, unspecified vessel or lesion type, unspecified whether angina present - ICD9: 414.01, ICD10: I25.10 Asymptomatic on medical management. BP mildly elevated on repeat check today. Recheck BP in 2 weeks. Work on low sodium diet and exercise. F/u cardiology recommendations. 6. Acquired hypothyroidism - ICD9: 244.9, ICD10: E03.9 - Instructed patient on importance of taking on an empty stomach either first thing in the morning or at bedtime. - continue current dose of Synthroid 7. Morbid obesity (HCC) - ICD9: 278.01, ICD10: E66.01 Stable - Behavioral intervention 8. Encounter for immunization - ICD9: V03.89, ICD10: Z23 - INFLUENZA VACCINE, PRSV FREE, AGE 65+ YR, HIGH DOSE, TRIVALENT (FLUZONE HIGH-DOSE) 9. Onychomycosis - ICD9: 110.1, ICD10: B35.1 Start 90 day regimen of terbinafine. Recheck CMP in 6 weeks. - TERBINAFINE HCL 250 MG TABLET - COMPREHENSIVE METABOLIC PANEL - COMPREHENSIVE METABOLIC PANEL Sara Fuller MD [facility] Tele[facility] encounter Note * Telephone Encounter - Padmini May LPN - 06/12/2024 9:01 AM EDT Phoned patient aware fasting lab orders in place in computer per Dr Fuller with understanding. [facility] Miscellaneous Notes* Telephone Encounter - Padmini May LPN - 06/12/2024 9:01 AM EDT Phoned patient aware fasting lab orders in place in computer per Dr Fuller with understanding. * Telephone Encounter - Sara Fuller MD - 06/11/2024 10:30 AM EDT Orders approved. * Telephone Encounter - Delmi Cam RN - 06/11/2024 10:26 AM EDT Patient calls and states that he has 6 month follow up with provider on 06/29/2024. Patient asking for lab orders to be placed so he get done prior to appointment. Patient specifically asking for PSAto be checked. Please review and advise, Delmi Cam RN documented in this encounter[facility]24 Telephone encounter Note * Telephone Encounter - Sara Fuller MD - 06/11/2024 10:30 AM EDT Orders approved. [facility] Tele[facility] encounter Note* Telephone Encounter - Delmi Cam RN - 06/11/2024 10:26 AM EDT Patient calls and states that he has 6 month follow up with provider on 06/29/2024. Patient asking for lab orders to be placed so he get done prior to appointment. Patient specifically asking for PSAto be checked. Please review and advise, Delmi Cam RN [facility]07-[facility] History of Present illness Narrative* Josefina Hernandez PA-C - 05/11/2024 9:15 AM EDTAssociated Order(s): Large Joint Arthro/Inj: bilateral knee joints Post-Procedure Diagnose(s): Primary osteoarthritis of both knees; Chronic pain of both knees Josefina Hernandez PA-C Department of Orthopaedics Orth[facility] [address] Dept: [phone] Dept May 11, 2024 CHIEF COMPLAINT: Injections and Pre-Op Visit of the Left Knee, Injections and Pre-Op Visit of the Right Knee, and 13 weeks 4 days post visit bilateral knee pain with injecti. ASSESSMENT: M25.561, M25.562, G89.29 Chronic pain of both knees (primary encounter diagnosis) M17.0 Primary osteoarthritis of both knees SUMMARY/PLAN: Patient presents for repeat bilateral knee corticosteroid injections. He is getting good relief in the right knee, notes may be 2 months of relief with the left knee cortisone injections. 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 We briefly discussed his surgical options if he feels that the corticosteroid injections are not adequately helping the pain in the left knee. Will proceedtoday with repeat injections. Large Joint Arthro/Inj: bilateral knee joints Informed Consent Consent Obtained: Verbal [place] Protocol A moment to CARE was completed. SIGN IN Sign in communication not applicable due to emergent procedure. Personnel directly involved with the procedure wore the appropriate PPE. Special Equipment: N/A Patient/Surrogate Stated/Verified: Patient name, Date of , Relevant allergies and Intended procedure TIME OUT Intended patient and procedure match the source document(s). Consent documented and matches the intended procedure. Relevant labs, photos, and/or imaging studies have been reviewed. Correct side/site marked and visible. Medications required for procedure verified. No fire risk assessment and interventions applicable. No implant(s) inserted. 05/11/2024 9:16 AM The procedure site was prepped in the usual sterile fashion. Site: bilateral knee joints Medications (Right): 6 mg betamethasone acetate-betamethasone sodium phosphate 6 mg/mL Medications (Left): 6 mg betamethasone acetate-betamethasone sodium phosphate 6 mg/mL Anesthetics (Right): 5 mL lidocaine (PF) 10 mg/mL (1 %) Anesthetics (Left): 5 mL lidocaine (PF) 10 mg/mL (1 %) Outcome: Tolerated well, no immediate complications Post-injection instructions were reviewed with the patient and the patient voiced understanding of these instructions. SIGN OUT No instruments, equipment or retained foreign bodies applicable. Mr. Bharathi Sue was advised as to contrast therapies and/or to take analgesics/anti-inflammatories as needed and all contraindications were reviewed. Supporting Information Below: Medications: Current Outpatient Medications Medication Sig dulaglutide (TRULICITY) 3 mg/0.5 mL pen injector Inject 3 mg subcutaneously one time a week. blood sugar diagnostic (ONETOUCH ULTRA TEST) test strip Test blood sugar BID and as needed Insulin [place], Disposable, (BD ULTRA-FINE CAROLYN PEN NEEDLE) 32 gauge x 5/32 Inject 1 Each subcutaneously two times a day. Use with Insulin Lancets (ONETOUCH ULTRASOFT LANCETS) Test blood sugar(s) 2 times daily and as needed. Dx: Type 2 DM- Uncontrolled E11.65 , Insulin: Yes hydroCHLOROthiazide 25 mg tablet TAKE 1 TABLET (25mg) BY MOUTH ONCE DAILY enalapril (VASOTEC) 10 mg tablet Take 1 tablet by mouth once daily. levothyroxine (SYNTHROID) 100 mcg tablet TAKE 1 TABLET DAILY ON AN EMPTY STOMACH metFORMIN (GLUCOPHAGE) 500 mg tablet Take 2 tablets by mouth two times a day with meals. ELIQUIS 5 mg tab(s) Take 1 tablet by mouth every 12 hours. EPINEPHrine (EPIPEN) 0.3 mg/0.3 mL auto-injector Inject 0.3 mL intramuscularly as needed (For allergic reaction). rosuvastatin (CRESTOR) 20 mg tablet Take 1 tablet by mouth daily at bedtime. propylene glycol (SYSTANE BALANCE OPHTHALMIC) Use in eyes. 3-4 times a day sulfacetamide sodium/sulfur (PRASCION TOPICAL) Apply to affected area once daily. 10-55 (Patient not taking: Reported on 03/07/2023) omega-3 DHA-EPA (FISH OIL) 1,200 (144-216) mg capsule Take 1 capsule by mouth daily with breakfast. MAGNESIUM SULFATE ORAL Take 500 mg by mouth once daily. CINNAMON BARK ORAL Take 2,000 mcg by mouth once daily. carvedilol (COREG) 3.125 mg tablet Take 3.125 mg by mouth twice daily with meals. blood sugar diagnostic (BLOOD GLUCOSE TEST) test strip Test blood sugar(s) 2 times daily. Dx: Type 2 DM - Controlled E11.9 Insulin: Yes insulin glargine (BASAGLAR KWIKPEN U-100 INSULIN) 100 unit/mL (3 mL) Inject 34 Units subcutaneouslytwice daily. nitroglycerin sublingual (NITROQUICK) 0.[address] 1 tablet under the tongue if needed every 5 minutes for stephen... (REFER TO PRESCRIPTION NOTES). albuterol HFA (VENTOLIN HFA) 90 mcg/actuation inhaler Inhale 2 Puffs as instructed every 4 hours asneeded for wheezing/shortness of breath. (Patient not taking: Reported on 11/27/2021) blood sugar diagnostic (ONETOUCH ULTRA TEST STRIP) test strip Test sugar daily and as needed Blood-Glucose Meter (ONETOUCH ULTRA2 METER) monitoring kit Check blood sugar daily and as needed aspirin, enteric coated (ASPIRIN, ENTERIC COATED) 81 mg EC tablet Take 81 mg by mouth once daily. Compression Knee Highs KNEE HIGH COMPRESSION STOCKINGS 30-40 MM. DX: EDEMA multivitamin (DAILY MULTI-VITAMIN) ORAL Tab Take one(1) tablet daily. No current facility-administered medications for this visit. Allergies: 12 Grain Bread [Other], Mellette Seed, Zocor [Simvastatin], Amoxicillin, Dust, Erythromycin, Grasses [Other], and Molds [Other] This note was partially generated using [employer] voice recognition system, and there may be some incorrect words, spellings, and punctuation that were not noted in checking the note before saving. Josefina Hernandez PA-C * Queta Giraldo RN - 05/11/2024 8:37 AM EDT AMB ROOMING INTAKE FLOWSHEET DATA Pain Pain Level: 5 Pain Location: (bilateral knee pain L>R does have pain lateral thigh) Description: (achy, sharp) Frequency: Intermittent Intervention/Comfort measure: (tylenol- takes edge off,) Comments: gets worse as day goes on Patient presents with: Left Knee - Injections, Pre-Op Visit Right Knee - Injections, Pre-Op Visit 13 weeks 4 days post visit bilateral knee pain with injecti Looking to get additional bilateral injections. documented in [facility] Telephone encounter Note * Telephone Encounter - Essence Solis LPN - 04/17/2024 2:37 PM EDT Rx and paperwork faxed to . Patient telephoned and made aware. Essence Solis LPN [facility] Miscellaneous Notes* Telephone Encounter - Essence Solis LPN - 04/17/2024 2:37 PM EDT Rx and paperwork faxed to . Patient telephoned and made aware. Essence Solis LPN * Telephone Encounter - Kenyetta Stacy APRN.FRANCY - 04/17/2024 2:33 PM EDT Prescription printed and given to Annabelle Solis to fax with [facility]. Kenyetta Stacy APRN.MAINTENANCE EQUIPMENT OPERATOR * Telephone Encounter - Essence Solis LPN - 04/17/2024 2:24 PM EDT Rx pended. Paperwork printed to be resent with new Rx. Essence Solis LPN * Telephone Encounter - Thu Krishnamurthy - 04/17/2024 8:25 AM EDT Bharathi is calling Sara Fuller MD today to request the PAP at [facility] be faxed to themfor [facility] for this new RX. ,per [facility] they advised patient the forms were sent a while agoand they were need of new RX to be sent with the PAP forms for that Trulicity. Patient now advising he is down to 2 pens, which is two weeks. [facility] phone number [phone] Trulicity 3 mg/0.5 mL pen injector Patient has been identified by name and birthdate. Duration of symptoms: N/A Person calling: self Call patient at: at home [phone] (home) [phone] (cell) Was an appointment scheduled: No Closing statement: Results or non-symptom based questions: Thank you for calling [facility], your call will be returned within the next business day. Thu Jeff documented in this encounterUpper [facility]06-28-2024 Telephone encounter Note * Telephone Encounter - Kenyetta Stacy APRN.CNP - 04/17/2024 2:33 PM EDT Prescription printed and given to Annabelle Solis to fax with [facility]. Kenyetta Stacy APRN.FRANCY [facility]06-[facility] Telephone encounter Note* Telephone Encounter - Essence Solis LPN - 04/17/2024 2:24 PM EDT Rx pended. Paperwork printed to be resent with new Rx. Essence Solis LPN [facility] Telephone encounter Note* Telephone Encounter - Thu Krishnamurthy - 04/17/2024 8:25 AM EDT Bharathi is calling Sara Fuller MD today to request the PAP at [facility] be faxed to themfor [facility] for this new RX. ,per [facility] they advised patient the forms were sent a while agoand they were need of new RX to be sent with the PAP forms for that Trulicity. Patient now advising he is down to 2 pens, which is two weeks. [facility] phone number [phone] Trulicity 3 mg/0.5 mL pen injector Patient has been identified by name and birthdate. Duration of symptoms: N/A Person calling: self Call patient at: at home [phone] (home) [phone] (cell) Was an appointment scheduled: No Closing statement: Results or non-symptom based questions: Thank you for calling [facility], your call will be returned within the next business day. Thu Jeff [facility]06-24-[facility] Telephone encounter Note* Telephone Encounter - Taylor Garcia OCCA - 04/13/2024 11:59 AM EDT TC to patient who is informed of below. MARIAN Worrell [facility]06-24-2024 Miscellaneous Notes* Telephone Encounter - Taylor Garcia OCCA - 04/13/2024 11:59 AM EDT TC to patient who is informed of below. MARIAN Worrell * Telephone Encounter - Sara Fuller MD - 04/13/2024 11:47 AM EDT Rx sent. * Telephone Encounter - Francheska Stacy - 04/13/2024 8:12 AM EDT Prescription Refill Information The patient has been identified by name and date of : Yes Caregiver verified no other encounters exist for this prescription request: Yes Caregiver confirmed with patient/requestor that no other refills are due, in the near future, with this provider at this time: Yes The last office visit in the department: 02/21/24 Does the patient have a future office visit with this provider/department: Yes 06/29/24 Requested Prescriptions Pending Prescriptions Disp Refills blood sugar diagnostic (ONETOUCH ULTRA TEST) test strip 100 Strip 3 Sig: Test blood sugar daily and as needed Insulin [place], Disposable, (BD ULTRA-FINE CAROLYN PEN NEEDLE) 32 gauge x 5/32 100 Each 4 Sig: Inject 1 Each subcutaneously two times a day. Use with Insulin Lancets (ONETOUCH ULTRASOFT LANCETS) 100 Each 11 Sig: Test blood sugar(s) 1 times daily and as needed. Dx: Type 2 DM - Uncontrolled E11.65 , Insulin: Yes Patient is changing these diabetic supplies to Car in the [place]. Please correct the prescription instructions on all 3. Can only have one set of instructions with: how many times per day testing; DXcodes; insulin or non-insulin dependent. Francheska Valencia April 13, 2024 8:14 AM documented in this encounterUpper [facility]06-[facility]-2024 Telephone encounter Note * Telephone Encounter - Sara Fuller MD - 04/13/2024 11:47 AM EDT Rx sent. [facility] Tele[facility] encounter Note* Telephone Encounter - [place] Francheska Valencia - 04/13/2024 8:12 AM EDT Prescription Refill Information The patient has been identified by name and date of : Yes Caregiver verified no other encounters exist for this prescription request: Yes Caregiver confirmed with patient/requestor that no other refills are due, in the near future, with this provider at this time: Yes The last office visit in the department: 02/21/24 Does the patient have a future office visit with this provider/department: Yes 06/29/24 Requested Prescriptions Pending Prescriptions Disp Refills blood sugar diagnostic (ONETOUCH ULTRA TEST) test strip 100 Strip 3 Sig: Test blood sugar daily and as needed Insulin [place], Disposable, (BD ULTRA-FINE CAROLYN PEN NEEDLE) 32 gauge x 5/32 100 Each 4 Sig: Inject 1 Each subcutaneously two times a day. Use with Insulin Lancets (ONETOUCH ULTRASOFT LANCETS) 100 Each 11 Sig: Test blood sugar(s) 1 times daily and as needed. Dx: Type 2 DM - Uncontrolled E11.65 , Insulin: Yes Patient is changing these diabetic supplies to Drug Tristan Boggs. Please correct the prescription instructions on all 3. Can only have one set of instructions with: how many times per day testing; DXcodes; insulin or non-insulin dependent. Francheska Valencia April 13, 2024 8:14 AM [facility] Telephone encounter Note* Telephone Encounter - Mary Kay Thomas MA - 02/24/2024 10:43 AM EDT Pt notified of results via [employer]. Mary Kay Thomas Ma [facility] Telephone encounter Note* Telephone Encounter - Mary Kay Thomas MA - 02/24/2024 10:43 AM EDT ----- Message from Kenyetta Stacy APRN.MAINTENANCE EQUIPMENT OPERATOR sent at 02/24/2024 6:43 AM EDT ----- A1c has increased slightly went for 6.8% to 7.0%- continue current medications, low carbohydrate diet and aim for at least 150 minutes of exercise per week. Kenyetta Stacy APRN.MAINTENANCE EQUIPMENT OPERATOR [facility] Miscellaneous Notes* Telephone Encounter - Mary Kay Thomas MA - 02/24/2024 10:43 AM EDT Pt notified of results via [employer]. Mary Kay Thomas Ma * Telephone Encounter - Mary Kay Thomas MA - 02/24/2024 10:43 AM EDT ----- Message from Kenyetta Stacy APRN.MAINTENANCE EQUIPMENT OPERATOR sent at 02/24/2024 6:43 AM EDT ----- A1c has increased slightly went for 6.8% to 7.0%- continue current medications, low carbohydrate diet and aim for at least 150 minutes of exercise per week. Kenyetta Stacy APRN.FRANCY documented in this encounterUpper [facility] Center05-03-2024 History of Present illness Narrative* Kenyetta Stacy APRN.CNP - 02/21/2024 8:00 AM EDT 02/20/2024 Patient presents with: BP Check SUBJECTIVE: This is a 73 year old that is here today for Above Complaints. BP elevated at last office appointment. No medication changes at that time however his cardiologiststarted him on HCTZ 25 mg daily on 02/21/2024. Checking BP at home and thinks it is similar to our reading here today but he is not keeping track of them. Occasional headache. Denies visual changes, l ightheadedness, dizziness, slurred speech, facial drooping, SOB, dyspnea, chest pain, palpitations,extremity numbness, tingling or weakness Reports sugars seem a little higher recently, checks 1 time a day some days 2. Majority less than 150. Denies visual changes, polyuria, or polydipsia PAST MEDICAL HISTORY Diagnosis Date Allergic rhinitis, cause unspecified Allergic rhinitis Atrial fibrillation (HCC) Bilateral lower extremity edema Blood in stool Hypertension Hypothyroidism Lipoma Morbid obesity (HCC) Other and unspecified hyperlipidemia Prostate cancer (HCC) [address] White. s/p prostatectomy RBBB Rosacea Type II or unspecified type diabetes mellitus without mention of complication, uncontrolled Urinary incontinence ALLERGIES 12 Grain Bread [Other], Mellette Seed, Zocor [Simvastatin], Amoxicillin, Dust, Erythromycin, Grasses [Other], and Molds [Other] MEDICATIONS Current Outpatient Medications Medication Sig enalapril (VASOTEC) 10 mg tablet Take 1 tablet by mouth once daily. levothyroxine (SYNTHROID) 100 mcg tablet TAKE 1 TABLET DAILY ON AN EMPTY STOMACH metFORMIN (GLUCOPHAGE) 500 mg tablet Take 2 tablets by mouth two times a day with meals. ELIQUIS 5 mg tab(s) Take 1 tablet by mouth every 12 hours. Insulin [place], Disposable, (BD ULTRA-FINE CAROLYN PEN NEEDLE) 32 gauge x 5/32 Inject 1 Each subcutaneously two times a day. Use with Insulin blood sugar diagnostic (ONETOUCH ULTRA TEST) test strip Test blood sugar daily and as needed EPINEPHrine (EPIPEN) 0.3 mg/0.3 mL auto-injector Inject 0.3 mL intramuscularly as needed (For allergic reaction). rosuvastatin (CRESTOR) 20 mg tablet Take 1 tablet by mouth daily at bedtime. propylene glycol (SYSTANE BALANCE OPHTHALMIC) Use in eyes. 3-4 times a day sulfacetamide sodium/sulfur (PRASCION TOPICAL) Apply to affected area once daily. 10-55 (Patient not taking: Reported on 03/07/2023) omega-3 DHA-EPA (FISH OIL) 1,200 (144-216) mg capsule Take 1 capsule by mouth daily with breakfast. MAGNESIUM SULFATE ORAL Take 500 mg by mouth once daily. CINNAMON BARK ORAL Take 2,000 mcg by mouth once daily. carvedilol (COREG) 3.125 mg tablet Take 3.125 mg by mouth twice daily with meals. blood sugar diagnostic (BLOOD GLUCOSE TEST) test strip Test blood sugar(s) 2 times daily. Dx: Type 2 DM - Controlled E11.9 Insulin: Yes insulin glargine (BASAGLAR KWIKPEN U-100 INSULIN) 100 unit/mL (3 mL) Inject 34 Units subcutaneouslytwice daily. dulaglutide (TRULICITY) 3 mg/0.5 mL pen injector Inject 3 mg subcutaneously one time a week. nitroglycerin sublingual (NITROQUICK) 0.[address] 1 tablet under the tongue if needed every 5 minutes for stephen... (REFER TO PRESCRIPTION NOTES). albuterol HFA (VENTOLIN HFA) 90 mcg/actuation inhaler Inhale 2 Puffs as instructed every 4 hours asneeded for wheezing/shortness of breath. (Patient not taking: Reported on 11/27/2021) blood sugar diagnostic (ONETOUCH ULTRA TEST STRIP) test strip Test sugar daily and as needed Blood-Glucose Meter (ONETOUCH ULTRA2 METER) monitoring kit Check blood sugar daily and as needed Lancets (ONETOUCH ULTRASOFT LANCETS) lancets Test blood sugar(s) 1 times daily and as needed. Dx: Type 2 DM - Uncontrolled E11.65 , Insulin: Yes aspirin, enteric coated (ASPIRIN, ENTERIC COATED) 81 mg EC tablet Take 81 mg by mouth once daily. Compression Knee Highs KNEE HIGH COMPRESSION STOCKINGS 30-40 MM. DX: EDEMA multivitamin (DAILY MULTI-VITAMIN) ORAL Tab Take one(1) tablet daily. No current facility-administered medications for this visit. Medications and allergies reviewed by this provider. SOCIAL HISTORY Social History Tobacco Use Smoking status: Never Smokeless tobacco: Never Tobacco comments: No smoking in childhood home. Vaping Use Vaping Use: Never used Substance Use Topics Alcohol use: No Drug use: No REVIEW OF SYSTEMS All other reviewed and negative other than HPI. OBJECTIVE: BP 139/74 Pulse 85 Resp 16 Wt 127.9 kg (282 lb) SpO2 93% BMI 38.25 kg/m . Vital signs reviewed by this provider. APPEARANCE Well appearing, alert, in no acute distress, well-hydrated, well nourished. EYES conjunctiva and sclera normal. HEART RRR with normal S1 and S2, no murmurs, no gallops, no JVD appreciated LUNG clear to auscultation. No wheezes, rhonchi or rales SKIN Skin color, texture, turgor normal, no suspicious rashes or lesions to exposed skin Latest Ref Rng 12/06/2023 Protein, Total 6.3 - 8.0 g/dL 6.7 Albumin 3.9 - 4.9 g/dL 4.1 Calcium 8.5 - 10.2 mg/dL 8.8 Bilirubin, Total 0.2 - 1.3 mg/dL 0.4 Alkaline Phosphatase 38 - 113 U/L 59 AST -- ALT 10 - 54 U/L 35 Glucose 74 - 99 mg/dL 120 (H) BUN 9 - 24 mg/dL 30 (H) Creatinine 0.73 - 1.22 mg/dL 0.97 Sodium 136 - 144 mmol/L 139 Potassium 3.7 - 5.1 mmol/L 4.9 Chloride 97 - 105 mmol/L 102 CO2 22 - 30 mmol/L 27 Anion Gap 9 - 18 mmol/L 10 eGFR >=60 mL/min/1.73m 82 Creatinine, Ur Random (UCRR) 20.0 - 300.0 mg/dL 79.6 Albumin, Urine Random mg/L <12.0 Albumin/Creat Ratio <30 mg/g <15 Hemoglobin A1C 4.3 - 5.6 % 6.8 (H) Estimated Average Glucose mg/dL 148 Legend: (H) High Advance Directive Discussion Never done Behavioral Health Screening Never done Diabetic Foot Exam due on 12/03/2023 Shingrix Vaccine(3 of 3) due on 04/05/2024 Covid-19 Vaccine( season) due on 04/08/2024 Dilated Retinal Exam due on 05/15/2024 HbA1C due on 06/05/2024 LDL Cholesterol due on 06/07/2024 BP Controlled (<130/80) due on 06/10/2024 Urine Albumin:Creatinine Ratio due on 12/06/2024 Annual PCP Team Chronic Disease Visit due on 02/20/2025 Colorectal Cancer Screening due on 02/15/2026 DTaP,Tdap,Td Vaccine(3 - Td or Tdap) due on 04/05/2026 Influenza Vaccine Completed RSV Vaccine Completed Hepatitis C Screening Completed Pneumococcal Vaccine: 65+ Completed HPV Vaccine Aged Out ASSESSMENT/PLAN: 1. Primary hypertension - ICD9: 401.9, ICD10: I10 (primary diagnosis) - Improving control - Continue current medications - Recommend home blood pressure monitoring, to bring results to next visit - Encouraged sodium restriction, DASH or Mediterranean diet - Recommend regular aerobic exercise - Discussed need for and benefit of weight loss. BMI 38.25 kg/(m^2) - Follow up in 3 months for hypertension visit 2. Type 2 diabetes mellitus without complication, unspecified whether parts counterman insulin use (HCC) -ICD9: 250.00, ICD10: E11.9 - Controlled - Continue current medications - Counseled on healthy diet and regular exercise - Follow up in 3 months, sooner should any other issues arise. - HEMOGLOBIN A1C Kenyetta Stacy APRN.CNP Prescription instructions reviewed with patient as applicable. Patient advised if symptoms do not improve or if symptoms worsen sooner, to contact their primary care physician. Potential red flag symptoms discussed with the patient. Reviewed appropriate action plan to take if red flag symptoms occur. Patient agreeable to treatment plan. Medical Decision Making: Problems: Moderate: 2+ stable chronic illnesses Data: Unique test(s) ordered: 1 Risk: Moderate: Moderate risk from testing/treatment Medical Decision Making Level: 4 - Moderate documented [facility] History of Present illness Narrative* Josefina Hernandez PA-C - 02/06/2024 3:12 PM EDTAssociated Order(s): Large Joint Arthro/Inj: bilateral knee joints Post-Procedure Diagnose(s): Chronic pain of both knees Large Joint Arthro/Inj: bilateral knee joints Informed Consent Consent Obtained: Verbal [place] Protocol A moment to CARE was completed. SIGN IN Sign in communication not applicable due to emergent procedure. Personnel directly involved with the procedure wore the appropriate PPE. Special Equipment: N/A Patient/Surrogate Stated/Verified: Patient name, Date of , Relevant allergies and Intended procedure TIME OUT Intended patient and procedure match the source document(s). Consent documented and matches the intended procedure. Relevant labs, photos, and/or imaging studies have been reviewed. Correct side/site marked and visible. Medications required for procedure verified. No fire risk assessment and interventions applicable. No implant(s) inserted. 02/06/2024 3:13 PM The procedure site was prepped in the usual sterile fashion. Site: bilateral knee joints Medications (Right): 6 mg betamethasone acetate-betamethasone sodium phosphate 6 mg/mL Medications (Left): 6 mg betamethasone acetate-betamethasone sodium phosphate 6 mg/mL Anesthetics (Right): 5 mL lidocaine (PF) 10 mg/mL (1 %) Anesthetics (Left): 5 mL lidocaine (PF) 10 mg/mL (1 %) Outcome: Tolerated well, no immediate complications Post-injection instructions were reviewed with the patient and the patient voiced understanding of these instructions. SIGN OUT No instruments, equipment or retained foreign bodies applicable. documented in this encounterUpper [facility]04-10-2024 Miscellaneous Notes* Telephone Encounter - Juliana Shirley - 01/29/2024 8:55 AM EDT Patient switched insurance and needs to scripts called in to [facility]. * Telephone Encounter - Juliana Shirley - 01/29/2024 8:54 AM EDT Pharmacy verified in [facility] Patient has been identified by name and date of : Yes Patient aware RX will be sent to pharmacy. No need to notify patient. Patient phones for refill(s): Requested Prescriptions Pending Prescriptions Disp Refills enalapril (VASOTEC) 10 mg tablet 90 tablet 1 Sig: Take 1 tablet by mouth once daily. levothyroxine (SYNTHROID) 100 mcg tablet 90 tablet 1 Sig: TAKE 1 TABLET DAILY ON AN EMPTY STOMACH metFORMIN (GLUCOPHAGE) 500 mg tablet 360 tablet 1 Sig: Take 2 tablets by mouth two times a day with meals. Date of last office visit : 01/22/2024 Date of next office visit : 02/21/2024 Last 2 Encounter Wt Readings: Date: Wt: 01/22/2024 132.2 kg (291 lb 6.4 oz) 12/09/2023 128.4 kg (283 lb) Not applicable Please advise. Juliana Segovia Pss documented in this encounterUpper [facility]04-04-2024 Miscellaneous Notes* Telephone Encounter - Vani Davila MA - 01/23/2024 3:29 PM EDT Pt notified of recommendations. He would like to schedule the injections bilaterally 02/05 or after. 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 Vani Davila MA * Telephone Encounter - Josefina Hernandez PA-C - 01/23/2024 2:48 PM EDT No need to stop Eliquis for knee injections. * Telephone Encounter - Vani Davila MA - 01/23/2024 2:17 PM EDT Does he have to stop his Eliquis for the knee injections at all?? Please review and advise. * Telephone Encounter - Josefina Hernandez PA-C - 01/23/2024 10:10 AM EDT He can have repeat knee injections as early as 02/05. Since he is on Eliquis he is not able to take any oral NSAIDs, my suggestion would be to try some Tylenol. He can also try using some topical Voltaren on his knees, Voltaren is purchased [id number]. * Telephone Encounter - Vani Davila MA - 01/22/2024 9:01 AM EDT Pt calling to report that his customer operations manager placed him on Eliquis and he was instructed not to take any more of the Lodine. He had been taking the Lodine regularly due to significant bilateral knee pain. He is asking if there is anything else that he could take that would help. He is also asking when he can have his next knee injections. Please review and advise. Vani Davila MA documented in this encounterUpper [facility] Center04-03-2024 Instructions* Patient Instructions* Kenyetta Stacy APRN.FRANCY - 01/22/2024 8:23 AM EDT Ask cardiology about using muscle relaxer Flexeril and see if they are alright with you taking this- let me know if alright May take over the counter Tylenol- extended release or extra strength documented in this encounterUpper [facility] Center04-03-2024 History of Present illness Narrative* Kenyetta Stacy APRN.CNP - 01/22/2024 8:09 AM EDT 01/22/2024 Patient presents with: Leg Pain: Left leg muscle pain, has seen chiropractor. SUBJECTIVE: This is a 73 year old that is here today for Above Complaints. Left upper leg muscle pain started end of November. Pain described as ache and at times spasms. Aggravated by walking on uneven ground. Using OTC Biofreeze, doing stretches and going to chiropractor which is helping some. Requesting muscle relaxer. Denies injury, swelling, redness or warmth. PAST MEDICAL HISTORY Diagnosis Date Allergic rhinitis, cause unspecified Allergic rhinitis Atrial fibrillation (HCC) Bilateral lower extremity edema Blood in stool Hypertension Hypothyroidism Lipoma Morbid obesity (HCC) Other and unspecified hyperlipidemia Prostate cancer (HCC) [address] White. s/p prostatectomy RBBB Rosacea Type II or unspecified type diabetes mellitus without mention of complication, uncontrolled Urinary incontinence ALLERGIES 12 Grain Bread [Other], Mellette Seed, Zocor [Simvastatin], Amoxicillin, Dust, Erythromycin, Grasses [Other], and Molds [Other] MEDICATIONS Current Outpatient Medications Medication Sig ELIQUIS 5 mg tab(s) Take 1 tablet by mouth every 12 hours. Insulin [place], Disposable, (BD ULTRA-FINE CAROLYN PEN NEEDLE) 32 gauge x / Inject 1 Each subcutaneously two times a day. Use with Insulin enalapril (VASOTEC) 10 mg tablet Take 1 tablet by mouth once daily. blood sugar diagnostic (ARKeXTOUCH ULTRA TEST) test strip Test blood sugar daily and as needed levothyroxine (SYNTHROID) 100 mcg tablet TAKE 1 TABLET DAILY ON AN EMPTY STOMACH metFORMIN (GLUCOPHAGE) 500 mg tablet Take 2 tablets by mouth two times a day with meals. EPINEPHrine (EPIPEN) 0.3 mg/0.3 mL auto-injector Inject 0.3 mL intramuscularly as needed (For allergic reaction). rosuvastatin (CRESTOR) 20 mg tablet Take 1 tablet by mouth daily at bedtime. propylene glycol (SYSTANE BALANCE OPHTHALMIC) Use in eyes. 3-4 times a day sulfacetamide sodium/sulfur (PRASCION TOPICAL) Apply to affected area once daily. 10-55 (Patient not taking: Reported on 03/07/2023) omega-3 DHA-EPA (FISH OIL) 1,200 (144-216) mg capsule Take 1 capsule by mouth daily with breakfast. MAGNESIUM SULFATE ORAL Take 500 mg by mouth once daily. CINNAMON BARK ORAL Take 2,000 mcg by mouth once daily. carvedilol (COREG) 3.125 mg tablet Take 3.125 mg by mouth twice daily with meals. blood sugar diagnostic (BLOOD GLUCOSE TEST) test strip Test blood sugar(s) 2 times daily. Dx: Type 2 DM - Controlled E11.9 Insulin: Yes insulin glargine (BASAGLAR KWIKPEN U-100 INSULIN) 100 unit/mL (3 mL) Inject 34 Units subcutaneouslytwice daily. dulaglutide (TRULICITY) 3 mg/0.5 mL pen injector Inject 3 mg subcutaneously one time a week. nitroglycerin sublingual (NITROQUICK) 0.[address] 1 tablet under the tongue if needed every 5 minutes for stephen... (REFER TO PRESCRIPTION NOTES). albuterol HFA (VENTOLIN HFA) 90 mcg/actuation inhaler Inhale 2 Puffs as instructed every 4 hours asneeded for wheezing/shortness of breath. (Patient not taking: Reported on 11/27/2021) blood sugar diagnostic (ONETOUCH ULTRA TEST STRIP) test strip Test sugar daily and as needed Blood-Glucose Meter (ONETOUCH ULTRA2 METER) monitoring kit Check blood sugar daily and as needed Lancets (ONETOUCH ULTRASOFT LANCETS) lancets Test blood sugar(s) 1 times daily and as needed. Dx: Type 2 DM - Uncontrolled E11.65 , Insulin: Yes aspirin, enteric coated (ASPIRIN, ENTERIC COATED) 81 mg EC tablet Take 81 mg by mouth once daily. Compression Knee Highs KNEE HIGH COMPRESSION STOCKINGS 30-40 MM. DX: EDEMA multivitamin (DAILY MULTI-VITAMIN) ORAL Tab Take one(1) tablet daily. No current facility-administered medications for this visit. Medications and allergies reviewed by this provider. SOCIAL HISTORY Social History Tobacco Use Smoking status: Never Smokeless tobacco: Never Tobacco comments: No smoking in childhood home. Vaping Use Vaping Use: Never used Substance Use Topics Alcohol use: No Drug use: No REVIEW OF SYSTEMS All other reviewed and negative other than HPI. OBJECTIVE: BP 158/76 Pulse 81 Resp 18 Wt 132.2 kg (291 lb 6.4 oz) SpO2 94% BMI 39.52 kg/m . Vital signs reviewed by this provider. APPEARANCE Well appearing, alert, in no acute distress, well-hydrated, well nourished. LEFT LEG: No obvious deformity, erythema or swelling. Mild TTP below left buttocks. FROM without pain. Not aggravated by back extension or flexion Shingrix Vaccine(2 of 3) due on 05/22/2013 Advance Directive Discussion Never done Depression Assessment Never done Diabetic Foot Exam due on 12/03/2023 Dilated Retinal Exam due on 05/15/2024 HbA1C due on 06/05/2024 LDL Cholesterol due on 06/07/2024 BP Controlled (<130/80) due on 06/10/2024 Urine Albumin:Creatinine Ratio due on 12/06/2024 Annual PCP Team Chronic Disease Visit due on 01/21/2025 Colorectal Cancer Screening due on 02/15/2026 DTaP,Tdap,Td Vaccine(3 - Td or Tdap) due on 04/05/2026 Influenza Vaccine Completed RSV Vaccine Completed Hepatitis C Screening Completed Covid-19 Vaccine Completed Pneumococcal Vaccine: 65+ Completed HPV Vaccine Aged Out ASSESSMENT/PLAN: 1. Left leg pain - ICD9: 729.5, ICD10: M79.605 - no red flag symptoms or exam findings - red flag symptoms discussed, verbalizes understanding - continue with OTC measures - looks like flexeril muscle relaxer contraindicate due to his hear arrhythmia - he will check at his upcoming cardiology appointment and if they say alright to use he will let me know - discussed muscle relaxer can cause drowsiness so he should not drive or operate heavy machinery while taking, verbalizes understanding Kenyetta Stacy APRN.CNP Prescription instructions reviewed with patient as applicable. Patient advised if symptoms do not improve or if symptoms worsen sooner, to contact their primary care physician. Potential red flag symptoms discussed with the patient. Reviewed appropriate action plan to take if red flag symptoms occur. Patient agreeable to treatment plan. Medical Decision Making: Problems: Moderate: New problem with uncertain prognosis Risk: Low: Low risk from testing/treatment Medical Decision Making Level: 3 - Low documented in this encounterUpper [facility]02-19-2024 Instructions* Patient Instructions* Kenyetta Stacy APRN.CNP - 12/09/2023 8:04 AM EST Should not take NSAID products documented in this encounterUpper [facility] Center02-19-2024 History of Present illness Narrative* Podlogar, SAE Kumari.MAINTENANCE EQUIPMENT OPERATOR - 12/09/2023 7:37 AM EST 12/09/2023 Patient presents with: F/U 6 Month SUBJECTIVE: This is a 73 year old that is here today for Above Complaints. Since last office visit has been in a good health without ER visit or hospitalizations. DIABETES MELLITUS: Since our last visit he denies excessive thirst or increased frequency of urination, chest pain or dyspnea , numbness, tingling or pain in extremities, new or unusual visual symptoms, low sugar/hypoglycemic reactions, weight loss/gain, lightheadedness/dizziness, and bowel changes/loose stools. Follows a diabetic diet most of the time. He is compliant with medication(s) and is tolerating med(s) without any side effects. He reports checking his glucose on a twice a day schedulewith sugars in the <150 range. Patient's last HgA1C was Hemoglobin A1C (%) Date Value 12/06/2023 6.8 06/07/2023 6.4 11/22/2021 6.7 08/21/2021 6.8 ) Last Ophthalmology exam was within the past 12 months RBBB/CAD: following with [facility] cardiology. Started in Eliquis back August due to heart monitor showed atrial fib per patient report. Admits to some SOB with exertion. Denies bleeding symptoms dyspnea, orthopnea, chest pain ,palpitations or leg swelling. Reports has upcoming appointment HYPOTHYROIDISM: taking synthroid as prescribed without side effects HTN: Patient is compliant with meds Yes Monitors bp at home: No. Denies side effects: Yes. Chest pain: No. Dyspnea: No. Edema: No. Palpitations: No. Syncope: No. Headache: No. Dizziness: No. PAST MEDICAL HISTORY Diagnosis Date Allergic rhinitis, cause unspecified Allergic rhinitis Bilateral lower extremity edema Blood in stool Hypertension Hypothyroidism Lipoma Morbid obesity (HCC) Other and unspecified hyperlipidemia Prostate cancer (HCC) [address] White. s/p prostatectomy RBBB Rosacea Type II or unspecified type diabetes mellitus without mention of complication, uncontrolled Urinary incontinence ALLERGIES 12 Grain Bread [Other], Mellette Seed, Zocor [Simvastatin], Amoxicillin, Dust, Erythromycin, Grasses [Other], and Molds [Other] MEDICATIONS Current Outpatient Medications Medication Sig ELIQUIS 5 mg tab(s) Take 1 tablet by mouth every 12 hours. Insulin [place], Disposable, (BD ULTRA-FINE CAROLYN PEN NEEDLE) 32 gauge x 5/32 Inject 1 Each subcutaneously two times a day. Use with Insulin enalapril (VASOTEC) 10 mg tablet Take 1 tablet by mouth once daily. blood sugar diagnostic (ONETOUCH ULTRA TEST) test strip Test blood sugar daily and as needed levothyroxine (SYNTHROID) 100 mcg tablet TAKE 1 TABLET DAILY ON AN EMPTY STOMACH metFORMIN (GLUCOPHAGE) 500 mg tablet Take 2 tablets by mouth two times a day with meals. EPINEPHrine (EPIPEN) 0.3 mg/0.3 mL auto-injector Inject 0.3 mL intramuscularly as needed (For allergic reaction). rosuvastatin (CRESTOR) 20 mg tablet Take 1 tablet by mouth daily at bedtime. etodolac (LODINE) 300 mg capsule Take 1 capsule by mouth every 8 hours. As needed for pain propylene glycol (SYSTANE BALANCE OPHTHALMIC) Use in eyes. 3-4 times a day sulfacetamide sodium/sulfur (PRASCION TOPICAL) Apply to affected area once daily. 10-55 (Patient not taking: Reported on 03/07/2023) omega-3 DHA-EPA (FISH OIL) 1,200 (144-216) mg capsule Take 1 capsule by mouth daily with breakfast. MAGNESIUM SULFATE ORAL Take 500 mg by mouth once daily. CINNAMON BARK ORAL Take 2,000 mcg by mouth once daily. carvedilol (COREG) 3.125 mg tablet Take 3.125 mg by mouth twice daily with meals. blood sugar diagnostic (BLOOD GLUCOSE TEST) test strip Test blood sugar(s) 2 times daily. Dx: Type 2 DM - Controlled E11.9 Insulin: Yes insulin glargine (BASAGLAR KWIKPEN U-100 INSULIN) 100 unit/mL (3 mL) Inject 34 Units subcutaneouslytwice daily. dulaglutide (TRULICITY) 3 mg/0.5 mL pen injector Inject 3 mg subcutaneously one time a week. nitroglycerin sublingual (NITROQUICK) 0.[address] 1 tablet under the tongue if needed every 5 minutes for stephen... (REFER TO PRESCRIPTION NOTES). albuterol HFA (VENTOLIN HFA) 90 mcg/actuation inhaler Inhale 2 Puffs as instructed every 4 hours asneeded for wheezing/shortness of breath. (Patient not taking: Reported on 11/27/2021) blood sugar diagnostic (ONETOUCH ULTRA TEST STRIP) test strip Test sugar daily and as needed Blood-Glucose Meter (ONETOUCH ULTRA2 METER) monitoring kit Check blood sugar daily and as needed Lancets (ONETOUCH ULTRASOFT LANCETS) lancets Test blood sugar(s) 1 times daily and as needed. Dx: Type 2 DM - Uncontrolled E11.65 , Insulin: Yes aspirin, enteric coated (ASPIRIN, ENTERIC COATED) 81 mg EC tablet Take 81 mg by mouth once daily. Compression Knee Highs KNEE HIGH COMPRESSION STOCKINGS 30-40 MM. DX: EDEMA multivitamin (DAILY MULTI-VITAMIN) ORAL Tab Take one(1) tablet daily. No current facility-administered medications for this visit. Medications and allergies reviewed by this provider. SOCIAL HISTORY Social History Tobacco Use Smoking status: Never Smokeless tobacco: Never Tobacco comments: No smoking in childhood home. Vaping Use Vaping Use: Never used Substance Use Topics Alcohol use: No Drug use: No REVIEW OF SYSTEMS All other reviewed and negative other than HPI. OBJECTIVE: BP 128/72 Pulse 65 Resp 18 Wt 128.4 kg (283 lb) SpO2 96% BMI 38.38 kg/m . Vital signs reviewed by this provider. APPEARANCE Well appearing, alert, in no acute distress, well-hydrated, well nourished. EYES PERRLA, conjunctiva and sclera normal. HEART RRR with normal S1 and S2, no murmurs, no gallops, no JVD appreciated LUNG clear to auscultation. No wheezes, rhonchi or rales EXTREMITIES Extremities normal, No deformities, No skin discoloration, and No edema Component Latest Ref Rng & Units 12/06/2023 Protein, Total 6.3 - 8.0 g/dL 6.7 Albumin 3.9 - 4.9 g/dL 4.1 Calcium 8.5 - 10.2 mg/dL 8.8 Bilirubin, Total 0.2 - 1.3 mg/dL 0.4 Alkaline Phosphatase 38 - 113 U/L 59 AST ALT 10 - 54 U/L 35 Glucose 74 - 99 mg/dL 120 (H) BUN 9 - 24 mg/dL 30 (H) Creatinine 0.73 - 1.22 mg/dL 0.97 Sodium 136 - 144 mmol/L 139 Potassium 3.7 - 5.1 mmol/L 4.9 Chloride 97 - 105 mmol/L 102 CO2 22 - 30 mmol/L 27 Anion Gap 9 - 18 mmol/L 10 eGFR >=60 mL/min/1.73m 82 Creatinine, Ur Random (UCRR) 20.0 - 300.0 mg/dL 79.6 Albumin, Urine Random mg/L <12.0 Albumin/Creat Ratio <30 mg/g <15 Hemoglobin A1C 4.3 - 5.6 % 6.8 (H) Estimated Average Glucose mg/dL 148 Component Latest Ref Rng & Units 06/07/2023 TSH 0.270 - 4.200 mIU/L 2.600 Component Latest Ref Rng & Units 06/07/2023 Cholesterol, Total <200 mg/dL 137 Triglyceride <150 mg/dL 183 (H) HDL Cholesterol >39 mg/dL 30 (L) Non HDL Cholesterol <130 mg/dL 107 Fasting Time hrs 10 VLDL Cholesterol <30 mg/dL 37 (H) TC:HDL Ratio <5.10 4.57 LDL Cholesterol <100 mg/dL 70 LDL:HDL Ratio <2.54 2.33 Shingrix Vaccine(2 of 3) due on 05/22/2013 Covid-19 Vaccine() due on 06/21/2023 Advance Directive Discussion Never done Depression Assessment Never done Diabetic Foot Exam due on 12/03/2023 Dilated Retinal Exam due on 05/15/2024 HbA1C due on 06/05/2024 LDL Cholesterol due on 06/07/2024 Annual PCP Team Chronic Disease Visit due on 06/10/2024 BP Controlled (<130/80) due on 06/17/2024 Urine Albumin:Creatinine Ratio due on 12/06/2024 Colorectal Cancer Screening due on 02/15/2026 DTaP,Tdap,Td Vaccine(3 - Td or Tdap) due on 04/05/2026 Influenza Vaccine Completed RSV Vaccine Completed Hepatitis C Screening Completed Pneumococcal Vaccine: 65+ Completed HPV Vaccine Aged Out ASSESSMENT/PLAN: 1. Type 2 diabetes mellitus without complication, unspecified whether parts counterman insulin use (HCC) -ICD9: 250.00, ICD10: E11.9 (primary diagnosis) - Controlled - Continue current medications - Statin prescribed - rosuvastatin - Blood glucose monitoring on a twice daily schedule - Discussed need for and benefit of weight loss. BMI 38.38 kg/(m^2) - Follow up in 6 months, sooner should any other issues arise. 2. Encounter for immunization - ICD9: V03.89, ICD10: Z23 - [facility] ITC COVID-19 VACCINE (2022- [place]) AGE 12+ YR 3. Morbid obesity (HCC) - ICD9: 278.01, ICD10: E66.01 Stable - Behavioral intervention - Lengthy discussion in office today regarding diet and exercise. Discussed use of small plate to eat meals from, drink 1 glass of water 10-15 minutes prior to eating meal, drink 8 glasses of water daily, eat fresh fruit and vegetable during meal first then lean protein such as grilled/baked chicken breast or fish, limit carbohydrate intake (less pasta, breads, rice and snack foods) as well as limiting sugars (desserts etc). Important to count / track your calories and exercise as well. 4. Mixed hyperlipidemia - ICD9: 272.2, ICD10: E78.2 - Controlled - Continue current medications - Counseled on healthy diet and regular exercise - Discussed need for and benefit of weight loss. BMI 38.38 kg/(m^2) - Follow up in 6 months, sooner should any other issues arise. 5. Coronary artery disease involving [place] heart, unspecified vessel or lesion type, unspecified whether angina present - ICD9: 414.01, ICD10: I25.10 - stable - follow-up with cardiology as scheduled 6. Acquired hypothyroidism - ICD9: 244.9, ICD10: E03.9 - Instructed patient on importance of taking on an empty stomach either first thing in the morning or at bedtime. - continue current dose of Synthroid 0.100 mg - Follow up in 6 months 7. Atrial fibrillation, unspecified type (HCC) - ICD9: 427.31, ICD10: I48.91 - I have no recent information from his customer operations manager on this diagnosis or plan - continue current medications and follow-up with cardiology as scheduled Kenyetta Stacy, NUTRITION CLUB AMBASSADOR.MAINTENANCE EQUIPMENT OPERATOR Prescription instructions reviewed with patient as applicable. Patient advised if symptoms do not improve or if symptoms worsen sooner, to contact their primary care physician. Potential red flag symptoms discussed with the patient. Reviewed appropriate action plan to take if red flag symptoms occur. Patient agreeable to treatment plan. Medical Decision Making: Problems: Moderate: New problem with uncertain prognosis and 2+ stable chronic illnesses Risk: Moderate: Drug management and Moderate risk from testing/treatment Medical Decision Making Level: 4 - Moderate documented in this encounterUpper [facility] Center02-16-2024 Instructions* Patient Instructions* Viktoriya Angelo - 12/06/2023 8:21 AM EST Diabetes Foot Care Instructions When you have diabetes, proper foot care is very important. Poor foot care may lead to amputation of a foot or leg. As a person with diabetes, you are more vulnerable to foot problems, because diabetes can damage your nerves and reduce blood flow to your feet. Here are some diabetes foot care tips to follow: Wash and Dry Your Feet Daily Use mild soaps Use warm water Pat your skin dry; do not rub. Thoroughly dry your feet. After washing, use lotion on your feet to prevent cracking. Do not put lotion between your toes. Examine Your Feet Each Day Check the tops and bottoms of your feet. Have someone else look at your feet if you cannot see them. Check for dry, cracked skin. Look for blisters, cuts, scratches, or other sores. Check for redness, increased warmth, or tenderness when touching any area of your feet. Check for ingrown toenails, corns, and calluses. If you get a blister or sore from your shoes, do not pop it. Apply a bandage and wear a differentpair of shoes. Take Care of Your Toenails Cut toenails after bathing, when they are soft. Cut toenails straight across and smooth with a nail file. Avoid cutting into the corners of toes. Do not cut cuticles. If you have neuropathy (or decreased sensation in your feet) a claim analyst should always cut your toenails. Be Careful When Exercising Walk and exercise in comfortable shoes. Do not exercise when you have open sores on your feet. Protect Your Feet With Shoes and Socks Never go barefoot. Always protect your feet by wearing shoes or hard-soled slippers or footwear. Avoid shoes with high heels and pointed toes. Avoid shoes that expose your toes or heels (such as open-toed shoes or sandals). These types of shoes increase your risk for injury and potential infections. Try on new footwear with the type of socks you usually wear. Do not wear new shoes for more than an hour at a time. Change your socks daily. Look and feel inside your shoes before putting them on to make sure there are no foreign objects orrough areas. Avoid tight socks. Wear natural-fiber socks (cotton, wool, or a cotton-wool blend). Wear special shoes if your health care provider recommends them. Wear shoes/boots that will protect your feet from various weather conditions (cold, moisture, etc.). Make sure your shoes fit properly. If you have neuropathy (nerve damage), you may not notice that your shoes are too tight. Perform the footwear test described below. Footwear Test Use this simple test to see if your shoes fit correctly: Stand on a piece of paper. (Make sure you are standing and not sitting, because your foot changes shape when you stand.) Trace the outline of your foot. Trace the outline of your shoe. Compare the tracings: Is the shoe too narrow? Is your foot crammed into the shoe? The shoe should be at least 1/2 inch longer than your longest toe and as wide as your foot. Proper Shoe Choices The following types of shoes are best for people with diabetes Closed toes and heels Leather uppers without a seam inside At least 1/2 inch extra space at the end of your longest toe Inside of shoe should be soft with no rough areas Outer sole should be made of stiff material Shoes should be at least as wide as your feet Tips for Foot Care in Diabetes Don't wait to treat a minor foot problem if you have diabetes. Follow your health care provider's guidelines and first aid guidelines. Report foot injuries and infections to your health care provider immediately. Check water temperature with your elbow, not your foot. Do not use a heating pad on your feet. Do not cross your legs. Do not self-treat your corns, calluses, or other foot problems. Go to your health care provider or claim analyst to treat these conditions. documented [facility] History of Present illness Narrative* Viktoriya Angelo - 12/06/2023 8:12 AM EST Last time saw pcp: 06/10/23 Subjective: This 73 year old male presents to clinic for diabetic foot check. Patient did have somesoreness to the top of his right foot yesterday but he thinks his shoes may have been laced too tight. Patient admits to being diabetic for multipl years now. Patient -B/T/N in feet at this time. Patient -pain in legs when walking. No other pedal complaints at this time. No change in medications or medical history since last visit. PAIN EVALUATION No data found in the last 1 encounters. Hemoglobin A1C (%) Date Value 06/07/2023 6.4 12/03/2022 6.4 05/28/2022 6.7 11/22/2021 6.7 08/21/2021 6.8 05/18/2021 6.7 01/28/2021 7.5 10/03/2020 7.0 PCP: Sara Fuller MD PAST MEDICAL HISTORY Diagnosis Date Allergic rhinitis, cause unspecified Allergic rhinitis Bilateral lower extremity edema Blood in stool Hypertension Hypothyroidism Lipoma Morbid obesity (HCC) Other and unspecified hyperlipidemia Prostate cancer (HCC) [address] White. s/p prostatectomy RBBB Rosacea Type II or unspecified type diabetes mellitus without mention of complication, uncontrolled Urinary incontinence Current Outpatient Medications Medication Sig ELIQUIS 5 mg tab(s) Take 1 tablet by mouth every 12 hours. Insulin [place], Disposable, (BD ULTRA-FINE CAROLYN PEN NEEDLE) 32 gauge x 5/32 Inject 1 Each subcutaneously two times a day. Use with Insulin enalapril (VASOTEC) 10 mg tablet Take 1 tablet by mouth once daily. blood sugar diagnostic (ARKeXTOUCH ULTRA TEST) test strip Test blood sugar daily and as needed levothyroxine (SYNTHROID) 100 mcg tablet TAKE 1 TABLET DAILY ON AN EMPTY STOMACH metFORMIN (GLUCOPHAGE) 500 mg tablet Take 2 tablets by mouth two times a day with meals. EPINEPHrine (EPIPEN) 0.3 mg/0.3 mL auto-injector Inject 0.3 mL intramuscularly as needed (For allergic reaction). rosuvastatin (CRESTOR) 20 mg tablet Take 1 tablet by mouth daily at bedtime. etodolac (LODINE) 300 mg capsule Take 1 capsule by mouth every 8 hours. As needed for pain omega-3 DHA-EPA (FISH OIL) 1,200 (144-216) mg capsule Take 1 capsule by mouth daily with breakfast. MAGNESIUM SULFATE ORAL Take 500 mg by mouth once daily. CINNAMON BARK ORAL Take 2,000 mcg by mouth once daily. carvedilol (COREG) 3.125 mg tablet Take 3.125 mg by mouth twice daily with meals. blood sugar diagnostic (BLOOD GLUCOSE TEST) test strip Test blood sugar(s) 2 times daily. Dx: Type 2 DM - Controlled E11.9 Insulin: Yes insulin glargine (BASAGLAR KWIKPEN U-100 INSULIN) 100 unit/mL (3 mL) Inject 34 Units subcutaneouslytwice daily. dulaglutide (TRULICITY) 3 mg/0.5 mL pen injector Inject 3 mg subcutaneously one time a week. nitroglycerin sublingual (NITROQUICK) 0.[address] 1 tablet under the tongue if needed every 5 minutes for stephen... (REFER TO PRESCRIPTION NOTES). blood sugar diagnostic (ONETOUCH ULTRA TEST STRIP) test strip Test sugar daily and as needed Blood-Glucose Meter (ONETOUCH ULTRA2 METER) monitoring kit Check blood sugar daily and as needed Lancets (ONETOUCH ULTRASOFT LANCETS) lancets Test blood sugar(s) 1 times daily and as needed. Dx: Type 2 DM - Uncontrolled E11.65 , Insulin: Yes Compression Knee Highs KNEE HIGH COMPRESSION STOCKINGS 30-40 MM. DX: EDEMA multivitamin (DAILY MULTI-VITAMIN) ORAL Tab Take one(1) tablet daily. propylene glycol (SYSTANE BALANCE OPHTHALMIC) Use in eyes. 3-4 times a day sulfacetamide sodium/sulfur (PRASCION TOPICAL) Apply to affected area once daily. 10-55 (Patient not taking: Reported on 03/07/2023) albuterol HFA (VENTOLIN HFA) 90 mcg/actuation inhaler Inhale 2 Puffs as instructed every 4 hours asneeded for wheezing/shortness of breath. (Patient not taking: Reported on 11/27/2021) aspirin, enteric coated (ASPIRIN, ENTERIC COATED) 81 mg EC tablet Take 81 mg by mouth once daily. No current facility-administered medications for this visit. ALLERGIES Allergen Reactions 12 Grain Bread [Oth* Swelling Throat swelled. Bread had sunflower seeds in it. Mellette Seed Anaphylaxis Zocor [Simvastatin] Myalgia muscle pain Amoxicillin Hives Dust Erythromycin Other: See Comments Tingling. Grasses [Other] Molds [Other] PAST SURGICAL HISTORY Procedure Laterality Date COLONOSCOPY FLX DX W/COLLJ SPEC WHEN PFRMD 01/22/06 COLONOSCOPY FLX DX W/COLLJ SPEC WHEN PFRMD 02/16/16 Colonoscopy PAST SURGICAL HISTORY OF 2005 prostatectomy REPAIR UMBILICAL HERNIA 2001 FAMILY HISTORY Problem Relation Age of Onset Diabetes Mother Alzheimer's Disease Father Diabetes Brother Asthma Brother other (parkinsons) Brother Social History Tobacco Use Smoking status: Never Smokeless tobacco: Never Tobacco comments: No smoking in childhood home. Vaping Use Vaping Use: Never used Substance Use Topics Alcohol use: No Drug use: No REVIEW OF SYSTEMS GENERAL: Negative for Malaise, significant weight loss, fever RESPIRATORY: Negative for cough, wheezing and shortness of breath CARDIOVASCULAR: Negative for chest pain, leg swelling and palpitations GI: Negative for abdominal discomfort, blood in stools or black stools and change in bowel habits : Negative for dysuria, frequency and incontinence MUSCULOSKELETAL: Negative for joint pain or swelling, back pain, and muscle pain. SKIN: Negative for lesions, rash, and itching. HEMATOLOGY/LYMPHOLOGY Negative for prolonged bleeding, bruising easily, and swollen nodes. ENDOCRINE: Negative for cold or heat intolerance, polyuria, polydipsia and goiter. NEURO: negative The remainder of the review of systems is noncontributory. Objective: Patient presents to clinic ambulating in boots Constitutional: Pt is a well developed 73 year old male who is alert, oriented, cooperative and in no apparent distress. Eyes: Following during examination. No redness or drainage. Respiratory: RR normal and nonlabored. Even breathing. No evidence of distress. Psychology: Patient is engaged during conversation. Normal affect and mood. Does not appear depressed or anxious. Vasc: DP and PT pulses are faintly palpable bilateral. CFT is less than 5 seconds bilateral. Skin temperature is warm to warm proximal to distal bilateral. There is mild edema or varicosities noted. Hair growth present. Neuro: Protective sensation is intact to the foot and toes when tested with the 5.07 SWM bilateral.Vibratory sensation is decreased at the hallux bilateral. + Significant neurological defecits. Derm: Inspection and palpation performed. Nails 1-5 b/l are painful, discolored- yellow, thick, crumbly, dystrophic and with subungal debris. Skin is of normal turgor and texture. Hyperkeratosis notedto not present. NO ulcerations, scars, verruca or other lesions noted. Ortho: Ankle joint DF is full with the knee extended and full with knee flexed. No pain or crepitusnoted. STJ, MTJ ROM are full and free of pain or crepitus. Muscle strength is 5/5 for dorsiflexors,plantarflexors, inverters, everters. Digital deformities include hammertoe of right 2nd toe. Assessment: (E11.9) Type 2 diabetes mellitus without complication, unspecified whether parts counterman insulin use (HCC) (primary encounter diagnosis) (M20.42) Hammertoe of second toe of left foot (B35.1) Onychomycosis (M79.675) Pain in toe of left foot (M79.674) Pain in toe of right foot Plan: 1. Patient was seen and evaluated. 2. Patient was instructed on the continued importance of diabetic foot care along with proper diet and keeping their blood sugar under control to prevent complications. Instructions given both oral and written. 3. Toenails 1-5 debrided in length and thickness. Could consider total nail matirxectomy of left hallux if this causes pain. Reviewed pvr from 2020. Normal blood flow. He has elected to monitor 4. Discussed hammertoe of right 2nd toe. Padding dispensed. Could consider taping vs padding and use of wider shoe. Surgical option discussed. He has elected to monitor Viktoriya Angelo DPM * Queta Guerrero LPN - 12/06/2023 8:04 AM EST AMB ROOMING INTAKE FLOWSHEET DATA Patient presents with: Left Foot - Diabetic Foot Care, Established Patient Right Foot - Established Patient, Diabetic Foot Care Queta Guerrero LPN [facility] History of Present illness Narrative* Arnold Edgar MD - 11/07/2023 7:58 AM ESTAssociated Order(s): Large Joint Arthro/Inj: bilateral knee joints Post-Procedure Diagnose(s): Primary osteoarthritis of both knees; Chronic pain of both knees Arnold Edgar MD Department of Orthopaedics Orthopaedics [address] [facility] [address] Dept: [phone] Dept November 07, 2023 CHIEF COMPLAINT: Established Patient and Pain of the Left Knee and Established Patient and Pain of the Right Knee HPI Patient here today for bilateral knee pain. He did get an injection 5 months ago and reports hehad good relief from the injection. He would like injections again today. ASSESSMENT: M25.561, M25.562, G89.29 Chronic pain of both knees (primary encounter diagnosis) M17.0 Primary osteoarthritis of both knees PLAN: Repeat injections Mr. Bharathi Sue was advised as to contrast therapies and/or to take analgesics/anti-inflammatories as needed and all contraindications were reviewed. OBJECTIVE: Mr. Bharathi Sue is a pleasant 73 year old in no apparent distress. Gen:There were no vitals taken for this visit. Musculoskeletal: Stable exam Large Joint Arthro/Inj: bilateral knee joints Informed Consent Consent Obtained: Verbal [place] Protocol A moment to CARE was completed. SIGN IN Personnel directly involved with the procedure wore the appropriate PPE. Special Equipment: N/A Patient/Surrogate Stated/Verified: Patient name, Date of , Relevant allergies and Intended procedure TIME OUT Intended patient and procedure match the source document(s). Consent documented and matches the intended procedure. Relevant labs, photos, and/or imaging studies have been reviewed. Correct side/site marked and visible. Medications required for procedure verified. No fire risk assessment and interventions applicable. No implant(s) inserted. 11/07/2023 8:15 AM The procedure site was prepped in the usual sterile fashion. Site: bilateral knee joints Medications (Right): 6 mg betamethasone acetate-betamethasone sodium phosphate 6 mg/mL Medications (Left): 6 mg betamethasone acetate-betamethasone sodium phosphate 6 mg/mL Anesthetics (Right): 4 mL lidocaine (PF) 10 mg/mL (1 %) Anesthetics (Left): 4 mL lidocaine (PF) 10 mg/mL (1 %) Outcome: Tolerated well, no immediate complications Post-injection instructions were reviewed with the patient and the patient voiced understanding of these instructions. SIGN OUT All instruments, equipment, possible retained foreign bodies accounted for. Supporting Subjective Information Below: Past Surgical History: PAST SURGICAL HISTORY Procedure Laterality Date COLONOSCOPY FLX DX W/COLLJ SPEC WHEN PFRMD 01/22/06 COLONOSCOPY FLX DX W/COLLJ SPEC WHEN PFRMD 02/16/16 Colonoscopy PAST SURGICAL HISTORY OF 2005 prostatectomy REPAIR UMBILICAL HERNIA 2001 Medications: Current Outpatient Medications Medication Sig ELIQUIS 5 mg tab(s) Take 1 tablet by mouth every 12 hours. enalapril (VASOTEC) 10 mg tablet Take 1 tablet by mouth once daily. levothyroxine (SYNTHROID) 100 mcg tablet TAKE 1 TABLET DAILY ON AN EMPTY STOMACH metFORMIN (GLUCOPHAGE) 500 mg tablet Take 2 tablets by mouth two times a day with meals. rosuvastatin (CRESTOR) 20 mg tablet Take 1 tablet by mouth daily at bedtime. etodolac (LODINE) 300 mg capsule Take 1 capsule by mouth every 8 hours. As needed for pain propylene glycol (SYSTANE BALANCE OPHTHALMIC) Use in eyes. 3-4 times a day omega-3 DHA-EPA (FISH OIL) 1,200 (144-216) mg capsule Take 1 capsule by mouth daily with breakfast. MAGNESIUM SULFATE ORAL Take 500 mg by mouth once daily. CINNAMON BARK ORAL Take 2,000 mcg by mouth once daily. carvedilol (COREG) 3.125 mg tablet Take 3.125 mg by mouth twice daily with meals. insulin glargine (BASAGLAR KWIKPEN U-100 INSULIN) 100 unit/mL (3 mL) Inject 34 Units subcutaneouslytwice daily. dulaglutide (TRULICITY) 3 mg/0.5 mL pen injector Inject 3 mg subcutaneously one time a week. aspirin, enteric coated (ASPIRIN, ENTERIC COATED) 81 mg EC tablet Take 81 mg by mouth once daily. multivitamin (DAILY MULTI-VITAMIN) ORAL Tab Take one(1) tablet daily. Insulin [place], Disposable, (BD ULTRA-FINE CAROLYN PEN NEEDLE) 32 gauge x 5/32 Inject 1 Each subcutaneously two times a day. Use with Insulin blood sugar diagnostic (ONETOUCH ULTRA TEST) test strip Test blood sugar daily and as needed EPINEPHrine (EPIPEN) 0.3 mg/0.3 mL auto-injector Inject 0.3 mL intramuscularly as needed (For allergic reaction). sulfacetamide sodium/sulfur (PRASCION TOPICAL) Apply to affected area once daily. 10-55 (Patient not taking: Reported on 03/07/2023) blood sugar diagnostic (BLOOD GLUCOSE TEST) test strip Test blood sugar(s) 2 times daily. Dx: Type 2 DM - Controlled E11.9 Insulin: Yes nitroglycerin sublingual (NITROQUICK) 0.[address] 1 tablet under the tongue if needed every 5 minutes for stephen... (REFER TO PRESCRIPTION NOTES). albuterol HFA (VENTOLIN HFA) 90 mcg/actuation inhaler Inhale 2 Puffs as instructed every 4 hours asneeded for wheezing/shortness of breath. (Patient not taking: No sig reported) blood sugar diagnostic (ONETOUCH ULTRA TEST STRIP) test strip Test sugar daily and as needed Blood-Glucose Meter (ONETOUCH ULTRA2 METER) monitoring kit Check blood sugar daily and as needed Lancets (ONETOUCH ULTRASOFT LANCETS) lancets Test blood sugar(s) 1 times daily and as needed. Dx: Type 2 DM - Uncontrolled E11.65 , Insulin: Yes Compression Knee Highs KNEE HIGH COMPRESSION STOCKINGS 30-40 MM. DX: EDEMA No current facility-administered medications for this visit. Allergies: 12 Grain Bread [Other], Mellette Seed, Zocor [Simvastatin], Amoxicillin, Dust, Erythromycin, Grasses [Other], and Molds [Other] ROS: General (negative for fatigue, malaise, weight loss/gain) HEENT (negative for headache, earache, recent vision changes, sinus pain, sore throat) Respiratory (no recent shortness of breath, hemoptysis) CV (negative for chest tightness, palpitations) Musculoskeletal (see HPI) Psych (no depression, anxiety) Arnold Edgar MD documented in [facility]12[facility]23 Miscellaneous Notes* Telephone Encounter - Mary Ann Yeung LPN - 09/24/2023 12:24 PM EST Patient has been identified by name and date of : Yes Patient phones for refill(s): Requested Prescriptions Pending Prescriptions Disp Refills blood sugar diagnostic (ONETOUCH ULTRA TEST) test strip 100 Strip 3 Sig: Test blood sugar daily and as needed Date of last office visit in primary care: 06/10/2023 Date of next office visit in primary care: 12/09/2023 Please advise. Thank you. Mary Ann Yeung LPN. documented in this encounter[facility]11-27-2023 Miscellaneous Notes* Telephone Encounter - Gunner Hassan - 09/16/2023 10:55 AM EST Patient phones requesting refills as follows: Requested Prescriptions Pending Prescriptions Disp Refills levothyroxine (SYNTHROID) 100 mcg tablet 90 tablet 3 *Rx sent to pharmacy on 09/11/23. Pt notified via [employer] message. Please review and advise. Gunner Hassan documented in this encounter[facility]08-28-2023 Miscellaneous Notes* Telephone Encounter - Priya Parrish Ma - 06/17/2023 11:22 AM EDT Patient has been identified by name and date of : Yes Requested Prescriptions Pending Prescriptions Disp Refills EPINEPHrine (EPIPEN) 0.3 mg/0.3 mL auto-injector 2 Each 1 Sig: Inject 0.3 mL intramuscularly as needed (For allergic reaction). RX INSTRUCTIONS: Patient aware RX will be sent to pharmacy. No need to notify patient. Patient reports he has never needed it, but current pen is . Confirmed [facility] as pharmacy. Priya Parrish Ma documented in this encounterUpper [facility]08-21-2023 Miscellaneous Notes* Telephone Encounter - Marie Lundy RN - 06/10/2023 4:05 PM EDT Patient has been identified by name and date of : Yes, Provider Marie Lundy RN Date 06/10/2023 Time 4:02 pm Pharmacy phones for refill(s): Requested Prescriptions Pending Prescriptions Disp Refills rosuvastatin (CRESTOR) 20 mg tablet 90 tablet 3 Sig: Take 1 tablet by mouth daily at bedtime. Date of last office visit with pcp: 06/10/2023 Future appt: 12/09/2023 Last 2 Encounter Wt Readings: Date: Wt: 06/10/2023 127.9 kg (282 lb) 03/07/2023 127 kg (280 lb) Previous labs/tests for medication: Cholesterol: HDL Cholesterol (mg/dL) Date Value 06/07/2023 30 01/28/2021 27 LDL Cholesterol (mg/dL) Date Value 06/07/2023 70 01/28/2021 86 ALT (U/L) Date Value 06/07/2023 23 10/03/2020 23 Non HDL Cholesterol (mg/dL) Date Value 06/07/2023 107 01/28/2021 119 Please advise. Thank you. Marie Lundy RN documented in this encounterUpper [facility]08-21-2023 History of Present illness Narrative* Kenyetta Stacy APRN.MAINTENANCE EQUIPMENT OPERATOR - 06/10/2023 7:49 AM EDT 06/10/2023 Patient presents with: F/U 6 Month SUBJECTIVE: This is a 72 year old that is here today for Above Complaints. Since last office appointment has been in good health without ER visit or hospitalizations. DIABETES MELLITUS: Mr. Sue was last seen on 12/10/2022. Since our last visit he denies excessive thirst or increased frequency of urination, chest pain or dyspnea , numbness, tingling or pain in extremities, new or unusual visual symptoms, low sugar/hypoglycemic reactions, weight loss/gain, lighthe adedness/dizziness, and bowel changes/loose stools. Follows a diabetic diet most of the time. He iscompliant with medication(s) and is tolerating med(s) without any side effects. He reports checkinghis glucose on a once a day schedule with sugars in the <150 range. Patient's last HgA1C was Hemoglobin A1C (%) Date Value 06/07/2023 6.4 12/03/2022 6.4 11/22/2021 6.7 08/21/2021 6.8 ) Last Ophthalmology exam was within the past 3 months CRBBB: Follows with [facility] cardiology with last appointment on 11/08/2022. No medication changes at that time. Denies SOB, dyspnea, orthopnea, chest pain, palpitations or leg edema HYPOTHYROIDISM: taking synthroid as prescribed without side effects HTN: Patient is compliant with meds Yes Monitors bp at home: occasionally Denies side effects: Yes. Chest pain: No. Dyspnea: No. Edema: No. Palpitations: No. Syncope: No. Headache: No. Dizziness: No. PAST MEDICAL HISTORY Diagnosis Date Allergic rhinitis, cause unspecified Allergic rhinitis Bilateral lower extremity edema Blood in stool Hypertension Hypothyroidism Lipoma Morbid obesity (HCC) Other and unspecified hyperlipidemia Prostate cancer (HCC) [address] White. s/p prostatectomy RBBB Rosacea Type II or unspecified type diabetes mellitus without mention of complication, uncontrolled Urinary incontinence ALLERGIES 12 Grain Bread [Other], Mellette Seed, Zocor [Simvastatin], Amoxicillin, Dust, Erythromycin, Grasses [Other], and Molds [Other] MEDICATIONS Current Outpatient Medications Medication Sig Insulin [place], Disposable, (BD ULTRA-FINE CAROLYN PEN NEEDLE) 32 gauge x 5/32 Inject 1 Each subcutaneously twice daily. Use with Insulin blood sugar diagnostic (ONETOUCH ULTRA TEST) test strip Test blood sugar daily and as needed propylene glycol (SYSTANE BALANCE OPHTHALMIC) Use in eyes. 3-4 times a day sulfacetamide sodium/sulfur (PRASCION TOPICAL) Apply to affected area once daily. 10-55 (Patient not taking: Reported on 03/07/2023) omega-3 DHA-EPA (FISH OIL) 1,200 (144-216) mg capsule Take 1 capsule by mouth daily with breakfast. MAGNESIUM SULFATE ORAL Take 500 mg by mouth once daily. CINNAMON BARK ORAL Take 2,000 mcg by mouth once daily. carvedilol (COREG) 3.125 mg tablet Take 3.125 mg by mouth twice daily with meals. metFORMIN (GLUCOPHAGE) 500 mg tablet Take 2 tablets by mouth twice daily with meals. levothyroxine (SYNTHROID) 100 mcg tablet Take 1 tablet by mouth once daily. Take on empty stomach enalapril (VASOTEC) 10 mg tablet Take 1 tablet by mouth once daily. rosuvastatin (CRESTOR) 20 mg tablet Take 1 tablet by mouth daily at bedtime. blood sugar diagnostic (BLOOD GLUCOSE TEST) test strip Test blood sugar(s) 2 times daily. Dx: Type 2 DM - Controlled E11.9 Insulin: Yes EPINEPHrine (EPIPEN) 0.3 mg/0.3 mL auto-injector Inject 0.3 mL intramuscularly as needed (For allergic reaction). insulin glargine (BASAGLAR KWIKPEN U-100 INSULIN) 100 unit/mL (3 mL) Inject 34 Units subcutaneouslytwice daily. dulaglutide (TRULICITY) 3 mg/0.5 mL pen injector Inject 3 mg subcutaneously one time a week. nitroglycerin sublingual (NITROQUICK) 0.[address] 1 tablet under the tongue if needed every 5 minutes for stephen... (REFER TO PRESCRIPTION NOTES). albuterol HFA (VENTOLIN HFA) 90 mcg/actuation inhaler Inhale 2 Puffs as instructed every 4 hours asneeded for wheezing/shortness of breath. (Patient not taking: No sig reported) dextromethorphan-guaiFENesin (MUCINEX DM) 30-600 mg per tablet Take 1 tablet by mouth twice daily. (Patient taking differently: Take 1 tablet by mouth twice daily. PRN) blood sugar diagnostic (ONETOUCH ULTRA TEST STRIP) test strip Test sugar daily and as needed Blood-Glucose Meter (ONETOUCH ULTRA2 METER) monitoring kit Check blood sugar daily and as needed Lancets (ONETOUCH ULTRASOFT LANCETS) lancets Test blood sugar(s) 1 times daily and as needed. Dx: Type 2 DM - Uncontrolled E11.65 , Insulin: Yes aspirin, enteric coated (ASPIRIN, ENTERIC COATED) 81 mg EC tablet Take 81 mg by mouth once daily. Compression Knee Highs KNEE HIGH COMPRESSION STOCKINGS 30-40 MM. DX: EDEMA multivitamin (DAILY MULTI-VITAMIN) ORAL Tab Take one(1) tablet daily. No current facility-administered medications for this visit. Medications and allergies reviewed by this provider. SOCIAL HISTORY Social History Tobacco Use Smoking status: Never Smokeless tobacco: Never Tobacco comments: No smoking in childhood home. Vaping Use Vaping Use: Never used Substance Use Topics Alcohol use: No Drug use: No REVIEW OF SYSTEMS All other reviewed and negative other than HPI. OBJECTIVE: BP 124/66 Pulse 62 Resp 18 Wt 127.9 kg (282 lb) SpO2 96% BMI 38.25 kg/m . Vital signs reviewed by this provider. APPEARANCE Well appearing, alert, in no acute distress, well-hydrated, well nourished. EYES conjunctiva and sclera normal. HEART RRR with normal S1 and S2, no murmurs, no gallops, no JVD appreciated LUNG clear to auscultation. No wheezes, rhonchi or rales EXTREMITIES Extremities normal, No deformities, No skin discoloration, and No edema SKIN Skin color, texture, turgor normal, no suspicious rashes or lesions to exposed skin Component Latest Ref Rng & Units 06/07/2023 WBC 3.70 - 11.00 k/uL 10.16 RBC 4.20 - 6.00 m/uL 4.62 Hemoglobin 13.0 - 17.0 g/dL 13.6 Hematocrit 39.0 - 51.0 % 42.4 MCV 80.0 - 100.0 fL 91.8 MCH 26.0 - 34.0 pg 29.4 MCHC 30.5 - 36.0 g/dL 32.1 RDW-CV 11.5 - 15.0 % 14.4 Platelet Count 150 - 400 k/uL 195 MPV 9.0 - 12.7 fL 11.4 Neut% % 60.4 Abs Neut (ANC) 1.45 - 7.50 k/uL 6.14 Lymph% % 28.8 Abs Lymph 1.00 - 4.00 k/uL 2.93 [place]% % 6.6 Abs [place] <0.87 k/uL 0.67 Eosin% % 3.0 Abs Eosin <0.46 k/uL 0.30 Baso% % 0.6 Abs Baso <0.11 k/uL 0.06 Immature Gran % % 0.6 IMMATURE GRANS (ABS) <0.10 k/uL 0.06 NRBC /100 WBC 0.0 Absolute nRBC <0.01 k/uL <0.01 DTYPE Auto Protein, Total 6.3 - 8.0 g/dL 7.3 Albumin 3.9 - 4.9 g/dL 4.3 Calcium 8.5 - 10.2 mg/dL 9.8 Bilirubin, Total 0.2 - 1.3 mg/dL 0.5 Alkaline Phosphatase 38 - 113 U/L 71 AST 14 - 40 U/L 21 ALT 10 - 54 U/L 23 Glucose 74 - 99 mg/dL 71 (L) BUN 9 - 24 mg/dL 21 Creatinine 0.73 - 1.22 mg/dL 1.08 Sodium 136 - 144 mmol/L 139 Potassium 3.7 - 5.1 mmol/L 4.7 Chloride 97 - 105 mmol/L 102 CO2 22 - 30 mmol/L 26 Anion Gap 9 - 18 mmol/L 11 eGFR >=60 mL/min/1.73m 73 Cholesterol, Total <200 mg/dL 137 Triglyceride <150 mg/dL 183 (H) HDL Cholesterol >39 mg/dL 30 (L) Non HDL Cholesterol <130 mg/dL 107 Fasting Time hrs 10 VLDL Cholesterol <30 mg/dL 37 (H) TC:HDL Ratio <5.10 4.57 LDL Cholesterol <100 mg/dL 70 LDL:HDL Ratio <2.54 2.33 Hemoglobin A1C 4.3 - 5.6 % 6.4 (H) Estimated Average Glucose mg/dL 137 PSA Screening <2.60 ng/mL <0.02 TSH 0.270 - 4.200 mIU/L 2.600 SHINGRIX VACCINE(2 of 3) due on 05/22/2013 COVID-19 VACCINE(5 - Pfizer series) due on 07/30/2022 URINE ALBUMIN:CREATININE RATIO due on 08/21/2022 ADVANCE DIRECTIVE DISCUSSION Never done DEPRESSION ASSESSMENT Never done INFLUENZA(1) due on 06/21/2023 DIABETIC FOOT EXAM due on 12/03/2023 HBA1C due on 12/08/2023 ANNUAL PCP TEAM CHRONIC DISEASE VISIT due on 12/10/2023 DILATED RETINAL EXAM due on 05/15/2024 LDL CHOLESTEROL due on 06/07/2024 BP CONTROLLED (<130/80) due on 06/10/2024 COLORECTAL CANCER SCREENING due on 02/15/2026 DTAP,TDAP,TD(3 - Td or Tdap) due on 04/05/2026 HEPATITIS C SCREENING Completed PNEUMOCOCCAL: 65+ Completed HPV VACCINE Aged Out ASSESSMENT/PLAN: 1. Type 2 diabetes mellitus without complication, unspecified whether fdc insulin use (HCC) -ICD9: 250.00, ICD10: E11.9 (primary diagnosis) - Controlled - Continue current medications - Counseled on healthy diet and regular exercise - Discussed need for and benefit of weight loss. BMI 38.25 kg/(m^2) - Follow up in 6 months, sooner should any other issues arise. - ALBUMIN/CREAT RATIO RND UR - HGB A1C - COMP METABOLIC PANEL 2. Mixed hyperlipidemia - ICD9: 272.2, ICD10: E78.2 - Controlled - Continue current medications - Counseled on healthy diet and regular exercise - Discussed need for and benefit of weight loss. BMI 38.25 kg/(m^2) - Follow up in 6 months, sooner should any other issues arise. 3. Acquired hypothyroidism - ICD9: 244.9, ICD10: E03.9 - Instructed patient on importance of taking on an empty stomach either first thing in the morning or at bedtime. - continue current dose of Synthroid 0.100 mg 4. Primary hypertension - ICD9: 401.9, ICD10: I10 - Controlled - Continue current medications - Recommend home blood pressure monitoring, to bring results to next visit - Encouraged sodium restriction, DASH or Mediterranean diet - Recommend regular aerobic exercise - Discussed need for and benefit of weight loss. BMI 38.25 kg/(m^2) - Follow up in 6 months for hypertension visit 5. Obesity, Class II, BMI 35-39.9 - ICD9: 278.00, ICD10: E66.9 Stable - Behavioral intervention - Lengthy discussion in office today regarding diet and exercise. Discussed use of small plate to eat meals from, drink 1 glass of water 10-15 minutes prior to eating meal, drink 8 glasses of water daily, eat fresh fruit and vegetable during meal first then lean protein such as grilled/baked chicken breast or fish, limit carbohydrate intake (less pasta, breads, rice and snack foods) as well as limiting sugars (desserts etc). Important to count / track your calories and exercise as well. 6. Complete right bundle branch block (RBBB) - ICD9: 426.4, ICD10: I45.10 - continue current medications - follow-up with cardiology as scheduled Kenyetta Podlogar, NUTRITION CLUB AMBASSADOR.MAINTENANCE EQUIPMENT OPERATOR Prescription instructions reviewed with patient as applicable. Patient advised if symptoms do not improve or if symptoms worsen sooner, to contact their primary care physician. Potential red flag symptoms discussed with the patient. Reviewed appropriate action plan to take if red flag symptoms occur. Patient agreeable to treatment plan. I spent a total of 30 minutes on the date of the service which included preparing to see the patient, [id number] patient care, completing clinical documentation, obtaining and/or reviewing separately obtained history, performing a medically appropriate examination, counseling and educating the pat ient/family/caregiver, and ordering medications, tests, or procedures. documented in this encounterUpper [facility]08-16-2023 Miscellaneous Notes* Telephone Encounter - Bre Serrato LPN - 06/05/2023 10:20 AM EDT Pt was notified & voiced understanding. Bre Serrato LPN * Telephone Encounter - Kenyetta Stacy APRN.CNP - 06/05/2023 7:24 AM EDT Order for blood work placed. He should fast 8-10 hours prior. Kenyetta Stacy APRN.FRANCY * Telephone Encounter - Corinna Mendoza LPN - 06/04/2023 4:53 PM EDT Pt has an appt 06/10 and is asking for any labs needed to be ordered. Pt reports he would like PSA checked. Call pt when labs have been ordered. Corinna Mendoza LPN documented in this encounterUpper [facility] Center05-18-2023 History of Present illness Narrative* Arnold Edgar MD - 03/07/2023 8:45 AM EDTAssociated Order(s): Large Joint Arthro/Inj: R knee joint Post-Procedure Diagnose(s): Primary osteoarthritis of both knees; Chronic pain of right knee Arnold Edgar MD Department of Orthopaedics [facility] [address] [place] [address] Dept: [phone] Dept March 07, 2023 CHIEF COMPLAINT: New and Knee Pain of the Right Knee HPI Patient here for evaluation right knee pain. Patient states he is having pain in both of his knees but the right is worse than his left. He is having difficulty walking on uneven ground and steps. His pain is on the medial aspect. He use to cross his legs to tie his shoes and is unable to tie his shoes that way. 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 Patient states he has lost some weight recently. X-rays done today. Tried taking Aleve and made him sleeping. He has tried OTC arthritis medication and did not help. ASSESSMENT: M17.0 Primary osteoarthritis of both knees (primary encounter diagnosis) M25.561, G89.29 Chronic pain of right knee PLAN: Standard treatment options for OA. NSAIDs, Strengthening, cortisone or gel injection. FOLLOW UP INSTRUCTIONS: As needed. Mr. Bharathi Sue was advised as to contrast therapies and/or to take analgesics/anti-inflammatories as needed and all contraindications were reviewed. OBJECTIVE: Mr. Bharathi Sue is a pleasant 72 year old in no apparent distress. Gen:There were no vitals taken for this visit. nl development, obese, no deformities ENT: Normocephalic, normal hearing, moist mucosa CV: Pulses:Radial= 2+ and symmetric, capillary refill < 2 secs, no peripheral edema/varicosities Skin: no rash, bruising or lesions. Good turgor. Psych: cooperative and appropriate, alert and oriented x 3, good mood and affect. Musculoskeletal: Patient walks with antalgia, normal station. Hip motion without pain. Knee with scant effusion. Patella tracks normally. There is no patellar crepitance. No pain along the medial or lateral facets. Range of motion 5-125. NPositive medial, without lateral joint line paiExtremity is warm and well perfused. Sensation is grossly intact to light touch, subjectively. In addition to the comprehensive evaluation, assessment and plan outlined above, and as a distinct and separate element to the visit today, separate from medication orders of Lodine and imaging testsfor additional assessment, we have made the determination to proceed with an injection to aid in the management of the patient's condition. We discussed the risks, benefits, alternatives and expectedoutcomes of this injection in detail, and the patient agreed to proceed. The procedure was performed as detailed below. Large Joint Arthro/Inj: R knee joint Informed Consent Consent Obtained: Verbal [place] Protocol A moment to CARE was completed. SIGN IN Personnel directly involved with the procedure wore the appropriate PPE. Special Equipment: N/A Patient/Surrogate Stated/Verified: Patient name, Date of , Relevant allergies and Intended procedure TIME OUT Intended patient and procedure match the source document(s). Consent documented and matches the intended procedure. Relevant labs, photos, and/or imaging studies have been reviewed. Correct side/site marked and visible. Medications required for procedure verified. No fire risk assessment and interventions applicable. No implant(s) inserted. 03/07/2023 9:21 AM The procedure site was prepped in the usual sterile fashion. Site: R knee joint Medications: 6 mg betamethasone acetate-betamethasone sodium phosphate 6 mg/mL Anesthetics: 4 mL lidocaine (PF) 10 mg/mL (1 %) Outcome: Tolerated well, no immediate complications Post-injection instructions were reviewed with the patient and the patient voiced understanding of these instructions. SIGN OUT All instruments, equipment, possible retained foreign bodies accounted for. IMAGING: IMPRESSION: DEGENERATIVE CHANGE OF BOTH KNEES SEVERE IN BOTH MEDIAL COMPARTMENTS Tool Machine Setup Operator: CHITO Transcribe Date/Time: Mar 08 2023 3:37P Dictated by : ERICKSON RODRIGUES MD This examination was interpreted and the report reviewed and electronically signed by: ERICKSON RODRIGUES MD on Mar 08 2023 3:38PM EST Results-Findings * * *Final Report* * * DATE OF EXAM: Mar 07 2023 8:41AM WRX [id number] - XR KNEE 4V AP/PA BOTH+LAT/CRISTAL RT / PROCEDURE REASON: Right knee pain, unspecified chronicity * * * * Physician Interpretation * * * * HISTORY: Right knee pain, unspecified chronicity TECHNIQUE: 4 views right knee COMPARISON: None. RESULT: Right knee: There is severe medial compartment narrowing with tricompartmental marginal osteophytes. No joint effusion. No acute fracture. Vascular calcifications are present. There is tricompartmental degenerative change of the left knee severe in the medial compartment. Supporting Subjective Information Below: Past Medical History: PAST MEDICAL HISTORY Diagnosis Date Allergic rhinitis, cause unspecified Allergic rhinitis Bilateral lower extremity edema Blood in stool Hypertension Hypothyroidism Lipoma Morbid obesity (HCC) Other and unspecified hyperlipidemia Prostate cancer (HCC) [address] White. s/p prostatectomy RBBB Rosacea Type II or unspecified type diabetes mellitus without mention of complication, uncontrolled Urinary incontinence Past Surgical History: PAST SURGICAL HISTORY Procedure Laterality Date COLONOSCOPY FLX DX W/COLLJ SPEC WHEN PFRMD 01/22/06 COLONOSCOPY FLX DX W/COLLJ SPEC WHEN PFRMD 02/16/16 Colonoscopy PAST SURGICAL HISTORY OF 2005 prostatectomy REPAIR UMBILICAL HERNIA 2001 Family History: FAMILY HISTORY Problem Relation Age of Onset Diabetes Mother Alzheimer's Disease Father Diabetes Brother Asthma Brother other (parkinsons) Brother Social History: Social History Tobacco Use Smoking status: Never Smokeless tobacco: Never Tobacco comments: No smoking in childhood home. Vaping Use Vaping Use: Never used Substance Use Topics Alcohol use: No Drug use: No Medications: Current Outpatient Medications Medication Sig metroNIDAZOLE (METROGEL) 1 % Topical Gel Apply to affected area once daily. Insulin [place], Disposable, (BD ULTRA-FINE CAROLYN PEN NEEDLE) 32 gauge x 5/32 Inject 1 Each subcutaneously twice daily. Use with Insulin blood sugar diagnostic (ONETOUCH ULTRA TEST) test strip Test blood sugar daily and as needed propylene glycol (SYSTANE BALANCE OPHTHALMIC) Use in eyes. 3-4 times a day omega-3 DHA-EPA (FISH OIL) 1,200 (144-216) mg capsule Take 1 capsule by mouth daily with breakfast. MAGNESIUM SULFATE ORAL Take 500 mg by mouth once daily. CINNAMON BARK ORAL Take 2,000 mcg by mouth once daily. carvedilol (COREG) 3.125 mg tablet Take 3.125 mg by mouth twice daily with meals. metFORMIN (GLUCOPHAGE) 500 mg tablet Take 2 tablets by mouth twice daily with meals. levothyroxine (SYNTHROID) 100 mcg tablet Take 1 tablet by mouth once daily. Take on empty stomach enalapril (VASOTEC) 10 mg tablet Take 1 tablet by mouth once daily. rosuvastatin (CRESTOR) 20 mg tablet Take 1 tablet by mouth daily at bedtime. blood sugar diagnostic (BLOOD GLUCOSE TEST) test strip Test blood sugar(s) 2 times daily. Dx: Type 2 DM - Controlled E11.9 Insulin: Yes EPINEPHrine (EPIPEN) 0.3 mg/0.3 mL auto-injector Inject 0.3 mL intramuscularly as needed (For allergic reaction). insulin glargine (BASAGLAR KWIKPEN U-100 INSULIN) 100 unit/mL (3 mL) Inject 34 Units subcutaneouslytwice daily. dulaglutide (TRULICITY) 3 mg/0.5 mL pen injector Inject 3 mg subcutaneously one time a week. nitroglycerin sublingual (NITROQUICK) 0.[address] 1 tablet under the tongue if needed every 5 minutes for stephen... (REFER TO PRESCRIPTION NOTES). dextromethorphan-guaiFENesin (MUCINEX DM) 30-600 mg per tablet Take 1 tablet by mouth twice daily. (Patient taking differently: Take 1 tablet by mouth twice daily. PRN) blood sugar diagnostic (ONETOUCH ULTRA TEST STRIP) test strip Test sugar daily and as needed Blood-Glucose Meter (ARKeXTOUCH ULTRA2 METER) monitoring kit Check blood sugar daily and as needed Lancets (ARKeXTOUCH ULTRASOFT LANCETS) lancets Test blood sugar(s) 1 times daily and as needed. Dx: Type 2 DM - Uncontrolled E11.65 , Insulin: Yes aspirin, enteric coated (ASPIRIN, ENTERIC COATED) 81 mg EC tablet Take 81 mg by mouth once daily. Compression Knee Highs KNEE HIGH COMPRESSION STOCKINGS 30-40 MM. DX: EDEMA multivitamin (DAILY MULTI-VITAMIN) ORAL Tab Take one(1) tablet daily. sulfacetamide sodium/sulfur (PRASCION TOPICAL) Apply to affected area once daily. 10-55 (Patient not taking: Reported on 03/07/2023) albuterol HFA (VENTOLIN HFA) 90 mcg/actuation inhaler Inhale 2 Puffs as instructed every 4 hours asneeded for wheezing/shortness of breath. (Patient not taking: No sig reported) No current facility-administered medications for this visit. Allergies: 12 Grain Bread [Other], Mellette Seed, Zocor [Simvastatin], Amoxicillin, Dust, Erythromycin, Grasses [Other], and Molds [Other] ROS: General (negative for fatigue, malaise, weight loss/gain) HEENT (negative for headache, earache, recent vision changes, sinus pain, sore throat) Respiratory (no recent shortness of breath, hemoptysis) CV (negative for chest tightness, palpitations) Musculoskeletal (see HPI) Psych (no depression, anxiety) REFERRING PHYSICIAN: Consultation requested by Dr. Fuller for an opinion regarding knee pain. My final recommendations will be communicated back to the requesting physician by way of shared Medical record or letter to requesting physician via US mail. Sara Fuller MD [id number] [facility] [id number] Arnold Edgar MD documented in this encounterUpper [facility]05-18-2023 History of Present illness Narrative* Natali Patiño RT(R) - 03/07/2023 8:20 AM EDT Radiology Service Progress Note PATIENT NAME: Bharathi Sue DATE OF SERVICE: March 07, 2023 TIME: 8:44 AM PATIENT IDENTITY VERIFICATION COMPLETED USING TWO (2) IDENTIFIERS: Name and Date of confirmedby patient verbally. FALL SCREENING: Has the patient had 2 falls in the last year or 1 fall with injury or currently using an Ambulatory Assistive Device (Walker, Cane, Wheelchair, Crutches, etc.)? No PATIENT GENDER DATA: Male PATIENT RELEVANT IMPLANT DATA REVIEWED: Not Applicable RADIOLOGY DEPARTMENT: General X-ray: Exam(s) Completed: Lower Extremity X- Ray(s): Knee, AP / Lat / Tunne / Merchant Right and Wt. Bearing PERIPHERAL IV DATA: Not applicable SIGNED BY: RT Rinku(R) March 07, 2023 8:44 AM documented in this encounterUpper [facility] Center03-31-2023 Miscellaneous Notes* Telephone Encounter - Queta Guerrero LPN - 01/18/2023 1:56 PM EDT Returned patients call. Informed patient that if he is looking to have procedure done on hammer toes to hold off on orthotics. Informed patient that at last office visit he opted to continue with conservative measure. Asked patient if he is looking into having procedure done patient verbalized he believes he would like to discuss surgical option. Offer patient appointment on 02/15/2023. Patient accepted. Queta Guerrero LPN * Telephone Encounter - Haydee Ying LPN - 01/18/2023 1:16 PM EDT Patient called with a question, if patient has surgery for his hammer toes, should he wait to be fitted for his orthotics until after surgery? Thank you. Bharathi# [phone] documented in this encounterUpper [facility] Center02-13-2023 Instructions* Patient Instructions* Viktoriya Angelo - 12/03/2022 9:21 AM EST Diabetes Foot Care Instructions When you have diabetes, proper foot care is very important. Poor foot care may lead to amputation of a foot or leg. As a person with diabetes, you are more vulnerable to foot problems, because diabetes can damage your nerves and reduce blood flow to your feet. Here are some diabetes foot care tips to follow: Wash and Dry Your Feet Daily Use mild soaps Use warm water Pat your skin dry; do not rub. Thoroughly dry your feet. After washing, use lotion on your feet to prevent cracking. Do not put lotion between your toes. Examine Your Feet Each Day Check the tops and bottoms of your feet. Have someone else look at your feet if you cannot see them. Check for dry, cracked skin. Look for blisters, cuts, scratches, or other sores. Check for redness, increased warmth, or tenderness when touching any area of your feet. Check for ingrown toenails, corns, and calluses. If you get a blister or sore from your shoes, do not pop it. Apply a bandage and wear a differentpair of shoes. Take Care of Your Toenails Cut toenails after bathing, when they are soft. Cut toenails straight across and smooth with a nail file. Avoid cutting into the corners of toes. Do not cut cuticles. If you have neuropathy (or decreased sensation in your feet) a claim analyst should always cut your toenails. Be Careful When Exercising Walk and exercise in comfortable shoes. Do not exercise when you have open sores on your feet. Protect Your Feet With Shoes and Socks Never go barefoot. Always protect your feet by wearing shoes or hard-soled slippers or footwear. Avoid shoes with high heels and pointed toes. Avoid shoes that expose your toes or heels (such as open-toed shoes or sandals). These types of shoes increase your risk for injury and potential infections. Try on new footwear with the type of socks you usually wear. Do not wear new shoes for more than an hour at a time. Change your socks daily. Look and feel inside your shoes before putting them on to make sure there are no foreign objects orrough areas. Avoid tight socks. Wear natural-fiber socks (cotton, wool, or a cotton-wool blend). Wear special shoes if your health care provider recommends them. Wear shoes/boots that will protect your feet from various weather conditions (cold, moisture, etc.). Make sure your shoes fit properly. If you have neuropathy (nerve damage), you may not notice that your shoes are too tight. Perform the footwear test described below. Footwear Test Use this simple test to see if your shoes fit correctly: Stand on a piece of paper. (Make sure you are standing and not sitting, because your foot changes shape when you stand.) Trace the outline of your foot. Trace the outline of your shoe. Compare the tracings: Is the shoe too narrow? Is your foot crammed into the shoe? The shoe should be at least 1/2 inch longer than your longest toe and as wide as your foot. Proper Shoe Choices The following types of shoes are best for people with diabetes Closed toes and heels Leather uppers without a seam inside At least 1/2 inch extra space at the end of your longest toe Inside of shoe should be soft with no rough areas Outer sole should be made of stiff material Shoes should be at least as wide as your feet Tips for Foot Care in Diabetes Don't wait to treat a minor foot problem if you have diabetes. Follow your health care provider's guidelines and first aid guidelines. Report foot injuries and infections to your health care provider immediately. Check water temperature with your elbow, not your foot. Do not use a heating pad on your feet. Do not cross your legs. Do not self-treat your corns, calluses, or other foot problems. Go to your health care provider or claim analyst to treat these conditions. documented in this encounterUpper [facility] Center02-13-2023 History of Present illness Narrative* Viktoriya Angelo - 12/03/2022 9:16 AM EST Images from the original note were not included. Subjective: This 72 year old male presents to clinic for diabetic foot check. Patient admits to being diabetic for many years now. Patient -B/T/N in feet at this time. Patient -pain in legs when walking. No other pedal complaints at this time. No change in medications or medical history since last visit. Patient is requesting order for custom inserts. PAIN EVALUATION 11/26/2022 1230 Pain Location: Foot-Left Description: Aching Duration Units: Minutes Frequency: Intermittent Intervention/Comfort measure: Reposition;Relaxation Hemoglobin A1C (%) Date Value 05/28/2022 6.7 11/22/2021 6.7 08/21/2021 6.8 05/18/2021 6.7 01/28/2021 7.5 10/03/2020 7.0 PCP: Sara Fuller MD PAST MEDICAL HISTORY Diagnosis Date Allergic rhinitis, cause unspecified Allergic rhinitis Bilateral lower extremity edema Blood in stool Hypertension Hypothyroidism Lipoma Morbid obesity (HCC) Other and unspecified hyperlipidemia Prostate cancer ([facility]) [address] White. s/p prostatectomy RBBB Rosacea Type II or unspecified type diabetes mellitus without mention of complication, uncontrolled Urinary incontinence Current Outpatient Medications Medication Sig propylene glycol (SYSTANE BALANCE OPHTHALMIC) Use in eyes. 3-4 times a day metroNIDAZOLE (METROGEL) 1 % Topical Gel Apply to affected area twice daily. sulfacetamide sodium/sulfur (PRASCION TOPICAL) Apply to affected area once daily. 10-55 omega-3 DHA-EPA (FISH OIL) 1,200 (144-216) mg capsule Take 1 capsule by mouth daily with breakfast. MAGNESIUM SULFATE ORAL Take 500 mg by mouth once daily. CINNAMON BARK ORAL Take 2,000 mcg by mouth once daily. carvedilol (COREG) 3.125 mg tablet Take 3.125 mg by mouth twice daily with meals. metFORMIN (GLUCOPHAGE) 500 mg tablet Take 2 tablets by mouth twice daily with meals. levothyroxine (SYNTHROID) 100 mcg tablet Take 1 tablet by mouth once daily. Take on empty stomach enalapril (VASOTEC) 10 mg tablet Take 1 tablet by mouth once daily. Insulin [place], Disposable, (NOVOFINE 32) 32 gauge x 1/4 Use with Insulin rosuvastatin (CRESTOR) 20 mg tablet Take 1 tablet by mouth daily at bedtime. blood sugar diagnostic (ONETOUCH ULTRA TEST) test strip Test blood sugar daily and as needed blood sugar diagnostic (BLOOD GLUCOSE TEST) test strip Test blood sugar(s) 2 times daily. Dx: Type 2 DM - Controlled E11.9 Insulin: Yes EPINEPHrine (EPIPEN) 0.3 mg/0.3 mL auto-injector Inject 0.3 mL intramuscularly as needed (For allergic reaction). insulin glargine (BASAGLAR KWIKPEN U-100 INSULIN) 100 unit/mL (3 mL) Inject 34 Units subcutaneouslytwice daily. dulaglutide (TRULICITY) 3 mg/0.5 mL pen injector Inject 3 mg subcutaneously one time a week. nitroglycerin sublingual (NITROQUICK) 0.[address] 1 tablet under the tongue if needed every 5 minutes for stephen... (REFER TO PRESCRIPTION NOTES). dextromethorphan-guaiFENesin (MUCINEX DM) 30-600 mg per tablet Take 1 tablet by mouth twice daily. (Patient taking differently: Take 1 tablet by mouth twice daily. PRN) blood sugar diagnostic (ONETOUCH ULTRA TEST STRIP) test strip Test sugar daily and as needed Blood-Glucose Meter (ONETOUCH ULTRA2 METER) monitoring kit Check blood sugar daily and as needed Lancets (ONETOUCH ULTRASOFT LANCETS) lancets Test blood sugar(s) 1 times daily and as needed. Dx: Type 2 DM - Uncontrolled E11.65 , Insulin: Yes aspirin, enteric coated (ASPIRIN, ENTERIC COATED) 81 mg EC tablet Take 81 mg by mouth once daily. Compression Knee Highs KNEE HIGH COMPRESSION STOCKINGS 30-40 MM. DX: EDEMA multivitamin (DAILY MULTI-VITAMIN) ORAL Tab Take one(1) tablet daily. albuterol HFA (VENTOLIN HFA) 90 mcg/actuation inhaler Inhale 2 Puffs as instructed every 4 hours asneeded for wheezing/shortness of breath. (Patient not taking: No sig reported) No current facility-administered medications for this visit. ALLERGIES Allergen Reactions 12 Grain Bread [Oth* Swelling Throat swelled. Bread had sunflower seeds in it. Mellette Seed Anaphylaxis Zocor [Simvastatin] Myalgia muscle pain Amoxicillin Hives Dust Erythromycin Other: See Comments Tingling. Grasses [Other] Molds [Other] PAST SURGICAL HISTORY Procedure Laterality Date COLONOSCOPY FLX DX W/COLLJ SPEC WHEN PFRMD 01/22/06 COLONOSCOPY FLX DX W/COLLJ SPEC WHEN PFRMD 02/16/16 Colonoscopy PAST SURGICAL HISTORY OF 2005 prostatectomy REPAIR UMBILICAL HERNIA 2001 FAMILY HISTORY Problem Relation Age of Onset Diabetes Mother Alzheimer's Disease Father Diabetes Brother Asthma Brother other (parkinsons) Brother Social History Tobacco Use Smoking status: Never Smokeless tobacco: Never Tobacco comments: No smoking in childhood home. Vaping Use Vaping Use: Never used Substance Use Topics Alcohol use: No Drug use: No REVIEW OF SYSTEMS GENERAL: Negative for Malaise, significant weight loss, fever RESPIRATORY: Negative for cough, wheezing and shortness of breath CARDIOVASCULAR: Negative for chest pain, leg swelling and palpitations GI: Negative for abdominal discomfort, blood in stools or black stools and change in bowel habits : Negative for dysuria, frequency and incontinence MUSCULOSKELETAL: Negative for joint pain or swelling, back pain, and muscle pain. SKIN: Negative for lesions, rash, and itching. HEMATOLOGY/LYMPHOLOGY Negative for prolonged bleeding, bruising easily, and swollen nodes. ENDOCRINE: Negative for cold or heat intolerance, polyuria, polydipsia and goiter. NEURO: negative The remainder of the review of systems is noncontributory. Objective: Patient presents to clinic ambulating in boots Constitutional: Pt is a well developed 72 year old male who is alert, oriented, cooperative and in no apparent distress. Eyes: Following during examination. No redness or drainage. Respiratory: RR normal and nonlabored. Even breathing. No evidence of distress. Psychology: Patient is engaged during conversation. Normal affect and mood. Does not appear depressed or anxious. Vasc: DP and PT pulses are palpable bilateral. CFT is less than 5 seconds bilateral. Skin temperature is warm to warm proximal to distal bilateral. There is no edema or varicosities noted. Hair growth present. Neuro: Protective sensation is intact to the foot and toes when tested with the 5.07 SWM bilateral.Vibratory sensation is intact at the hallux bilateral. No Significant neurological defecits. Derm: Inspection and palpation performed. Nails 1-5 b/l are normal in length. Skin is of normal turgor and texture. Hyperkeratosis noted to not present. NO ulcerations, scars, verruca or other lesions noted. Ortho: Ankle joint DF is full with the knee extended and full with knee flexed. No pain or crepitusnoted. STJ, MTJ ROM are full and free of pain or crepitus. Muscle strength is 5/5 for dorsiflexors,plantarflexors, inverters, everters. Digital deformities include hammertoes of b/l feet. Assessment: (E11.9) Type 2 diabetes mellitus without complication, unspecified whether fdc insulin use (HCC) (primary encounter diagnosis) (M20.42) Hammertoe of second toe of left foot (M77.41, M77.42) Metatarsalgia of both feet Plan: 1. Patient was seen and evaluated. 2. Patient was instructed on the continued importance of diabetic foot care along with proper diet and keeping their blood sugar under control to prevent complications. Instructions given both oral and written. 3. Discussed hammertoe. Discussed conservative vs surgical intervention. He has elected to contineuwith conservative care. Custom orthotics ordered 4. Discussed pain in ball of feet. Due to hammertoes. Custom inserts ordered Viktoriya Angelo DPM * Cleo Fernandez RN - 12/03/2022 9:00 AM EST Patient presents with: Left Foot - Established Patient, Follow Up, Diabetic Foot Check Right Foot - Established Patient, Follow Up, Diabetic Foot Check Patient presents for 1 year diabetic foot check. States that he is interested in new inserts, possibly the custom orthotics. [facility] Miscellaneous Notes* Telephone Encounter - Essence Solis LPN - 10/24/2022 4:08 PM EST Upcoming apppointment 12/10/22 Essence Solis LPN documented in this [facility]12-23-2022 Miscellaneous Notes* Telephone Encounter - Candida Faye - 10/12/2022 11:11 AM EST Patient has been identified by name and date of : Yes Patient phones for refill(s): Requested Prescriptions Pending Prescriptions Disp Refills metFORMIN (GLUCOPHAGE) 500 mg tablet 360 tablet 3 Sig: Take 2 tablets by mouth twice daily with meals. Date of last office visit in primary care: 06/04/22 Labs-05/28/22 NOV-12/10/22 med filled 08/25/21 Last 2 Encounter Wt Readings: Date: Wt: 06/04/2022 131.5 kg (290 lb) 01/15/2022 127.9 kg (282 lb) Previous labs/tests for medication: Not applicable Please advise. Thank you. Candida Faye documented in this [facility]12-21-2022 Miscellaneous Notes* Telephone Encounter - Lucy Duncan RN - 10/10/2022 10:23 AM EST Called pt for DM update. If patient returns call, please ask him if he needs assistance with any diabetes medications, supplies, etc. Thank you! Lucy Duncan, RN documented in this [facility]2022 Miscellaneous Notes* Telephone Encounter - Sheryl Phillips RN - 07/25/2022 10:00 AM EDT Patient has been identified by name and date of : Yes Pharmacy phones for refill(s): Requested Prescriptions Pending Prescriptions Disp Refills Insulin [place], Disposable, (NOVOFINE 32) 32 gauge x 1/4 100 Each 3 Sig: Use with Insulin Date of last office visit with pcp: 06-04-22. Next appt: 12-10-22 Last 2 Encounter Wt Readings: Date: Wt: 06/04/2022 131.5 kg (290 lb) 01/15/2022 127.9 kg (282 lb) Previous labs/tests for medication: Diabetes: Hemoglobin A1C (%) Date Value 05/28/2022 6.7 11/22/2021 6.7 08/21/2021 6.8 Please advise. Thank you. Sheryl Phillips RN [facility] History of Present illness Narrative* Kenyetta Stacy, NUTRITION CLUB AMBASSADOR.MAINTENANCE EQUIPMENT OPERATOR - 06/04/2022 8:49 AM EDT 06/04/2022 Patient presents with: 6 Month Exam SUBJECTIVE: This is a 71 year old that is here today for Chronic Medical Conditions. Since last appointment has been in good health without ER visits or hospitalizations. DIABETES MELLITUS: Since our last visit he denies excessive thirst or increased frequency of urination, chest pain or dyspnea , numbness, tingling or pain in extremities, new or unusual visual symptoms, low sugar/hypoglycemic reactions, weight loss/gain, lightheadedness/dizziness, and bowel changes/loose stools. Follows a diabetic diet some of the time. He is compliant with medication(s) and is tolerating med(s) without any side effects. He reports checking his glucose on a twice a day schedulewith sugars in the <120 range. Patient's last HgA1C was Hemoglobin A1C (%) Date Value 05/28/2022 6.7 11/22/2021 6.7 08/21/2021 6.8 ) Last Ophthalmology exam was within the past 3 months HTN: Patient is compliant with meds Yes Monitors bp at home: No. Denies side effects: Yes. Chest pain: No. Dyspnea: No. Edema: No. Palpitations: No. Syncope: No. Headache: No. Dizziness: No. HYPERLIPIDEMIA: Patient is taking medications: Yes. Patient is watching diet: somewhat. Patient denies myalgias: Yes. Patient denies gi upset: Yes HYPOTHYROIDISM: taking synthroid as prescribed without side effects. Right knee: Acts up at times. Feels like somwrhing pulling to the side of his knee. Biofreeeze helps. Aggravated when he crosses leg over to put shoes on. Denies past or present injury, surgeries, redness, warmth or swelling PAST MEDICAL HISTORY Diagnosis Date Allergic rhinitis, cause unspecified Allergic rhinitis Bilateral lower extremity edema Blood in stool Hypertension Hypothyroidism Lipoma Morbid obesity (HCC) Other and unspecified hyperlipidemia Prostate cancer (HCC) [address] White. s/p prostatectomy RBBB Rosacea Type II or unspecified type diabetes mellitus without mention of complication, uncontrolled Urinary incontinence ALLERGIES 12 Grain Bread [Other], Mellette Seed, Zocor [Simvastatin], Amoxicillin, Dust, Erythromycin, Grasses [Other], and Molds [Other] MEDICATIONS Current Outpatient Medications Medication Sig EPINEPHrine (EPIPEN) 0.3 mg/0.3 mL auto-injector Inject 0.3 mL intramuscularly as needed (For allergic reaction). insulin glargine (BASAGLAR KWIKPEN U-100 INSULIN) 100 unit/mL (3 mL) Inject 34 Units subcutaneouslytwice daily. dulaglutide (TRULICITY) 3 mg/0.5 mL pen injector Inject 3 mg subcutaneously one time a week. nitroglycerin sublingual (NITROQUICK) 0.[address] 1 tablet under the tongue if needed every 5 minutes for stephen... (REFER TO PRESCRIPTION NOTES). Insulin [place], Disposable, (NOVOFINE 32) 32 gauge x 1/4 Use with Insulin levothyroxine (SYNTHROID) 100 mcg tablet Take 1 tablet by mouth once daily. Take on empty stomach metFORMIN (GLUCOPHAGE) 500 mg tablet Take 2 tablets by mouth twice daily with meals. enalapril (VASOTEC) 10 mg tablet Take 1 tablet by mouth once daily. rosuvastatin (CRESTOR) 20 mg tablet Take 1 tablet by mouth daily at bedtime. Blood-Glucose Meter (ONETOUCH ULTRA2 METER) monitoring kit Check blood sugar daily and as needed Lancets (ONETOUCH ULTRASOFT LANCETS) lancets Test blood sugar(s) 1 times daily and as needed. Dx: Type 2 DM - Uncontrolled E11.65 , Insulin: Yes aspirin, enteric coated (ASPIRIN, ENTERIC COATED) 81 mg EC tablet Take 81 mg by mouth once daily. multivitamin (DAILY MULTI-VITAMIN) ORAL Tab Take one(1) tablet daily. blood sugar diagnostic (ONETOUCH ULTRA TEST) test strip Test blood sugar daily and as needed blood sugar diagnostic (BLOOD GLUCOSE TEST) test strip Test blood sugar(s) 2 times daily. Dx: Type 2 DM - Controlled E11.9 Insulin: Yes albuterol HFA (VENTOLIN HFA) 90 mcg/actuation inhaler Inhale 2 Puffs as instructed every 4 hours asneeded for wheezing/shortness of breath. (Patient not taking: Reported on 11/27/2021 ) dextromethorphan-guaiFENesin (MUCINEX DM) 30-600 mg per tablet Take 1 tablet by mouth twice daily. (Patient not taking: Reported on 01/01/2022 ) blood sugar diagnostic (ONETOUCH ULTRA TEST STRIP) test strip Test sugar daily and as needed Compression Knee Highs KNEE HIGH COMPRESSION STOCKINGS 30-40 MM. DX: EDEMA Current Facility-Administered Medications Medication Dose Route Frequency perflutren lipid microspheres 1.3 mL in NaCl (PF) 0.9% 10 mL injection (DEFINITY) INTRAVENOUS DIRECTED PRN sodium chloride 0.9 % (flush) 10 mL (BD POSIFLUSH) 10 mL INTRAVENOUS DIRECTED PRN Medications and allergies reviewed by this provider. SOCIAL HISTORY Social History Tobacco Use Smoking status: Never Smokeless tobacco: Never Tobacco comments: No smoking in childhood home. Vaping Use Vaping Use: Never used Substance Use Topics Alcohol use: No Drug use: No REVIEW OF SYSTEMS All other reviewed and negative other than HPI. OBJECTIVE: BP 124/66 Pulse 73 Resp 20 Wt 131.5 kg (290 lb) SpO2 96% BMI 39.33 kg/m . Vital signs reviewed by this provider. APPEARANCE Well appearing, alert, in no acute distress, well-hydrated, well nourished. and Overweight EYES PERRLA, conjunctiva and sclera normal. HEART RRR with normal S1 and S2, no murmurs, no gallops, no JVD appreciated LUNG clear to auscultation. No wheezes, rhonchi, or rales SKIN Skin color, texture, turgor normal, no suspicious rashes or lesions to exposed skin RIGHT KNEE: no obvious deformity, erythema, excessive warmth, or swelling. FROM without pain. Negative anterior and posterior drawer test. Negative [facility]'s Component Latest Ref Rng & Units 05/28/2022 Protein, Total 6.3 - 8.0 g/dL 6.9 Albumin 3.9 - 4.9 g/dL 4.4 Calcium 8.5 - 10.2 mg/dL 9.9 Bilirubin, Total 0.2 - 1.3 mg/dL 0.4 Alkaline Phosphatase 38 - 113 U/L 66 AST 14 - 40 U/L 25 ALT 10 - 54 U/L 31 Glucose 74 - 99 mg/dL 114 (H) BUN 9 - 24 mg/dL 23 Creatinine 0.73 - 1.22 mg/dL 1.03 Sodium 136 - 144 mmol/L 141 Potassium 3.7 - 5.1 mmol/L 4.9 Chloride 97 - 105 mmol/L 104 CO2 22 - 30 mmol/L 25 Anion Gap 9 - 18 mmol/L 12 eGFR >=60 mL/min/1.73m 78 Cholesterol, Total <200 mg/dL 131 Triglyceride <150 mg/dL 207 (H) HDL Cholesterol >39 mg/dL 31 (L) Non HDL Cholesterol <130 mg/dL 100 Fasting Time hrs 8 VLDL Cholesterol <30 mg/dL 41 (H) TC:HDL Ratio <5.10 4.23 LDL Cholesterol <100 mg/dL 59 LDL:HDL Ratio <2.54 1.90 Hemoglobin A1C 4.3 - 5.6 % 6.7 (H) Estimated Average Glucose mg/dL 146 TSH 0.270 - 4.200 mIU/L 3.010 PSA <2.60 ng/mL <0.02 SHINGRIX VACCINE(2 of 3) due on 05/22/2013 ADVANCE DIRECTIVE DISCUSSION Never done DILATED RETINAL EXAM due on 10/25/2021 DEPRESSION SCREENING due on 01/25/2022 COVID-19 VACCINE(4 - Booster for Pfizer series) due on 02/26/2022 INFLUENZA(1) due on 06/21/2022 URINE ALBUMIN:CREATININE RATIO due on 08/21/2022 DIABETIC FOOT EXAM due on 11/27/2022 HBA1C due on 11/28/2022 LDL CHOLESTEROL due on 05/28/2023 ANNUAL PCP TEAM CHRONIC DISEASE VISIT due on 06/04/2023 BP CONTROLLED (<130/80) due on 06/04/2023 COLORECTAL CANCER SCREENING due on 02/15/2026 DTAP,TDAP,TD(3 - Td or Tdap) due on 04/05/2026 HEPATITIS C SCREENING Completed PNEUMOCOCCAL: 65+ Completed ASSESSMENT/PLAN: 1. Controlled type 2 diabetes mellitus without complication, with long-term current use of insulin (HCC) - ICD9: 250.00, V58.67, ICD10: E11.9, Z79.4 (primary diagnosis) Controlled. - Continue current medications - Blood glucose monitoring on a twice a day schedule - Encouraged regular aerobic exercise and weight loss - Follow up in 6 months, sooner should any other issues arise. - Discussed diabetic education issues of diet and importance of exercise with patient. - BP goal of <130/80 - LDL goal of <100 2. Encounter for immunization - ICD9: V03.89, ICD10: Z23 - PFIZER-Barak ITC COVID-19 VACCINE, AGE 12+ YR (STAPLES TOP) 3. Obesity, Class II, BMI 35-39.9 - ICD9: 278.00, ICD10: E66.9 Weight increasing - Behavioral intervention - Lengthy discussion in office today regarding diet and exercise. Discussed use of small plate to eat meals from, drink 1 glass of water 10-15 minutes prior to eating meal, drink 8 glasses of water daily, eat fresh fruit and vegetable during meal first then lean protein such as grilled/baked chicken breast or fish, limit carbohydrate intake (less pasta, breads, rice and snack foods) as well as limiting sugars (desserts etc). Important to count / track your calories and exercise as well. 4. Acquired hypothyroidism - ICD9: 244.9, ICD10: E03.9 - Instructed patient on importance of taking on an empty stomach either first thing in the morning or at bedtime. - continue current dose of Synthroid 0.100 mg - Follow up in 6 months 5. Mixed hyperlipidemia - ICD9: 272.2, ICD10: E78.2 - good control - Continue current medication. - Encouraged following a low fat, low cholesterol diet. - Discussed the benefits of regular aerobic exercise and weight loss. - Follow up in 6 months. - Encouraged following a low carbohydrate, healthy oil intake diet. 6. Primary hypertension - ICD9: 401.9, ICD10: I10 - good control - Continue current medication(s) - Recommended regular aerobic exercise. - Recommend home blood pressure monitoring, to bring results in on next visit - Discussed need and benefit for weight loss. - Recheck in 6 months, sooner should new symptoms or problems arise. - Goal of BP <130/80 7. Acute pain of right knee - ICD9: 719.46, ICD10: M25.561 - likely osteoarthritis - no red flag symptoms or exam findings - red flag symptoms discussed, verbalizes understanding - discussed gentle stretches, weight loss, may use OTC pain relievers as directed on packaging, may use heat for 15 minutes at a time - discussed PT and/or Xray- patient declines at this time - follow-up if symptoms fail to improve Kenyetta Stacy APRN.FRANCY Prescription instructions reviewed with patient as applicable. Patient advised if symptoms do not improve or if symptoms worsen sooner, to contact their primary care physician. Potential red flag symptoms discussed with the patient. Reviewed appropriate action plan to take if red flag symptoms occur. Patient agreeable to treatment plan. I spent a total of 30 minutes on the date of the service which included preparing to see the patient, [id number] patient care, completing clinical documentation, obtaining and/or reviewing separately obtained history, performing a medically appropriate examination, and counseling and educating the patient/family/caregiver. [facility]22 Miscellaneous Notes* Telephone Encounter - Gunner Hassan LPN - 05/29/2022 10:14 AM EDT Patient phones requesting refills as follows: Requested Prescriptions Pending Prescriptions Disp Refills blood sugar diagnostic (ONETOUCH ULTRA TEST) test strip 100 Strip 3 Sig: Test blood sugar daily and as needed KRISS 01/01/22 NOV 06/04/22 Please review and advise. Gunner Hassan LPN * Telephone Encounter - Patsy Gomes Pss - 05/29/2022 8:13 AM EDT Patient has been identified by name and date of : Yes Pending Prescriptions Disp Refills ONETOUCH ULTRA TEST STRIPS 100 Strip 3 Sig: Test blood sugar daily and as needed PRASANTH: No RX INSTRUCTIONS: patient used last test strip this morning, need for later today, please send [facility]amount to [facility] until mail order arrives. Patient aware RX will be sent to pharmacy. No need to notify patient. Patient aware RX escripted to mail away pharmacy. No need to notify patient. Patsy Gomes Pss documented in this [facility]07-29-2022 Miscellaneous Notes* Telephone Encounter - Bre Malin LPN - 05/18/2022 11:44 AM EDT Patient phones requesting refills as follows: Pending Prescriptions Disp Refills BLOOD GLUCOSE TEST STRIPS 50 Strip 11 Sig: Test blood sugar(s) 2 times daily. Dx: Type 2 DM - Controlled E11.9 Insulin: Yes PRASANTH: No KRISS 01/01/22 NOV 06/04/22 Please review and advise. Bre Malin LPN documented in this [facility]-2022 Miscellaneous Notes* Telephone Encounter - Cleo Peters RN - 05/15/2022 4:58 PM EDT Pt called and is notified of providers message. Pt voices understanding. Cleo Peters RN * Telephone Encounter - Sara Fuller MD - 05/15/2022 4:49 PM EDT Order approved. * Telephone Encounter - Marie Lundy RN - 05/15/2022 2:53 PM EDT Patient calls to request an order for PSA blood work to be done prior to next appointment 06/04/2022. Patient denies any new or changes of urinary symptoms but requesting d/t history of prostate cancer. Order pended for review. Please review and advise, Marie Lundy RN documented in this [facility]07-[facility]-2022 Miscellaneous Notes* Telephone Encounter - Bre Malin LPN - 05/14/2022 8:28 AM EDT Patient phones requesting refills as follows: Pending Prescriptions Disp Refills BLOOD GLUCOSE TEST STRIPS 50 Strip 11 Sig: Test blood sugar(s) 2 times daily. Dx: Type 2 DM - Controlled E11.9 Insulin: Yes PRASANTH: No KRISS 01/01/22 06/04/22 Please review and advise. Bre Malin LPN documented in this [facility]07-[facility]-2022 Miscellaneous Notes* Telephone Encounter - Bre Malin LPN - 05/14/2022 8:27 AM EDT Patient phones requesting refills as follows: Pending Prescriptions Disp Refills EPINEPHRINE 0.3 MG/0.3 ML INJECTION, AUTO-INJECTOR 2 Each 1 Sig: Inject 0.3 mL intramuscularly as needed (For allergic reaction). PRASANTH: No KRISS 01/01/22 06/04/22 Please review and advise. Bre Malin LPN documented in this [facility]03-28-2022 History of Present illness Narrative* Julieta Stark APRN.MAINTENANCE EQUIPMENT OPERATOR - 01/15/2022 9:42 AM EDT Chief Complaint Patient presents with: Established Patient Follow-Up History of Present Illness: Bharathi Sue is a 71 year old male who presents for hospital follow up. 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 He was last evaluated in office by myself on 11/27/2021. Hewas ordered repeat stress testing (had in 2018) for further evaluation of shortness of breath and due to risk factors. He had syncope/asystole and brief CPR after receiving Lexiscan. He was then transferred to 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 Ejection fraction 65%. He presents for follow-up today.His accompanies him for his office visit. He states he has been doing well. 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. He continues to have minimal shortness of breath and otherwise denies cardiac complaints. We reviewed cardiac testing results, risk factors and modifications. He is likely going to follow with Dr. Rodas moving forward. He has hospital follow-up with him on 01/24/2022. PAST MEDICAL HISTORY Diagnosis Date Allergic rhinitis, cause unspecified Allergic rhinitis Bilateral lower extremity edema Blood in stool Hypertension Hypothyroidism Lipoma Morbid obesity (HCC) Other and unspecified hyperlipidemia Prostate cancer (HCC) [address] White. s/p prostatectomy RBBB Rosacea Type II or unspecified type diabetes mellitus without mention of complication, uncontrolled Urinary incontinence PAST SURGICAL HISTORY Procedure Laterality Date COLONOSCOPY FLX DX W/COLLJ SPEC WHEN PFRMD 01/22/06 COLONOSCOPY FLX DX W/COLLJ SPEC WHEN PFRMD 02/16/16 Colonoscopy PAST SURGICAL HISTORY OF 2005 prostatectomy REPAIR UMBILICAL HERNIA 2001 FAMILY HISTORY Problem Relation Age of Onset Diabetes Mother Alzheimer's Disease Father Diabetes Brother Asthma Brother other (parkinsons) Brother Social History Tobacco Use Smoking status: Never Smoker Smokeless tobacco: Never Used Tobacco comment: No smoking in childhood home. Vaping Use Vaping Use: Never used Substance Use Topics Alcohol use: No Drug use: No ALLERGIES Allergen Reactions 12 Grain Bread [Oth* Swelling Throat swelled. Bread had sunflower seeds in it. Mellette Seed Anaphylaxis Zocor [Simvastatin] Myalgia muscle pain Amoxicillin Hives Dust Erythromycin Other: See Comments Tingling. Grasses [Other] Molds [Other] Medications: Current Outpatient Medications Medication Sig Dispense Refill nitroglycerin sublingual (NITROQUICK) 0.[address] 1 tablet under the tongue if needed every 5 minutes for stephen... (REFER TO PRESCRIPTION NOTES). Insulin [place], Disposable, (NOVOFINE 32) 32 gauge x 1/4 Use with Insulin 100 Each 3 dulaglutide (TRULICITY) 3 mg/0.5 mL pen injector Inject 3 mg subcutaneously one time a week. 4 Each4 insulin glargine (BASAGLAR KWIKPEN U-100 INSULIN) 100 unit/mL (3 mL) Inject 35 Units subcutaneouslytwice daily. (Patient taking differently: Inject 34 Units subcutaneously twice daily. ) 5 Pen 3 levothyroxine (SYNTHROID) 100 mcg tablet Take 1 tablet by mouth once daily. Take on empty stomach 90 tablet 3 metFORMIN (GLUCOPHAGE) 500 mg tablet Take 2 tablets by mouth twice daily with meals. 360 tablet 3 enalapril (VASOTEC) 10 mg tablet Take 1 tablet by mouth once daily. 90 tablet 3 blood sugar diagnostic (BLOOD GLUCOSE TEST) test strip Test blood sugar(s) 2 times daily. Dx: Type 2 DM - Controlled E11.9 Insulin: Yes 50 Strip 11 rosuvastatin (CRESTOR) 20 mg tablet Take 1 tablet by mouth daily at bedtime. 90 tablet 3 blood sugar diagnostic (ONETOUCH ULTRA TEST STRIP) test strip Test sugar daily and as needed 200 Each 3 EPINEPHrine (EPIPEN) 0.3 mg/0.3 mL auto-injector Inject 0.3 mL intramuscularly as needed (For allergic reaction). 2 Each 1 Blood-Glucose Meter (ONETOUCH ULTRA2 METER) monitoring kit Check blood sugar daily and as needed 1 Each 0 blood sugar diagnostic (ONETOUCH ULTRA TEST) test strip Test blood sugar daily and as needed 100 Strip 3 Lancets (ONETOUCH ULTRASOFT LANCETS) lancets Test blood sugar(s) 1 times daily and as needed. Dx: Type 2 DM - Uncontrolled E11.65 , Insulin: Yes 100 Each 11 aspirin, enteric coated (ASPIRIN, ENTERIC COATED) 81 mg EC tablet Take 81 mg by mouth once daily. Compression Knee Highs KNEE HIGH COMPRESSION STOCKINGS 30-40 MM. DX: EDEMA 2 Device 2 multivitamin (DAILY MULTI-VITAMIN) ORAL Tab Take one(1) tablet daily. 0 carvedilol (COREG) 3.125 mg tablet Take 1 tablet by mouth twice daily. 180 tablet 3 albuterol HFA (VENTOLIN HFA) 90 mcg/actuation inhaler Inhale 2 Puffs as instructed every 4 hours asneeded for wheezing/shortness of breath. (Patient not taking: Reported on 11/27/2021 ) 18 g 0 dextromethorphan-guaiFENesin (MUCINEX DM) 30-600 mg per tablet Take 1 tablet by mouth twice daily. (Patient not taking: Reported on 01/01/2022 ) 20 tablet 1 Current Facility-Administered Medications Medication Dose Route Frequency Provider Last Rate Last Admin perflutren lipid microspheres 1.3 mL in NaCl (PF) 0.9% 10 mL injection (DEFINITY) INTRAVENOUS DIRECTED PRN Kenyetta Podlogar, NUTRITION CLUB AMBASSADOR.MAINTENANCE EQUIPMENT OPERATOR sodium chloride 0.9 % (flush) 10 mL (BD POSIFLUSH) 10 mL INTRAVENOUS DIRECTED PRN Kenyetta Podlogar, NUTRITION CLUB AMBASSADOR.MAINTENANCE EQUIPMENT OPERATOR Review of Systems Constitutional: Negative for chills, diaphoresis, fever, malaise/fatigue and weight loss. HENT: Negative for congestion, ear pain, nosebleeds, sinus pain and sore throat. Eyes: Negative for pain. Respiratory: Positive for shortness of breath. Negative for cough and wheezing. Cardiovascular: Negative for chest pain, palpitations and leg swelling. Gastrointestinal: Negative for abdominal pain, blood in stool and melena. Genitourinary: Negative for hematuria. Musculoskeletal: Negative for falls. Neurological: Negative for dizziness, tingling, sensory change, speech change, focal weakness, lossof consciousness, weakness and headaches. Endo/Heme/Allergies: Does not bruise/bleed easily. Psychiatric/Behavioral: Negative for depression, memory loss and suicidal ideas. The patient is notnervous/anxious and does not have insomnia. Physical Examination: Vitals:BP 138/60 Pulse 60 Resp 20 Ht 6' 0 (1.83m) Wt 282 lb (127.9kg) BMI 38.24 kg/(m^2). BP w/Orthostatic Vitals Date and Time Orthostatic BP Orthostatic Pulse BP Pulse BP Position BP Site BP Cuff Size 01/15/22847 -- -- 138/60 60 Sitting Right Arm Large Adult Peak Flow Date and Time PF Resp 01/15/22847 -- 20 Last 2 Encounter Wt Readings: Date: Wt: 01/15/2022 282 lb (127.9 kg) 01/01/2022 282 lb (127.9 kg) Physical Exam HENT: Head: Normocephalic. Eyes: Pupils: Pupils are equal, round, and reactive to light. Cardiovascular: Rate and Rhythm: Normal rate. Pulses: Radial pulses are 2+ on the right side and 2+ on the left side. Dorsalis pedis pulses are 2+ on the right side and 2+ on the left side. Heart sounds: Normal heart sounds, S1 normal and S2 normal. Pulmonary: Effort: Pulmonary effort is normal. No accessory muscle usage or respiratory distress. Breath sounds: Normal breath sounds. Abdominal: General: Bowel sounds are normal. Palpations: Abdomen is soft. Musculoskeletal: General: Normal range of motion. Cervical back: Normal range of motion. Skin: General: Skin is warm and dry. Comments: Right radial cath site healed Neurological: Mental Status: He is alert and oriented to person, place, and time. Gait: Gait is intact. Psychiatric: Mood and Affect: Affect normal. Cognition and Memory: Memory normal. Judgment: Judgment normal. Most Recent Cardiac Testing 12/25/2021 [facility] Mild disease LM, LAD, LCX. 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 - Exam indication: Abnormal ECG - The left ventricle is normal in size. Left ventricular systolic function is normal. EF = 65 5% (visual est.) Definity contrast used for endocardial border detection. Grade I left ventricular diastolic dysfunction. - The right ventricle is normal in size. Right ventricular systolic function is normal. - Exam was compared with the prior echocardiographic exam performed on 06/15/2009. Stress testing 2018 CONCLUSIONS: 1. SPECT Perfusion Study: Normal. 2. There is no scintigraphic evidence for inducible ischemia. 3. A fixed reduction in observed actvity in the inferior wall is associated with normal function on the gated images and is considered to reflect attenuation artifact. 4. No evidence of scarred myocardium. 5. Functional capacity N/A (pharmacological). 6. Left ventricle is normal in size. The left ventricle systolic function is normal. 7. Right ventricle is mildly dilated. The right ventricle systolic function is moderately decreased. 8. This is a low risk scan. 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 Left heart cath was done after syncope/brief asystole during stress testing -EF 65% -He has been recommended medical management for ROCK ROOM WORKER, continue ASA, statin. beta- wilberto management may not be appropriate given RBBB and recent asystole -encouraged routine activity and heart healthy diet for risk factor modification HTN -138/60 -Continue current medication(s) -Encouraged dietary sodium restriction/DASH diet -Recommended regular aerobic exercise. -Recommend home blood pressure monitoring, to bring results in on next visit -Discussed need and benefit for weight loss. -Goal of BP <130/80 HLD -lipid panel 01/2021 LDL 86 -continue Cretor 20 mg DM -A1C 11/22/2021 6.7 -oral and insulin control Obesity -lifestyle modifications -encouraged a heart healthy diet, routine exercise and weight loss Follow-up in 6 months if patient chooses to follow with our cardiology service. Patient to call with any issues or concerns prior to then. Electronically signed by Julieta Stark APRN.CNP on January 15, 2022, 9:42 AM documented in this [facility] Instructions* Patient Instructions* Julieta Stark APRN.CNP - 01/15/2022 9:36 AM EDT Images from the original note were not included. CORONARY ARTERY DISEASE View image View image WHAT IS CORONARY ARTERY DISEASE? Coronary artery disease (CAD) is a type of heart disease caused by a problem with the blood vesselsthat bring blood and oxygen to the heart muscle. These arteries are called the coronary arteries. This disease increases your risk for heart attack and sudden . WHAT IS THE CAUSE? Fatty deposits called plaque may build up in blood vessels and make them narrower. The narrowing decreases the amount of blood flow to the heart. Plaque also increases the chance that blood clots mayform and block a blood vessel, which can cause a heart attack or stroke. Your risk for CAD may be higher if you: Have a family history of coronary artery disease at an early age Smoke Have high blood pressure Have diabetes Are very overweight Don t get enough exercise Have high levels of blood fat--for example, high cholesterol WHAT ARE THE SYMPTOMS? Coronary artery disease may not cause any symptoms. When there are symptoms, the most common one ischest pain, called angina. You may feel: A feeling of tightness or heaviness in the chest Squeezing, pressure, or burning in the chest Angina symptoms usually: Last for 5 minutes or less and go away with rest or medicine such as nitroglycerin. Happen when the heart has to work harder, such as after a heavy meal or during physical activity oremotional stress. Angina may also happen when you are resting. Call 911 for emergency help right away if you have symptoms of a heart attack. The most common symptoms include: Chest pain or pressure, squeezing, or fullness in the center of your chest that lasts more than a few minutes, or goes away and comes back (may feel like indigestion or heartburn) Pain or discomfort in one or both arms or shoulders, or in your back, neck, jaw, or stomach Trouble breathing Breaking out in a cold sweat for no known reason If your provider has prescribed nitroglycerin for angina, pain that does not go away after taking your nitroglycerin as directed Along with these symptoms, you may also feel very tired, faint, or be sick to your stomach. HOW IS IT DIAGNOSED? Your healthcare provider will ask about your symptoms and medical history and examine you. Tests may include: Blood tests An ECG (also called an EKG or electrocardiogram), which measures and records your heartbeat. An exercise treadmill test to see how your heart works when you exercise An echocardiogram, which uses sound waves (ultrasound) to see how well your heart is pumping Angiogram, which is a series of X-rays taken after your healthcare provider injects a special dye into your blood vessels to show the waite of the arteries and any blockage CT scan, which uses X-rays and a computer to show detailed pictures of the arteries HOW IS IT TREATED? Your treatment depends on many factors, such as your age, heart muscle function, and other health problems. At first, treatment may include diet changes and an exercise program. Your healthcare provider may prescribe medicine. Many people need to take 2 or more medicines to help prevent a heart attack or stroke. It may take several weeks or months to find the best treatment for you. Your provider may also prescribe other types of medicine to lower blood pressure, help stop chest pain, control an irregular heartbeat, help prevent blood clots, or lower blood fat (cholesterol). Your provider may recommend a daily low dose of aspirin. Taking an aspirin every day may lower yourrisk for a heart attack or stroke. Not everyone should take aspirin. Daily use of aspirin can causeproblems, such as stomach irritation, bleeding, and hearing loss. Ask your healthcare provider if you should take aspirin and if so, how much to take. If your coronary arteries are badly blocked, you may need balloon angioplasty or bypass surgery. A balloon angioplasty opens blocked blood vessels and improves blood flow. A metal mesh device called a stent is usually left in the blood vessels to help keep them open. Bypass surgery uses blood vessels from other parts of the body, or manmade material, to make a new path around a blocked area. HOW CAN I TAKE CARE OF MYSELF? CC If you have coronary artery disease, there are things you can do to take care of yourself now and prevent problems in the future. Follow your provider's advice about activity, exercise, medicine, and follow-up visits. Lower the amount of salt, saturated and trans fats, and cholesterol in your diet. Work with your healthcare provider to control diabetes, blood pressure, or other health problems you may have. Try to keep a healthy weight. If you are overweight, talk to your provider about ways to lose weight. If you smoke, try to quit. Talk to your healthcare provider about ways to quit smoking. Ask your healthcare provider: o How and when you will hear your test results o How long it will take to recover o What activities you should avoid and when you can return to your normal activities o How to take care of yourself at home o What symptoms or problems you should watch for and what to do if you have them Make sure you know when you should come back for a checkup. HOW CAN I HELP PREVENT CORONARY ARTERY DISEASE? You can prevent this disease with a heart-healthy lifestyle: Eat a healthy diet and keep a healthy weight. Stay fit with the right kind of exercise for you. Find ways to manage stress. Don t smoke. Limit your use of alcohol. Talk to your healthcare provider about your personal and family medical history and your lifestyle habits. This will help you know what you can do to lower your risk for coronary artery disease. If you have a strong family history of CAD, a healthy lifestyle may slow the start of the disease and maybe even keep you from getting it. However, you must have regular checkups to keep a close watch on the health of your heart. Developed by [employer]. Published by [employer]. Copyright 2014 [employer] and/or one of its subsidiaries. All rights reserved. documented in this encounterUpper [facility]03-[facility]-2022 History of Present illness Narrative* Veena Santos Ma - 12/28/2021 5:34 PM EST TRANSITION CARE MANAGEMENT (TCM) INITIAL CONTACT [employer] Outreach Provider Action/FYI: Call to pt who states that overall he is feeling fine. He denies any chest pain, sob or dizziness. States he had no med changes at the hospital but per d/c they advised he stopped fish oil and cinnamon bark which pt would like to discuss. Did receive and Rx of Nitro. No Rx of Mucinex DM. Pt states he has an appt with Cardio at [facility] in 1 month, but is an established pt of Dr. Lynch and was to f/u with Julieta Serjio on 01/15/22, unsure if he will keep appt. Will discuss with Kenyetta at his appt. Initial contact with patient post discharge, spoke to patient. Patient identified by name and . TRANSITION CARE MANAGEMENT INITIAL OUTREACH DOCUMENTATION: Date of Outreach: 12/28/2021 Outreach Attempt 1: Contact Made Date of Discharge 12/26/2021 Some recent data might be hidden SUMMARY: -Pt discharged from [facility] on 12/26/21. -Admitted for: 1.) Asystole (acute) cardiac arrest 2.) CAD Do you have a hospital follow up appointment with your PCP? Appointment on 01/01/22 with Kenyetta Stacy CNP. MEDICATIONS: Many patients have questions or concerns about their medications once they are home. Were you prescribed any new medications? If yes, what are those medications? Nitro Were you told to hold any medications? If yes, what are those medications? NA Were any of your medications discontinued? If yes, what are those medications? Cinnamon Bark and Fish Oil Do you have any questions about getting or taking your medications? No Your discharge instructions/After visit Summary (AVS) are important in guiding you through the recovery process. Is there anything I might help you understand? No Do you have all the necessary equipment and supplies at home? Yes Medical records from recent hospitalization: [facility] Records Veena Santos Ma documented in [facility] History of Present illness Narrative* Tawana Stewart RT(R) - 08/25/2021 11:10 AM EDT Radiology Service Progress Note PATIENT NAME: Bharathi Sue DATE OF SERVICE: August 25, 2021 TIME: 11:10 AM PATIENT IDENTITY VERIFICATION COMPLETED USING TWO (2) IDENTIFIERS: Name and Date of confirmedby patient verbally. FALL SCREENING: Has the patient had 2 falls in the last year or 1 fall with injury or currently using an Ambulatory Assistive Device (Walker, Cane, Wheelchair, Crutches, etc.)? No PATIENT GENDER DATA: Male PATIENT RELEVANT IMPLANT DATA REVIEWED: Yes RADIOLOGY DEPARTMENT: General X-ray: Exam(s) Completed: Chest X-Ray PERIPHERAL IV DATA: Not applicable SIGNED BY: RT Sahara(R) August 25, 2021 11:10 AM documented in this encounter[address] History of Past illness Narrative* Problem Noted Date Resolved Date Diabetes mellitus 09/17/2007 12/25/2017 Blood in stool 12/31/2018 documented as of this encounter (statuses as of 01/15/2022) [address] History of Past illness Narrative* Problem Noted Date Resolved Date Diabetes mellitus 09/17/2007 12/25/2017 Blood in stool 12/31/2018 documented as of this encounter (statuses as of 01/29/2022) [address] History of Past illness Narrative* Problem Noted Date Resolved Date Diabetes mellitus 09/17/2007 12/25/2017 Blood in stool 12/31/2018 documented as of this encounter (statuses as of 05/14/2022) [address] History of Past illness Narrative* Problem Noted Date Resolved Date Diabetes mellitus 09/17/2007 12/25/2017 Blood in stool 12/31/2018 documented as of this encounter (statuses as of 05/14/2022) [address] History of Past illness Narrative* Problem Noted Date Resolved Date Diabetes mellitus 09/17/2007 12/25/2017 Blood in stool 12/31/2018 documented as of this encounter (statuses as of 05/15/2022) [place] [address] History of Past illness Narrative* Problem Noted Date Resolved Date Diabetes mellitus 09/17/2007 12/25/2017 Blood in stool 12/31/2018 documented as of this encounter (statuses as of 05/18/2022) [place] [address] History of Past illness Narrative* Problem Noted Date Resolved Date Diabetes mellitus 09/17/2007 12/25/2017 Blood in stool 12/31/2018 documented as of this encounter (statuses as of 05/29/2022) [place] [address] History of Past illness Narrative* Problem Noted Date Resolved Date Diabetes mellitus 09/17/2007 12/25/2017 Blood in stool 12/31/2018 documented as of this encounter (statuses as of 06/04/2022) [address] History of Past illness Narrative* Problem Noted Date Resolved Date Diabetes mellitus 09/17/2007 12/25/2017 Blood in stool 12/31/2018 documented as of this encounter (statuses as of 07/25/2022) [place] [address] History of Past illness Narrative* Problem Noted Date Resolved Date Diabetes mellitus 09/17/2007 12/25/2017 Blood in stool 12/31/2018 documented as of this encounter (statuses as of 10/14/2022) [address] History of Past illness Narrative* Problem Noted Date Resolved Date Diabetes mellitus 09/17/2007 12/25/2017 Blood in stool 12/31/2018 documented as of this encounter (statuses as of 10/24/2022) [address] History of Past illness Narrative* Problem Noted Date Resolved Date Diabetes mellitus 09/17/2007 12/25/2017 Blood in stool 12/31/2018 documented as of this encounter (statuses as of 10/26/2022) [address] History of Past illness Narrative* Problem Noted Date Resolved Date Diabetes mellitus 09/17/2007 12/25/2017 Blood in stool 12/31/2018 documented as of this encounter (statuses as of 12/03/2022) [address] History of Past illness Narrative* Problem Noted Date Resolved Date Diabetes mellitus 09/17/2007 12/25/2017 Blood in stool 12/31/2018 documented as of this encounter (statuses as of 01/18/2023) [address] History of Past illness Narrative* Problem Noted Date Resolved Date Diabetes mellitus 09/17/2007 12/25/2017 Blood in stool 12/31/2018 documented as of this encounter (statuses as of 04/07/2023) [address] History of Past illness Narrative* Problem Noted Date Diagnosed Date Resolved Date Diabetes mellitus 09/17/2007 12/25/2017 Blood in stool 12/31/2018 documented as of this encounter (statuses as of 06/05/2023) [address] History of Past illness Narrative* Problem Noted Date Diagnosed Date Resolved Date Diabetes mellitus 09/17/2007 12/25/2017 Blood in stool 12/31/2018 documented as of this encounter (statuses as of 06/10/2023) [address] History of Past illness Narrative* Problem Noted Date Diagnosed Date Resolved Date Diabetes mellitus 09/17/2007 12/25/2017 Blood in stool 12/31/2018 documented as of this encounter (statuses as of 06/11/2023) [address] History of Past illness Narrative* Problem Noted Date Diagnosed Date Resolved Date Diabetes mellitus 09/17/2007 12/25/2017 Blood in stool 12/31/2018 documented as of this encounter (statuses as of 06/17/2023) [address] History of Past illness Narrative* Problem Noted Date Diagnosed Date Resolved Date Diabetes mellitus 09/17/2007 12/25/2017 Blood in stool 12/31/2018 documented as of this encounter (statuses as of 08/25/2023) [address] History of Past illness Narrative* Problem Noted Date Diagnosed Date Resolved Date Diabetes mellitus 09/17/2007 12/25/2017 Blood in stool 12/31/2018 documented as of this encounter (statuses as of 09/16/2023) [address] History of Past illness Narrative* Problem Noted Date Diagnosed Date Resolved Date Diabetes mellitus 09/17/2007 12/25/2017 Blood in stool 12/31/2018 documented as of this encounter (statuses as of 09/24/2023) [address] History of Past illness Narrative* Problem Noted Date Diagnosed Date Resolved Date Diabetes mellitus 09/17/2007 12/25/2017 Blood in stool 12/31/2018 documented as of this encounter (statuses as of 12/02/2023) [address] History of Past illness Narrative* Problem Noted Date Diagnosed Date Resolved Date Diabetes mellitus 09/17/2007 12/25/2017 Blood in stool 12/31/2018 documented as of this encounter (statuses as of 12/06/2023) [address] History of Past illness Narrative* Problem Noted Date Diagnosed Date Resolved Date Diabetes mellitus 09/17/2007 12/25/2017 Blood in stool 12/31/2018 documented as of this encounter (statuses as of 12/09/2023) [address] History of Past illness Narrative* Problem Noted Date Diagnosed Date Resolved Date Diabetes mellitus 09/17/2007 12/25/2017 Blood in stool 12/31/2018 documented as of this encounter (statuses as of 01/22/2024) [address] History of Past illness Narrative* Problem Noted Date Diagnosed Date Resolved Date Diabetes mellitus 09/17/2007 12/25/2017 Blood in stool 12/31/2018 documented as of this encounter (statuses as of 01/24/2024) [address] History of Past illness Narrative* Problem Noted Date Diagnosed Date Resolved Date Diabetes mellitus 09/17/2007 12/25/2017 Blood in stool 12/31/2018 documented as of this encounter (statuses as of 01/30/2024) [address] History of Past illness Narrative* Problem Noted Date Diagnosed Date Resolved Date Diabetes mellitus 09/17/2007 12/25/2017 Blood in stool 12/31/2018 documented as of this encounter (statuses as of 02/07/2024) [facility] Diagnosis 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 Primary hypertension Unspecified essential hypertension Mixed hyperlipidemia Shortness of breath [facility] Allergic reaction, sequela [facility] Diagnosis History of prostate cancer- Primary Personal history of malignant neoplasm of prostate [facility] Diagnosis Controlled type 2 diabetes mellitus without complication, with long-term current use of insulin (HCC)- Primary Encounter for immunization Need for other specified prophylactic vaccination against single bacterial disease Obesity, Class II, BMI 35-39.9 Obesity, unspecified Acquired hypothyroidism Unspecified hypothyroidism Mixed hyperlipidemia Primary hypertension Unspecified essential hypertension Acute pain of right knee [facility] Diagnosis Type 2 diabetes mellitus without complication, unspecified whether fdc insulin use (HCC) [facility] [facility] Diagnosis Type 2 diabetes mellitus without complication, unspecified whether parts counterman insulin use (HCC)- Primary Primary hypertension Unspecified essential hypertension [facility] Diagnosis Type 2 diabetes mellitus without complication, unspecified whether fdc insulin use (HCC)- Primary Hammertoe of second toe of left foot Metatarsalgia of both feet Enthesopathy of ankle and tarsus, unspecified [facility] Diagnosis Primary osteoarthritis of both knees- Primary Primary localized osteoarthrosis, lower leg Chronic pain of right knee Morbid obesity (HCC) Morbid obesity [facility] Diagnosis Type 2 diabetes mellitus without complication, unspecified whether fdc insulin use (HCC)- Primary Mixed hyperlipidemia Acquired hypothyroidism Unspecified hypothyroidism Primary hypertension Unspecified essential hypertension Screening for prostate cancer Special screening for malignant neoplasm of prostate [facility] Diagnosis Type 2 diabetes mellitus without complication, unspecified whether parts counterman insulin use (HCC)- Primary Mixed hyperlipidemia Acquired hypothyroidism Unspecified hypothyroidism Primary hypertension Unspecified essential hypertension Obesity, Class II, BMI 35-39.9 Obesity, unspecified Complete right bundle branch block (RBBB) [facility] Diagnosis Allergic reaction, sequela [facility] Diagnosis Right knee pain, unspecified chronicity [facility] Diagnosis Type 2 diabetes mellitus without complication, unspecified whether fdc insulin use (HCC) [facility] Diagnosis Chronic pain of both knees- Primary Primary osteoarthritis of both knees Primary localized osteoarthrosis, lower leg [facility] Diagnosis Type 2 diabetes mellitus without complication, unspecified whether fdc insulin use (HCC)- Primary Hammertoe of second toe of left foot Onychomycosis Dermatophytosis of nail Pain in toe of left foot Pain in limb Pain in toe of right foot Pain in limb [facility] Diagnosis Type 2 diabetes mellitus without complication, unspecified whether fdc insulin use (HCC)- Primary Encounter for immunization Need for other specified prophylactic vaccination against single bacterial disease Morbid obesity (HCC) Morbid obesity Mixed hyperlipidemia Coronary artery disease involving [place] heart, unspecified vessel or lesion type, unspecified whether angina present Acquired hypothyroidism Unspecified hypothyroidism Atrial fibrillation, unspecified type (HCC) [facility] Diagnosis Left leg pain- Primary Pain in limb [facility] Diagnosis Type 2 diabetes mellitus without complication, unspecified whether parts counterman insulin use (HCC) [facility] Diagnosis Chronic pain of both knees- Primary [facility] Diagnosis Primary hypertension- Primary Unspecified essential hypertension Type 2 diabetes mellitus without complication, unspecified whether fdc insulin use (HCC) [facility] Diagnosis Type 2 diabetes mellitus without complication, unspecified whether parts counterman insulin use (HCC) [facility] Diagnosis Type 2 diabetes mellitus without complication, unspecified whether fdc insulin use (HCC) [facility] Diagnosis Chronic pain of both knees- Primary Primary osteoarthritis of both knees Primary localized osteoarthrosis, lower leg [facility] Diagnosis Type 2 diabetes mellitus without complication, unspecified whether parts counterman insulin use (HCC) Primary hypertension Unspecified essential hypertension Mixed hyperlipidemia Screening for prostate cancer Special screening for malignant neoplasm of prostate documented in this encounter [facility]* Diagnosis Type 2 diabetes mellitus without complication, unspecified whether fdc insulin use (HCC)- Primary Primary hypertension Unspecified essential hypertension Mixed hyperlipidemia Atrial fibrillation, unspecified type (HCC) Coronary artery disease involving [place] heart, unspecified vessel or lesion type, unspecified whether angina present Acquired hypothyroidism Unspecified hypothyroidism Morbid obesity (HCC) Morbid obesity Encounter for immunization Need for other specified prophylactic vaccination against single bacterial disease Onychomycosis Dermatophytosis of nail [facility] Diagnosis Hammer toes of both feet- Primary [facility] Diagnosis Primary hypertension- Primary Unspecified essential hypertension [facility] Cough [facility] Diagnosis Type 2 diabetes mellitus without complication, unspecified whether parts counterman insulin use (HCC) [facility] Diagnosis Primary hypertension- Primary Unspecified essential hypertension [facility] Diagnosis Primary osteoarthritis of both knees- Primary Primary localized osteoarthrosis, lower leg [facility] Diagnosis Type 2 diabetes mellitus without complication, unspecified whether fdc insulin use (HCC) [facility] Diagnosis Diabetic polyneuropathy associated with type 2 diabetes mellitus (HCC)- Primary Hammer toes of both feet Onychomycosis Dermatophytosis of nail [facility] Diagnosis Pain in both knees, unspecified chronicity- Primary [facility]* Diagnosis Viral URI with cough- Primary Acute upper respiratory infections of unspecified site Bronchitis Bronchitis, not specified as acute or chronic Decreased breath sounds of both lungs Wheezing Cough Acute cough Decreased breath sounds of both lungs Wheezing documented [facility] Diagnosis Decreased breath sounds of both lungs Wheezing documented [facility] Diagnosis Primary osteoarthritis of both knees- Primary Primary localized osteoarthrosis, lower leg [facility]* Diagnosis Pain in both knees, unspecified chronicity [facility] Diagnosis Type 2 diabetes mellitus without complication, with long-term current use of insulin (HCC)- Primary Atrial fibrillation, unspecified type (HCC) Acquired hypothyroidism Unspecified hypothyroidism Mixed hyperlipidemia History of prostate cancer Personal history of malignant neoplasm of prostate [facility]* Diagnosis Type 2 diabetes mellitus without complication, unspecified whether parts counterman insulin use (HCC) [facility]* Diagnosis Diabetic polyneuropathy associated with type 2 diabetes mellitus (HCC)- Primary Hammer toes of both feet Onychomycosis Dermatophytosis of nail Tailor's bunionette, bilateral Diminished pulses in lower extremity Other symptoms involving cardiovascular system [facility] Diagnosis Primary osteoarthritis of both knees- Primary Primary localized osteoarthrosis, lower leg [facility] Diagnosis Type 2 diabetes mellitus without complication, unspecified whether parts counterman insulin use (HCC) [facility] Diagnosis Onset Date Resolution Status Admit Date 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 acute May 21, 2025 9:10am 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 May 21, 2025 9:10am Essential hypertension chronic Au 2024 9:10am Hyperlipemia chronic May 21, 2025 9:10am Paroxysmal atrial fibrillation chron ic May 21, 2025 9:10am [place] [employer] Work Phone: [employer] for referral (narrative)* Diagnostic Procedure Only (Routine) - Closed Specialty Diagnoses / Procedures Referred By Jason krishna Referred To Contact XR IMAGING Diagnoses Right knee pain, unspecified chronicity Procedures XR KNEE GENERAL 4V AP BOTH/PA BOTH/LAT/MERC RIGHT RADIOLOGIC EXAM KNEE COMPLETE 4/MORE VIEWS Arnold Edgar MD [address] [place] [address] [place] [address] Referral ID Status Reason Start Date Expiration Date V isits Requested Visits Authorized [id number] Closed Auto-Generate d Referral 03/05/2023 04/03/[address] [facility] for referral (narrative)* Diagnostic Procedure Only (Routine) - New Request Specialty Diagnoses / Procedures Referred By Jason krishna Referred To Contact XR IMAGING Diagnoses Pain in both knees, unspecified chronicity Procedures XR KNEE GENERAL 4V AP BOTH/PA BOTH/LAT/MERC BILATERAL RADIOLOGIC EXAM KNEE COMPLETE 4/MORE VIEWS Josefina Hernandez PA-C [address] [place] [address] [place] [address] Referral ID Status Reason Start Date Expiration Date Visits Requested Visits Authorized [id number] New Request Auto-Generat ed Referral 11/24/2024 12/24/[address] [facility] for referral (narrative)No reason for referral information availableBloomington [facility] Services Work Phone: Reason for visit Narrative* Diagnostic Procedure Only (Routine) - Closed Specialty Diagnoses / Procedures Referred By Contac t Referred To Contact XR IMAGING Diagnoses Right knee pain, unspecified chronicity Procedures XR KNEE GENERAL 4V AP BOTH/PA BOTH/LAT/MERC RIGHT RADIOLOGIC EXAM KNEE COMPLETE 4/MORE VIEWS Arnold Edgar MD [address] [place] [address] [place] [address] Referral ID Status Reason Start Date Expiration Date V isits Requested Visits Authorized [id number] Closed Auto-Generate d Referral 03/05/2023 04/03/2024 1 1 [facility]* Diagnostic Procedure Only (Routine) - Closed Specialty Diagnoses / Procedures Referred By Contac t Referred To Contact XR IMAGING Diagnoses Pain in both knees, unspecified chronicity Procedures XR KNEE GENERAL 4V AP BOTH/PA BOTH/LAT/MERC BILATERAL RADIOLOGIC EXAM KNEE COMPLETE 4/MORE VIEWS Josefina Hernandez PA-C [address] [place] [address] Phone: tel: fax: [place] [address] Referral ID Status Reason Start Date Expiration Date V isits Requested Visits Authorized [id number] Closed Auto-Generate d Referral 11/24/2024 12/24/2025 1 1 [facility] Summary Purpose Family History No Family History Records FoundNo Family History Records FoundNo Family History Records Found Advance Directives No Advanced Directives Records FoundDocuments on File Type Date 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 Advance Directive(s) 02/16/2016 8:51 AM Advance Directive(s) 02/02/2016 12:22 PM Medications Administered Section Inactive Administered Medications - up to 3 most recent administrations Medication Order MAR Action Action Date Dose Rate Site betamethasone acetate-betamethasone sodium phosphate 6 mg injection (CELESTONE) 6 mg, Injection - FOR ORTHO USE ONLY, ONE TIME INJECTION, 1 dose, Starting on Lisbet 03/07/23 at 0921, Until Lisbet 03/07/23 at 0921 Given 03/07/2023 9:21 AM EDT 6 mg Kn ee, Right lidocaine (PF) 10 mg/mL (1 %) 4 mL injection (XYLOCAINE) 4 mL, Injection - FOR ORTHO USE ONLY, ONE TIME INJECTION, 1 dose, Starting on Lisbet 03/07/23 at 0921, Until Lisbet 03/07/23 at 0921 Given 03/07/2023 9:21 AM EDT 4 mL Kn ee, Right Reason for Referral Specialty Diagnoses / Procedures Referred By Contac t Referred To Contact Diagnoses Type 2 diabetes mellitus without complication, unspecified whether fdc insulin use (HCC) 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 [address] [place] [address] Referral ID Status Reason Start Date Expiration Date V isits Requested Visits Authorized [id number] Pending Review 1 1 Chief Complaint and Reason for Visit Chief Complaint Admit Date 9 M FU May 21, 2025 9:1 0am Reason for Visit Admit Date 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 May 21, 2025 9:10am 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 May 21, 2025 9:10am Essential hypertension May 21, 2025 9:10am Hyperlipemia May 21, 2025 9:1 0am Paroxysmal atrial fibrillation May 9:10am Additional Source Comments (unrecognized sect ion and content) No Status Records FoundNo Status Records FoundNo Status Records Found INFORMATION SOURCE (unrecogn ized section and content) DATE CREATED AUTHOR 08/16/2018 [facility] DATE CREATED AUTHOR AUTHOR'S ORGANIZ ATION 06/11/2025 [facility] DATE CREATED AUTHOR AUTHOR'S ORGANIZ ATION 06/12/2025 [facility] Source Comments (unrecognize d section and content) In the event this informatio n is protected by the Federal Confidentiality of Alcohol and Drug Abuse Patient Records regulations: The Federal rules restrict any use of the information to criminally investigate or prosecute any alcohol or drug abuse patient.[facility] the event this information is protected by the Federal Confidentiality of Alcohol and Drug Abuse Patient Records regulations: The Federal rules restrict any use of the information to criminally investigate or prosecute any alcohol or drug abuse patient.[facility] Center[facility] the event this information is protected by the Federal Confidentiality of Alcohol and Drug Abuse Patient Records regulations: The Federal rules restrict any use of the information to criminally investigate or prosecute any alcohol or drug abuse patient.[facility] CenterIn the event this information is protected by the Federal Confidentiality of Alcohol and Drug Abuse Patient Records regulations: The Federal rules restrict any use of the information to criminally investigate or prosecute any alcohol or drug abuse patient.[facility] CenterIn the event this information is protected by the Federal Confidentiality of Alcohol and Drug Abuse Patient Records regulations: The Federal rules restrict any use of the information to criminally investigate or prosecute any alcohol or drug abuse patient.[facility] Center[facility] the event this information is protected by the Federal Confidentiality of Alcohol and Drug Abuse Patient Records regulations: The Federal rules restrict any use of the information to criminally investigate or prosecute any alcohol or drug abuse patient.[facility] CenterIn the event this information is protected by the Federal Confidentiality of Alcohol and Drug Abuse Patient Records regulations: The Federal rules restrict any use of the information to criminally investigate or prosecute any alcohol or drug abuse patient.[facility] Center[facility] the event this information is protected by the Federal Confidentiality of Alcohol and Drug Abuse Patient Records regulations: The Federal rules restrict any use of the information to criminally investigate or prosecute any alcohol or drug abuse patient.[facility] the event this information is protected by the Federal Confidentiality of Alcohol and Drug Abuse Patient Records regulations: The Federal rules restrict any use of the information to criminally investigate or prosecute any alcohol or drug abuse patient.[facility] CenterIn the event this information is protected by the Federal Confidentiality of Alcohol and Drug Abuse Patient Records regulations: The Federal rules restrict any use of the information to criminally investigate or prosecute any alcohol or drug abuse patient.[facility] CenterIn the event this information is protected by the Federal Confidentiality of Alcohol and Drug Abuse Patient Records regulations: The Federal rules restrict any use of the information to criminally investigate or prosecute any alcohol or drug abuse patient.[facility] the event this information is protected by the Federal Confidentiality of Alcohol and Drug Abuse Patient Records regulations: The Federal rules restrict any use of the information to criminally investigate or prosecute any alcohol or drug abuse patient.[facility] CenterIn the event this information is protected by the Federal Confidentiality of Alcohol and Drug Abuse Patient Records regulations: The Federal rules restrict any use of the information to criminally investigate or prosecute any alcohol or drug abuse patient.[facility]In the event this information is protected by the Federal Confidentiality of Alcohol and Drug Abuse Patient Records regulations: The Federal rules restrict any use of the information to criminally investigate or prosecute any alcohol or drug abuse patient.[facility] CenterIn the event this information is protected by the Federal Confidentiality of Alcohol and Drug Abuse Patient Records regulations: The Federal rules restrict any use of the information to criminally investigate or prosecute any alcohol or drug abuse patient.[facility] CenterIn the event this information is protected by the Federal Confidentiality of Alcohol and Drug Abuse Patient Records regulations: The Federal rules restrict any use of the information to criminally investigate or prosecute any alcohol or drug abuse patient.[facility] CenterIn the event this information is protected by the Federal Confidentiality of Alcohol and Drug Abuse Patient Records regulations: The Federal rules restrict any use of the information to criminally investigate or prosecute any alcohol or drug abuse patient.[facility] CenterIn the event this information is protected by the Federal Confidentiality of Alcohol and Drug Abuse Patient Records regulations: The Federal rules restrict any use of the information to criminally investigate or prosecute any alcohol or drug abuse patient.[facility] CenterIn the event this information is protected by the Federal Confidentiality of Alcohol and Drug Abuse Patient Records regulations: The Federal rules restrict any use of the information to criminally investigate or prosecute any alcohol or drug abuse patient.[facility] CenterIn the event this information is protected by the Federal Confidentiality of Alcohol and Drug Abuse Patient Records regulations: The Federal rules restrict any use of the information to criminally investigate or prosecute any alcohol or drug abuse patient.[facility] CenterIn the event this information is protected by the Federal Confidentiality of Alcohol and Drug Abuse Patient Records regulations: The Federal rules restrict any use of the information to criminally investigate or prosecute any alcohol or drug abuse patient.[facility] CenterIn the event this information is protected by the Federal Confidentiality of Alcohol and Drug Abuse Patient Records regulations: The Federal rules restrict any use of the information to criminally investigate or prosecute any alcohol or drug abuse patient.[facility] CenterIn the event this information is protected by the Federal Confidentiality of Alcohol and Drug Abuse Patient Records regulations: The Federal rules restrict any use of the information to criminally investigate or prosecute any alcohol or drug abuse patient.[facility] CenterIn the event this information is protected by the Federal Confidentiality of Alcohol and Drug Abuse Patient Records regulations: The Federal rules restrict any use of the information to criminally investigate or prosecute any alcohol or drug abuse patient.[facility] CenterIn the event this information is protected by the Federal Confidentiality of Alcohol and Drug Abuse Patient Records regulations: The Federal rules restrict any use of the information to criminally investigate or prosecute any alcohol or drug abuse patient.[facility] CenterIn the event this information is protected by the Federal Confidentiality of Alcohol and Drug Abuse Patient Records regulations: The Federal rules restrict any use of the information to criminally investigate or prosecute any alcohol or drug abuse patient.[facility] CenterIn the event this information is protected by the Federal Confidentiality of Alcohol and Drug Abuse Patient Records regulations: The Federal rules restrict any use of the information to criminally investigate or prosecute any alcohol or drug abuse patient.[facility] CenterIn the event this information is protected by the Federal Confidentiality of Alcohol and Drug Abuse Patient Records regulations: The Federal rules restrict any use of the information to criminally investigate or prosecute any alcohol or drug abuse patient.[facility] CenterIn the event this information is protected by the Federal Confidentiality of Alcohol and Drug Abuse Patient Records regulations: The Federal rules restrict any use of the information to criminally investigate or prosecute any alcohol or drug abuse patient.[facility] CenterIn the event this information is protected by the Federal Confidentiality of Alcohol and Drug Abuse Patient Records regulations: The Federal rules restrict any use of the information to criminally investigate or prosecute any alcohol or drug abuse patient.[facility] CenterIn the event this information is protected by the Federal Confidentiality of Alcohol and Drug Abuse Patient Records regulations: The Federal rules restrict any use of the information to criminally investigate or prosecute any alcohol or drug abuse patient.[facility] CenterIn the event this information is protected by the Federal Confidentiality of Alcohol and Drug Abuse Patient Records regulations: The Federal rules restrict any use of the information to criminally investigate or prosecute any alcohol or drug abuse patient.[facility] CenterIn the event this information is protected by the Federal Confidentiality of Alcohol and Drug Abuse Patient Records regulations: The Federal rules restrict any use of the information to criminally investigate or prosecute any alcohol or drug abuse patient.[facility] CenterIn the event this information is protected by the Federal Confidentiality of Alcohol and Drug Abuse Patient Records regulations: The Federal rules restrict any use of the information to criminally investigate or prosecute any alcohol or drug abuse patient.[facility] CenterIn the event this information is protected by the Federal Confidentiality of Alcohol and Drug Abuse Patient Records regulations: The Federal rules restrict any use of the information to criminally investigate or prosecute any alcohol or drug abuse patient.[facility] CenterIn the event this information is protected by the Federal Confidentiality of Alcohol and Drug Abuse Patient Records regulations: The Federal rules restrict any use of the information to criminally investigate or prosecute any alcohol or drug abuse patient.[facility] CenterIn the event this information is protected by the Federal Confidentiality of Alcohol and Drug Abuse Patient Records regulations: The Federal rules restrict any use of the information to criminally investigate or prosecute any alcohol or drug abuse patient.[facility] CenterIn the event this information is protected by the Federal Confidentiality of Alcohol and Drug Abuse Patient Records regulations: The Federal rules restrict any use of the information to criminally investigate or prosecute any alcohol or drug abuse patient.[facility] CenterIn the event this information is protected by the Federal Confidentiality of Alcohol and Drug Abuse Patient Records regulations: The Federal rules restrict any use of the information to criminally investigate or prosecute any alcohol or drug abuse patient.[facility] CenterIn the event this information is protected by the Federal Confidentiality of Alcohol and Drug Abuse Patient Records regulations: The Federal rules restrict any use of the information to criminally investigate or prosecute any alcohol or drug abuse patient.[facility] CenterIn the event this information is protected by the Federal Confidentiality of Alcohol and Drug Abuse Patient Records regulations: The Federal rules restrict any use of the information to criminally investigate or prosecute any alcohol or drug abuse patient.[facility] CenterIn the event this information is protected by the Federal Confidentiality of Alcohol and Drug Abuse Patient Records regulations: The Federal rules restrict any use of the information to criminally investigate or prosecute any alcohol or drug abuse patient.[facility] CenterIn the event this information is protected by the Federal Confidentiality of Alcohol and Drug Abuse Patient Records regulations: The Federal rules restrict any use of the information to criminally investigate or prosecute any alcohol or drug abuse patient.[facility] CenterIn the event this information is protected by the Federal Confidentiality of Alcohol and Drug Abuse Patient Records regulations: The Federal rules restrict any use of the information to criminally investigate or prosecute any alcohol or drug abuse patient.[facility] CenterIn the event this information is protected by the Federal Confidentiality of Alcohol and Drug Abuse Patient Records regulations: The Federal rules restrict any use of the information to criminally investigate or prosecute any alcohol or drug abuse patient.[facility] CenterIn the event this information is protected by the Federal Confidentiality of Alcohol and Drug Abuse Patient Records regulations: The Federal rules restrict any use of the information to criminally investigate or prosecute any alcohol or drug abuse patient.[facility] CenterIn the event this information is protected by the Federal Confidentiality of Alcohol and Drug Abuse Patient Records regulations: The Federal rules restrict any use of the information to criminally investigate or prosecute any alcohol or drug abuse patient.[facility] CenterIn the event this information is protected by the Federal Confidentiality of Alcohol and Drug Abuse Patient Records regulations: The Federal rules restrict any use of the information to criminally investigate or prosecute any alcohol or drug abuse patient.[facility] CenterIn the event this information is protected by the Federal Confidentiality of Alcohol and Drug Abuse Patient Records regulations: The Federal rules restrict any use of the information to criminally investigate or prosecute any alcohol or drug abuse patient.[facility] CenterIn the event this information is protected by the Federal Confidentiality of Alcohol and Drug Abuse Patient Records regulations: The Federal rules restrict any use of the information to criminally investigate or prosecute any alcohol or drug abuse patient.[facility] CenterIn the event this information is protected by the Federal Confidentiality of Alcohol and Drug Abuse Patient Records regulations: The Federal rules restrict any use of the information to criminally investigate or prosecute any alcohol or drug abuse patient.[facility] CenterIn the event this information is protected by the Federal Confidentiality of Alcohol and Drug Abuse Patient Records regulations: The Federal rules restrict any use of the information to criminally investigate or prosecute any alcohol or drug abuse patient.[facility] CenterIn the event this information is protected by the Federal Confidentiality of Alcohol and Drug Abuse Patient Records regulations: The Federal rules restrict any use of the information to criminally investigate or prosecute any alcohol or drug abuse patient.[facility] CenterIn the event this information is protected by the Federal Confidentiality of Alcohol and Drug Abuse Patient Records regulations: The Federal rules restrict any use of the information to criminally investigate or prosecute any alcohol or drug abuse patient.[facility] CenterIn the event this information is protected by the Federal Confidentiality of Alcohol and Drug Abuse Patient Records regulations: The Federal rules restrict any use of the information to criminally investigate or prosecute any alcohol or drug abuse patient.[facility] CenterIn the event this information is protected by the Federal Confidentiality of Alcohol and Drug Abuse Patient Records regulations: The Federal rules restrict any use of the information to criminally investigate or prosecute any alcohol or drug abuse patient.[facility] CenterIn the event this information is protected by the Federal Confidentiality of Alcohol and Drug Abuse Patient Records regulations: The Federal rules restrict any use of the information to criminally investigate or prosecute any alcohol or drug abuse patient.[facility] CenterIn the event this information is protected by the Federal Confidentiality of Alcohol and Drug Abuse Patient Records regulations: The Federal rules restrict any use of the information to criminally investigate or prosecute any alcohol or drug abuse patient.[facility] CenterIn the event this information is protected by the Federal Confidentiality of Alcohol and Drug Abuse Patient Records regulations: The Federal rules restrict any use of the information to criminally investigate or prosecute any alcohol or drug abuse patient.[facility] CenterIn the event this information is protected by the Federal Confidentiality of Alcohol and Drug Abuse Patient Records regulations: The Federal rules restrict any use of the information to criminally investigate or prosecute any alcohol or drug abuse patient.[facility] CenterIn the event this information is protected by the Federal Confidentiality of Alcohol and Drug Abuse Patient Records regulations: The Federal rules restrict any use of the information to criminally investigate or prosecute any alcohol or drug abuse patient.[facility] CenterIn the event this information is protected by the Federal Confidentiality of Alcohol and Drug Abuse Patient Records regulations: The Federal rules restrict any use of the information to criminally investigate or prosecute any alcohol or drug abuse patient.[facility] CenterIn the event this information is protected by the Federal Confidentiality of Alcohol and Drug Abuse Patient Records regulations: The Federal rules restrict any use of the information to criminally investigate or prosecute any alcohol or drug abuse patient.[facility] Reason for Visit (unrecogniz ed section and content) Reason Comments Established Patient Follow-Up Reason Onset Date Comments Transition Of Care 12/28/2021 Reason Onset Date Comments Refill Request 05/12/2022 Reason Comments Orders Reason Onset Date Comments Refill Request 05/18/2022 Reason Onset Date Comments Refill Request 05/29/2022 Reason Comments 6 Month Exam Reason Onset Date Comments Refill Request 07/25/2022 Reason Onset Date Comments Refill Request 10/12/2022 Reason Comments Patient Update Reason Comments Established Patient Follow Up Diabetic Foot Check Reason Comments Patient Question Orthotics Reason Comments New Knee Pain Reason Comments Lab Orders Reason Comments F/U 6 Month Reason Onset Date Comments Refill Request 06/10/2023 Reason Onset Date Comments Refill Request 06/17/2023 Reason Onset Date Comments Refill Request 09/13/2023 Reason Onset Date Comments Refill Request 09/24/2023 Reason Comments Established Patient Pain Specialty Diagnoses / Procedures Referred By Jason krishna Referred To Contact Orthopedics / ORTHOPAEDIC SURGERY Diagnoses Bilateral chronic knee pain Primary osteoarthritis of both knees Cortizone injection, alvina knee M25.561, M25.562, G89.29, M17.0 Procedures OFFICE/OUTPATIENT ESTABLISHED HIGH MDM 40 MIN OFFICE/OUTPATIENT ESTABLISHED MOD MDM 30 MIN OFFICE/OUTPATIENT ESTABLISHED LOW MDM 20 MIN OFFICE/OUTPATIENT ESTABLISHED SF MDM 10 MIN CARLOS A ESTABLISH Arnold Edgar MD [address] [place] [address] Arnold Edgar MD [address] [place] [address] Referral ID Status Reason Start Date Expiration Date Visits Re quested Visits Authorized [id number] Closed 10/24/2023 10/20/2024 1 1 Reason Comments Diabetic Foot Care Established Patient Specialty Diagnoses / Procedures Referred By Jason t Referred To Contact Podiatry / PODIATRY Diagnoses 1 year follow up Procedures CARLOS A EST PODI DIAB LakhwinderViktoriya trinidad [address] [place] [address] Viktoriya Angelo [address] [place] [address] Referral ID Status Reason Start Date Expiration Date V isits Requested Visits Authorized [id number] Authorized 11/20/2023 10/20/2024 99 99 Reason Comments Leg Pain Left leg muscle pain , has seen chiropractor. Reason Comments Medication Problem Patient Question Reason Onset Date Comments Refill Request 01/29/2024 Reason Comments Established Patient Knee Pain Injections Specialty Diagnoses / Procedures Referred By Jason krishna Referred To Contact Orthopedics / ORTHOPAEDIC SURGERY Diagnoses Bilateral knee pain Biltrl Knee Cori Injec Procedures OFFICE/OUTPATIENT ESTABLISHED SF MDM 10 MIN OFFICE/OUTPATIENT ESTABLISHED LOW MDM 20 MIN OFFICE/OUTPATIENT ESTABLISHED MOD MDM 30 MIN OFFICE/OUTPATIENT ESTABLISHED HIGH MDM 40 MIN CARLOS A ESTABLISH Arnold Edgar MD [address] [place] [id number] Josefina Hernandez PA-C [address] [place] [address] Referral ID Status Reason Start Date Expiration Date V isits Requested Visits Authorized [id number] Authorized 01/27/2024 10/20/2024 99 99 Reason Comments BP Check Reason Comments Results Reason Onset Date Comments Refill Request 04/13/2024 Changing to the local Pharmacy Reason Comments PAP Trulicity Reason Comments Injections Pre-Op Visit 13 weeks 4 days post visit bilateral kne e pain with injecti Specialty Diagnoses / Procedures Referred By Jason krishna Referred To Contact Orthopedics / ORTHOPAEDIC SURGERY Diagnoses Encounter for follow-up examination after completed treatment for conditions 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 last inj: 02/06/24 Procedures OFFICE/OUTPATIENT ESTABLISHED SF MDM 10 MIN OFFICE/OUTPATIENT ESTABLISHED LOW MDM 20 MIN OFFICE/OUTPATIENT ESTABLISHED MOD MDM 30 MIN OFFICE/OUTPATIENT ESTABLISHED HIGH MDM 40 MIN CARLOS A ESTABLISH Self Josefina Hernandez PA-C [address] [place] [address] Referral ID Status Reason Start Date Expiration Date V isits Requested Visits Authorized [id number] Authorized 04/16/2024 10/20/2024 1 99 Reason Comments Follow Up 6 month Reason Comments Follow Up blood pressure check for evalated Reason Comments Medication Request Reason Comments Patient Question Reason Comments Established Patient Follow Up Specialty Diagnoses / Procedures Referred By Contac t Referred To Contact Orthopedics / ORTHOPAEDIC SURGERY Diagnoses Encounter for follow-up examination after completed treatment for conditions 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 last inj: 02/06/24 Procedures OFFICE/OUTPATIENT ESTABLISHED HIGH MDM 40 MIN CARLOS A ESTABLISH Self Josefina Hernandez PA-C [address] [place] [address] Referral ID Status Reason Start Date Expiration Date V isits Requested Visits Authorized [id number] Authorized 04/17/2024 10/20/2024 1 99 Reason Comments Forms Patient Assistance F orms Reason Comments Established Patient diabetic foot examNo new concerns Established Patient diabetic foot examno new concerns Specialty Diagnoses / Procedures Referred By Contac t Referred To Contact Podiatry / PODIATRY Diagnoses Type 2 diabetes mellitus without complications 1 yr follow up Procedures OFFICE/OUTPATIENT ESTABLISHED SF MDM 10 MIN OFFICE/OUTPATIENT ESTABLISHED LOW MDM 20 MIN OFFICE/OUTPATIENT ESTABLISHED MOD MDM 30 MIN OFFICE/OUTPATIENT ESTABLISHED HIGH MDM 40 MIN CARLOS A EST KWAMEI Sara Fuller MD [address] [place] [address] Viktoriya Angelo [address] [place] [address] Referral ID Status Reason Start Date Expiration Date Visits Re quested Visits Authorized [id number] Closed 11/12/2024 10/20/2025 1 1 Reason Comments Fatigue Cough chills w/o temp check Reason Comments Follow Up Follow Up 14 weeks post visit OA Bilateral knees with injections givenWants injections Injections 14 weeks post visit OA Bilateral knees with injections givenWants injections Specialty Diagnoses / Procedures Referred By Contac t Referred To Contact Orthopedics / ORTHOPAEDIC SURGERY Diagnoses Knee pain bilat knee cortisone inj last inj: 08/31/24 Procedures OFFICE/OUTPATIENT NEW HIGH MDM 60 MINUTES OFFICE/OUTPATIENT ESTABLISHED HIGH MDM 40 MIN CARLOS A ESTABLISH Sara Fuller MD [address] [place] [address] Phone: tel: fax: Josefina Hernandez PA-C [address] [place] [address] Phone: tel: fax: Referral ID Status Reason Start Date Expiration Date V isits Requested Visits Authorized [id number] Authorized 10/21/2024 10/20/2025 99 99 Reason Onset Date Comments Refill Request 01/01/2025 Reason Comments Established Patient Diabetic Foot Care Callous Pain Specialty Diagnoses / Procedures Referred By Jason krishna Referred To Contact Podiatry / PODIATRY Diagnoses Callous ulcer (HCC) Calleous on both feet and diabetic Procedures OFFICE/OUTPATIENT ESTABLISHED HIGH MDM 40 MIN CARLOS A EST PODI DIAB Viktoriay Cote [address] [facility] [place] [id number] Phone: tel: fax: Referral ID Status Reason Start Date Expiration Date Visits Re quested Visits Authorized [id number] Closed 03/04/2025 10/20/2025 1 1 Reason Comments Established Patient Injections Established Patient 15 weeks post visit OA bilateral knees with injections given - Wants injections Injections 15 weeks post visit OA bilateral knees with injections given - Wants injections Specialty Diagnoses / Procedures Referred By Jason krishna Referred To Contact Orthopedics / ORTHOPAEDIC SURGERY Diagnoses Knee pain bilat knee cortisone inj last inj: 08/31/24 Procedures OFFICE/OUTPATIENT NEW HIGH MDM 60 MINUTES OFFICE/OUTPATIENT ESTABLISHED HIGH MDM 40 MIN CARLOS A ESTABLISH Sara Fuller MD [address] [place] [address] Phone: tel: fax: Josefina Hernandez PA-C [address] [place] [address] Phone: tel: fax: Reason Onset Date Comments requesting medication that is 05/12/2025 Reason Onset Date Comments Refill Request 05/17/2025 Reason Onset Date Comments Population Health Navigation Outreach 05/21/2025 Chatoerendirabaldo Dawnvalentine Alonso Reason Comments Medication Problem Care Teams (unrecognized sec tion and content) Pension Adviser Relationship Specialty Start Date End Date Sara Fuller MD [address] [facility] [place] [address] PCP - General Family Practice 02/22/17 Pension Adviser Relationship Specialty Start Date End Date Sara Fuller MD [address] [facility] [place] [address] PCP - General Family Practice 02/22/17 Pension Adviser Relationship Specialty Start Date End Date Sara Fuller MD [address] [facility] [place] [address] PCP - General Family Practice 02/22/17 Pension Adviser Relationship Specialty Start Date End Date Sara Fuller MD [address] [facility] [place] [address] PCP - General Family Practice 02/22/17 Pension Adviser Relationship Specialty Start Date End Date Sara Fuller MD [address] [facility] [place] [address] PCP - General Family Practice 02/22/17 Pension Adviser Relationship Specialty Start Date End Date Sara Fuller MD [address] [facility] [place] [address] PCP - General Family Practice 02/22/17 Pension Adviser Relationship Specialty Start Date End Date Sara Fuller MD [address] [facility] [place] [address] PCP - General Family Medicine 02/22/17 Pension Adviser Relationship Specialty Start Date End Date Sara Fuller MD [address] [facility] [place] [address] PCP - General Family Medicine 02/22/17 Pension Adviser Relationship Specialty Start Date End Date Sara Fuller MD [address] [place] [address] PCP - General Family Medicine 02/22/17 Pension Adviser Relationship Specialty Start Date End Date Sara Fuller MD [address] [place] [address] PCP - General Family Medicine 02/22/17 Pension Adviser Relationship Specialty Start Date End Date Sara Fuller MD [address] [place] [address] PCP - General Family Medicine 02/22/17 Pension Adviser Relationship Specialty Start Date End Date Sara Fuller MD [address] [place] [address] PCP - General Family Medicine 02/22/17 Pension Adviser Relationship Specialty Start Date End Date Sara Fuller MD [address] [place] [address] PCP - General Family Medicine 02/22/17 Pension Adviser Relationship Specialty Start Date End Date Sara Fuller MD [address] [place] [address] PCP - General Family Medicine 02/22/17 Pension Adviser Relationship Specialty Start Date End Date Sara Fuller MD [address] [place] [address] PCP - General Family Medicine 02/22/17 Pension Adviser Relationship Specialty Start Date End Date Sara Fuller MD [address] [place] [address] PCP - General Family Medicine 02/22/17 Pension Adviser Relationship Specialty Start Date End Date Sara Fuller MD [address] [facility] [place] [address] PCP - General Family Medicine 02/22/17 Pension Adviser Relationship Specialty Start Date End Date Sara Fuller MD [address] [facility] [place] [address] PCP - General Family Medicine 02/22/17 Pension Adviser Relationship Specialty Start Date End Date Sara Fuller MD [address] [facility] [place] [address] PCP - General Family Medicine 02/22/17 Pension Adviser Relationship Specialty Start Date End Date Sara Fuller MD [address] [facility] [place] [address] PCP - General Family Medicine 02/22/17 Pension Adviser Relationship Specialty Start Date End Date Sara Fuller MD [address] [facility] [place] [address] PCP - General Family Medicine 02/22/17 Pension Adviser Relationship Specialty Start Date End Date Sara Fuller MD [address] [facility] [place] [address] PCP - General Family Medicine 02/22/17 Pension Adviser Relationship Specialty Start Date End Date Sara Fuller MD [address] [facility] [place] [address] PCP - General Family Medicine 02/22/17 Pension Adviser Relationship Specialty Start Date End Date Sara Fuller MD [address] [facility] [place] [address] PCP - General Family Medicine 02/22/17 Pension Adviser Relationship Specialty Start Date End Date Sara Fuller MD [address] [facility] [place] [address] PCP - General Family Medicine 02/22/17 Pension Adviser Relationship Specialty Start Date End Date Sara Fuller MD [address] [place] [address] PCP - General Family Medicine 02/22/17 Pension Adviser Relationship Specialty Start Date End Date Sara Fuller MD [address] [facility] [place] [address] PCP - General Family Medicine 02/22/17 Pension Adviser Relationship Specialty Start Date End Date Sara Fuller MD [address] [place] [address] PCP - General Family Medicine 02/22/17 Pension Adviser Relationship Specialty Start Date End Date Sara Fuller MD [address] [facility] [place] [address] PCP - General Family Medicine 02/22/17 Pension Adviser Relationship Specialty Start Date End Date Sara Fuller MD [address] [facility] [place] [address] PCP - General Family Medicine 02/22/17 Pension Adviser Relationship Specialty Start Date End Date Sara Fuller MD [address] [facility] [place] [address] PCP - General Family Medicine 02/22/17 Pension Adviser Relationship Specialty Start Date End Date Sara Fuller MD [address] [facility] [place] [address] PCP - General Family Medicine 02/22/17 Lindsay Stewart [facility] [address] [place] [address] Pharmacist Pharmacy 10/05/20 11/27/21 Pension Adviser Relationship Specialty Start Date End Date Sara Fuller MD [address] [place] [address] PCP - General Family Medicine 02/22/17 Pension Adviser Relationship Specialty Start Date End Date Sara Fuller MD [address] [place] [address] PCP - General Family Medicine 02/22/17 Podlogar, SAE Kumari.MAINTENANCE EQUIPMENT OPERATOR [address] [place] [address] S[facility] Stainer Family Medicine 09/26/24 Pension Adviser Relationship Specialty Start Date End Date Sara Fuller MD [address] [place] [address] PCP - General Family Medicine 02/22/17 Podlogar, Kenyetta, NUTRITION CLUB AMBASSADOR.MAINTENANCE EQUIPMENT OPERATOR [address] [facility] [place] [address] Sole Stainer Family Medicine 09/26/24 Pension Adviser Relationship Specialty Start Date End Date Sara Fuller MD [address] [facility] [place] [address] PCP - General Family Medicine 02/22/17 Podlogar, Kenyetta, NUTRITION CLUB AMBASSADOR.MAINTENANCE EQUIPMENT OPERATOR [address] [place] [address] Sole Stainer Family Medicine 09/26/24 Pension Adviser Relationship Specialty Start Date End Date Sara Fuller MD [address] [place] [address] PCP - General Family Medicine 02/22/17 Podlogar, Kenyetta, NUTRITION CLUB AMBASSADOR.MAINTENANCE EQUIPMENT OPERATOR [address] [place] [address] S[facility] Stainer [facility] 09/26/24 Pension Adviser Relationship Specialty Start Date End Date Sara Fuller MD [address] [place] [address] PCP - General Family Medicine 02/22/17 Podlogar, [place]yetta, NUTRITION CLUB AMBASSADOR.MAINTENANCE EQUIPMENT OPERATOR [address] [place] [address] [facility] 09/26/24 Pension Adviser Relationship Specialty Start Date End Date Sara Fuller MD [address] [place] [address] PCP - General Family Medicine 02/22/17 Podlogar, [place], NUTRITION CLUB AMBASSADOR.MAINTENANCE EQUIPMENT OPERATOR [address] [place] [address] [facility] Medicine 09/26/24 Pension Adviser Relationship Specialty Start Date End Date Sara Fuller MD [address] [place] [address] PCP - General Family Medicine 02/22/17 Podlogar, [place], NUTRITION CLUB AMBASSADOR.MAINTENANCE EQUIPMENT OPERATOR [address] [place] [address] [facility] Stainer [facility] 09/26/24 Pension Adviser Relationship Specialty Start Date End Date Sara Fuller MD [address] [place] [address] PCP - General Family Medicine 02/22/17 Podlogar, [place], NUTRITION CLUB AMBASSADOR.MAINTENANCE EQUIPMENT OPERATOR [address] [place] [address] [facility] 09/26/24 Pension Adviser Relationship Specialty Start Date End Date Sara Fuller MD [address] [place] [address] PCP - General Family Medicine 02/22/17 Podlogar, [place]yetta, NUTRITION CLUB AMBASSADOR.MAINTENANCE EQUIPMENT OPERATOR [address] [place] [address] [facility] 09/26/24 Pension Adviser Relationship Specialty Start Date End Date Sara Fuller MD [address] [place] [address] PCP - General Family Medicine 02/22/17 Podlogar, [place], NUTRITION CLUB AMBASSADOR.MAINTENANCE EQUIPMENT OPERATOR [address] [place] [address] [facility] 09/26[facility]24 Pension Adviser Relationship Specialty Start Date End Date Sara Fuller MD [address] [place] [address] PCP - General Family Medicine 02/22/17 Podlogar, [place], NUTRITION CLUB AMBASSADOR.MAINTENANCE EQUIPMENT OPERATOR [address] [facility] [place] [address] Sole Stainer Family Medicine 09/26/24 Pension Adviser Relationship Specialty Start Date End Date Sara Fuller MD [address] [facility] [place], [place] [id number] PCP - General Family Medicine 02/22/17 Podlogar, [place], NUTRITION CLUB AMBASSADOR.MAINTENANCE EQUIPMENT OPERATOR [address] [place] [address] Sole Stainer Family Medicine 09/26/24 Pension Adviser Relationship Specialty Start Date End Date Sara Fuller MD [address] [facility] [place] [address] PCP - General Family Medicine 02/22/17 Podlogar, [place], NUTRITION CLUB AMBASSADOR.MAINTENANCE EQUIPMENT OPERATOR [address] [facility] [place] [address] Sole Stainer Family Medicine 09/26/24 Camille Tran NUTRITION CLUB AMBASSADOR.MAINTENANCE EQUIPMENT OPERATOR [address] [place], [place] [id number] [facility] Medicine 01/01/25 Pension Adviser Relationship Specialty Start Date End Date Sara Fuller MD [address] [facility] [place], [place] [address] [phone] PCP - General Family Medicine 02/22/17 Podlogar, [place], NUTRITION CLUB AMBASSADOR.MAINTENANCE EQUIPMENT OPERATOR [address] [facility] [place] [address] Sole Stainer Family Medicine 09/26/24 Pension Adviser Relationship Specialty Start Date End Date Sara Fuller MD [address] [facility] [place], [place] [address] [phone] PCP - General Family Medicine 02/22/17 PodlogarKenyetta NUTRITION CLUB AMBASSADOR.MAINTENANCE EQUIPMENT OPERATOR [address] [facility] [place] [address] Sole Stainer Family Medicine 09/26/24 Pension Adviser Relationship Specialty Start Date End Date Sara Fuller MD [address] [place] [address] PCP - General Family Medicine 02/22/17 PodlogarKenyetta NUTRITION CLUB AMBASSADOR.MAINTENANCE EQUIPMENT OPERATOR [address] [place] [address] Sole Stainer Family Medicine 09/26/24 Camille Tran NUTRITION CLUB AMBASSADOR.MAINTENANCE EQUIPMENT OPERATOR [address] [place] [address] [facility] 04/01/25 Pension Adviser Relationship Specialty Start Date End Date Sara Fuller MD [address] [place] [address] PCP - General Family Medicine 02/22/17 PodlogarKenyetta, NUTRITION CLUB AMBASSADOR.MAINTENANCE EQUIPMENT OPERATOR [address] [place] [address] [facility] Medicine 09/26/24 Camille Tran APRN.MAINTENANCE EQUIPMENT OPERATOR [address] [place] [address] [facility] Medicine 04/01/25 Team Status: Active Member Role/Relationship Status Dates Dr. Stefan Carlos , DO Family Provider Active Dr. Connor Fuller MD Primary Care Provider Acti ve Team Status: Inactive Member Role/Relationship Status Dates Dr. Connor Fuller MD Primary Care Provider Acti ve Start: May 21, 2025 End: May 21, 2025 Dr. Connor Fuller MD Referring Provider Active Start: May 21, 2025 End: May 21, 2025 Essence FUENTES, PA Attending Provider Active Start: May 21, 2025 End: May 21, 2025 Pension Adviser Relationship Specialty Start Date End Date Sara Fuller MD [address] [facility] [place], [place] [address] PCP - General Family Medicine 02/22/17 Podlogar, [place], NUTRITION CLUB AMBASSADOR.MAINTENANCE EQUIPMENT OPERATOR [address] [place], [place] [address] [facility] 09/26/24 Camille Tran NUTRITION CLUB AMBASSADOR.MAINTENANCE EQUIPMENT OPERATOR [address] [place], [place] [address] [facility] 04/01/25 Team Status: Active Member Role/Relationship Status Dates Dr. Connor Fuller MD Primary Care Provider Acti ve Team Status: Inactive Member Role/Relationship Status Dates Dr. Connor Fuller MD Primary Care Provider Acti ve Start: May 21, 2025 End: May 21, 2025 Essence FUENTES, PA Attending Provider Active Start: May 21, 2025 End: May 21, 2025 Essence FUENTES, PA Referring Provider Active Start: May 21, 2025 End: May 21, 2025 Pension Adviser Relationship Specialty Start Date End Date Sara Fuller MD [address] [facility] [place], [place] [address] PCP - General Family Medicine 02/22/17 Podlogar, [place], NUTRITION CLUB AMBASSADOR.MAINTENANCE EQUIPMENT OPERATOR [address] [place] [address] [facility] 09/26/24 Camille Tran APRN.MAINTENANCE EQUIPMENT OPERATOR [address] [place] [address] [facility] 04/01/25 Inactive Administered Medications - up to 3 most recent administrations Administered Medications (un recognized section and content) Medication Order MAR Action Action Date Dose Rate Site betamethasone acetate-betamethasone sodium phosphate 6 mg injection (CELESTONE) 6 mg, Injection - FOR ORTHO USE ONLY, ONCE, 1 dose, Starting on [facility] 11/07/23 at 0815, Until [facility] 11/07/23 at 0815 Given 11/07/2023 8:15 AM EST 6 mg Knee, Left betamethasone acetate-betamethasone sodium phosphate 6 mg injection (CELESTONE) 6 mg, Injection - FOR ORTHO USE ONLY, ONCE, 1 dose, Starting on [facility] 11/07/23 at 0815, Until [facility] 11/07/23 at 0815 Given 11/07/2023 8:15 AM EST 6 mg Knee, Right lidocaine (PF) 10 mg/mL (1 %) 4 mL injection (XYLOCAINE) 4 mL, Injection - FOR ORTHO USE ONLY, ONCE, 1 dose, Starting on [facility] 11/07/23 at 0815, Until [facility] 11/07/23 at 0815 Given 11/07/2023 8:15 AM EST 4 mL Knee, Left lidocaine (PF) 10 mg/mL (1 %) 4 mL injection (XYLOCAINE) 4 mL, Injection - FOR ORTHO USE ONLY, ONCE, 1 dose, Starting on [facility] 11/07/23 at 0815, Until [facility] 11/07/23 at 0815 Given 11/07/2023 8:15 AM EST 4 mL Knee, Right Inactive Administered Medications - up to 3 most recent administrations Medication Order MAR Action Action Date Dose Rate Site betamethasone acetate-betamethasone sodium phosphate 6 mg injection (CELESTONE) 6 mg, Injection - FOR ORTHO USE ONLY, ONCE, 1 dose, Starting on [facility] 02/06/24 at 1513, Until [facility] 02/06/24 at 1513 Given 02/06/2024 3:13 PM EDT 6 mg Knee, Left betamethasone acetate-betamethasone sodium phosphate 6 mg injection (CELESTONE) 6 mg, Injection - FOR ORTHO USE ONLY, ONCE, 1 dose, Starting on [facility] 02/06/24 at 1513, Until [facility] 4 at 1513 Given 02/06/2024 3:13 PM EDT 6 mg Knee, Right lidocaine (PF) 10 mg/mL (1 %) 5 mL injection (XYLOCAINE) 5 mL, Injection - FOR ORTHO USE ONLY, ONCE, 1 dose, Starting on [facility] 4 at 1513, Until [facility] 02/06/24 at 1513 Given 02/06/2024 3:13 PM EDT 5 mL Knee, Left lidocaine (PF) 10 mg/mL (1 %) 5 mL injection (XYLOCAINE) 5 mL, Injection - FOR ORTHO USE ONLY, ONCE, 1 dose, Starting on [facility] 4 at 1513, Until [facility] 02/06/24 at 1513 Given 02/06/2024 3:13 PM EDT 5 mL Knee, Right Goals (unrecognized section and content) Goals may be documented in a n alternate sectionGoals may be documented in an alternate section FOR RECORDS PERTAINING TO PATIENTS WHO ARE OR HAVE BEEN ENROLLED IN A CHEMICAL DEPENDENCY/SUBSTANCEABUSE PROGRAM, SOME INFORMATION MAY BE OMITTED. This clinical summary was aggregated from multiple sources. Caution should be exercised in using it in the provision of clinical care. This summary normalizes information from multiple sources, and as a consequence, information in this document may materially change the coding, format and clinical context of patient data. In addition, data may be omitted in some cases. CLINICAL DECISIONS SHOULD BE BASED ON THE PRIMARY CLINICAL RECORDS. [facility]. provides no warranty or guarantee of the accuracy or completeness of information in this document."
--- NOTE | 2025-06-21 14:49 | STRESSREP ---
Stress Test Report Exercise myocardial perfusion stress test. 74-year-old man with a history of dyspnea on exertion. Stress protocol: Resting EKG demonstrates sinus rhythm with a right bundle branch block with a rate of 60 bpm resting blood pressure is 142/70 mmHg. The patient exercised according to the regular [place] protocol for a total duration of 3 minutes attaining a maximum heart rate of 125 bpm which was 85% of maximum predicted heart rate; the maximum workload was 4.6 metabolic equivalents. At rest there were no ST or T wave changes noted to suggest ischemia and at peak exercise upsloping ST changes only were noted which did not meet the criteria for ischemia. No clinical angina was noted the test was terminated due to the target heart rate being achieved/fatigue. The peak blood pressure was 232/98 mmHg. this was a hypertensive response to exercise. Rate-pressure product was not calculated. Myocardial perfusion protocol. 14.2 mCi of technetium 99m sestamibi was injected at rest. The patient exercised according to regular [place] protocol for total duration of 3 minutes and at peak exercise 45 mCi of technetium 99m sestamibi was injected stress images were obtained stress and rest images were reconstructed in comparing the short axis vertical long and horizontal long axis. Gated images were also obtained. Perfusion SPECT analysis: Review of the stress images demonstrate normal uptake of tracer noted in all areas of the myocardium. The resting images similarly demonstrate normal uptake of tracer noted in all areas of the myocardium. No areas of reversibility are noted to suggest ischemia no previous infarct was noted. Gated SPECT analysis: The gated ejection fraction is 63%. Conclusion: Normal exercise myocardial perfusion stress test at a low workload.
== END | disposition home or self-care (01) ==
LOC: CVS 06:53
PROVIDERS: PCP Family Medicine; Referring Provider Physician Assistant Medical; Visit Provider Physician Assistant Medical
DX: R06.09 Other forms of dyspnea (principal)
CPT/HCPCS: 78452; 93017; A9500; A4216; J2785

== ENCOUNTER → 2025-09-23 | Outpatient (CLI) | payer MEDICARE, SELFPAY ==
--- NOTE | 2025-09-23 09:05 | ECHOCS_ITS ---
Reason For Study Reason For Study: MURMUR Procedure This was a 2D Doppler, Color Flow transthoracic echocardiogram. The study was technically difficult. Contrast injection was performed. Exam performed in department. Left Ventricle Normal LV size. The left ventricular ejection fraction is 65 %. Stage 1 diastolic dysfunction. No regional wall motion abnormalities noted. Right Ventricle Normal RV size. Normal systolic function. Atria Normal left atrium. Normal right atrium. Mitral Valve There is moderate mitral annular calcification. Tricuspid Valve Normal tricuspid valve. Mild (1+) tricuspid valve insufficiency. Pulmonary artery systolic pressure is 35 mmHg. Aortic Valve Trisinus/trileaflet aortic valve. Mild focal aortic valve calcification. Peak aortic valve gradient 31 mmHg. Mean aortic valve gradient 18 mmHg. Mild aortic stenosis. Pulmonic Valve Normal pulmonic valve. Great Vessels Normal aortic root. The pulmonary artery is normal size. Inferior vena cava collapse with respiration. Pericardium/Pleural No pericardial effusion. Medication 22 gauge I.V. with prn adaptor inserted into left arm. Diluted definity 1.5ml given slow IV push to enhance endocardial definition. MMode/2D Measurements & Calculations LVIDd: 5.3 cm IVSd: 0.89 cm LVOT diam: 2.0 cm LVIDs: 3.3 cm LVPWd: 0.87 cm RVDd: 3.9 cm FS: 37.4 % LVOT area: 3.2 cm2 Ao root diam: 3.8 cm LAV(MOD-bp): 55.1 ml LVAd ap4: 30.7 cm2 LAV(MOD-bp) Indexed: 22.6 ml/m2 LVLd ap4: 7.9 cm LAV(MOD-sp2): 47.2 ml EDV(MOD-sp4): 97.5 ml LAV(MOD-sp4): 57.5 ml EDV(sp4-el): 101.0 ml LVAs ap4: 16.3 cm2 LVLs ap4: 6.6 cm ESV(MOD-sp4): 32.8 ml ESV(sp4-el): 34.2 ml EF(MOD-sp4): 66.4 % EF(sp4-el): 66.2 % SV(MOD-sp4): 64.7 ml SV(sp4-el): 66.9 ml LA A4 area: 20.0 cm2 SI(MOD-sp4): 26.5 ml/m2 RA A4 area: 15.5 cm2 TAPSE: 2.0 cm Time Measurements MV dec time: 0.44 sec Doppler Measurements & Calculations MV E max subhash: 83.3 cm/sec Lat Peak E' Subhash: 7.2 cm/sec Med Peak E' Subhash: 7.0 cm/sec MV A max subhash: 137.2 cm/sec E/E' lat: 11.6 E/E' med: 11.8 MV E/A: 0.61 MV dec slope: 190.8 cm/sec2 Ao V2 max: 278.7 cm/sec LV V1 max: 140.3 cm/sec Ao max P.1 mmHg LV V1 max P.9 mmHg Ao V2 mean: 196.4 cm/sec LV V1 mean P.5 mmHg Ao mean P.7 mmHg LV V1 mean: 100.7 cm/sec Ao V2 VTI: 56.6 cm LV V1 VTI: 29.0 cm AV (velocity ratio): 0.51 JAYE(I,D): 1.7 cm2 JAYE(V,D): 1.6 cm2 SV(LVOT): 93.6 ml PA V2 max: 121.2 cm/sec TR max subhash: 284.2 cm/sec TR max P.3 mmHg ECHO/Echo Complete W/ Contrast Interpretation Summary The left ventricular ejection fraction is 65 %. Normal LV size. Stage 1 diastolic dysfunction. Mild focal aortic valve calcification. Contrast injection was performed. Ordering Physician: Essence Powers Referring Physician: Connor Fuller Performed By: Hanna Pena RDCS
== END | disposition home or self-care (01) ==
PROVIDERS: PCP Family Medicine; Referring Provider Physician Assistant Medical; Visit Provider Physician Assistant Medical
DX: R01.1 Cardiac murmur, unspecified (principal)
CPT/HCPCS: 93306; Q9957; A4216; C8929